=== PATIENT | female | born 1930 | race African-American/Black ===

== ENCOUNTER 2016-03-30 20:23 | Emergency (ER) | payer OTHER, MEDICARE ==
[2016-03-30 20:38] VITALS: TEMP 97.6; BMI 24.9
--- NOTE | 2016-03-30 21:06 | PDOC ---
History of Present Illness - General History Source: Patient, Family (Daughter ), Old Records Exam Limitations: No Limitations - History of Present Illness Initial Comments: 03/30/16 23:40 The patient is an 85 year old female, with a significant past medical history of HTN, hyperlipidemia, diabetes, pacemaker, CVA x2, right sided breast CA on oral chemotherapy (Tykerb 500 mg daily, Capecitabine 500 mg daily), chronic right upper extremity lymphedema, and dementia (baseline: AAO x 1), who presents to the emergency department via EMS with multiple episodes of diarrhea today. Patients daughter is with her in the ED. She reports that the patient had an outpatient CT scan done earlier today. Upon returning home, the patient experienced multiple episodes of diarrhea and appears to have syncopized this evening so patients daughter initiated EMS for evaluation in an ED. The patient s daughter denies fever, nausea or vomiting. Allergies: Pork/Porcine Containing Products Past Surgical History: Carotid endarterectomy; Pacemaker; Lumpectomy. Social History: Non smoker. Denies alcohol or drug use. PCP: Dr. Valencia <Elle Peacock - Last Filed: 03/30/16 23:43> - General History Source: Patient, Family, Old Records Exam Limitations: Dementia <Jean Pinon - Last Filed: 04/03/16 09:07> - General Chief Complaint: Diarrhea Stated Complaint: DIARRHEA/WEAK/CHILLS Time Seen by Provider: 03/30/16 20:28 Past History <Elle Peacock - Last Filed: 03/30/16 23:43> - Past Medical History Anemia: No Asthma: No Cancer: Yes (Rt breast (lumpectomy)) Cardiac Disorders: Yes CVA: Yes (x2 righted weakness) COPD: No CHF: No Dementia: No Diabetes: Yes GI Disorders: No Disorders: No HTN: Yes Hypercholesterolemia: Yes Liver Disease: No Seizures: No Thyroid Disease: No - Surgical History Abdominal Surgery: No Appendectomy: No Cardiac Surgery: Yes (carotid endarterectomy,ppm) Cholecystectomy: No Lung Surgery: No Neurologic Surgery: No Orthopedic Surgery: No - Psycho/Social/Smoking Cessation Hx Suicidal Ideation: No Smoking Status: No Smoking History: Never smoked Have you smoked in the past 12 months: No Number of Cigarettes Smoked Daily: 0 Hx Alcohol Use: No Drug/Substance Use Hx: No Substance Use Type: None Hx Substance Use Treatment: No <Jean Pinon - Last Filed: 04/03/16 09:07> - Past Medical History Allergies/Adverse Reactions: Allergies Allergy/AdvReac Type Severity Reaction Status Date / Time Pork/Porcine Containing Allergy Verified 08/12/15 09:46 Products Home Medications: Ambulatory Orders Labetalol HCl 300 mg PO BID #0 tablet 10/08/12 Capecitabine [Xeloda -] 500 mg PO BID 03/30/16 Lapatinib Ditosylate [Tykerb] 250 mg PO DAILY 03/30/16 Review of Systems - Review of Systems Able to Perform ROS?: Yes Comments:: 03/30/16 23:27 GENERAL/CONSTITUTIONAL: No fever or chills. No weakness. HEAD, EYES, EARS, NOSE AND THROAT: No change in vision. No ear pain or discharge. No sore throat. CARDIOVASCULAR: No chest pain or shortness of breath. RESPIRATORY: No cough, wheezing, or hemoptysis. GASTROINTESTINAL: +Diarrhea. No nausea, vomiting or constipation. GENITOURINARY: No dysuria, frequency, or change in urination. MUSCULOSKELETAL: No joint or muscle swelling or pain. No neck or back pain. SKIN: No rash. NEUROLOGIC: No headache, vertigo, loss of consciousness, or change in strength/ sensation. ENDOCRINE: No increased thirst. No abnormal weight change. HEMATOLOGIC/LYMPHATIC: No anemia, easy bleeding, or history of blood clots. ALLERGIC/IMMUNOLOGIC: No hives or skin allergy. <Elle Peacock - Last Filed: 03/30/16 23:43> *Physical Exam - Vital Signs Last Vital Signs Temp Pulse Resp BP Pulse Ox 97.6 F 81 19 129/60 03/30/16 20:35 03/30/16 20:35 03/30/16 20:35 03/30/16 20:35 - Physical Exam Comments: 03/30/16 23:12 GENERAL: Awake, alert, and fully oriented, in no acute distress. HEAD: No signs of trauma. EYES: PERRLA, EOMI, sclera anicteric, conjunctiva clear. ENT: Auricles normal inspection, hearing grossly normal, nares patent, oropharynx clear without exudates. Moist mucosa. NECK: Normal ROM, supple, no lymphadenopathy, JVD, or masses. LUNGS: Breath sounds equal, clear to auscultation bilaterally. No wheezes, and no crackles. HEART: Regular rate and rhythm, normal S1 and S2, no murmurs, rubs or gallops. ABDOMEN: Soft, nontender, normoactive bowel sounds. No guarding, no rebound. No masses. EXTREMITIES: Chronic right upper extremity lymphedema. Normal range of motion. No clubbing or cyanosis. No cords, erythema, or tenderness. NEUROLOGICAL: Cranial nerves II through XII intact. Normal speech, gait is deferred. SKIN: Right breast, chronic lesions from breast CA. Warm, dry, no rashes noted. <Elle Peacock - Last Filed: 03/30/16 23:43> - Vital Signs Last Vital Signs Temp Pulse Resp BP Pulse Ox 97.6 F 81 19 129/60 03/30/16 20:35 03/30/16 20:35 03/30/16 20:35 03/30/16 20:35 - Physical Exam Comments: 04/03/16 09:07 CORRECTION TO SCRIBE NOTE: AAOx1 (which is baseline for her for her dementia) <Jean Pinon - Last Filed: 04/03/16 09:07> ED Treatment Course - LABORATORY CBC & Chemistry Diagram: 03/30/16 23:25 03/30/16 23:25 <Elle Peacock - Last Filed: 03/30/16 23:43> - LABORATORY CBC & Chemistry Diagram: 03/31/16 00:41 03/30/16 23:25 - RADIOLOGY Radiology Studies Ordered: Category Date Time Status CHEST X-RAY PORTABLE* [RAD] Stat Radiology 03/30/16 20:58 Ordered <Jean Pinon - Last Filed: 04/03/16 09:07> Medical Decision Making - Medical Decision Making 03/30/16 23:29 EXAM: RAD/CHEST X-RAY PORTABLE Reviewed By: Dr. Fermin Morrell IMPRESSION: No acute disease. <Elle Peacock - Last Filed: 03/30/16 23:43> - Medical Decision Making 03/30/16 23:14 A portion of this note was documented by scribe services under my direction. I have reviewed the details of the note, within reason, and agree with the documentation with the following case summary and management plan written by me. Patient treated in the ED. Nursing notes are reviewed and incorporated into the medical decision-making. Vital signs reviewed. Peripheral IV access obtained by the nurse, laboratory studies are drawn and sent, reviewed and interpreted by myself. Vital Signs Temp Pulse Resp BP Pulse Ox 97.6 F 81 19 129/60 03/30/16 20:35 03/30/16 20:35 03/30/16 20:35 03/30/16 20:35 85-year-old female with history of pacemaker, hypertension, hyperlipidemia, right-sided breast cancer, chronic right upper extremity lymphedema, on oral chemotherapy presents to the emergency department for diarrhea. The patient had one for a outpatient routine CAT scan with IV contrast for staging. When she arrived at home, the patient started developed numerous stooling episodes and appeared to likely have syncopized from dehydration or from stooling. The patient has dementia and is typically AAO 1. At this moment, patient appears like herself. Patient denies any pain at this time. No known fevers, nausea, vomiting. It is very possible that the patient has developed acute gastroenteritis. She has no abdominal tenderness at this time. However, we'll need to obtain blood work. If the white cell counts are elevated, we'll consider CAT scan of the abdomen pelvis to rule out colitis. IV fluids and reassess. At this time, patient is nontoxic appearing. 03/31/16 01:02 CBC, BMP 03/31/16 00:41 03/30/16 23:25 CMP Sodium 142 mmol/L (136-145) 03/30/16 23:25 Potassium 3.8 mmol/L (3.5-5.1) 03/30/16 23:25 Chloride 106 mmol/L (98-107) 03/30/16 23:25 Carbon Dioxide 24 mmol/L (21-32) 03/30/16 23:25 Anion Gap 12 (8-16) 03/30/16 23:25 BUN 13 mg/dL (7-18) 03/30/16 23:25 Creatinine 0.8 mg/dL (0.55-1.02) 03/30/16 23:25 Creat Clearance w eGFR > 60 (>60) 03/30/16 23:25 Random Glucose 127 mg/dL (74-106) H D 03/30/16 23:25 Lactic Acid 1.541 mmol/L (0.4-2.0) 03/30/16 23:25 Calcium 8.5 mg/dL (8.5-10.1) 03/30/16 23:25 Phosphorus 2.7 mg/dL (2.5-4.9) 03/30/16 23:25 Magnesium 1.9 mg/dL (1.8-2.4) 03/30/16 23:25 Total Bilirubin 0.7 mg/dL (0.2-1.0) D 03/30/16 23:25 AST 21 U/L (15-37) 03/30/16 23:25 ALT 27 U/L (12-78) 03/30/16:25 Alkaline Phosphatase 83 U/L (45-117) 03/30/16:25 Creatine Kinase 123 IU/L (26-192) 03/30/16:25 Troponin I 0.04 ng/ml (0.00-0.05) 03/30/16: Total Protein 6.5 g/dl (6.4-8.2) 03/30/16 23:25 Albumin 3.2 g/dl (3.4-5.0) L 03/30/16:25 Chest x-ray reviewed. No acute findings. EKG demonstrates no WPW, QTc is 457 ms, no Brugada. Though the patient's EKG is different from several years ago, the patient herself has not endorsed any chest pain. Her troponin is negative. Her syncopal episode sounds secondary to weakness, diarrhea and likely dehydration and vasovagal. Since the patient is given IV fluids, the patient's symptoms have improved drastically. And the patient's daughter reports that she is like her usual self. I will give her a copy of the results to have her follow-up with her primary care physician. Return precautions given including worsening diarrhea and inability to tolerate by mouth. Patient's daughter verbalize understanding agrees with plan. After talking at length with the daughter, we decided against the urine sample. The patient has had moved her bowels into the urine sample in the commode. The patient typically does NOT get UTIs. The patient has not indicated that she had pain when urinating. Given the circumstances, the patient and patient's daughter , they would like to go home. At this time, I had given the patient and daughter strict return precautions ie fever, worsening pain. I discussed the physical exam findings, ancillary test results and final diagnoses with the patient. I answered all of the patient's questions. The patient was satisfied with the care received and felt comfortable with the discharge plan and treatment plan. The patient will call their primary care physician within 24 hours to arrange follow-up and will return to the Emergency Department with any new, persistant or worsening symptoms. <Jean Pinon - Last Filed: 04/03/16 09:07> *DC/Admit/Observation/Transfer - Attestations Scribe Attestion: 03/30/16 21:07 Documentation prepared by Elle Peacock, acting as medical professionals for Jena Pinon MD. <Elle Peacock - Last Filed: 03/30/16 23:43> - Discharge Dispostion Admit: No <Jean Pinon - Last Filed: 04/03/16 09:07> Diagnosis at time of Disposition: Diarrhea Qualifiers: Diarrhea type: unspecified type Qualified Code(s): R19.7 - Diarrhea, unspecified - Discharge Dispostion Disposition: HOME Condition at time of disposition: Good - Referrals Referrals: Jose Alberto Valencia [Primary Care Provider] - - Patient Instructions Printed Discharge Instructions: Diarrhea, Diarrhea (Alternative Therapy) Additional Instructions: Please drink plenty of fluids and rest. Take 650 mg tylenol every 4 hours as needed for pain. Take the imodium and zantac as prescribed as needed for symptoms relief. If you feint, have uncontrollable pain, or dehydrated, please return to the ER for further evaluation.
[2016-03-30] MEDS ORDERED: SODIUM CHLORIDE 500 ML IV STA ×2 (21:30→23:03)
[2016-03-30 23:56] LABS: ALBUMIN 3.2 g/dl (3.4-5.0); ANION GAP 12 (8-16); BILIRUBIN,TOTAL 0.7 mg/dL (0.2-1.0); CALCIUM 8.5 mg/dL (8.5-10.1); CO2 24 mmol/L (21-32); CREATININE 0.8 mg/dL (0.55-1.02); GLUCOSE,RANDOM 127 mg/dL (74-106); MAGNESIUM 1.9 mg/dL (1.8-2.4); PHOSPHOROUS 2.7 mg/dL (2.5-4.9); SGPT/ALT 27 U/L (12-78); TOT PROT 6.5 g/dl (6.4-8.2)
[2016-03-30 23:59] LABS: ALK PHOS 83 U/L (45-117); TROPONIN I 0.04 ng/ml (0.00-0.05)
[2016-03-31] LABS: SGOT/AST 21 U/L (15-37)
[2016-03-31 00:03] LABS: INR 1.04 (0.82-1.09); PROTHROMBIN TIME (PATIENT) 11.5 SEC (9.98-11.88)
[2016-03-31 00:06] LABS: ACTIVATED PTT 25.7 SECONDS (26.9-34.4)
[2016-03-31 00:07] VITALS: BP 149/61; PULSE 72
[2016-03-31 00:52] LABS: BASOPHIL 0.4 % (0-2.0); EOSINOPHIL 0.6 % (0-4.5); MCH 32.4 pg (25.7-33.7); MCHC 33.3 g/dl (32.0-36.0); MEAN CELL VOLUME 97.1 fl (80-96); MEAN PLT VOLUME 9.5 fl (7.5-11.1); NEUTROPHILS 77.4 % (42.8-82.8); PLATELET COUNT 166 K/MM3 (134-434); RDW 15.5 % (11.6-15.6)
[2016-03-31] MEDS ORDERED: LOPERAMIDE HCL 2 MG CAPSULE PO ONE (01:13)
[2016-03-31] MEDS ORDERED: LOPERAMIDE HCL 2 MG CAPSULE ONE (01:18)
--- NOTE | 2016-04-01 09:41 | EKG ---
Test Reason : Blood Pressure : / mmHG Vent. Rate : 077 BPM Atrial Rate : 077 BPM P-R Int : 174 ms QRS Dur : 094 ms QT Int : 404 ms P-R-T Axes : 078 004 171 degrees QTc Int : 457 ms POOR DATA QUALITY, INTERPRETATION MAY BE ADVERSELY AFFECTED NORMAL SINUS RHYTHM POSSIBLE LEFT ATRIAL ENLARGEMENT LEFT VENTRICULAR HYPERTROPHY WITH REPOLARIZATION ABNORMALITY ABNORMAL ECG WHEN COMPARED WITH ECG OF 07-OCT-2012 10:14, T WAVE INVERSION NOW EVIDENT IN INFERIOR LEADS T WAVE INVERSION NOW EVIDENT IN LATERAL LEADS Confirmed by LYNNE GABRIEL MD ([id number]) on 04/01/2016 9:41:13 AM Referred By: Confirmed By:LYNNE GABRIEL MD
== END 2016-03-31 01:39 | disposition home or self-care (01) ==
LOC: JER 20:23
PROC: 3E0337Z Introduction of Electrolytic and Water Balance Substance into Peripheral Vein, Percutaneous Approach (ICD-10-PCS; principal; 2016-03-30)
DX: R19.7 Diarrhea, unspecified (principal); I25.10 Atherosclerotic heart disease of native coronary artery without angina pectoris; I10 Essential (primary) hypertension; Z95.0 Presence of cardiac pacemaker; E11.9 Type 2 diabetes mellitus without complications; E78.00 Pure hypercholesterolemia, unspecified; C50.911 Malignant neoplasm of unspecified site of right female breast; I89.0 Lymphedema, not elsewhere classified; F03.90 Unspecified dementia, unspecified severity, without behavioral disturbance, psychotic disturbance, mood disturbance, and anxiety; I69.851 Hemiplegia and hemiparesis following other cerebrovascular disease affecting right dominant side
CPT/HCPCS: 36415; 71010-TC; 71270-TC; 74178-TC; 80053; 82550; 83605; 83735; 84100; 84484; 85025; 85610; 85730; 93005; 93010; 96360; 96361; 99283-25; C1887; Q9967

== ENCOUNTER 2016-06-05 14:09 | Emergency (ER) | payer OTHER, MEDICARE ==
[2016-06-05 14:55] VITALS: BP 157/66; PULSE 56; TEMP 98; BMI 25.0
--- NOTE | 2016-06-05 16:30 | PDOC ---
History of Present Illness - General Chief Complaint: Pain Stated Complaint: RT BREAST PAIN Time Seen by Provider: 06/05/16 16:21 History Source: Patient Exam Limitations: No Limitations - History of Present Illness Initial Comments: CHIEF COMPLAINT: 85 y/o afebrile female with PMH HTN, HLD, dementia, breast cancer BIB her daughter for increased right breast pain for the past 3 days. HISTORY OF PRESENT ILLNESS: The patient's daughter states she normally gives her mom tylenol for her pain but the past few days the pain has been so severe the tylenol is helping so she brought her in. Daughter denies f/c, n/v/d, SOB, and all other symptoms. Daughter does admit the patient has open wounds on her right breast that have been present and draining since 2014. Vital signs on arrival are notable for pulse of 56 REVIEW OF SYSTEMS: (Provided by daughter) GENERAL/CONSTITUTIONAL: No fever/chills. HEAD, EYES, EARS, NOSE AND THROAT: No ear pain or discharge. No sore throat. CARDIOVASCULAR: No chest pain or shortness of breath. RESPIRATORY: No cough, wheezing, or hemoptysis. GASTROINTESTINAL: No vomiting, diarrhea. GENITOURINARY: No decrease in urination. MUSCULOSKELETAL: +right breast pain SKIN: Open wounds to right breast NEUROLOGIC: No loss of consciousness. PHYSICAL EXAM: GENERAL: The patient is awake, alert, oriented to her name, in no acute distress. HEAD: Normal with no signs of trauma. EYES: Pupils equal, round and reactive to light, extraocular movements intact, sclera anicteric, conjunctiva clear. BREASTS: Right breast with multiple open wounds/sores that have minimal yellow discharge. Irritated erythematous skin under right breast. TTP across entire right breast. No troy d'orange. No nipple inversion. EXTREMITIES: Normal range of motion, no edema. NEUROLOGICAL: Normal speech, normal gait. SKIN: Warm, Dry, normal turgor, no rashes or lesions noted. Past History - Past Medical History Allergies/Adverse Reactions: Allergies Allergy/AdvReac Type Severity Reaction Status Date / Time Pork/Porcine Containing Allergy Verified 06/05/16 14:52 Products Home Medications: Ambulatory Orders Labetalol HCl 300 mg PO BID #0 tablet 10/08/12 Capecitabine [Xeloda -] 500 mg PO BID 03/30/16 Lapatinib Ditosylate [Tykerb] 250 mg PO DAILY 03/30/16 Anemia: No Asthma: No Cancer: Yes (Rt breast (lumpectomy)) Cardiac Disorders: Yes CVA: Yes (x2 righted weakness) COPD: No CHF: No Dementia: No Diabetes: Yes GI Disorders: No Disorders: No HTN: Yes Hypercholesterolemia: Yes Liver Disease: No Seizures: No Thyroid Disease: No - Surgical History Abdominal Surgery: No Appendectomy: No Cardiac Surgery: Yes (carotid endarterectomy,ppm) Cholecystectomy: No Lung Surgery: No Neurologic Surgery: No Orthopedic Surgery: No - Psycho/Social/Smoking Cessation Hx Suicidal Ideation: No Smoking Status: No Smoking History: Never smoked Have you smoked in the past 12 months: No Number of Cigarettes Smoked Daily: 0 Hx Alcohol Use: No Drug/Substance Use Hx: No Substance Use Type: None Hx Substance Use Treatment: No *Physical Exam - Vital Signs Last Vital Signs Temp Pulse Resp BP Pulse Ox 98 F 56 L 19 157/66 100 06/05/16 14:52 06/05/16 14:52 06/05/16 14:52 06/05/16 14:52 06/05/16 14:52 Medical Decision Making - Medical Decision Making A/P: 85 y/o female currently taking oral chemo for recurrent right breast cancer BIB her daughter for increased pain to right breast. Plan is as follows: 1. IM toradol 2. Xray chest to r/o mets CXR IMPRESSION: (wet read) No acute findings The patient's daughter states she thinks the patient's pain is improved because she hasn't been complaining and wants to go home. Suggested the patient take Motrin for pain with food, along with tylenol if needed. Suggested the patient' s daughter f/u with the patient's PCP and oncologist if the symptoms persist or worsen. Instructed her to return to the ER with any worsening or concerning symptoms. The patient's daughter verbalizes understanding of all instructions, has no further questions and is awaiting discharge. *DC/Admit/Observation/Transfer Diagnosis at time of Disposition: Breast pain, right - Discharge Dispostion Disposition: HOME Condition at time of disposition: Improved - Referrals Referrals: Jose Alberto Valencia [Primary Care Provider] - - Patient Instructions Printed Discharge Instructions: DI for Breast Pain (Mastalgia) Additional Instructions: Discharge Instructions: -Give 600mg of Motrin every 6 hours with food if needed for pain -Follow up with your doctor and Oncologist if symptoms persist -Return to the ER with any worsening or concerning symptoms.
[2016-06-05] MEDS ORDERED: KETOROLAC TROMETHAMINE 30 MG/1 ML VIAL IM ONE (16:37)
[2016-06-05] MEDS ORDERED: KETOROLAC TROMETHAMINE 30 MG/1 ML VIAL ONE (16:38)
== END 2016-06-05 17:53 | disposition home or self-care (01) ==
LOC: JERFT 14:09
PROC: 3E0233Z Introduction of Anti-inflammatory into Muscle, Percutaneous Approach (ICD-10-PCS; principal; 2016-06-05)
DX: I10 Essential (primary) hypertension (principal); E78.00 Pure hypercholesterolemia, unspecified; F03.90 Unspecified dementia, unspecified severity, without behavioral disturbance, psychotic disturbance, mood disturbance, and anxiety; Z85.3 Personal history of malignant neoplasm of breast; I69.851 Hemiplegia and hemiparesis following other cerebrovascular disease affecting right dominant side
CPT/HCPCS: 71020-TC; 96372; 99281-25

== ENCOUNTER 2016-08-11 09:11 | Inpatient (IN) | payer OTHER, MEDICARE ==
--- NOTE | 2016-08-11 09:32 | PDOC ---
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 As per daughter, she noticed the patient began to experience left sided weakness yesterday afternoon. She reports she has been monitoring the patient since her symptoms began. Daughter states the weakness prevented the patient from feeding herself. She reports the patients speech has been worsening. Daughter states the patient had been walking following her stroke. She denies any head trauma or LOC. Daughter denies patient has complained of any fever, chills, cough, headache, or dizziness. Patient is unable to answer any other questions appropriately due to current clinical condition. Allergies: NKDA. Pork/Porcine containing products. Past Surgical History: Carotid endarterectomy, Lumpectomy Social History: Non-smoker. Denies alcohol or drug use. PCP: Dr. Valencia <Zeyad Dixon - Last Filed: 08/11/16 12:26> <Dora Carias - Last Filed: 08/11/16 12:44> - General Stated Complaint: WEAKNESS Time Seen by Provider: 08/11/16 09:12 Past History <Zeyad Dixon - Last Filed: 08/11/16 12:26> - Past Medical History Anemia: No Asthma: No Cancer: Yes (Rt breast (lumpectomy)) Cardiac Disorders: Yes CVA: Yes (x2 righted weakness) COPD: No CHF: No Dementia: No Diabetes: Yes GI Disorders: No Disorders: No HTN: Yes Hypercholesterolemia: Yes Liver Disease: No Seizures: No Thyroid Disease: No - Surgical History Abdominal Surgery: No Appendectomy: No Cardiac Surgery: Yes (carotid endarterectomy,ppm) Cholecystectomy: No Lung Surgery: No Neurologic Surgery: No Orthopedic Surgery: No - Immunization History Immunization Up to Date: No - Psycho/Social/Smoking Cessation Hx Anxiety: No Suicidal Ideation: No Smoking Status: No Smoking History: Never smoked Have you smoked in the past 12 months: No Number of Cigarettes Smoked Daily: 0 Hx Alcohol Use: No Drug/Substance Use Hx: No Substance Use Type: None Hx Substance Use Treatment: No <Dora Carias - Last Filed: 08/11/16 12:44> - Past Medical History Allergies/Adverse Reactions: Allergies Allergy/AdvReac Type Severity Reaction Status Date / Time Pork/Porcine Containing Allergy Severe Hives Verified 08/11/16 09:36 Products Home Medications: Ambulatory Orders Labetalol HCl 300 mg PO BID #0 tablet 10/08/12 Capecitabine [Xeloda -] 500 mg PO BID 03/30/16 Lapatinib Ditosylate [Tykerb] 750 mg PO DAILY 03/30/16 Aspirin [Ecotrin] 81 mg PO DAILY 08/09/16 Cephalexin [Keflex] 500 mg PO BID 08/09/16 Rosuvastatin Calcium [Crestor] 40 mg PO DAILY 08/09/16 Review of Systems - Review of Systems Able to Perform ROS?: Yes Comments:: 08/11/16 09:40 GENERAL/CONSTITUTIONAL: Yes: +left sided weakness. No fever or chills. HEAD, EYES, EARS, NOSE AND THROAT: No change in vision. No ear pain or discharge. No sore throat. CARDIOVASCULAR: No chest pain or shortness of breath. RESPIRATORY: No cough, wheezing, or hemoptysis. GASTROINTESTINAL: No nausea, vomiting, diarrhea or constipation. GENITOURINARY: No dysuria, frequency, or change in urination. MUSCULOSKELETAL: No joint or muscle swelling or pain. No neck or back pain. SKIN: No rash NEUROLOGIC: Yes: +left sided weakness, +slurred speech. No headache, vertigo, or loss of consciousness. ENDOCRINE: No increased thirst. No abnormal weight change. HEMATOLOGIC/LYMPHATIC: No anemia, easy bleeding, or history of blood clots. ALLERGIC/IMMUNOLOGIC: No hives or skin allergy. <Zeyad Dixon - Last Filed: 08/11/16 12:26> *Physical Exam - Vital Signs Last Vital Signs Temp Pulse Resp BP Pulse Ox 97.7 F 69 20 158/53 99 08/11/16 09:33 08/11/16 09:33 08/11/16 09:33 08/11/16 09:33 08/11/16 09:33 - Physical Exam Comments: 08/11/16 09:40 GENERAL: Awake and alert. In no acute distress HEAD: No signs of trauma EYES: Unable to test visual esqueda. Sclera anicteric, conjunctiva clear ENT: Auricles normal inspection, hearing grossly normal, nares patent. Moist mucosa NECK: Normal ROM, supple, no lymphadenopathy, JVD, or masses LUNGS: Breath sounds equal, clear to auscultation bilaterally. No wheezes, and no crackles HEART: Regular rate and rhythm, normal S1 and S2, no murmurs, rubs or gallops ABDOMEN: Soft, nontender, normoactive bowel sounds. No guarding, no rebound. No masses EXTREMITIES: +Right upper extremity edema. Normal range of motion. No clubbing or cyanosis. No cords, erythema, or tenderness. DP/PT pulses 2+ and symmetric. NEUROLOGICAL: Answers questions inappropriately. Slurred speech and difficulty finding words. Strength ? to the right upper and lower extremities. Strength ? to the left arm and left leg. Unable to cooperate with cerebellar testing. Moves all extremities. Normal speech, normal gait SKIN: +Right breast excoriation. Otherwise warm, Dry, normal turgor, no rashes or lesions noted. <Zeyad Dixon - Last Filed: 08/11/16 12:26> NIH Stroke Scale - Last Known Well Date/Time & Onset Date Last Known Well: 08/10/16 - Initial Evaluation Level of consciousness: Alert Ask patient the month and their age: Answers one correctly Ask patient to open & close eyes; make fist and let go: Obeys one correctly Best gaze (horizontal eye movement): Normal Visual field testing: No visual field loss Facial paresis (Show teeth/raise eyebrows/close eyes tight): Normal symmetrical movement Motor Function: Left Arm: Some effort against gravity Motor Function: Right Arm: No effort against gravity Motor Function: Left Leg: Drift Motor Function: Right Leg: Some effort against gravity Limb Ataxia: Untestable (Joint fused or limb amputated), explain: (pt having difficulty following commands) Sensory(Use pinprick test arms,legs,trunk,face/side to side): Normal Best language (Describe picture, name items, read sentences): Mild to moderate aphasia Dysarthria (read several words): Mild to moderate slurring of words Extinction and Inattention: No abnormality - Total Score NIH Stroke Scale Score: 12 <Dora Carias - Last Filed: 08/11/16 12:44> tPA Exclusion checklist 3-4.5h - Time Elapsed Date last known well: 08/10/16 Time last known well: 13:00 Elaspsed time: Day(s) and 23 Hour(s) and 43 Minutes - Thrombolytic Therapy Candidate Is patient eligible for thrombolytic therapy: No - Exclusion Criteria 3-4.5 hr SBP greater than 185 or DBP greater than 110mmHg despite tx: No Recent IC/spinal surgery,head trauma or stroke<3mos.: No Hx IC hemorrhage, IC neoplasm, AV malformation or aneurysm: No Active internal bleeding: No Blding diathesis(low plt ct, inc PTT,INR>1.7 or use of NOAC): No Symptoms suggest subarachnoid hemorrhage: No CT demonstrates multilobar infarct(>1/3 cerebral hemiphere): No Arterial puncture at noncompressible site in previous 7 days: No Blood glucose concentration less than 50mg/dL (2.7mmol/L): No - Relative Exclusion Criteria 3-4.5 hr Life expectancy <1 yr or severe co-morbid illness: No : No Patient/family refused: No Rapid improvement: No Stroke severity too mild: No Recent acute IN (w/in previous 3 months): No Seizure at onset with postictal residual neuro impairments: No Major surgery or serious trauma w/in previous 14 days: No Recent GI or hemorrhage (w/in previous 21 days): No - Add'l Relative Exclusion 3-4.5 hr Age > 80: Yes Hx of both diabetes AND prior ischemic stroke: Yes Taking an oral anticoagulant regardless of INR: No - Ineligibility reason(s) Reasons No tPA given: Outside of window - delayed arrival <Dora Carias - Last Filed: 08/11/16 12:44> Heart Score/ECG Review #1 General ECG Interpretation: Normal Rate (66 paced), No acute ischemic changes Compared to previous ECG there are: No significant change - ECG Intrepretation Comment:: 08/11/16 10:06 paced - [place]: Left [place] Deviation <Dora Carias - Last Filed: 08/11/16 12:44> Critical Care Time/MDM Note - Medical Decision Making Note: 08/11/16 09:41 EXAM: Head CT INTERPRETED BY: Dr. Márquez REVIEWED BY: Dr. Carias IMPRESSION: No CT evidence of acute intracranial pathology. Chronic ischemic findings as discussed above without obvious interval change in comparison to a previous CT study of 08/10/2015. EXAM: CXR INTERPRETED BY: Dr. Kelly REVIEWED BY: Dr. Carias IMPRESSION: No acute change since prior study other than motion artifact. First call placed to Dr. Subramanian at 12:20. Awaiting call back. First call placed to Dr. Larios at 12:26. Awaiting call back. Documentation prepared by Zeyad Dixon, acting as medical lab director for Dora Carias MD. <Zeyad Dixon - Last Filed: 08/11/16 12:26> - Medical Decision Making Note: 08/11/16 09:27 85yo F with h;/o HTN prior CVA ( expressive aphasia and right sided weakness) HLD DM and recurrent right breast ca here with worsening speech, and now left sided weakness since yesterday noted pt was leaning to the left, also speech is worse than normal. per pt daughter at bedside who provides history , pt had been walking following her stroke. no f/c no other complaints. on exam pt awake alert smiling. unable to answer questions appropriately, cardiac lung exams normal , abd soft NT ext wwp. RUE edema. nuero speech slurred, cant answer questions appropriately, right upper ext 3/5, left upper 4/ 5, left leg 3/5. differential: cva, met breast ca to brain, ich, infection. plan labs ekg cthead cxr will require admission. pt not tpa candidate as sxs already 24 hour old. 08/11/16 12:15 pt with chronic ischemic changes, no acute stroke, ekg unchanged. labs unremarkable. will admit for pt assessment, speech/ swallow eval, CVA . dr chavez consulted nuerology <Dora Carias - Last Filed: 08/11/16 12:44> Discharge Disposition <Zeyad Dixon - Last Filed: 08/11/16 12:26> - Discharge Dispostion Admit: Yes <Dora Carias - Last Filed: 08/11/16 12:44> - Diagnosis Cerebrovascular accident (CVA)
[2016-08-11 09:40] VITALS: BMI 26.4
[2016-08-11 10:37] LABS: BASOPHIL 0.9 % (0-2.0); EOSINOPHIL 1.2 % (0-4.5); MCH 31.5 pg (25.7-33.7); MCHC 32.9 g/dl (32.0-36.0); MEAN CELL VOLUME 95.8 fl (80-96); MEAN PLT VOLUME 9.9 fl (7.5-11.1); NEUTROPHILS 63.8 % (42.8-82.8); PLATELET COUNT 164 K/MM3 (134-434); RDW 14.3 % (11.6-15.6)
[2016-08-11 11:01] LABS: INR 1.03 (0.82-1.09); PROTHROMBIN TIME (PATIENT) 11.3 SEC (9.98-11.88)
[2016-08-11 11:04] LABS: ACTIVATED PTT 26.5 SECONDS (26.9-34.4)
[2016-08-11 11:10] LABS: ALBUMIN 3.3 g/dl (3.4-5.0); ANION GAP 6 (8-16); CO2 27 mmol/L (21-32); COCKROFT - GAULT 64.4725; CREATININE 0.8 mg/dL (0.55-1.02); GLUCOSE,RANDOM 87 mg/dL (74-106); SGOT/AST 15 U/L (15-37); SGPT/ALT 13 U/L (12-78)
[2016-08-11 11:11] LABS: ALK PHOS 68 U/L (45-117); BILIRUBIN,TOTAL 1.3 mg/dL (0.2-1.0); TOT PROT 6.4 g/dl (6.4-8.2)
[2016-08-11 11:18] LABS: URINE APPEARANCE CLEAR; URINE BILIRUBIN NEGATIVE (NEGATIVE); URINE BLOOD NEGATIVE (NEGATIVE); URINE COLOR COLORLESS; URINE GLUCOSE (UA) NEGATIVE (NEGATIVE); URINE KETONE NEGATIVE (NEGATIVE); URINE LEUK ESTERASE NEGATIVE (NEGATIVE); URINE NITRITE NEGATIVE (NEGATIVE); URINE PROTEIN NEGATIVE (NEGATIVE); URINE UROBILINOGEN NEGATIVE E.U./dl (0.2-1.0)
--- NOTE | 2016-08-11 13:54 | HP ---
Admitting History and Physical - Admission Chief Complaint: Left Sided weakness History of Present Illness: Patient is a 85 yrs old F lives at home with daughter, multiple medical, Co- morbidities h/O HTN, CVA , Rt Carotid stenosis s/p endaartrectomy, minimal residual weakness on Rt side able to ambulate unsupported till Saturday, also H/O Romeo arrhythmia s/p Pacemaker interrogated in 06/2016, Border line T2DM, Hypercholesterolemia, Recurrent Rt fungating CA Breast on Chemotherapy, Rt UE Lymph luc a after Rt axillary LN resection, patient is unable to provide much information, as per daughter patient was able to ambulate comfortable, on Saturday noticed Rt worsening of Rt LE weakness and had a fall came to Ed for evaluation, patient was discharged home, yesterday evening daughter noticed that patient is confused and having Left UE with slurring of the speech and today morning, patient couldn't get up so called 911 came to Ed for evaluation, on arrival hemodynamically stable, confused, able to communicate, Left upper and LE weakness CT haed shows no acute changes, Neurology consulted, patient is being admitted for further w/u. Patient had MRI so cant get MRI will Rpt CT haed after 24 hrs. No C/O chest pain, SOB, Palpitation, nausea, vomiting , fever , cough or urinary incontinence. 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 Cardiovascular: Yes: HTN, Hyperlipdemia Heme/Onc: Yes: Cancer (Rt CA breast) Endocrine: Yes: Diabetes Mellitus - Past Surgical History Past Surgical History: Yes: Carotid Endarterectomy (Rt sided) - Advance Directives Advance Directives: Yes: Health Care Proxy (Daughter) - Smoking History Smoking history: Never smoked Have you smoked in the past 12 months: No Aproximately how many cigarettes per day: 0 - Alcohol/Substance Use Hx Alcohol Use: No - Social History Usual Living Arrangement: Yes: With Child ADL: Independent History of Recent Travel: No Home Medications - Allergies Allergies/Adverse Reactions: Allergies Allergy/AdvReac Type Severity Reaction Status Date / Time Pork/Porcine Containing Allergy Severe Hives Verified 08/11/16 09:36 Products - Home Medications Home Medications: Ambulatory Orders Labetalol HCl 300 mg PO BID #0 tablet 10/08/12 Capecitabine [Xeloda -] 500 mg PO BID 03/30/16 Lapatinib Ditosylate [Tykerb] 750 mg PO DAILY 03/30/16 Aspirin [Ecotrin] 81 mg PO DAILY 08/09/16 Cephalexin [Keflex] 500 mg PO BID 08/09/16 Rosuvastatin Calcium [Crestor] 40 mg PO DAILY 08/09/16 Family Disease History - Family Disease History Family Disease History: Diabetes: Mother, Heart Disease: Father Review of Systems - Review of Systems Constitutional: denies: Chills, Diaphoresis, Fever Eyes: reports: Blurred Vision, Double Vision HENT: reports: Difficult Swallowing, Ear Discharge Neck: denies: Stiffness Cardiovascular: reports: Edema. denies: Chest Pain, Palpitations, Shortness of Breath Respiratory: denies: Cough, Orthopnea Musculoskeletal: denies: Back Pain Neurological: reports: Change in LOC, Change in Speech, Confusion, Weakness ( Left sided) Physical Examination Vital Signs: Vital Signs Temperature 97.7 F 08/11/16 09:33 Pulse Rate 75 08/11/16 11:51 Respiratory Rate 20 08/11/16 11:51 Blood Pressure 151/96 08/11/16 11:51 O2 Sat by Pulse Oximetry (%) 99 08/11/16 11:51 P Exam; Elderly F not in distress, confused, alert HEENT: No facial asymmetry, Mm moist, mild anemia, No Nystagmus CHEST: Large fungating lesion on the Rt Brsat, no acute infection, ., CTA B/L CVS; S1S@ R no m/g/r ABD: Obese , no distention, non tender BS + EXT: Rt UE edema ++, Trace edema feet, no calf tenderness, Pulses + PROFESSOR OF LEGAL STUDIES: Patient is alert but confused, following commands Speech; Slurred Cranial N 2-12 are normal Sensory; Intact Motor: Rt UE 4 , Rt LE 4 Left UE 3, Left LE 3 Reflexes; Indermind Cerebellar; Cant tested. Imaging - Results Chest X-ray: Report Reviewed (Left Sided Pacemaker no interval changes) Cat Scan: Pending, Report Reviewed (Head; No acute Intra cranila chnages) EKG: Report Reviewed (HR 66 intermittent Paced Rhythm, QRS 172 QTC 467 axis - 17) Problem List - Problems (1) CVA (cerebral vascular accident) Assessment/Plan: Patient has multiple risk factors for atherosclerosis H/O Rt sided Hemiparesis that improved over the time, now present with new onset Left sided weakens and slurred speech since yesterday, out of TPA window, Ct HHead no acute changes, Neurology Consuted from the ED. -Neuro Check -NPO except Meds -Speech and swallow and PT evaluation. -Patient is on ASA 81 and Crestor 40 mg Daily -Permissive HTN target BP Systolic > 160 mm of Hg -Decrease dose of Labertalol to 50 mg BID. -F/U HbA1C, Lipid Panel, TSH, B12 Code(s): I63.9 - CEREBRAL INFARCTION, UNSPECIFIED Qualifiers: Precerebral and cerebral artery: middle cerebral artery Laterality of affected vessel: left (2) Hypertension Assessment/Plan: h/O HTN at present well controlled will decrease dose of Labetalol 50 mg for permissive HTN Targeyt 160/90 mm of HG. Code(s): I10 - ESSENTIAL (PRIMARY) HYPERTENSION (3) Cancer of breast Assessment/Plan: Patient has recurrent CA Breast Rt Breast, since Jan 2015 on Chemotherapy, Patient has large fungating mass with Rt Bresat, initially diagnosed CA Bresat in 2012 treated at [facility] with Lumpectomy and [address] removal followed by RT and Chemotherapy, patient has Rt UE Luymph edema since intial surgery , recently pult on Cephalexin for : Cellulites will cont same. F/ U Rt UE Doppler to R/O DVT Code(s): C50.919 - MALIGNANT NEOPLASM OF UNSP SITE OF UNSPECIFIED FEMALE BREAST Qualifiers: Laterality: right (4) Lymph edema Assessment/Plan: Rt upper extremity Lymph edema s/p Rt Ingumal LN resection F/O Rt UE DVT scan. Code(s): I89.0 - LYMPHEDEMA, NOT ELSEWHERE CLASSIFIED (5) Hypercholesteremia Assessment/Plan: Cont Crestor 40 mg daily F/U Lipid Panel, TSH Code(s): E78.00 - PURE HYPERCHOLESTEROLEMIA, UNSPECIFIED (6) T2DM (type 2 diabetes mellitus) Assessment/Plan: Diet controlled F/U accucheck and correction dose insulin. Code(s): E11.9 - TYPE 2 DIABETES MELLITUS WITHOUT COMPLICATIONS
--- NOTE | 2016-08-11 15:24 | EKG ---
Test Reason : Blood Pressure : / mmHG Vent. Rate : 066 BPM Atrial Rate : 066 BPM P-R Int : 172 ms QRS Dur : 086 ms QT Int : 446 ms P-R-T Axes : 043 -14 105 degrees QTc Int : 467 ms SINUS RHYTHM WITH INTERMITENT VENTRICULAR PACING ABNORMAL ECG WHEN COMPARED WITH ECG OF 09-AUG-2016 08:41, ELECTRONIC VENTRICULAR PACEMAKER HAS REPLACED SINUS RHYTHM CLINICAL CORRELATION IS RECOMMENDED Confirmed by RAFAEL SHEPHERD, NISSA ([id number]) on 08/11/2016 3:23:52 PM Referred By: Confirmed By:NISSA HALL MD
[2016-08-11] MEDS: INSULIN SLIDING SCALE (NOVOLOG) 1 VIAL SQ SCH (19:49)
[2016-08-11] MEDS ORDERED: LABETALOL HCL 100 MG TABLET (FP) ONE (21:02)
[2016-08-11] MEDS ORDERED: LABETALOL HCL 200 MG TABLET (FP) ONE (21:02)
[2016-08-11] MEDS ORDERED: PT OWN MED DRAWER 7, Y5N ONE (21:03)
[2016-08-11] MEDS: LABETALOL HCL 200 MG, LABETALOL HCL 100 MG PO SCH ×2 (21:31→21:52)
[2016-08-11] MEDS: CEPHALEXIN MONOHYDRATE 500 MG CAPSULE (UD) PO SCH ×2 (21:31→21:52)
[2016-08-11] MEDS: CAPECITABINE 500 MG PO SCH (22:00)
[2016-08-11] MEDS ORDERED: CAPECITABINE 500 MG TABLET PO SCH (22:00)
[2016-08-11] MEDS ORDERED: PATIENT'S OWN MEDICATION (NON-FORMULARY) (Labetalol Hcl [Labetalol Hcl] 300 MG) PO SCH (22:00)
[2016-08-11] MEDS ORDERED: METOPROLOL TARTRATE 5 MG/5 ML VIAL IVPUSH ONE (22:07)
[2016-08-12] MEDS: INSULIN SLIDING SCALE (NOVOLOG) 1 VIAL SQ SCH ×4 (06:02→22:25)
[2016-08-12 07:27] LABS: BASOPHIL 0.4 % (0-2.0); EOSINOPHIL 0.4 % (0-4.5); MCH 31.7 pg (25.7-33.7); MCHC 33.5 g/dl (32.0-36.0); MEAN CELL VOLUME 94.9 fl (80-96); MEAN PLT VOLUME 10.6 fl (7.5-11.1); NEUTROPHILS 74.2 % (42.8-82.8); PLATELET COUNT 175 K/MM3 (134-434); RDW 14.1 % (11.6-15.6)
[2016-08-12 08:17] LABS: ALBUMIN 3.5 g/dl (3.4-5.0); ANION GAP 10 (8-16); BILIRUBIN,TOTAL 1.1 mg/dL (0.2-1.0); CALCIUM 9.4 mg/dL (8.5-10.1); CO2 27 mmol/L (21-32); COCKROFT - GAULT 73.6865; CREATININE 0.7 mg/dL (0.55-1.02); GLUCOSE,RANDOM 141 mg/dL (74-106); SGOT/AST 17 U/L (15-37); SGPT/ALT 12 U/L (12-78); TOT PROT 6.8 g/dl (6.4-8.2)
[2016-08-12 08:18] LABS: ALK PHOS 76 U/L (45-117)
[2016-08-12 08:29] LABS: THYROID STIMULATING HORMONE 0.62 uIU/ml (0.358-3.74)
[2016-08-12] MEDS ORDERED: LABETALOL HCL 100 MG TABLET (FP) ONE (09:24)
[2016-08-12] MEDS ORDERED: LABETALOL HCL 200 MG TABLET (FP) ONE (09:24)
[2016-08-12] MEDS ORDERED: PT OWN MED DRAWER 7, Y5N ONE ×5 (09:26→22:00)
[2016-08-12] MEDS: CEPHALEXIN MONOHYDRATE 500 MG CAPSULE (UD) PO SCH ×2 (09:30→22:04)
[2016-08-12] MEDS: LABETALOL HCL 200 MG, LABETALOL HCL 100 MG PO SCH (09:30)
[2016-08-12] MEDS ORDERED: ENOXAPARIN NA (PORCINE) 40 MG/0.4 ML DISP.SYRIN SQ SCH (10:00)
[2016-08-12] MEDS ORDERED: ROSUVASTATIN CA 40 MG TABLET PO SCH (10:00)
[2016-08-12] MEDS ORDERED: ASPIRIN COATED 81 MG TABLET.EC PO SCH (10:00)
--- NOTE | 2016-08-12 11:12 | CON.NEURO ---
Consult Consult Specialty:: neurolohy - History of Present Illness Chief Complaint: L side weakness History of Present Illness: Patient is a 85 yrs old F lives at home with daughter, multiple medical, Co- morbidities h/O HTN, CVA , Rt Carotid stenosis s/p endaartrectomy, minimal residual weakness on Rt side able to ambulate unsupported till Saturday, also H/O Romeo arrhythmia s/p Pacemaker interrogated in 06/2016, Border line T2DM, Hypercholesterolemia, Recurrent Rt fungating CA Breast on Chemotherapy, Rt UE Lymph luc a after Rt axillary LN resection, patient is unable to provide much information, as per daughter patient was able to ambulate comfortable, on Saturday noticed Rt worsening of Rt LE weakness and had a fall on , came to Ed for evaluation, patient was discharged home, on Saturday evening daughter noticed that patient is confused and having Left UE with slurring of the speech and today morning, patient couldn't get up so called 911 came to Ed for evaluation, on arrival hemodynamically stable, confused, able to communicate , Left upper and LE weakness CT head shows no acute changes; her mental status is more altered this am, aspirated on her breakfast so is NPO now; does not open her eyes to call ; SNR on the monitor. 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 Cardio/Vascular: Yes: HTN, Hyperlipdemia Endocrine: Yes: Diabetes Mellitus - Past Surgical History Past Surgical History: Yes: Carotid Endarterectomy (Rt sided) - Alcohol/Substance Use Hx Alcohol Use: No - Smoking History Smoking history: Never smoked Have you smoked in the past 12 months: No Aproximately how many cigarettes per day: 0 - Social History ADL: Independent History of Recent Travel: No Home Medications - Allergies Allergies/Adverse Reactions: Allergies Allergy/AdvReac Type Severity Reaction Status Date / Time Pork/Porcine Containing Allergy Severe Hives Verified 08/11/16 09:36 Products - Home Medications Home Medications: Ambulatory Orders Labetalol HCl 300 mg PO BID #0 tablet 10/08/12 Capecitabine [Xeloda -] 500 mg PO BID 03/30/16 Lapatinib Ditosylate [Tykerb] 750 mg PO DAILY 03/30/16 Aspirin [Ecotrin] 81 mg PO DAILY 08/09/16 Cephalexin [Keflex] 500 mg PO BID 08/09/16 Rosuvastatin Calcium [Crestor] 40 mg PO DAILY 08/09/16 Family Disease History - Family Disease History Family Disease History: Diabetes: Mother, Heart Disease: Father Review of Systems Unable to obtain ROS, reason: AMS Physical Exam-Neuro Vital Signs: Vital Signs Temperature 98.0 F 08/12/16 05:43 Pulse Rate 72 08/12/16 05:43 Respiratory Rate 16 08/12/16 05:43 Blood Pressure 166/92 08/12/16 05:43 O2 Sat by Pulse Oximetry (%) 95 08/11/16 21:00 Constitutional: Yes: No Distress, Other (Not responding to call ) Neck: Yes: WNL, Supple Cardiovascular: Yes: Regular Rate and Rhythm Respiratory: Yes: WNL Musculoskeletal: Yes: WNL Edema: No Labs: CBC, BMP 08/12/16 07:15 08/12/16 07:15 INR, PTT INR 1.03 (0.82-1.09) 08/11/16 09:36 - Neuro Exam Level Of Consciousness: Yes: Obtunded (Does not respond to call; moves her R UE to painful stimuli ) Eyes: Yes: PERRL Speech: Slurred Cranial Nerves II-XII Intact: No (L facial droop) DTR's: 1+ Left Bicep, 1+ Right Bicep, 1+ Left Tricep, 1+ Right Tricep, 1+ Left Brachioradialis, 1+ Right Brachioradialis Babinski: Present (R upgoing toe; L side mute) Motor Strength: 1/5: Left Arm (Moves R UE to pain ; less movement on L U and Lexts ) NIH Stroke Scale - Total Score NIH Stroke Scale Score: 0 Imaging - Results Cat Scan: Report Reviewed, Image Reviewed (No bleed, multiple b/l old ; old BG small infarct, old ischemic gliosis , gen subcortical atrophy.) Problem List - Problems (1) CVA (cerebral vascular accident) Code(s): I63.9 - CEREBRAL INFARCTION, UNSPECIFIED Qualifiers: Precerebral and cerebral artery: middle cerebral artery Laterality of affected vessel: left (2) Cancer of breast Code(s): C50.919 - MALIGNANT NEOPLASM OF UNSP SITE OF UNSPECIFIED FEMALE BREAST Qualifiers: Laterality: right (3) T2DM (type 2 diabetes mellitus) Code(s): E11.9 - TYPE 2 DIABETES MELLITUS WITHOUT COMPLICATIONS (4) Malignant neoplasm of right breast Code(s): C50.911 - MALIGNANT NEOPLASM OF UNSP SITE OF RIGHT FEMALE BREAST Assessment/Plan 85 y/o AAF , w h/o old stroke w residula mild R HP , h/o breast cancer on chemo ; s/p PPM p/w new L HP , slurred speech and , L face droop , POSSIBLE new onset R MCA infarct due to cardioembolic event; no a tPA candidate out of window for TPA administration ; CTH wo no acute events ; pt aspirated on her breakfast this am ; now NPO ; lethargic on exam and less responsive ; no arythmia or bradycardia on telemetry. -NPO -SE -Asp 300 sup for now ; if swallowing improved or NGT could start baby asp + plavix for 3 months and asp 325 mg thereafter [ CHANCE study] -Hold off BP meds ; permissive hypertensive ; keep SBP 140-180 -statin -PT/OT/ST - Low threshold for intubation if could not protect her airway - Neuro check q2 hr -Repeat CTH in 24 hours -ECHO -cardiac w/u -Carotid u/s -Aspiration precautions Health maintenance per primary team Thank you. E [phone]
--- NOTE | 2016-08-12 14:00 | PN ---
Physical Exam: SUBJECTIVE: Patient seen and examined at bedside. Daughter at bedside. Lethargic. Denies pain. Report this morning patient choked on food. OBJECTIVE: Vital Signs Period Temp Pulse Resp BP Sys/Arrieta Pulse Ox Last 24 Hr 97.8 F-98.8 F 70-88 14-18 125-180/68-107 95-99 GENERAL/NEURO: The patient lethargic. States first name only. Confused, not following commands. Asked to squeeze my hands, replied "yes dear." HEAD: Normal with no signs of trauma. EYES: PERRL, extraocular movements unable to assess, sclera anicteric, conjunctiva clear. LUNGS: Poor inspiratory effort. No wheezes, no crackles, no accessory muscle use. HEART: Regular rate and rhythm, S1, S2 without murmur, rub or gallop. ABDOMEN: Soft, nontender, nondistended, normoactive bowel sounds, no guarding, no rebound, no hepatosplenomegaly, no masses. EXTREMITIES: 2+ pulses, warm, well-perfused, no edema. Laboratory Results - last 24 hr 08/12/16 08/12/16 08/12/16 05:17 07:15 07:15 WBC 5.0 RBC 4.35 Hgb 13.8 Hct 41.2 MCV 94.9 MCHC 33.5 RDW 14.1 Plt Count 175 MPV 10.6 Neutrophils % 74.2 Lymphocytes % 19.8 D Monocytes % 5.2 Eosinophils % 0.4 Basophils % 0.4 Sodium 137 Potassium 3.9 Chloride 100 Carbon Dioxide 27 Anion Gap 10 BUN 11 D Creatinine 0.7 Creat Clearance w eGFR > 60 POC Glucometer 127 Random Glucose 141 H D Hemoglobin A1c % Calcium 9.4 Total Bilirubin 1.1 H AST 17 ALT 12 Alkaline Phosphatase 76 Total Protein 6.8 Albumin 3.5 Triglycerides Cholesterol Total LDL Cholesterol HDL Cholesterol TSH 08/12/16 08/12/16 08/12/16 07:15 07:15 11:37 WBC RBC Hgb Hct MCV MCHC RDW Plt Count MPV Neutrophils % Lymphocytes % Monocytes % Eosinophils % Basophils % Sodium Potassium Chloride Carbon Dioxide Anion Gap BUN Creatinine Creat Clearance w eGFR POC Glucometer 183 Random Glucose Hemoglobin A1c % 5.9 D Calcium Total Bilirubin AST ALT Alkaline Phosphatase Total Protein Albumin Triglycerides 77 Cholesterol 310 H Total LDL Cholesterol 202 H HDL Cholesterol 92 H D TSH 0.62 Current Medications Generic Name Dose Route Start Last Admin Trade Name Tova PRN Reason Stop Dose Admin Aspirin 81 mg 08/12/16 10:00 08/12/16 09:30 Ecotrin - PO 81 mg DAILY JAMEY Administration Capecitabine 500 mg 08/11/16 22:00 08/12/16 15:19 Xeloda - PO Not Given BID JAMEY Cephalexin HCl 500 mg 08/11/16 22:00 08/12/16 09:30 Keflex - PO 500 mg BID JAMEY Administration Insulin Aspart 1 vial 08/11/16 16:30 08/12/16 16:19 Novolog Vial Sliding Scale - SQ Not Given TIDAC [facility] Protocol Labetalol HCl 200 mg/ 300 mg 08/11/16 22:00 08/12/16 09:30 Labetalol HCl 100 mg PO 300 mg BID JAMEY Administration Mupirocin 1 applic 08/12/16 13:45 08/12/16 15:18 Bactroban 2% Ointment - TP Not Given BID [facility] Non-Formulary Medication 750 mg 08/12/16 10:00 Lapatinib Ditosylate [Tykerb] PO DAILY JAMEY Rosuvastatin Calcium 40 mg 08/12/16 10:00 08/12/16 09:30 Crestor - PO 40 mg DAILY JAMEY Administration Imaging 01/09/16 Echo: LV function severely reduced, severe global hypokinesis; PPM/ICK in RV; mild MR; 07/13/16 MUGA scan: normal wall motion, EF 80% 08/09/16 CT c-spine: no evidence of acute fracture, compression deformities, subluxation ASSESSMENT/PLAN 85 year-old woman with multiple medical co-morbidities significant for HTN, HLD , CVA, right carotid artery stenosis s/p endarterectomy, severe systolic heart failure s/p PPM, NIDDM, 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 Admitted for acute CVA. Acute CVA --08/12 CT head shows 0.7cm infarct within the right frontoparietal coronal radiata, acute --continue ASA, statin --repeat CT head in am --Echo pending --US carotids pending --EKG ordered --telemetry monitoring --neurology following Aspiration event --CXR pending --NPO pending swallow evaluation Chronic severe systolic heart failure s/p PPM --recently started on lasix at home --start lasix IV 40mg daily --CXR pending --cardiology consult Hypertension --permissive HTN 140>180 --presently in range --hold home labetolol Right side breast cancer, fungating lesions --continue capecitabine --takes lapatinib which is non-formulary, daughter will need to bring in patient's supply --mupirocin to open lesions BID Hyperlipidemia --continue Crestor Right carotid artery stenosis --continue ASA, statin NIDDM --Novolog sliding scale coverage DVT prophylaxis: fondiparinux 2.5mg subq (allergic to pork products) approved by Dr. Nieto; SCDs PT evaluation Daily PT Dispo: continues to require inpatient evaluation. Visit type - Emergency Visit Emergency Visit: Yes ED Registration Date: 08/11/16 Care time: The patient presented to the Emergency Department on the above date and was hospitalized for further evaluation of their emergent condition. - New Patient This patient is new to me today: Yes Date on this admission: 08/12/16 - Critical Care Critical Care patient: No
[2016-08-12] MEDS: MUPIROCIN 2% TOPICAL OINTMENT 22 GM TUBE TP SCH ×2 (15:18→22:08)
[2016-08-12] MEDS: CAPECITABINE 500 MG PO SCH ×2 (15:19→22:04)
[2016-08-12] MEDS ORDERED: FONDAPARINUX SODIUM 2.5 MG/0.5 ML DISP.SYRIN SQ ONE (17:15)
[2016-08-12] MEDS ORDERED: FONDAPARINUX SODIUM 5 MG/0.4 ML DISP.SYRIN SQ ONE (17:15)
[2016-08-12] MEDS: FUROSEMIDE 40 MG/4 ML INJECTABLE VIAL IVPUSH SCH (17:53)
[2016-08-13] MEDS: INSULIN SLIDING SCALE (NOVOLOG) 1 VIAL SQ SCH ×4 (06:01→21:34)
[2016-08-13 07:25] LABS: BASOPHIL 0.2 % (0-2.0); EOSINOPHIL 0.1 % (0-4.5); MCH 31.8 pg (25.7-33.7); MCHC 33.4 g/dl (32.0-36.0); MEAN CELL VOLUME 95.2 fl (80-96); MEAN PLT VOLUME 10.6 fl (7.5-11.1); NEUTROPHILS 75.4 % (42.8-82.8); PLATELET COUNT 177 K/MM3 (134-434); RDW 14.3 % (11.6-15.6); WHITE BLOOD COUNT 8.1 K/mm3 (4.0-10.0)
[2016-08-13 07:36] LABS: ALBUMIN 3.3 g/dl (3.4-5.0); BILIRUBIN,TOTAL 1.6 mg/dL (0.2-1.0); CALCIUM 9.7 mg/dL (8.5-10.1); COCKROFT - GAULT 32.232; CREATININE 1.6 mg/dL (0.55-1.02); MAGNESIUM 1.9 mg/dL (1.8-2.4); TOT PROT 6.4 g/dl (6.4-8.2)
[2016-08-13] MEDS: FONDAPARINUX SODIUM 2.5 MG/0.5 ML DISP.SYRIN SQ SCH (09:54)
[2016-08-13] MEDS: CEPHALEXIN MONOHYDRATE 500 MG CAPSULE (UD) PO SCH ×2 (09:55→21:33)
[2016-08-13] MEDS: ROSUVASTATIN CA 20 MG TABLET (FP) PO SCH (09:55)
[2016-08-13] MEDS: LAPATINIB DITOSYLATE PO SCH (09:55)
[2016-08-13] MEDS: POLYETHYLENE GLYCOL 3350 119 GM BTL PO SCH ×2 (09:55→21:33)
[2016-08-13] MEDS: CAPECITABINE 500 MG PO SCH ×2 (09:56→21:35)
[2016-08-13] MEDS: FUROSEMIDE 40 MG/4 ML INJECTABLE VIAL IVPUSH SCH (10:00)
[2016-08-13] MEDS ORDERED: TYKERB PO SCH (10:00)
[2016-08-13] MEDS: ASPIRIN 300 MG SUPP.RECT PR SCH (10:00)
[2016-08-13] MEDS: SODIUM CHLORIDE 1,000 ML IV SCH (10:10)
--- NOTE | 2016-08-13 10:19 | CON.CARD ---
Consult Consult Specialty:: Cardiology Referred by:: Hospitalist Medicine Reason for Consultation:: Stroke - History of Present Illness Chief Complaint: Left sided weakness History of Present Illness: Patient is a 85 yrs old F lives at home with daughter, multiple medical, Co- morbidities h/O HTN, CVA , Rt Carotid stenosis s/p endaartrectomy, minimal residual weakness on Rt side able to ambulate unsupported till last Saturday, also h/o bradyarrhythmia s/p Pacemaker interrogated in 06/2016, Border line T2DM , Hypercholesterolemia, Recurrent Rt fungating CA Breast on Chemotherapy, Rt UE Lymph luc a after Rt axillary LN resection, patient is unable to provide much information. Per daughter patient was able to ambulate comfortable, last Saturday noticed worsening of Rt LE weakness and had a fall prompting ED evaluation, patient was discharged home, Sat evening daughter noticed that patient is confused and having Left UE with slurring of the speech and Saturday morning, patient had altered mental status and again referred to ED for evaluation. Pt confused with Left upper and LE weakness. Repeat HCT shows acute small frontoparietal subcortical stroke. Sees clinical rehabilitation aide at [facility] Dr. Trujillo. 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: CVA Cardio/Vascular: Yes: HTN, Hyperlipdemia Endocrine: Yes: Diabetes Mellitus - Past Surgical History Past Surgical History: Yes: Carotid Endarterectomy (Rt sided), Permanent Pacemaker - Alcohol/Substance Use Hx Alcohol Use: No - Smoking History Smoking history: Never smoked Have you smoked in the past 12 months: No Aproximately how many cigarettes per day: 0 - Social History ADL: Independent History of Recent Travel: No Home Medications - Allergies Allergies/Adverse Reactions: Allergies Allergy/AdvReac Type Severity Reaction Status Date / Time Pork/Porcine Containing Allergy Severe Hives Verified 08/11/16 09:36 Products - Home Medications Home Medications: Ambulatory Orders Labetalol HCl 300 mg PO BID #0 tablet 10/08/12 Capecitabine [Xeloda -] 500 mg PO BID 03/30/16 Lapatinib Ditosylate [Tykerb] 750 mg PO DAILY 03/30/16 Aspirin [Ecotrin] 81 mg PO DAILY 08/09/16 Cephalexin [Keflex] 500 mg PO BID 08/09/16 Rosuvastatin Calcium [Crestor] 40 mg PO DAILY 08/09/16 Family Disease History - Family Disease History Family Disease History: Diabetes: Mother, Heart Disease: Father Review of Systems - Review of Systems Neurological: reports: Pre-Existing Deficit, Weakness (Left sided) Vital Signs: Vital Signs Temperature 97.6 F 08/13/16 05:55 Pulse Rate 78 08/13/16 05:55 Respiratory Rate 18 08/13/16 05:55 Blood Pressure 117/54 08/13/16 05:55 O2 Sat by Pulse Oximetry (%) 96 08/12/16 21:00 Constitutional: Yes: No Distress, Calm Neck: Yes: Supple Respiratory: Yes: Regular, Diminished Gastrointestinal: Yes: Normal Bowel Sounds, Soft Cardiovascular: Yes: Regular Rate and Rhythm Heart Sounds: Yes: S1, S2 Murmur: Yes: Systolic Murmur, Grade 1 Edema: No - Other Data Labs, Other Data: CBC, BMP 08/13/16 06:20 08/13/16 06:20 INR, PTT INR 1.03 (0.82-1.09) 08/11/16 09:36 NSR @ 91 LVH with repol abnl QRS 90 msec Tele: NSR with occ PVC Ejection Fraction %: LVEF < 40 % Problem List - Problems (1) CVA (cerebral vascular accident) Code(s): I63.9 - CEREBRAL INFARCTION, UNSPECIFIED Qualifiers: Precerebral and cerebral artery: middle cerebral artery Laterality of affected vessel: left (2) Hypercholesteremia Code(s): E78.00 - PURE HYPERCHOLESTEROLEMIA, UNSPECIFIED (3) Lymph edema Code(s): I89.0 - LYMPHEDEMA, NOT ELSEWHERE CLASSIFIED (4) T2DM (type 2 diabetes mellitus) Code(s): E11.9 - TYPE 2 DIABETES MELLITUS WITHOUT COMPLICATIONS Qualifiers: Diabetes mellitus complication status: without complication Diabetes mellitus extermination supervisor insulin use: without extermination supervisor use Qualified Code(s): E11.9 - Type 2 diabetes mellitus without complications (5) Hypertension Code(s): I10 - ESSENTIAL (PRIMARY) HYPERTENSION Qualifiers: Hypertension type: essential hypertension Qualified Code(s): I10 - Essential (primary) hypertension (6) Malignant neoplasm of right breast Code(s): C50.911 - MALIGNANT NEOPLASM OF UNSP SITE OF RIGHT FEMALE BREAST (7) Pacemaker Code(s): Z95.0 - PRESENCE OF CARDIAC PACEMAKER (8) Systolic dysfunction without heart failure Code(s): I51.9 - HEART DISEASE, UNSPECIFIED Assessment/Plan 01/09/16 Echo: LV function severely reduced, severe global hypokinesis; PPM/ICK in RV; mild MR; 07/13/16 MUGA scan: normal wall motion, EF 80% 08/09/16 CT c-spine: no evidence of acute fracture, compression deformities, subluxation 08/12 CT head shows 0.7cm infarct within the right frontoparietal coronal radiata , acute 1. Acute stroke h/o old strokes with residual mild right hemiplegia 2. AV block s/p PPM 3. h/o right breast ca on chemo with associated RUE lymphedema 4. Type 2 DM 5. Hyperlipidemia 6. Rt carotid stenosis s/p CEA 7. H/o LV systolic dysfunction, euvolemic - ? chemo-associated cardiotoxicity P:1. ASA, Plavix, statin, permissive HTN per reuro recs 2. F/u repeat echo to assess ventricular fxn and atrial sizes, carotid U/S 3. Tele monitor r/o PAF, will interrogate pacer to assess for PAF 4. Aspiration precautions, PT, S&S eval, Fondaparinux for DVT prophylaxis 5. Thank you for consultative opportunity, f/u Dr. Ronnie Kendall upon d/c, review outpatient records
--- NOTE | 2016-08-13 10:34 | CONSULT ---
Admitting History and Physical - Primary Care Physician PCP: Barbara Musa - Admission History of Present Illness: Per EMR: "The patient is a 85 year old female, accompanied by daughter, with a significant past medical history of CVA(with expressive aphasia and right sided weakness), breast cancer, hypertension, hyperlipidemia, diabetes, and dementia, who presents to the emergency department complaining of left sided weakness and slurred speech" 08/11 Reg diet ordered initially. Had 75% of breakfast. Per nursing note " 11:00 am: patient became more lethargic but able to open eyes. patient was diaphoretic , having some difficulty swallowing secretions, weak hand grasps bilaterally, aphasic, left side facial droop, BP 99/65, HR 75, O2 SAT 96% on room air, BGM 186. Neurologist was present at the time. Patient was suctioned and made NPO. 11:15 am: Patient more alert, able to follow commands, hand grasps still weak bilaterally and still aphasic. BP 148/60, HR 83, O2 SAT 97% on room air. Patient was then sent for head ct. will continue to monitor" This is my first consult with this pt. Selected Entries 08/12/16 08/12/16 08/12/16 02:07 05:43 09:00 Breakfast 75% Lunch Supper Temperature 97.8 F 98.0 F 08/12/16 08/12/16 08/12/16 10:00 13:00 13:51 Breakfast Lunch NPO NPO Supper Temperature 98.2 F 98.8 F 08/12/16 08/12/16 08/12/16 17:06 21:00 22:33 Breakfast Lunch Supper NPO Temperature 98.8 F 97.5 F L 08/13/16 08/13/16 08/13/16 02:00 05:55 09:12 Breakfast NPO Lunch Supper Temperature 98.1 F 97.6 F Laboratory Tests 08/11/16 08/12/16 08/13/16 09:36 07:15 06:20 WBC 5.0 5.0 8.1 D Per daughter :Pt's right side was weak and limited functionally s/p old stoke. Her left side side was unimpaired and helped her to function. Feb 2006 CVA Aphasia couldn't complete a sentence Oct 2006 stroke/right side weakness, Severe Aphasia but she able to understand. Signs of confusion/memory deficits were noticed by daughter. She was able to swallow and fed herself, lived independently in same house on lower floor, however, daughter moved in with her 3 years ago, due to deteriorating cognition. Onset of "slurred speech" with impaired intelligibility. History Source: Family Member, Medical Record Limitations to Obtaining History: Other (Baseline Aphasia. 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: CVA Cardiovascular: Yes: HTN, Hyperlipdemia Heme/Onc: Yes: Cancer (Rt CA breast) Endocrine: Yes: Diabetes Mellitus - Past Surgical History Past Surgical History: Yes: Carotid Endarterectomy (Rt sided), Permanent Pacemaker - Advance Directives Advance Directives: Yes: Health Care Proxy - Smoking History Smoking history: Never smoked Have you smoked in the past 12 months: No Aproximately how many cigarettes per day: 0 - Alcohol/Substance Use Hx Alcohol Use: No - Social History ADL: Independent History of Recent Travel: No History - Admission Reason For Visit: CVA - Diagnostics X-ray: Report Reviewed CT Scan: Report Reviewed - General Mental Status: Awake and Alert Attention: Distractible Ability to Follow Directions: Poor Head/Neck Control: Needs Assist Speech Evaluation - Communication Primary Language: HEBREW Communication: Yes: Dysarthria, Aphasia Oral Expression Ability: Yes: Severe Impairment - Speech Production Dysarthria: Yes: Flaccid Apraxia: Yes Able to Make Needs Known: Yes: Severely Impaired Intelligibility: Yes: Severely Impaired - Speech Characteristics Voice Loudness: Mildly Soft/Quiet Voice Pitch: Yes: Normal Voice Phonatory-based Quality: Yes: Dysphonia Speech Pattern: Impaired Speech Clarity: < 25% Nasal Resonance: Normal Articulation: Yes: Imprecise Rate of Speech: Too Fast - Language/Auditory Comprehension Observation: Able to respond to yes/no queries: No, Comprehends Conversational Speech: No (social speech only) - Language/Verbal Expression Able to Respond to Simple Queries: Yes: Severely Impaired Able to Communicate Wants and Needs: Yes: Severely Impaired Functional Communication Status: Yes: Severely Impaired - Swallow Evaluation/Bedside Assessment Current Nutritional Intake: NPO Dentition: Yes: Adequate Facial Symmetry at Rest: Facial Droop Left Facial Symmetry on Retraction: Facial Droop Left Smile: Droops Left Lingual Movement: Other (unable to assess. Could not protrude. Apraxia suspected ) Lingual Speed of Movement: Reduced Lingual Movement Strgth Against Opposition: Reduced Laryngeal Elevation: Impaired Laryngeal Movement: Unable to Palpate (rare initiation of swallow reflex/not functional at this time) Labial Seal: Impaired Left A-P Transit: Impaired Pocketing: Present Bilaterally Timing of Swallow: Absent (eive swallow) Change in Voice: Yes Recommendations - Speech Evaluation, Impression/Plan Impression: Pt with baseline Aphasia/cognitive deficits with onset of left UE paralysis/Dysarthria/Dysphagia. Unintelligible speech. Not following commands. Reflexive, infrequent swallow on saliva. Swalowing is not functional at this time but may improve. WBC not elevated. Not congested. CXR (-) - Dysphagia Impressions/Plan Swallowing Skills: Impaired Dysphagia Impressions: Severe Impairment, Ongoing Evaluation (Swallowing has potential for improvement.Will reassess over next few days for improvement/ initiation of PO trials if indicated. Discussed pt's wishes with her daughter.Pt is a full code at this time. I suggested she review pt's wishes with PMD.) *Silent aspiration: cannot be R/O at bedside Dysphagia Treatment Plan: Other (mouth care, Elevate HOB, head flexed with pillow) - Recommendations Diet Consistency: NPO, Other (NPO including medication.) Liquids: NPO
[2016-08-13] MEDS: MUPIROCIN 2% TOPICAL OINTMENT 22 GM TUBE TP SCH ×2 (13:10→21:35)
--- NOTE | 2016-08-13 14:08 | EKG ---
Test Reason : Blood Pressure : / mmHG Vent. Rate : 093 BPM Atrial Rate : 093 BPM P-R Int : 154 ms QRS Dur : 096 ms QT Int : 418 ms P-R-T Axes : 066 -03 184 degrees QTc Int : 519 ms NORMAL SINUS RHYTHM LEFT VENTRICULAR HYPERTROPHY WITH REPOLARIZATION ABNORMALITY PROLONGED QT ABNORMAL ECG WHEN COMPARED WITH ECG OF 11-AUG-2016 09:31, T WAVE VARIATION Confirmed by JELANI SHEPPARD MD ([id number]) on 08/13/2016 2:08:03 PM Referred By: TARI DOHERTY Confirmed By:JELANI SHEPPARD MD
--- NOTE | 2016-08-13 16:27 | PN ---
Physical Exam: SUBJECTIVE: Patient seen and examined at bedside. Appears lethargic. OBJECTIVE: Vital Signs Period Temp Pulse Resp BP Sys/Arrieta Pulse Ox Last 24 Hr 97.5 F-98.8 F 78-88 16-20 117-148/54-108 96-96 GENERAL/NEURO: The patient lethargic. Speech is indecipherable, garbled ( yesterday could state name, yes, no). Follows commands, able to squeeze right hand, move right foot, move left toes. Left-side neglect. HEAD: Normal with no signs of trauma. EYES: PERRL, extraocular movements unable to assess, sclera anicteric, conjunctiva clear. LUNGS: Poor inspiratory effort. No wheezes, no crackles, no accessory muscle use. HEART: Regular rate and rhythm, S1, S2 without murmur, rub or gallop. ABDOMEN: Soft, nontender, nondistended, normoactive bowel sounds, no guarding, no rebound, no hepatosplenomegaly, no masses. EXTREMITIES: 2+ pulses, warm, well-perfused, no edema. Laboratory Results - last 24 hr 08/12/16 08/12/16 08/13/16 16:15 22:23 05:19 WBC RBC Hgb Hct MCV MCHC RDW Plt Count MPV Neutrophils % Lymphocytes % Monocytes % Eosinophils % Basophils % Sodium Potassium Chloride Carbon Dioxide Anion Gap BUN Creatinine Creat Clearance w eGFR POC Glucometer 172 196 140 Random Glucose Calcium Magnesium Total Bilirubin AST ALT Alkaline Phosphatase Total Protein Albumin 08/13/16 08/13/16 08/13/16 06:20 06:20 13:08 WBC 8.1 D RBC 4.29 Hgb 13.7 Hct 40.8 MCV 95.2 MCHC 33.4 RDW 14.3 Plt Count 177 MPV 10.6 Neutrophils % 75.4 Lymphocytes % 16.1 Monocytes % 8.2 Eosinophils % 0.1 Basophils % 0.2 Sodium 138 Potassium 3.9 Chloride 100 Carbon Dioxide 25 Anion Gap 13 BUN 25 H D Creatinine 1.6 H D Creat Clearance w eGFR 30.78 POC Glucometer 130 Random Glucose 149 H Calcium 9.7 Magnesium 1.9 Total Bilirubin 1.6 H D AST 13 L D ALT 12 Alkaline Phosphatase 71 Total Protein 6.4 Albumin 3.3 L Active Medications Generic Name Dose Route Start Last Admin Trade Name Freq PRN Reason Stop Dose Admin Aspirin 300 mg 08/13/16 10:00 08/13/16 10:00 Asa - IA 300 mg DAILY JAMEY Administration Capecitabine 500 mg 08/11/16 22:00 08/13/16 09:56 Xeloda - PO Not Given BID JAMEY Cephalexin HCl 500 mg 08/11/16 22:00 08/13/16 09:55 Keflex - PO Not Given BID [facility] Docusate Sodium 300 mg 08/13/16 22:00 Colace - PO HS JAMEY Fondaparinux 2.5 mg 08/13/16 10:00 08/13/16 09:54 Arixtra (Restricted) - SQ Not Given DAILY [facility] Furosemide 40 mg 08/12/16 17:30 08/13/16 10:00 Lasix Injection - IVPUSH 40 mg DAILY JAMEY Administration Sodium Chloride 1,000 mls @ 75 mls/hr 08/13/16 11:00 Normal Saline - IV ASDIR [facility] Insulin Aspart 1 vial 08/12/16 22:00 08/13/16 13:10 Novolog Vial Sliding Scale - SQ Not Given ACHS [facility] Protocol Labetalol HCl 200 mg/ 300 mg 08/11/16 22:00 08/12/16 09:30 Labetalol HCl 100 mg PO 300 mg BID JAMEY Administration Mupirocin 1 applic 08/12/16 13:45 08/13/16 13:10 Bactroban 2% Ointment - TP 1 applic BID JAMEY Administration Patient's Own 750 mg 08/13/16 10:00 08/13/16 09:55 Medication (Non- PO Not Given Formulary) ( DAILY JAMEY Lapatinib Ditosylate [Tykerb] 250 Mg) Tykerb 75mg-Patient' 1 each 08/13/16 10:00 s Own Medication ( PO Non-Formulary) DAILY [facility] Polyethylene Glycol 17 gm 08/13/16 10:00 08/13/16 09:55 Miralax (For Daily Use) - PO Not Given BID [facility] Rosuvastatin Calcium 40 mg 08/13/16 10:00 08/13/16 09:55 Crestor - PO Not Given DAILY [facility] Imaging 01/09/16 Echo: LV function severely reduced, severe global hypokinesis; PPM/ICK in RV; mild MR; 07/13/16 MUGA scan: normal wall motion, EF 80% 08/09/16 CT c-spine: no evidence of acute fracture, compression deformities, subluxation ASSESSMENT/PLAN 85 year-old woman with multiple medical co-morbidities significant for HTN, HLD , CVA, right carotid artery stenosis s/p endarterectomy, severe systolic heart failure s/p PPM, NIDDM, 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 Admitted for acute CVA. Acute CVA --08/12 CT head shows 0.7cm infarct within the right frontoparietal coronal radiata, acute; 08/13 repeat study shows better defined infarct in posterior aspect of the right putamen, posterior limb of internal capsule, coronal radiata --continue ASA, statin --Echo, US carotids pending --telemetry monitoring, PPM interrogation to assess for PAF; serial ECGs show sinus v. paced rhythm Aspiration event --08/12 CXR: unremarkable --failed swallow eval, keep NPO Chronic severe systolic heart failure s/p PPM Prolonged QT interval --recently started on lasix at home --start lasix IV 40mg daily --cardiology consult Hypertension --permissive HTN 140>180 --hold home labetolol Right side breast cancer, fungating lesions --continue capecitabine --takes lapatinib which is non-formulary, daughter will need to bring in patient's supply --mupirocin to open lesions BID Hyperlipidemia --continue Crestor Right carotid artery stenosis --continue ASA, statin NIDDM --Novolog sliding scale coverage F/E/N Fluids: NS @ 75mL/hr Electrolytes: replete as indicated Nutrition: NPO for now DVT prophylaxis: fondiparinux 2.5mg subq (allergic to pork products) approved by Dr. Nieto; SCDs PT evaluation Daily PT Dispo: continues to require inpatient evaluation. Visit type - Emergency Visit Emergency Visit: Yes ED Registration Date: 08/11/16 Care time: The patient presented to the Emergency Department on the above date and was hospitalized for further evaluation of their emergent condition. - New Patient This patient is new to me today: No - Critical Care Critical Care patient: No
[2016-08-13] MEDS: DOCUSATE SODIUM 100 MG CAPSULE (FP) PO SCH (21:33)
[2016-08-14] MEDS: INSULIN SLIDING SCALE (NOVOLOG) 1 VIAL SQ SCH ×4 (06:15→22:33)
[2016-08-14 06:55] LABS: BASOPHIL 0.5 % (0-2.0); EOSINOPHIL 1.3 % (0-4.5); MCH 31.9 pg (25.7-33.7); MCHC 33.3 g/dl (32.0-36.0); MEAN CELL VOLUME 95.7 fl (80-96); MEAN PLT VOLUME 10.7 fl (7.5-11.1); PLATELET COUNT 155 K/MM3 (134-434); RDW 14.2 % (11.6-15.6); WHITE BLOOD COUNT 5.9 K/mm3 (4.0-10.0)
[2016-08-14 07:29] LABS: BILIRUBIN,TOTAL 1.2 mg/dL (0.2-1.0); CALCIUM 9.2 mg/dL (8.5-10.1); COCKROFT - GAULT 42.9845; CREATININE 1.2 mg/dL (0.55-1.02)
--- NOTE | 2016-08-14 07:34 | PN ---
Progress Note (short form) - Note Progress Note: Chief Complaint: Events noted, notes reviewed, denies any chest pain or dyspnea History of Present Illness: Seen and examined on telemetry. Events noted, notes reviewed, denies any chest pain or dyspnea echocardiography revealed normal LV size and function with no significant valvular pathology Medications: Current Medications Aspirin (Asa -) 300 mg [place] DAILY [facility] Last Admin: 08/13/16 10:00 Dose: 300 mg Capecitabine (Xeloda -) 500 mg PO BID [facility] Last Admin: 08/13/16 21:35 Dose: Not Given Cephalexin HCl (Keflex -) 500 mg PO BID [facility] Last Admin: 08/13/16 21:33 Dose: Not Given Docusate Sodium (Colace -) 300 mg PO HS [facility] Last Admin: 08/13/16 21:33 Dose: Not Given Fondaparinux (Arixtra (Restricted) -) 2.5 mg SQ DAILY [facility] Last Admin: 08/13/16 09:54 Dose: Not Given Furosemide (Lasix Injection -) 40 mg IVPUSH DAILY [facility] Last Admin: 08/13/16 10:00 Dose: 40 mg Sodium Chloride (Normal Saline -) 1,000 mls @ 75 mls/hr IV ASDIR [facility] Last Admin: 08/13/16 10:10 Dose: 75 mls/hr Insulin Aspart (Novolog Vial Sliding Scale -) 1 vial SQ ACHS [facility] PRN Reason: Protocol Last Admin: 08/14/16 06:15 Dose: Not Given Labetalol HCl 200 mg/ (Labetalol HCl 100 mg) 300 mg PO BID [facility] Last Admin: 08/12/16 09:30 Dose: 300 mg Mupirocin (Bactroban 2% Ointment -) 1 applic TP BID [facility] Last Admin: 08/13/16 21:35 Dose: 1 applic Patient's Own Medication (Non- Formulary) ( Lapatinib Ditosylate [Tykerb] 250 Mg ) 750 mg PO DAILY [facility] Last Admin: 08/13/16 09:55 Dose: Not Given Tykerb 75mg-Patient' s Own Medication ( Non-Formulary) 1 each PO DAILY [facility] Polyethylene Glycol (Miralax (For Daily Use) -) 17 gm PO BID [facility] Last Admin: 08/13/16 21:33 Dose: Not Given Rosuvastatin Calcium (Crestor -) 40 mg PO DAILY [facility] Last Admin: 08/13/16 09:55 Dose: Not Given Review of Systems Cardiovascular: As noted above Respiratory: denies: Cough or Sputum Production Gastrointestinal: denies: Nausea, Vomiting, Diarrhea, Constipation or Abdominal Discomfort Musculoskeletal: Weakness Endocrine: No Symptoms Reported Vital Signs: Last Vital Signs Temp Pulse Resp BP Pulse Ox 97.8 F 74 20 134/67 95 08/14/16 05:50 08/14/16 05:50 08/14/16 05:50 08/14/16 05:50 08/13/16 21:00 Constitutional: No Distress, Calm Neck: Supple Negative JVD Respiratory: Diminished at the Bases Cardiovascular: S1 S2 Regular Rate and Rhythm Grade 1-2/6 EVARISTO Gastrointestinal: Soft Benign Normal Bowel Sounds Ext: No Edema Labs: CBC, BMP 08/14/16 05:35 08/14/16 05:35 Assessment/Plan ASSESSMENT: 1. 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 History of LV systolic dysfunction with class 0-I NYHA classification LV failure, euvolemic (normal LV systolic function on repeat echocardiography) 3. 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 AV block post PPM 5. Carotid stenosis post carotid end-arterectomy 6. HTN 7. DM 8. Hyperlipidemia 9. History of right breast carcinoma on chemo with associated RUE lymphedema 10. CKD PLAN: 1. Continue ASA 2. Continue Labetolol 3. Continue Crestor 4. Pacemaker interrogation to evaluate for paroxysmal atrial fibrillation Stacey Hernandez M.D.
[2016-08-14] MEDS: FUROSEMIDE 40 MG/4 ML INJECTABLE VIAL IVPUSH SCH (10:29)
[2016-08-14] MEDS: ASPIRIN 300 MG SUPP.RECT PR SCH (10:29)
[2016-08-14] MEDS: ROSUVASTATIN CA 20 MG TABLET (FP) PO SCH (10:39)
[2016-08-14] MEDS: CEPHALEXIN MONOHYDRATE 500 MG CAPSULE (UD) PO SCH ×2 (10:39→22:32)
[2016-08-14] MEDS: LAPATINIB DITOSYLATE PO SCH (10:39)
[2016-08-14] MEDS: MUPIROCIN 2% TOPICAL OINTMENT 22 GM TUBE TP SCH ×2 (10:40→22:29)
[2016-08-14] MEDS: FONDAPARINUX SODIUM 2.5 MG/0.5 ML DISP.SYRIN SQ SCH (10:40)
--- NOTE | 2016-08-14 10:43 | PN ---
Progress Note, TOLL LINE INSPECTOR - Note Progress Note: Improving speech iontelligibilty. Pt with LT h/o Aphasia. Improved eye contact and interaction with responsive smiling and laughing and some social speech. Swallow reflex is delayed but becoming funxctional. Slight throat clear with nectar thick trial. Suspect pt can tolerate puree, medication crushed in applesauce, and possibly thick liquid. However, due to multiple cva's, pt is at greater risk of silent aspiration. Selected Entries 08/13/16 08/13/16 08/13/16 02:00 05:55 09:12 Breakfast NPO Lunch Supper Temperature 98.1 F 97.6 F 08/13/16 08/13/16 08/13/16 15:10 17:49 22:34 Breakfast Lunch NPO Supper NPO Temperature 98.8 F 98.7 F 08/14/16 08/14/16 02:15 05:50 Breakfast Lunch Supper Temperature 98 F 97.8 F Laboratory Tests 08/13/16 08/14/16 06:20 05:35 WBC 8.1 D 5.9 REC: MBS to r/o aspiration and to initiate diet safely.
[2016-08-14] MEDS: SODIUM CHLORIDE 1,000 ML IV SCH (10:56)
[2016-08-14] MEDS: CAPECITABINE 500 MG PO SCH ×2 (10:56→22:34)
[2016-08-14] MEDS: POLYETHYLENE GLYCOL 3350 119 GM BTL PO SCH ×2 (10:56→22:32)
--- NOTE | 2016-08-14 13:42 | PN ---
Physical Exam: SUBJECTIVE: Patient seen and examined. She appears awake today, she is says yes and no, answering to her name engaging when people speak. She is hungry. OBJECTIVE: Vital Signs Period Temp Pulse Resp BP Sys/[place] Pulse Ox Last 24 Hr 97.8 F-98.8 F 74-97 20-20 122-151/58-85 95-95 PE Neuro: awake, alert to name, self cn 2-12intact HEENT: dry mm, + chronic dysarthria Pulm: diminished R anteriorly CV: S1 s2 rrr no mrg Abd: soft nd nt + bs Breast: R breast skin changes, indurated, excoriated, draining, above R breast with open lesions + tenderness Lab 08/14/16 08/14/16 08/14/16 05:35 05:35 11:59 WBC 5.9 RBC 4.04 Hgb 12.9 Hct 38.7 MCV 95.7 MCHC 33.3 RDW 14.2 Plt Count 155 MPV 10.7 Neutrophils % 65.0 Lymphocytes % 22.5 D Monocytes % 10.7 H Eosinophils % 1.3 D Basophils % 0.5 Sodium 142 Potassium 3.9 Chloride 104 Carbon Dioxide 26 Anion Gap 12 BUN 36 H D Creatinine 1.2 H D Creat Clearance w eGFR 42.90 POC Glucometer 133 Random Glucose 104 D Calcium 9.2 Magnesium 2.0 Total Bilirubin 1.2 H D AST 15 ALT 12 Alkaline Phosphatase 62 Total Protein 6.0 L Albumin 3.0 L Active Medications Generic Name Dose Route Start Last Admin Trade Name Freq PRN Reason Stop Dose Admin Aspirin 300 mg 08/13/16 10:00 08/14/16 10:29 Asa - [place] 300 mg DAILY [facility] Administration Capecitabine 500 mg 08/11/16 22:00 08/14/16 10:56 Xeloda - PO Not Given BID [facility] Cephalexin HCl 500 mg 08/11/16 22:00 08/14/16 10:39 Keflex - PO Not Given BID [facility] Docusate Sodium 300 mg 08/13/16 22:00 08/13/16 21:33 Colace - PO Not Given HS [facility] Fondaparinux 2.5 mg 08/13/16 10:00 08/14/16 10:40 Arixtra (Restricted) - SQ 2.5 mg DAILY [facility] Administration Furosemide 40 mg 08/12/16 17:30 08/14/16 10:29 Lasix Injection - IVPUSH 40 mg DAILY [facility] Administration Sodium Chloride 1,000 mls @ 75 mls/hr 08/13/16 11:00 08/14/16 10:56 Normal Saline - IV 75 mls/hr ASDIR [facility] Administration Insulin Aspart 1 vial 08/12/16 22:00 08/14/16 11:59 Novolog Vial Sliding Scale - SQ Not Given ACHS [facility] Protocol Labetalol HCl 200 mg/ 300 mg 08/11/16 22:00 08/12/16 09:30 Labetalol HCl 100 mg PO 300 mg BID [facility] Administration Mupirocin 1 applic 08/12/16 13:45 08/14/16 10:40 Bactroban 2% Ointment - TP 1 applic BID [facility] Administration Patient's Own 750 mg 08/13/16 10:00 08/14/16 10:39 Medication (Non- PO Not Given Formulary) ( DAILY [facility] Lapatinib Ditosylate [Tykerb] 250 Mg) Tykerb 75mg-Patient' 1 each 08/13/16 10:00 s Own Medication ( PO Non-Formulary) DAILY [facility] Polyethylene Glycol 17 gm 08/13/16 10:00 08/14/16 10:56 Miralax (For Daily Use) - PO Not Given BID [facility] Rosuvastatin Calcium 40 mg 08/13/16 10:00 08/14/16 10:39 Crestor - PO Not Given DAILY [facility] Imaging 01/09/16 Echo: LV function severely reduced, severe global hypokinesis; PPM/ICK in RV; mild MR; 07/13/16 MUGA scan: normal wall motion, EF 80% 08/09/16 CT c-spine: no evidence of acute fracture, compression deformities, subluxation 08/12/16 CT head shows 0.7cm infarct within the right frontoparietal coronal radiata, acute Repeat CT head 08/13 study shows better defined infarct in posterior aspect of the right putamen, posterior limb of internal capsule, coronal radiata Assessment: 85 year old female with multiple medical co-morbidities significant for HTN, HLD, CVA, right carotid artery stenosis s/p endarterectomy, severe systolic heart failure s/p PPM, NIDDM, 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 Plan: 1. Acute CVA to right frontoparietal coronal radiata - Carotid doppler pending - Continue ASA, statin - ECHO normal LV size and function with no significant valvular pathology - PPM interrogation eval PAF 2. Aspiration event - Per swallow eval, marked improvement - For MBS today - Too early for PEG, pt is already improving, monitor progress - Will start clinimix 3. Chronic severe systolic heart failure s/p PPM/Prolonged QT interval - Will hold to lasix for now 4. HTN - Permissive HTN 140>180 - Hold home labetolol 5. Right side breast cancer, fungating lesions - Continue capecitabine - Takes lapatinib which is non-formulary, daughter will need to bring in patient 's supply - Mupirocin to open lesions BID - Keflex BID (cont from outpt) 6. Hyperlipidemia - Continue Crestor 7. Right carotid artery stenosis - Continue ASA, statin 8. DM II - ISS, BGM ACHS 9. DVT prophylaxis: fondiparinux 2.5mg subq (allergic to pork products) approved by Dr. Nieto; SCDs 10. PT evaluation Daily PT Visit type - Emergency Visit Emergency Visit: Yes ED Registration Date: 08/11/16 Care time: The patient presented to the Emergency Department on the above date and was hospitalized for further evaluation of their emergent condition. - New Patient This patient is new to me today: Yes Date on this admission: 08/14/16 - Critical Care Critical Care patient: No
[2016-08-14] MEDS ORDERED: LABETALOL HCL 5 MG/1 ML (100MG/20 ML VIAL) IVPUSH ONE (17:50)
[2016-08-14] MEDS ORDERED: PT OWN MED DRAWER 7, Y5N ONE (17:57)
[2016-08-14] MEDS ORDERED: SODIUM CHLORIDE 1,000 ML IV SCH (17:58)
[2016-08-14] MEDS ORDERED: LABETALOL HCL 200 MG TABLET (FP) ONE (17:58)
[2016-08-14] MEDS: LABETALOL HCL 100 MG TABLET (FP) PO SCH ×2 (18:52→22:33)
--- NOTE | 2016-08-14 20:35 | PN ---
Progress Note (short form) - Note Progress Note: HPI 08/11/16 85 yrs old F lives at home with daughter, multiple medical, Co-morbidities h/O HTN, CVA , Rt Carotid stenosis s/p endaartrectomy, minimal residual weakness on Rt side able to ambulate unsupported till Saturday, also H/O Romeo arrhythmia s/p Pacemaker interrogated in 06/2016, Border line T2DM, Hypercholesterolemia, Recurrent Rt fungating CA Breast on Chemotherapy, Rt UE Lymph luc a after Rt axillary LN resection, patient is unable to provide much information, as per daughter patient was able to ambulate comfortable, on Saturday noticed Rt worsening of Rt LE weakness and had a fall on , came to Ed for evaluation, patient was discharged home, on Saturday evening daughter noticed that patient is confused and having Left UE with slurring of the speech and today morning, patient couldn't get up so called 911 came to Ed for evaluation, on arrival hemodynamically stable, confused, able to communicate, Left upper and LE weakness CT head shows no acute changes; her mental status is more altered this am, aspirated on her breakfast so is NPO now; does not open her eyes to call ; SNR on the monitor. FU today : pt eyes open on occasion, though remains lethargic and slow to respond. APhasia () as she has difficulty communicating), left hemiplegia CT 08/13/16 shows new stroke -- Impression. Better defined nonhemorrhagic recent right striatocapsular lacunar infarct is seen in the posterior aspect of the right putamen, posterior limb of internal capsule, coronal radiata. Dopplers : 08/14/16 Impression: Small plaques of the right common carotid bifurcation and bulb as well as small to moderate-sized plaques at the left common carotid bifurcation and bulb without evidence of hemodynamically significant stenosis, bilaterally. 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 Cardio/Vascular: Yes: HTN, Hyperlipdemia Endocrine: Yes: Diabetes Mellitus - Past Surgical History Past Surgical History: Yes: Carotid Endarterectomy (Rt sided) - Alcohol/Substance Use Hx Alcohol Use: No - Smoking History Smoking history: Never smoked Have you smoked in the past 12 months: No Aproximately how many cigarettes per day: 0 - Social History ADL: Independent History of Recent Travel: No Home Medications - Allergies Allergies/Adverse Reactions: Allergies Allergy/AdvReac Type Severity Reaction Status Date / Time Pork/Porcine Containing Allergy Severe Hives Verified 08/11/16 09:36 Products - Home Medications Home Medications: Ambulatory Orders Active Medications Generic Name Dose Route Start Last Admin Trade Name Tova PRN Reason Stop Dose Admin Aspirin 300 mg 08/13/16 10:00 08/14/16 10:29 Asa - ID 300 mg DAILY [facility] Administration Capecitabine 500 mg 08/11/16 22:00 08/14/16 10:56 Xeloda - PO Not Given BID [facility] Cephalexin HCl 500 mg 08/11/16 22:00 08/14/16 10:39 Keflex - PO Not Given BID [facility] Docusate Sodium 300 mg 08/13/16 22:00 08/13/16 21:33 Colace - PO Not Given HS [facility] Fondaparinux 2.5 mg 08/13/16 10:00 08/14/16 10:40 Arixtra (Restricted) - SQ 2.5 mg DAILY [facility] Administration Sodium Chloride 1,000 mls @ 42 mls/hr 08/14/16 17:58 08/14/16 18:52 Normal Saline - IV 42 mls/hr ASDIR [facility] Administration Insulin Aspart 1 vial 08/12/16 22:00 08/14/16 17:16 Novolog Vial Sliding Scale - SQ Not Given ACHS [facility] Protocol Labetalol HCl 300 mg 08/14/16 17:59 08/14/16 18:52 Normodyne - PO 300 mg BID [facility] Administration Mupirocin 1 applic 08/12/16 13:45 08/14/16 10:40 Bactroban 2% Ointment - TP 1 applic BID [facility] Administration Patient's Own 750 mg 08/13/16 10:00 08/14/16 10:39 Medication (Non- PO Not Given Formulary) ( DAILY [facility] Lapatinib Ditosylate [Tykerb] 250 Mg) Tykerb 75mg-Patient' 1 each 08/13/16 10:00 s Own Medication ( PO Non-Formulary) DAILY [facility] Polyethylene Glycol 17 gm 08/13/16 10:00 08/14/16 10:56 Miralax (For Daily Use) - PO Not Given BID [facility] Rosuvastatin Calcium 40 mg 08/13/16 10:00 08/14/16 10:39 Crestor - PO Not Given DAILY [facility] Family Disease History - Family Disease History Family Disease History: Diabetes: Mother, Heart Disease: Father Review of Systems Unable to obtain ROS, reason: AMS Physical Exam-Neuro Vital Signs: CBCD Vital Signs Temperature 97.8 F 08/14/16 10:00 Pulse Rate 82 08/14/16 10:00 Respiratory Rate 20 08/14/16 10:00 Blood Pressure 151/85 08/14/16 10:00 O2 Sat by Pulse Oximetry (%) 95 08/14/16 10:00 WBC 5.9 K/mm3 (4.0-10.0) 08/14/16 05:35 RBC 4.04 M/mm3 (3.60-5.2) 08/14/16 05:35 Hgb 12.9 GM/dL (10.7-15.3) 08/14/16 05:35 Hct 38.7 % (32.4-45.2) 08/14/16 05:35 MCV 95.7 fl (80-96) 08/14/16 05:35 MCHC 33.3 g/dl (32.0-36.0) 08/14/16 05:35 RDW 14.2 % (11.6-15.6) 08/14/16 05:35 Plt Count 155 K/MM3 (134-434) 08/14/16 05:35 MPV 10.7 fl (7.5-11.1) 08/14/16 05:35 CMP Sodium 142 mmol/L (136-145) 08/14/16 05:35 Potassium 3.9 mmol/L (3.5-5.1) 08/14/16 05:35 Chloride 104 mmol/L (98-107) 08/14/16 05:35 Carbon Dioxide 26 mmol/L (21-32) 08/14/16 05:35 Anion Gap 12 (8-16) 08/14/16 05:35 BUN 36 mg/dL (7-18) H D 08/14/16 05:35 Creatinine 1.2 mg/dL (0.55-1.02) H D 08/14/16 05:35 Creat Clearance w eGFR 42.90 (>60) 08/14/16 05:35 Calcium 9.2 mg/dL (8.5-10.1) 08/14/16 05:35 Total Bilirubin 1.2 mg/dL (0.2-1.0) H D 08/14/16 05:35 AST 15 U/L (15-37) 08/14/16 05:35 ALT 12 U/L (12-78) 08/14/16 05:35 Alkaline Phosphatase 62 U/L (45-117) 08/14/16 05:35 Total Protein 6.0 g/dl (6.4-8.2) L 08/14/16 05:35 Albumin 3.0 g/dl (3.4-5.0) L 08/14/16 05:35 Constitutional: Yes: No Distress, Other (Not responding to call ) Neck: Yes: WNL, Supple Cardiovascular: Yes: Regular Rate and Rhythm Respiratory: Yes: WNL Musculoskeletal: Yes: WNL Edema: No Labs: CBC, BMP 08/12/16 07:15 08/12/16 07:15 INR, PTT INR 1.03 (0.82-1.09) 08/11/16 09:36 - Neuro Exam Level Of Consciousness: Yes: lethargic (Does not respond to call; moves her R UE to painful stimuli ) Eyes: Yes: PERRL Speech: dysrathric and ?aphasia Cranial Nerves II-XII Intact: (L facial droop) DTR's: 1+ Left Bicep, 1+ Right Bicep, 1+ Left Tricep, 1+ Right Tricep, 1+ Left Brachioradialis, 1+ Right Brachioradialis Babinski: Present BL upgoing Motor Strength: 1/5: Left Arm (Moves R UE to pain ; less movement on L U and Lexts ) NIH Stroke Scale Imaging - Results Cat Scan: Report Reviewed, Image Reviewed (No bleed, multiple b/l old ; old BG small infarct, old ischemic gliosis , gen subcortical atrophy.) Problem List - Problems (1) CVA (cerebral vascular accident) Code(s): I63.9 - CEREBRAL INFARCTION, UNSPECIFIED Qualifiers: Precerebral and cerebral artery: middle cerebral artery Laterality of affected vessel: left (2) Cancer of breast Code(s): C50.919 - MALIGNANT NEOPLASM OF UNSP SITE OF UNSPECIFIED FEMALE BREAST Qualifiers: Laterality: right (3) T2DM (type 2 diabetes mellitus) Code(s): E11.9 - TYPE 2 DIABETES MELLITUS WITHOUT COMPLICATIONS (4) Malignant neoplasm of right breast Code(s): C50.911 - MALIGNANT NEOPLASM OF UNSP SITE OF RIGHT FEMALE BREAST Assessment/Plan 85 y/o AAF , w h/o old stroke w residual mild R HP , h/o breast cancer on chemo ; s/p PPM p/w new L hemiparesis, (+ ?aphasia is new , vs residual though unusual with right sided subcortical event) new lacunar stroke--R IC radiographically suspect superimposed vascular dementia ( BL strokes may contributing to poor mental state) ASA 325 for now /STATIN, BP optimization ( doing better now) , DM control , looks controlled no sig carotid disease on doppler cardiology following, FU pacemaker interogation Speech and Swallow-- hopefully can avoid PEG REHAB , DVT prophalxis FU breast pathology Dr Pace [phone]
[2016-08-14] MEDS: DOCUSATE SODIUM 100 MG CAPSULE (FP) PO SCH (22:30)
[2016-08-15 06:44] LABS: BASOPHIL 0.4 % (0-2.0); EOSINOPHIL 0.5 % (0-4.5); MCH 31.8 pg (25.7-33.7); MCHC 32.7 g/dl (32.0-36.0); MEAN CELL VOLUME 97.3 fl (80-96); MEAN PLT VOLUME 10.3 fl (7.5-11.1); NEUTROPHILS 70.3 % (42.8-82.8); PLATELET COUNT 168 K/MM3 (134-434); RDW 14.5 % (11.6-15.6); WHITE BLOOD COUNT 6.1 K/mm3 (4.0-10.0)
[2016-08-15 07:08] LABS: CALCIUM 9.5 mg/dL (8.5-10.1); COCKROFT - GAULT 46.886; CREATININE 1.1 mg/dL (0.55-1.02)
--- NOTE | 2016-08-15 09:02 | PN ---
Progress Note, Physician History of Present Illness: Lethargic yet arousable - Current Medication List Current Medications: Active Medications Aspirin (Asa -) 300 mg [place] DAILY [facility] Last Admin: 08/14/16 10:29 Dose: 300 mg Capecitabine (Xeloda -) 500 mg PO BID [facility] Last Admin: 08/14/16 22:34 Dose: 500 mg Cephalexin HCl (Keflex -) 500 mg PO BID [facility] Last Admin: 08/14/16 22:32 Dose: 500 mg Docusate Sodium (Colace -) 300 mg PO HS [facility] Last Admin: 08/14/16 22:30 Dose: Not Given Fondaparinux (Arixtra (Restricted) -) 2.5 mg SQ DAILY [facility] Last Admin: 08/14/16 10:40 Dose: 2.5 mg Sodium Chloride (Normal Saline -) 1,000 mls @ 42 mls/hr IV ASDIR [facility] Last Admin: 08/14/16 18:52 Dose: 42 mls/hr Insulin Aspart (Novolog Vial Sliding Scale -) 1 vial SQ ACHS [facility] PRN Reason: Protocol Last Admin: 08/14/16 22:33 Dose: Not Given Labetalol HCl (Normodyne -) 300 mg PO BID [facility] Last Admin: 08/14/16 22:33 Dose: Not Given Mupirocin (Bactroban 2% Ointment -) 1 applic TP BID [facility] Last Admin: 08/14/16 22:29 Dose: 1 applic Patient's Own Medication (Non- Formulary) ( Lapatinib Ditosylate [Tykerb] 250 Mg ) 750 mg PO DAILY [facility] Last Admin: 08/14/16 10:39 Dose: Not Given Tykerb 75mg-Patient' s Own Medication ( Non-Formulary) 1 each PO DAILY [facility] Polyethylene Glycol (Miralax (For Daily Use) -) 17 gm PO BID [facility] Last Admin: 08/14/16 22:32 Dose: Not Given Rosuvastatin Calcium (Crestor -) 40 mg PO DAILY [facility] Last Admin: 08/14/16 10:39 Dose: Not Given - Objective Vital Signs: Vital Signs Temperature 96.4 F L 08/15/16 06:04 Pulse Rate 71 08/15/16 06:04 Respiratory Rate 20 08/15/16 06:04 Blood Pressure 142/70 08/15/16 06:04 O2 Sat by Pulse Oximetry (%) 96 08/14/16 21:00 Constitutional: Yes: No Distress, Calm Neck: Yes: Supple Cardiovascular: Yes: Regular Rate and Rhythm Respiratory: Yes: Regular, Diminished Gastrointestinal: Yes: Normal Bowel Sounds, Soft Edema: No Neurological: Yes: Pre-Existing Deficit, Weakness Labs: CBC, BMP 08/15/16 05:48 08/15/16 05:48 INR, PTT INR 1.03 (0.82-1.09) 08/11/16 09:36 - ....Imaging EKG: Report Reviewed (Tele: SR occ paced) Problem List - Problems (1) CVA (cerebral vascular accident) Code(s): I63.9 - CEREBRAL INFARCTION, UNSPECIFIED Qualifiers: Precerebral and cerebral artery: middle cerebral artery Laterality of affected vessel: left (2) Hypercholesteremia Code(s): E78.00 - PURE HYPERCHOLESTEROLEMIA, UNSPECIFIED (3) Lymph edema Code(s): I89.0 - LYMPHEDEMA, NOT ELSEWHERE CLASSIFIED (4) T2DM (type 2 diabetes mellitus) Code(s): E11.9 - TYPE 2 DIABETES MELLITUS WITHOUT COMPLICATIONS Qualifiers: Diabetes mellitus complication status: without complication Diabetes mellitus intermediate school 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 insulin use: without intermediate school teacher use Qualified Code(s): E11.9 - Type 2 diabetes mellitus without complications (5) Hypertension Code(s): I10 - ESSENTIAL (PRIMARY) HYPERTENSION Qualifiers: Hypertension type: essential hypertension Qualified Code(s): I10 - Essential (primary) hypertension (6) Malignant neoplasm of right breast Code(s): C50.911 - MALIGNANT NEOPLASM OF UNSP SITE OF RIGHT FEMALE BREAST (7) Pacemaker Code(s): Z95.0 - PRESENCE OF CARDIAC PACEMAKER (8) Systolic dysfunction without heart failure Code(s): I51.9 - HEART DISEASE, UNSPECIFIED Assessment/Plan 08/13/2016 Echocardiography revealed normal LV size and function with no significant valvular pathology 1. Acute new lacunar stroke with prior history of old stroke with residual mild right hemiplegia 2. History of LV systolic dysfunction with class 0-I NYHA classification LV failure, euvolemic (normal LV systolic function on repeat echocardiography) 3. 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 AV block post PPM 5. Carotid stenosis post carotid endarterectomy 6. HTN 7. DM 8. Hyperlipidemia 9. History of right breast carcinoma on chemo with associated RUE lymphedema 10. CKD 11. Vascular dementia PLAN: 1. Change ASA 300 pr qd to ECASA 325 po qd 2. Resume Labetolol 300 bid and Crestor 20 qd once oral intake re-established, resume Hyzaar 50/12.5 qd as hemodynamics tolerate 3. [employer] pacemaker interrogation to evaluate for paroxysmal atrial fibrillation 4. DVT prophylaxis with fondaparinux 5. Speech and Swallow f/u, hopefully can avoid PEG 6. PT->SNF
[2016-08-15] MEDS ORDERED: PT OWN MED DRAWER 7, Y5N ONE (09:05)
[2016-08-15] MEDS: CEPHALEXIN MONOHYDRATE 500 MG CAPSULE (UD) PO SCH ×2 (09:10→11:15)
[2016-08-15] MEDS: ROSUVASTATIN CA 20 MG TABLET (FP) PO SCH ×2 (09:10→13:31)
[2016-08-15] MEDS: LABETALOL HCL 100 MG TABLET (FP) PO SCH ×2 (09:10→22:51)
[2016-08-15] MEDS: CAPECITABINE 500 MG PO SCH ×2 (09:11→22:51)
[2016-08-15] MEDS: LAPATINIB DITOSYLATE PO SCH (09:16)
--- NOTE | 2016-08-15 11:09 | PN ---
Progress Note (short form) - Note Progress Note: HPI 08/11/16 85 yrs old F lives at home with daughter, multiple medical, Co-morbidities h/O HTN, CVA , Rt Carotid stenosis s/p endaartrectomy, minimal residual weakness on Rt side able to ambulate unsupported till Saturday, also H/O Romeo arrhythmia s/p Pacemaker interrogated in 06/2016, Border line T2DM, Hypercholesterolemia, Recurrent Rt fungating CA Breast on Chemotherapy, Rt UE Lymph luc a after Rt axillary LN resection, patient is unable to provide much information, as per daughter patient was able to ambulate comfortable, on Saturday noticed Rt worsening of Rt LE weakness and had a fall on , came to Ed for evaluation, patient was discharged home, on Saturday evening daughter noticed that patient is confused and having Left UE with slurring of the speech and today morning, patient couldn't get up so called 911 came to Ed for evaluation, on arrival hemodynamically stable, confused, able to communicate, Left upper and LE weakness CT head shows no acute changes; her mental status is more altered this am, aspirated on her breakfast so is NPO now; does not open her eyes to call ; SNR on the monitor. FU today : more awake and arousable, not oriented to place/year APhasia (+) as she has difficulty communicating), left hemiplegia STUDIES: CT 08/13/16 shows new stroke -- Impression. Better defined nonhemorrhagic recent right striatocapsular lacunar infarct is seen in the posterior aspect of the right putamen, posterior limb of internal capsule, coronal radiata. Dopplers : 08/14/16 Impression: Small plaques of the right common carotid bifurcation and bulb as well as small to moderate-sized plaques at the left common carotid bifurcation and bulb without evidence of hemodynamically significant stenosis, bilaterally. - Past Medical History [employer]: Yes: CVA Cardio/Vascular: Yes: HTN, Hyperlipdemia Endocrine: Yes: Diabetes Mellitus - Past Surgical History Past Surgical History: Yes: Carotid Endarterectomy (Rt sided) - Alcohol/Substance Use Hx Alcohol Use: No - Smoking History Smoking history: Never smoked Have you smoked in the past 12 months: No Aproximately how many cigarettes per day: 0 - Social History ADL: Independent History of Recent Travel: No Home Medications - Allergies Allergies/Adverse Reactions: Allergies Allergy/AdvReac Type Severity Reaction Status Date / Time Pork/Porcine Containing Allergy Severe Hives Verified 08/11/16 09:36 Products - Home Medications Home Medications: Ambulatory Orders Active Medications Generic Name Dose Route Start Last Admin Trade Name Tova PRN Reason Stop Dose Admin Aspirin 300 mg 08/13/16 10:00 08/14/16 10:29 Asa - CO 300 mg DAILY JAMEY Administration Capecitabine 500 mg 08/11/16 22:00 08/14/16 10:56 Xeloda - PO Not Given BID JAMEY Cephalexin HCl 500 mg 08/11/16 22:00 08/14/16 10:39 Keflex - PO Not Given BID JAMEY Docusate Sodium 300 mg 08/13/16 22:00 08/13/16 21:33 Colace - PO Not Given HS JAMEY Fondaparinux 2.5 mg 08/13/16 10:00 08/14/16 10:40 Arixtra (Restricted) - SQ 2.5 mg DAILY JAMEY Administration Sodium Chloride 1,000 mls @ 42 mls/hr 08/14/16 17:58 08/14/16 18:52 Normal Saline - IV 42 mls/hr ASDIR JAMEY Administration Insulin Aspart 1 vial 08/12/16 22:00 08/14/16 17:16 Novolog Vial Sliding Scale - SQ Not Given ACHS [facility] Protocol Labetalol HCl 300 mg 08/14/16 17:59 08/14/16 18:52 Normodyne - PO 300 mg BID JAMEY Administration Mupirocin 1 applic 08/12/16 13:45 08/14/16 10:40 Bactroban 2% Ointment - TP 1 applic BID JAMEY Administration Patient's Own 750 mg 08/13/16 10:00 08/14/16 10:39 Medication (Non- PO Not Given Formulary) ( DAILY JAMEY Lapatinib Ditosylate [Tykerb] 250 Mg) Tykerb 75mg-Patient' 1 each 08/13/16 10:00 s Own Medication ( PO Non-Formulary) DAILY JAMEY Polyethylene Glycol 17 gm 08/13/16 10:00 08/14/16 10:56 Miralax (For Daily Use) - PO Not Given BID JAMEY Rosuvastatin Calcium 40 mg 08/13/16 10:00 08/14/16 10:39 Crestor - PO Not Given DAILY JAMEY Family Disease History - Family Disease History Family Disease History: Diabetes: Mother, Heart Disease: Father Review of Systems Unable to obtain ROS, reason: AMS Physical Exam-Neuro Vital Signs: Vital Signs Temperature 96.4 F L 08/15/16 06:04 Pulse Rate 71 08/15/16 06:04 Respiratory Rate 20 08/15/16 06:04 Blood Pressure 142/70 08/15/16 06:04 O2 Sat by Pulse Oximetry (%) 96 08/14/16 21:00 Constitutional: Yes: No Distress, Other (Not responding to call ) Neck: Yes: WNL, Supple Cardiovascular: Yes: Regular Rate and Rhythm Respiratory: Yes: WNL Musculoskeletal: Yes: WNL Edema: No Labs: CBCD WBC 6.1 K/mm3 (4.0-10.0) 08/15/16 05:48 RBC 4.31 M/mm3 (3.60-5.2) 08/15/16 05:48 Hgb 13.7 GM/dL (10.7-15.3) 08/15/16 05:48 Hct 41.9 % (32.4-45.2) 08/15/16 05:48 MCV 97.3 fl (80-96) H 08/15/16 05:48 MCHC 32.7 g/dl (32.0-36.0) 08/15/16 05:48 RDW 14.5 % (11.6-15.6) 08/15/16 05:48 Plt Count 168 K/MM3 (134-434) 08/15/16 05:48 MPV 10.3 fl (7.5-11.1) 08/15/16 05:48 CMP Sodium 142 mmol/L (136-145) 08/15/16 05:48 Potassium 4.0 mmol/L (3.5-5.1) 08/15/16 05:48 Chloride 104 mmol/L (98-107) 08/15/16 05:48 Carbon Dioxide 28 mmol/L (21-32) 08/15/16 05:48 Anion Gap 10 (8-16) 08/15/16 05:48 BUN 38 mg/dL (7-18) H 08/15/16 05:48 Creatinine 1.1 mg/dL (0.55-1.02) H 08/15/16 05:48 Creat Clearance w eGFR 42.90 (>60) 08/14/16 05:35 Calcium 9.5 mg/dL (8.5-10.1) 08/15/16 05:48 Total Bilirubin 1.2 mg/dL (0.2-1.0) H D 08/14/16 05:35 AST 15 U/L (15-37) 08/14/16 05:35 ALT 12 U/L (12-78) 08/14/16 05:35 Alkaline Phosphatase 62 U/L (45-117) 08/14/16 05:35 Total Protein 6.0 g/dl (6.4-8.2) L 08/14/16 05:35 Albumin 3.0 g/dl (3.4-5.0) L 08/14/16 05:35 - Neuro Exam Level Of Consciousness: Yes: lethargic (Does not respond to call; moves her R UE to painful stimuli ) Eyes: Yes: PERRL Speech: dysrathric and ?aphasia Cranial Nerves II-XII Intact: (L facial droop) DTR's: 1+ Left Bicep, 1+ Right Bicep, 1+ Left Tricep, 1+ Right Tricep, 1+ Left Brachioradialis, 1+ Right Brachioradialis Babinski: Present BL upgoing Motor Strength: 1/5: Left Arm (Moves R UE to pain ; less movement on L U and Lexts ) NIH Stroke Scale Imaging - Results Cat Scan: Report Reviewed, Image Reviewed (No bleed, multiple b/l old ; old BG small infarct, old ischemic gliosis , gen subcortical atrophy.) Problem List - Problems (1) CVA (cerebral vascular accident) Code(s): I63.9 - CEREBRAL INFARCTION, UNSPECIFIED Qualifiers: Precerebral and cerebral artery: middle cerebral artery Laterality of affected vessel: left (2) Cancer of breast Code(s): C50.919 - MALIGNANT NEOPLASM OF UNSP SITE OF UNSPECIFIED FEMALE BREAST Qualifiers: Laterality: right (3) T2DM (type 2 diabetes mellitus) Code(s): E11.9 - TYPE 2 DIABETES MELLITUS WITHOUT COMPLICATIONS (4) Malignant neoplasm of right breast Code(s): C50.911 - MALIGNANT NEOPLASM OF UNSP SITE OF RIGHT FEMALE BREAST Assessment/Plan 85 y/o AAF, w h/o old stroke w residual mild R HP , h/o breast cancer on chemo ; s/p PPM p/w new L hemiparesis, (+ ? suspect aphasia residual from prior stroke ) new lacunar stroke--R IC radiographically suspect superimposed vascular dementia ( BL strokes may contributing to poor mental state) ASA 325 for now /STATIN, BP optimization DM control , looks controlled no sig carotid disease on doppler /HX of CEA cardiology following, FU pacemaker interogation Speech and Swallow-- REHAB , DVT prophalxis FU breast pathology Dr Pace [phone]
[2016-08-15] MEDS: POLYETHYLENE GLYCOL 3350 119 GM BTL PO SCH ×2 (11:15→22:56)
[2016-08-15] MEDS: INSULIN SLIDING SCALE (NOVOLOG) 1 VIAL SQ SCH (12:00)
[2016-08-15] MEDS: MUPIROCIN 2% TOPICAL OINTMENT 22 GM TUBE TP SCH ×2 (12:00→22:57)
--- NOTE | 2016-08-15 12:05 | PN ---
Progress Note, MATERIALS SCHEDULER - Note Progress Note: Oral holding and pooling/drooling with staff breakfast time and with medication. Educated staff/family on MBS rec including elevating HOB to 45 degrees, head flexed with pillow, mixing puree wityh thick liquid, single small sips , reminding pt to swallow. Slow but functional PO intake. Monitor pulmonary status. Pt's daughter reminded me that I had provided speech tx to this mae woman. 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 We practiced giving sermons and she returned to [facility], still with Aphasia but much improved and functional. She then had another streoke that unfortunately affected her language again.
[2016-08-15] MEDS: ASPIRIN 325 MG TABLET PO SCH (13:30)
[2016-08-15] MEDS: FONDAPARINUX SODIUM 2.5 MG/0.5 ML DISP.SYRIN SQ SCH (15:04)
--- NOTE | 2016-08-15 15:41 | PN ---
Physical Exam: SUBJECTIVE: Patient seen and examined. She is awake, her speech is garbled, she is holding onto food in her mouth. OBJECTIVE: Vital Signs Period Temp Pulse Resp BP Sys/Arrieta Pulse Ox Last 24 Hr 96.4 F-98.2 F 65-84 16-20 128-180/63-83 96-98 PE Neuro: awake, alert, oriented to self cn 2-12intact HEENT: dry mm, + chronic dysarthria Pulm: diminished R anteriorly CV: s1 s2 rrr no mrg Abd: soft nd nt + bs Breast: R breast skin changes, indurated, excoriated, draining, above R breast with open lesions + tenderness Laboratory Results - last 24 hr 08/15/16 08/15/16 08/15/16 05:48 05:48 12:21 WBC 6.1 RBC 4.31 Hgb 13.7 Hct 41.9 MCV 97.3 H MCHC 32.7 RDW 14.5 Plt Count 168 MPV 10.3 Neutrophils % 70.3 Lymphocytes % 16.9 D Monocytes % 11.9 H Eosinophils % 0.5 Basophils % 0.4 Sodium 142 Potassium 4.0 Chloride 104 Carbon Dioxide 28 Anion Gap 10 BUN 38 H Creatinine 1.1 H POC Glucometer 133 Random Glucose 111 H Calcium 9.5 Active Medications Generic Name Dose Route Start Last Admin Trade Name Tova PRN Reason Stop Dose Admin Aspirin 325 mg 08/15/16 10:00 08/15/16 13:30 Asa - PO 325 mg DAILY JAMEY Administration Capecitabine 500 mg 08/11/16 22:00 08/15/16 09:11 Xeloda - PO 500 mg BID JAMEY Administration Docusate Sodium 300 mg 08/13/16 22:00 08/14/16 22:30 Colace - PO Not Given HS JAMEY Fondaparinux 2.5 mg 08/13/16 10:00 08/15/16 15:04 Arixtra (Restricted) - SQ 2.5 mg DAILY JAMEY Administration Amino Acids 1,000 mls @ 84 mls/hr 08/15/16 15:45 Clinimix - IV Q12H JAMEY Insulin Aspart 1 vial 08/12/16 22:00 08/15/16 12:00 Novolog Vial Sliding Scale - SQ Not Given ACHS JAMEY Protocol Labetalol HCl 300 mg 08/14/16 17:59 08/15/16 09:10 Normodyne - PO 300 mg BID JAMEY Administration Mupirocin 1 applic 08/12/16 13:45 08/15/16 12:00 Bactroban 2% Ointment - TP 1 applic BID JAMEY Administration Patient's Own 750 mg 08/13/16 10:00 08/15/16 09:16 Medication (Non- PO 750 mg Formulary) ( DAILY JAMEY Administration Lapatinib Ditosylate [Tykerb] 250 Mg) Polyethylene Glycol 17 gm 08/13/16 10:00 08/15/16 11:15 Miralax (For Daily Use) - PO Not Given BID JAMEY Rosuvastatin Calcium 20 mg 08/15/16 10:00 08/15/16 13:31 Crestor - PO 20 mg DAILY JAMEY Administration Imaging 01/09/16 Echo: LV function severely reduced, severe global hypokinesis; PPM/ICK in RV; mild MR; 07/13/16 MUGA scan: normal wall motion, EF 80% 08/09/16 CT c-spine: no evidence of acute fracture, compression deformities, subluxation 08/12/16 CT head shows 0.7cm infarct within the right frontoparietal coronal radiata, acute Repeat CT head 08/13 study shows better defined infarct in posterior aspect of the right putamen, posterior limb of internal capsule, coronal radiata 08/14 ECHO normal LV size and function with no significant valvular pathology Assessment: 85 year old female with multiple medical co-morbidities significant for HTN, HLD, CVA, right carotid artery stenosis s/p endarterectomy, severe systolic heart failure s/p PPM, NIDDM, 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 Plan: 1. Acute CVA to right frontoparietal coronal radiata - Carotid doppler no significant stenosis - Continue ASA 325mg day per neuro - Continue statin - PPM interrogation eval PAF with battery change, per cards would like to watch for continued improvement, discussion w/ daughter where willing to have done 2. Dysphagia - Too early for PEG, monitor for improvement - Family consider NGT - Start clinimix, functional po intake still poor, pt pocketing food - Continue dysphagia diet 3. Chronic severe systolic heart failure s/p PPM/Prolonged QT interval - Will hold to lasix for now 4. HTN - Permissive HTN 140>180 - Resume labetolol 300mg BID 5. Right side breast cancer, fungating lesions - Continue capecitabine - Continue lapatinib (pt own) - Mupirocin to open lesions BID - Stop keflex per family request, originally for RUE quan - Dr. Ruiz consulted, will need to see for Pako gomez 6. Hyperlipidemia - Continue Crestor 7. Right carotid artery stenosis - Continue ASA, statin 8. DM II - Sugars controlled, slow PO intake - Will stop accu checks 9. DVT prophylaxis: fondiparinux 2.5mg subq (allergic to pork products) approved by Dr. Nieto; SCDs 10. PT evaluation Daily PT Visit type - Emergency Visit Emergency Visit: Yes ED Registration Date: 08/11/16 Care time: The patient presented to the Emergency Department on the above date and was hospitalized for further evaluation of their emergent condition. - New Patient This patient is new to me today: No - Critical Care Critical Care patient: No
[2016-08-15] MEDS: AMINO ACIDS 4.25%/D5W 1,000 ML IV SCH (17:09)
[2016-08-16] MEDS: AMINO ACIDS 4.25%/D5W 1,000 ML IV SCH ×2 (03:45→16:44)
[2016-08-16] MEDS ORDERED: PT OWN MED DRAWER 7, Y5N ONE (06:43)
[2016-08-16 07:47] LABS: CALCIUM 8.8 mg/dL (8.5-10.1); COCKROFT - GAULT 64.4725; CREATININE 0.8 mg/dL (0.55-1.02)
[2016-08-16] MEDS: LAPATINIB DITOSYLATE PO SCH (10:30)
[2016-08-16] MEDS: CAPECITABINE 500 MG PO SCH ×2 (10:30→21:55)
[2016-08-16] MEDS: ASPIRIN 325 MG TABLET PO SCH (11:08)
[2016-08-16] MEDS: MUPIROCIN 2% TOPICAL OINTMENT 22 GM TUBE TP SCH ×2 (11:08→22:50)
[2016-08-16] MEDS: ROSUVASTATIN CA 20 MG TABLET (FP) PO SCH (11:08)
[2016-08-16] MEDS: FONDAPARINUX SODIUM 2.5 MG/0.5 ML DISP.SYRIN SQ SCH (11:08)
[2016-08-16] MEDS: POLYETHYLENE GLYCOL 3350 119 GM BTL PO SCH ×2 (11:09→21:55)
[2016-08-16] MEDS: LABETALOL HCL 100 MG TABLET (FP) PO SCH ×3 (11:09→23:04)
[2016-08-16 11:39] LABS: CALCIUM 9.4 mg/dL (8.5-10.1); COCKROFT - GAULT 64.4725; CREATININE 0.8 mg/dL (0.55-1.02)
--- NOTE | 2016-08-16 11:50 | PN ---
Progress Note, ABALONE DIVER - Note Progress Note: Again with Oral holding with medication. Given crushed in applesauce. Better tolerance when pt given thick liquid to follow. Pt's daughter reminded me that I had provided speech tx to this mae woman. 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 We practiced giving sermons and she returned to [employer], still with Aphasia but much improved and functional. She then had another streoke that unfortunately affected her language again. Educated staff on MBS rec including elevating HOB to 45 degrees, head flexed with pillow, mixing puree with thick liquid, single small sips ,reminding pt to swallow. Suggest mixing crushed meds in thick liquid.
--- NOTE | 2016-08-16 12:52 | PN ---
Progress Note, Physician History of Present Illness: Lethargic yet arousable, pacer interrogation confirms battery at [facility]. - Current Medication List Current Medications: Active Medications Aspirin (Asa -) 325 mg PO DAILY [facility] Last Admin: 08/16/16 11:08 Dose: 325 mg Capecitabine (Xeloda -) 500 mg PO BID [facility] Last Admin: 08/15/16 22:51 Dose: 500 mg Fondaparinux (Arixtra (Restricted) -) 2.5 mg SQ DAILY [facility] Last Admin: 08/16/16 11:08 Dose: 2.5 mg Amino Acids (Clinimix -) 1,000 mls @ 84 mls/hr IV Q12H [facility] Last Admin: 08/16/16 03:45 Dose: 84 mls/hr Labetalol HCl (Normodyne -) 300 mg PO BID [facility] Last Admin: 08/16/16 11:09 Dose: 300 mg Mupirocin (Bactroban 2% Ointment -) 1 applic TP BID [facility] Last Admin: 08/16/16 11:08 Dose: 1 applic Patient's Own Medication (Non- Formulary) ( Lapatinib Ditosylate [Tykerb] 250 Mg ) 750 mg PO DAILY [facility] Last Admin: 08/15/16 09:16 Dose: 750 mg Polyethylene Glycol (Miralax (For Daily Use) -) 17 gm PO BID [facility] Last Admin: 08/16/16 11:09 Dose: Not Given Rosuvastatin Calcium (Crestor -) 20 mg PO DAILY [facility] Last Admin: 08/16/16 11:08 Dose: 20 mg - Objective Vital Signs: Vital Signs Temperature 97.8 F 08/16/16 09:10 Pulse Rate 65 08/16/16 09:20 Respiratory Rate 18 08/16/16 09:10 Blood Pressure 148/66 08/16/16 09:10 O2 Sat by Pulse Oximetry (%) 99 08/16/16 09:20 Constitutional: Yes: No Distress, Calm Neck: Yes: Supple Cardiovascular: Yes: Regular Rate and Rhythm Respiratory: Yes: Regular, Diminished Gastrointestinal: Yes: Normal Bowel Sounds, Soft Edema: No Labs: CBC, BMP 08/15/16 05:48 08/16/16 09:30 INR, PTT INR 1.03 (0.82-1.09) 08/11/16 09:36 - ....Imaging EKG: Report Reviewed (Tele: occ paced) Problem List - Problems (1) CVA (cerebral vascular accident) Code(s): I63.9 - CEREBRAL INFARCTION, UNSPECIFIED Qualifiers: Precerebral and cerebral artery: middle cerebral artery Laterality of affected vessel: left (2) Hypercholesteremia Code(s): E78.00 - PURE HYPERCHOLESTEROLEMIA, UNSPECIFIED (3) Lymph edema Code(s): I89.0 - LYMPHEDEMA, NOT ELSEWHERE CLASSIFIED (4) T2DM (type 2 diabetes mellitus) Code(s): E11.9 - TYPE 2 DIABETES MELLITUS WITHOUT COMPLICATIONS Qualifiers: Diabetes mellitus complication status: without complication Diabetes mellitus nursing home insulin use: without bed bug exterminator use Qualified Code(s): E11.9 - Type 2 diabetes mellitus without complications (5) Hypertension Code(s): I10 - ESSENTIAL (PRIMARY) HYPERTENSION Qualifiers: Hypertension type: essential hypertension Qualified Code(s): I10 - Essential (primary) hypertension (6) Malignant neoplasm of right breast Code(s): C50.911 - MALIGNANT NEOPLASM OF UNSP SITE OF RIGHT FEMALE BREAST (7) Pacemaker Code(s): Z95.0 - PRESENCE OF CARDIAC PACEMAKER (8) Diastolic dysfunction Code(s): I51.9 - HEART DISEASE, UNSPECIFIED Assessment/Plan 08/13/2016 Echocardiography revealed normal LV size and function with no significant valvular pathology 1. Acute new lacunar stroke with prior history of old stroke with residual mild right hemiplegia 2. History of LV systolic dysfunction with class 0-I NYHA classification LV failure, euvolemic (normal LV systolic function on repeat echocardiography) 3. 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 AV block post PPM ([employer]) at [facility] 5. Carotid stenosis post carotid endarterectomy 6. HTN 7. DM 8. Hyperlipidemia 9. History of right breast carcinoma on chemo with associated RUE lymphedema 10. CKD 11. Vascular dementia PLAN: 1. Continue ECASA 325 po qd 2. Continue Labetolol 300 bid and Crestor 20 qd, resume Hyzaar 50/12.5 qd as hemodynamics tolerate 3. Dr. Fahad Smith consulted for generator change, d/w family 4. DVT prophylaxis with fondaparinux, hold in AM 5. Speech and Swallow f/u, hopefully can avoid PEG 6. PT->SNF
[2016-08-16] MEDS ORDERED: FONDAPARINUX SODIUM 2.5 MG/0.5 ML DISP.SYRIN SQ SCH (13:05)
--- NOTE | 2016-08-16 14:40 | PN ---
Progress Note (short form) - Note Progress Note: Subjective: The patient was seen and examined at the bedside. Her daughter is requesting to speak to Dr. Avery regarding scheduled pacemaker battery change tomorrow. Current Medications Generic Name Dose Route Start Last Admin Trade Name Tova PRN Reason Stop Dose Admin Aspirin 325 mg 08/15/16 10:00 08/16/16 11:08 Asa - PO 325 mg DAILY JAMEY Administration Capecitabine 500 mg 08/11/16 22:00 08/15/16 22:51 Xeloda - PO 500 mg BID JAMEY Administration Fondaparinux 2.5 mg 08/16/16 13:05 Arixtra (Restricted) - SQ DAILY JAMEY Amino Acids 1,000 mls @ 84 mls/hr 08/15/16 15:45 08/16/16 03:45 Clinimix - IV 84 mls/hr Q12H JAMEY Administration Labetalol HCl 300 mg 08/14/16 17:59 08/16/16 11:09 Normodyne - PO 300 mg BID JAMEY Administration Mupirocin 1 applic 08/12/16 13:45 08/16/16 11:08 Bactroban 2% Ointment - TP 1 applic BID JAMEY Administration Patient's Own 750 mg 08/13/16 10:00 08/15/16 09:16 Medication (Non- PO 750 mg Formulary) ( DAILY JAMEY Administration Lapatinib Ditosylate [Tykerb] 250 Mg) Polyethylene Glycol 17 gm 08/13/16 10:00 08/16/16 11:09 Miralax (For Daily Use) - PO Not Given BID JAMEY Rosuvastatin Calcium 20 mg 08/15/16 10:00 08/16/16 11:08 Crestor - PO 20 mg DAILY JAMEY Administration Vancomycin HCl 1,000 mg 08/17/16 07:00 Vancomycin (Pre-Docked) IVPB 08/17/16 07:01 HEATING ELEMENT WINDER ONE Objective: Vital Signs Period Temp Pulse Resp BP Sys/Arrieta Pulse Ox Last 24 Hr 97.4 F-98.9 F 65-72 16-18 102-150/63-74 96-100 Physical Exam: General: NAD Lungs: CTA bilaterally Breast: Right breast with dressing, c/d/i Heart: RRR, S1S2 Abd: Soft, non-tender, non-distended. Normoactive bowel sounds Ext: Warm, well-perfused Neuro: Right arm contracted. Left arm flaccid. Moving toes on b/l feet, not following commands CBCD WBC 6.1 K/mm3 (4.0-10.0) 08/15/16 05:48 RBC 4.31 M/mm3 (3.60-5.2) 08/15/16 05:48 Hgb 13.7 GM/dL (10.7-15.3) 08/15/16 05:48 Hct 41.9 % (32.4-45.2) 08/15/16 05:48 MCV 97.3 fl (80-96) H 08/15/16 05:48 MCHC 32.7 g/dl (32.0-36.0) 08/15/16 05:48 RDW 14.5 % (11.6-15.6) 08/15/16 05:48 Plt Count 168 K/MM3 (134-434) 08/15/16 05:48 MPV 10.3 fl (7.5-11.1) 08/15/16 05:48 CMP Sodium 142 mmol/L (136-145) 08/16/16 09:30 Potassium 3.8 mmol/L (3.5-5.1) 08/16/16 09:30 Chloride 105 mmol/L (98-107) 08/16/16 09:30 Carbon Dioxide 27 mmol/L (21-32) 08/16/16 09:30 Anion Gap 10 (8-16) 08/16/16 09:30 BUN 36 mg/dL (7-18) H 08/16/16 09:30 Creatinine 0.8 mg/dL (0.55-1.02) 08/16/16 09:30 Creat Clearance w eGFR 42.90 (>60) 08/14/16 05:35 Random Glucose 173 mg/dL (74-106) H D 08/16/16 09:30 Calcium 9.4 mg/dL (8.5-10.1) 08/16/16 09:30 Total Bilirubin 1.2 mg/dL (0.2-1.0) H D 08/14/16 05:35 AST 15 U/L (15-37) 08/14/16 05:35 ALT 12 U/L (12-78) 08/14/16 05:35 Alkaline Phosphatase 62 U/L (45-117) 08/14/16 05:35 Total Protein 6.0 g/dl (6.4-8.2) L 08/14/16 05:35 Albumin 3.0 g/dl (3.4-5.0) L 08/14/16 05:35 Imaging 01/09/16 Echo: LV function severely reduced, severe global hypokinesis; PPM/ICK in RV; mild MR; 07/13/16 MUGA scan: normal wall motion, EF 80% 08/09/16 CT c-spine: no evidence of acute fracture, compression deformities, subluxation 08/12/16 CT head shows 0.7cm infarct within the right frontoparietal coronal radiata, acute Repeat CT head 08/13 study shows better defined infarct in posterior aspect of the right putamen, posterior limb of internal capsule, coronal radiata 08/14 ECHO normal LV size and function with no significant valvular pathology Assessment: This is an 85 year old female with PMHx of HTN, HLD, CVA, right carotid artery stenosis s/p endarterectomy, severe systolic heart failure s/p PPM, NIDDM, 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 Plan: 1) Neuro: Acute right stratocapsular lacunar infarct - Carotid doppler no significant stenosis - Continue ASA - Continue Crestor 20mg po daily - Appreciate neuro consult Dysphagia - Continue Clinimix until patient tolerating food well 2) Cardiology: Chronic LV systolic dysfunction - ECHO 08/13/16 with normal LV size and function. Trace MR PPM - Per records, battery is expiring in a few weeks. Discussed with daughter and plan was for battery change with Dr. Fahad Smith tomorrow. Daughter would like to discuss further with Dr. Avery prior to tomorrow. Informed Dr. Avery HTN - Continue Labetolol - Continue Hyzaar 3) Oncology: Right breast fungating cancer - Hold Tykerb and Xeloda as they cannot be crushed per pharmacy - Mupirocin to open lesions BID - Stop keflex per family request, originally for RUE erythema - Dr. Ruiz consulted, will need to see for Min eval 4) Endocrine: DM - Sugars were controlled, accu checks discontinued yesterday - This AM random glucose on BMP 406! unusual for patient (lab error?), repeat after eating breakfast was 173 - Continue to monitor 5) F/E/N: - Monitor electrolytes - Dysphagia pureed diet and NPO after midnight 6) Prophylaxis: - Fondaparinux 7) Dispo: - Requires continued inpatient care CODE STATUS: FULL CODE Visit type - Emergency Visit Emergency Visit: Yes ED Registration Date: 08/11/16 Care time: The patient presented to the Emergency Department on the above date and was hospitalized for further evaluation of their emergent condition. - New Patient This patient is new to me today: Yes Date on this admission: 08/19/16 - Critical Care Critical Care patient: No
[2016-08-17] MEDS: AMINO ACIDS 4.25%/D5W 1,000 ML IV SCH ×2 (03:11→16:12)
[2016-08-17] MEDS ORDERED: VANCOMYCIN 1 GRAM (PRE-DOCKED) 1,000 MG/250 ML BAG IVPB ONE (07:00)
[2016-08-17 07:55] LABS: BASOPHIL 0.4 % (0-2.0); EOSINOPHIL 1.5 % (0-4.5); MCH 32.2 pg (25.7-33.7); MCHC 33.1 g/dl (32.0-36.0); MEAN CELL VOLUME 97.2 fl (80-96); MEAN PLT VOLUME 10.5 fl (7.5-11.1); NEUTROPHILS 63.4 % (42.8-82.8); PLATELET COUNT 172 K/MM3 (134-434); RDW 13.8 % (11.6-15.6); WHITE BLOOD COUNT 4.6 K/mm3 (4.0-10.0)
[2016-08-17 08:24] LABS: ALBUMIN 2.9 g/dl (3.4-5.0); ANION GAP 5 (8-16); CO2 30 mmol/L (21-32); CREATININE 0.8 mg/dL (0.55-1.02); GLUCOSE,RANDOM 156 mg/dL (74-106); SGOT/AST 17 U/L (15-37); SGPT/ALT 12 U/L (12-78)
[2016-08-17 08:26] LABS: ALK PHOS 58 U/L (45-117); BILIRUBIN,TOTAL 0.8 mg/dL (0.2-1.0); TOT PROT 6.2 g/dl (6.4-8.2)
--- NOTE | 2016-08-17 09:01 | PN ---
Progress Note (short form) - Note Progress Note: Subjective: The patient was seen and examined at the bedside. She is going for battery change in PPM today Current Medications Generic Name Dose Route Start Last Admin Trade Name Tova PRN Reason Stop Dose Admin Aspirin 325 mg 08/15/16 10:00 08/16/16 11:08 Asa - PO 325 mg DAILY JAMEY Administration Capecitabine 500 mg 08/11/16 22:00 08/16/16 21:55 Xeloda - PO Not Given BID JAMEY Fondaparinux 2.5 mg 08/16/16 13:05 Arixtra (Restricted) - SQ DAILY JAMEY Amino Acids 1,000 mls @ 84 mls/hr 08/15/16 15:45 08/17/16 03:11 Clinimix - IV 84 mls/hr Q12H JAMEY Administration Labetalol HCl 300 mg 08/14/16 17:59 08/16/16 23:04 Normodyne - PO Not Given BID JAMEY Mupirocin 1 applic 08/12/16 13:45 08/16/16 22:50 Bactroban 2% Ointment - TP 1 applic BID JAMEY Administration Patient's Own 750 mg 08/13/16 10:00 08/16/16 10:30 Medication (Non- PO Not Given Formulary) ( DAILY JAMEY Lapatinib Ditosylate [Tykerb] 250 Mg) Polyethylene Glycol 17 gm 08/13/16 10:00 08/16/16 21:55 Miralax (For Daily Use) - PO Not Given BID JAMEY Rosuvastatin Calcium 20 mg 08/15/16 10:00 08/16/16 11:08 Crestor - PO 20 mg DAILY JAMEY Administration Objective: Vital Signs Period Temp Pulse Resp BP Sys/Arrieta Pulse Ox Last 24 Hr 97.8 F-98.9 F 62-72 16-18 123-148/64-74 96-100 Physical Exam: General: NAD Lungs: CTA bilaterally Breast: Right breast fungating wound with dressing c/d/i Heart: RRR, S1S2 Abd: Soft, non-tender, non-distended. Normoactive bowel sounds Ext: Warm, well-perfused Neuro: Not following commands. RUE contracted. Moving toes on b/l feet. Uncooperative CBCD WBC 4.6 K/mm3 (4.0-10.0) 08/17/16 06:45 RBC 3.87 M/mm3 (3.60-5.2) 08/17/16 06:45 Hgb 12.4 GM/dL (10.7-15.3) 08/17/16 06:45 Hct 37.6 % (32.4-45.2) 08/17/16 06:45 MCV 97.2 fl (80-96) H 08/17/16 06:45 MCHC 33.1 g/dl (32.0-36.0) 08/17/16 06:45 RDW 13.8 % (11.6-15.6) 08/17/16 06:45 Plt Count 172 K/MM3 (134-434) 08/17/16 06:45 MPV 10.5 fl (7.5-11.1) 08/17/16 06:45 CMP Sodium 139 mmol/L (136-145) 08/17/16 06:45 Potassium 3.9 mmol/L (3.5-5.1) 08/17/16 06:45 Chloride 104 mmol/L (98-107) 08/17/16 06:45 Carbon Dioxide 30 mmol/L (21-32) 08/17/16 06:45 Anion Gap 5 (8-16) L 08/17/16 06:45 BUN 33 mg/dL (7-18) H 08/17/16 06:45 Creatinine 0.8 mg/dL (0.55-1.02) 08/17/16 06:45 Creat Clearance w eGFR > 60 (>60) 08/17/16 06:45 Random Glucose 156 mg/dL (74-106) H 08/17/16 06:45 Calcium 9.0 mg/dL (8.5-10.1) 08/17/16 06:45 Total Bilirubin 0.8 mg/dL (0.2-1.0) D 08/17/16 06:45 AST 17 U/L (15-37) 08/17/16 06:45 ALT 12 U/L (12-78) 08/17/16 06:45 Alkaline Phosphatase 58 U/L (45-117) 08/17/16 06:45 Total Protein 6.2 g/dl (6.4-8.2) L 08/17/16 06:45 Albumin 2.9 g/dl (3.4-5.0) L 08/17/16 06:45 Imaging 01/09/16 Echo: LV function severely reduced, severe global hypokinesis; PPM/ICK in RV; mild MR; 07/13/16 MUGA scan: normal wall motion, EF 80% 08/09/16 CT c-spine: no evidence of acute fracture, compression deformities, subluxation 08/12/16 CT head shows 0.7cm infarct within the right frontoparietal coronal radiata, acute Repeat CT head 08/13 study shows better defined infarct in posterior aspect of the right putamen, posterior limb of internal capsule, coronal radiata 08/14 ECHO normal LV size and function with no significant valvular pathology Assessment: This is an 85 year old female with PMHx of HTN, HLD, CVA, right carotid artery stenosis s/p endarterectomy, severe systolic heart failure s/p PPM, NIDDM, 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 Plan: 1) Neuro: Acute right stratocapsular lacunar infarct - Carotid doppler no significant stenosis - Continue ASA - Continue Crestor 20mg po daily - Appreciate neuro consult Dysphagia - Continue Clinimix until patient tolerating food well 2) Cardiology: Chronic LV systolic dysfunction - ECHO 08/13/16 with normal LV size and function. Trace MR PPM - For battery change in PPM today HTN - Continue Labetolol - Continue Hyzaar 3) Oncology: Right breast fungating cancer - Hold Tykerb and Xeloda as they cannot be crushed per pharmacy - Mupirocin to open lesions BID - Stop keflex per family request, originally for RUE erythema - Awaiting call back from Dr. Ruiz regarding change in chemo regimen - Right fungating breast treatment as follows per Dr. Crowe: Daily saline rinse, pat dry, apply Metrogel daily 4) Endocrine: DM - Sugars were controlled, accu checks discontinued yesterday - Continue to monitor 5) F/E/N: - Monitor electrolytes - NPO for ppm battery change 6) Prophylaxis: - Fondaparinux 7) Dispo: - Requires continued inpatient care CODE STATUS: FULL CODE Visit type - Emergency Visit Emergency Visit: Yes ED Registration Date: 08/11/16 Care time: The patient presented to the Emergency Department on the above date and was hospitalized for further evaluation of their emergent condition. - New Patient This patient is new to me today: No - Critical Care Critical Care patient: No
--- NOTE | 2016-08-17 09:56 | CON.CARD ---
Consult Consult Specialty:: EPS Referred by:: Dr. Bassam Avery Reason for Consultation:: Pacemaker pulse generator depletion - History of Present Illness Chief Complaint: Pacemaker pulse generator depletion History of Present Illness: Ms. Shen is an 85 year old female with a pmh of htn, CVA, right carotid stenosis s/p CEA, dm, inc chol, right breast ca s/p chemotherapy with lymph node resection and lymphedema, p/w CVA, SSS s/p dual chamber PPM implanted 2006 now at [facility]. EPS consultation was requested for potential pulse generator replacement. She is presently on arixtra. There have been no reports of near or true syncope. 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: CVA Cardio/Vascular: Yes: HTN, Hyperlipdemia Infectious Disease: Yes: MRSA Musculoskeletal: Yes: Hemiparesis Endocrine: Yes: Diabetes Mellitus - Past Surgical History Past Surgical History: Yes: Carotid Endarterectomy (Rt sided), Permanent Pacemaker - Alcohol/Substance Use Hx Alcohol Use: No - Smoking History Smoking history: Never smoked Have you smoked in the past 12 months: No Aproximately how many cigarettes per day: 0 - Social History ADL: Independent History of Recent Travel: No Home Medications - Allergies Allergies/Adverse Reactions: Allergies Allergy/AdvReac Type Severity Reaction Status Date / Time Pork/Porcine Containing Allergy Severe Hives Verified 08/11/16 09:36 Products - Home Medications Home Medications: Ambulatory Orders Labetalol HCl 300 mg PO BID #0 tablet 10/08/12 Amino Acids 4.25%/D5w [Clinimix 4.25%/D5w Solution] 1,000 ml IV Q12H bag Aspirin [ASA -] 325 mg PO DAILY tablet 08/17/16 Fondaparinux Sodium [Arixtra (Restricted) -] 2.5 mg SQ DAILY syr 08/17/16 Polyethylene Glycol 3350 [Miralax 119 gm Btl -] 17 gm PO BID bottle 08/17/16 Rosuvastatin Calcium [Crestor] 40 mg PO DAILY #0 tab 08/17/16 Metronidazole 1% Cream [Metrocream 1% Cream -] 1 applic TP DAILY #1 tube Family Disease History - Family Disease History Family Disease History: Diabetes: Mother, Heart Disease: Father Review of Systems Unable to obtain ROS, reason: pt condition Vital Signs: Vital Signs Temperature 97.8 F 08/17/16 05:56 Pulse Rate 72 08/17/16 05:56 Respiratory Rate 18 08/17/16 05:56 Blood Pressure 135/69 08/17/16 05:56 O2 Sat by Pulse Oximetry (%) 96 08/16/16 21:00 Constitutional: Yes: Well Nourished, No Distress HENT: No: Epistaxis Respiratory: Yes: WNL, Regular, CTA Bilaterally Gastrointestinal: Yes: Normal Bowel Sounds, Soft Cardiovascular: Yes: Regular Rate and Rhythm Heart Sounds: Yes: S1, S2 Murmur: Yes: Systolic Murmur, Grade 1 Extremities: No: Cold Edema: No - Other Data Labs, Other Data: CBC, BMP 08/17/16 06:45 08/17/16 06:45 INR, PTT INR 1.03 (0.82-1.09) 08/11/16 09:36 Echo: Report Reviewed Ejection Fraction %: LVEF > or = 40 % Imaging - Results Chest X-ray: Image Reviewed EKG: Image Reviewed Problem List - Problems (1) CVA (cerebral vascular accident) Code(s): I63.9 - CEREBRAL INFARCTION, UNSPECIFIED Qualifiers: Precerebral and cerebral artery: middle cerebral artery Laterality of affected vessel: left (2) Pacemaker Code(s): Z95.0 - PRESENCE OF CARDIAC PACEMAKER (3) Pacemaker generator end of life Code(s): Z45.010 - ENCNTR FOR CHECKING AND TEST OF CARD PACEMAKER PULSE GNRTR Assessment/Plan 08/17/16: JVD EPS: pt had p/w stroke. ppm interrogation demonstrated device at [facility], May 2016. EPS consultation was requested for device evaluation and pulse generator replacement. she is on contact precautions due to a mrsa wound right chest. extensive conversation with the patient's daughter (HCP) yesterday evening, risks/benefits/alternatives discussed at length. all questions answered. consent obtained and placed in chart. agreeable to proceed. - npo - no heparin/lovenox/arixtra this am - vancomycin 1 gram ivss x 1 on-call to OR - consent in chart - pacemaker pulse generator replacement this am - care as per cardiology, primary services Thank you for allowing me to participate in the care of this patient. Please call with any questions. Fahad Smith MD [phone]
[2016-08-17] MEDS: POLYETHYLENE GLYCOL 3350 119 GM BTL PO SCH ×2 (10:00→23:31)
[2016-08-17] MEDS: ASPIRIN 325 MG TABLET PO SCH (10:00)
[2016-08-17] MEDS: MUPIROCIN 2% TOPICAL OINTMENT 22 GM TUBE TP SCH ×2 (10:00→23:31)
[2016-08-17] MEDS: ROSUVASTATIN CA 20 MG TABLET (FP) PO SCH (10:00)
[2016-08-17] MEDS: LABETALOL HCL 100 MG TABLET (FP) PO SCH ×2 (10:00→23:31)
[2016-08-17] MEDS ORDERED: LIDOCAINE HCL 1%, 10 MG/ML (20ML VIAL) ONE ×2 (10:17→11:28)
[2016-08-17] MEDS ORDERED: LIDOCAINE HCL 1%, 10 MG/ML (20ML VIAL) IJ ONE (11:24)
[2016-08-17] MEDS ORDERED: BACITRACIN 15 GM TUBE TOPICAL OINTMENT ONE (12:03)
--- NOTE | 2016-08-17 12:09 | OP ---
Operative Note - Note: Operative Date: 08/17/16 Pre-Operative Diagnosis: pacemaker pulse generator depletion Operation: dual chamber pacemaker pulse generator replacement Implants: medtronic dual chamber pacemaker pulse generator Surgeon: Fahad Smith V Anesthesiologist/STATE EDITOR: Aide Gee MD Anesthesia: MAC Specimens Removed: old medtronic pacemaker pulse generator Estimated Blood Loss (mls): 10 Operative Report Dictated: Yes
[2016-08-17] MEDS ORDERED: LACTATED RINGERS SOLUTION 1,000 ML IV SCH (12:30)
[2016-08-17] MEDS ORDERED: ASPIRIN 325 MG TABLET PO ONE (13:45)
[2016-08-17] MEDS ORDERED: ROSUVASTATIN CA 20 MG TABLET (FP) PO ONE (13:45)
[2016-08-17] MEDS ORDERED: LABETALOL HCL 100 MG TABLET (FP) PO ONE (13:45)
--- NOTE | 2016-08-17 14:17 | EKG ---
Test Reason : Blood Pressure : / mmHG Vent. Rate : 060 BPM Atrial Rate : 060 BPM P-R Int : 204 ms QRS Dur : 102 ms QT Int : 488 ms P-R-T Axes : 021 002 196 degrees QTc Int : 488 ms Atrial-paced rhythm PROLONGED QT ABNORMAL ECG Confirmed by LYNNE GABRIEL MD ([id number]) on 08/17/2016 2:17:04 PM Referred By: SHAMIR DUNBAR Confirmed By:LYNNE GABRIEL MD
--- NOTE | 2016-08-17 16:26 | PN ---
Progress Note, Physician History of Present Illness: Underwent dual chamber pacemaker pulse generator replacement without sequelae. - Current Medication List Current Medications: Active Medications Aspirin (Asa -) 325 mg PO DAILY JAMEY Fentanyl (Sublimaze Injection -) 25 mcg IVPUSH [id number] PRN PRN Reason: PAIN Stop: 08/20/16 12:27 Lactated Ringer's (Lactated Ringers Solution) 1,000 mls @ 75 mls/hr IV ASDIR JAMEY Amino Acids (Clinimix -) 1,000 mls @ 84 mls/hr IV Q12H JAMEY Last Admin: 08/17/16 16:12 Dose: 84 mls/hr Labetalol HCl (Normodyne -) 300 mg PO BID JAMEY Mupirocin (Bactroban 2% Ointment -) 1 applic TP BID JAMEY Polyethylene Glycol (Miralax (For Daily Use) -) 17 gm PO BID JAMEY Rosuvastatin Calcium (Crestor -) 20 mg PO DAILY [facility] - Objective Vital Signs: Vital Signs Temperature 97.7 F 08/17/16 13:58 Pulse Rate 64 08/17/16 13:58 Respiratory Rate 20 08/17/16 13:58 Blood Pressure 161/67 08/17/16 13:58 O2 Sat by Pulse Oximetry (%) 100 08/17/16 12:45 Constitutional: Yes: No Distress, Calm Neck: Yes: Supple Cardiovascular: Yes: Regular Rate and Rhythm Respiratory: Yes: Regular, Diminished Gastrointestinal: Yes: Normal Bowel Sounds, Soft Edema: No Neurological: Yes: Pre-Existing Deficit Labs: CBC, BMP 08/17/16 06:45 08/17/16 06:45 INR, PTT INR 1.03 (0.82-1.09) 08/11/16 09:36 Problem List - Problems (1) CVA (cerebral vascular accident) Code(s): I63.9 - CEREBRAL INFARCTION, UNSPECIFIED Qualifiers: Precerebral and cerebral artery: middle cerebral artery Laterality of affected vessel: left (2) Hypercholesteremia Code(s): E78.00 - PURE HYPERCHOLESTEROLEMIA, UNSPECIFIED (3) Lymph edema Code(s): I89.0 - LYMPHEDEMA, NOT ELSEWHERE CLASSIFIED (4) T2DM (type 2 diabetes mellitus) Code(s): E11.9 - TYPE 2 DIABETES MELLITUS WITHOUT COMPLICATIONS Qualifiers: Diabetes mellitus complication status: without complication Diabetes mellitus adjunct faculty for medical terminology insulin use: without skilled nursing use Qualified Code(s): E11.9 - Type 2 diabetes mellitus without complications (5) Hypertension Code(s): I10 - ESSENTIAL (PRIMARY) HYPERTENSION Qualifiers: Hypertension type: essential hypertension Qualified Code(s): I10 - Essential (primary) hypertension (6) Malignant neoplasm of right breast Code(s): C50.911 - MALIGNANT NEOPLASM OF UNSP SITE OF RIGHT FEMALE BREAST (7) Pacemaker Code(s): Z95.0 - PRESENCE OF CARDIAC PACEMAKER (8) Diastolic dysfunction Code(s): I51.9 - HEART DISEASE, UNSPECIFIED (9) Pacemaker generator end of life Code(s): Z45.010 - ENCNTR FOR CHECKING AND TEST OF CARD PACEMAKER PULSE GNRTR Assessment/Plan 08/13/2016 Echocardiography revealed normal LV size and function with no significant valvular pathology 1. Acute new lacunar stroke with prior history of old stroke with residual mild right hemiplegia 2. History of LV systolic dysfunction with class 0-I NYHA classification LV failure, euvolemic (normal LV systolic function on repeat echocardiography) 3. 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 AV block post PPM (Medtronic) at [facility] post dual chamber pacemaker pulse generator replacement 5. Carotid stenosis post carotid endarterectomy 6. HTN 7. DM 8. Hyperlipidemia 9. History of right breast carcinoma on chemo with associated RUE lymphedema 10. CKD 11. Vascular dementia PLAN: 1. Continue ECASA 325 po qd 2. Continue Labetolol 300 bid and Crestor 20 qd, resume Hyzaar 50/12.5 qd as hemodynamics tolerate 3. DVT prophylaxis with fondaparinux, resume in AM 4. Speech and Swallow f/u, hopefully can avoid PEG 5. 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
--- NOTE | 2016-08-17 16:41 | CONSULT ---
Consult - text type - Consultation Consultation Note: 85 yrs old F lives at home with daughter, multiple medical, Co-morbidities h/O HTN, CVA , Rt Carotid stenosis s/p endaartrectomy, minimal residual weakness on Rt side able to ambulate unsupported till Saturday, also H/O Romeo arrhythmia s/p Pacemaker interrogated in 06/2016, Border line T2DM, Hypercholesterolemia, Recurrent Rt fungating CA Breast on Chemotherapy, Rt UE Lymph luc a after Rt axillary LN resection. Now with worsening of Rt LE weakness and had a fall on , came to Ed for evaluation, patient was discharged home, on Saturday evening daughter noticed that patient is confused and having Left UE with slurring of the speech and today morning, patient couldn't get up so called 911 came to Ed for evaluation, on arrival hemodynamically stable, confused, able to communicate, Left upper and LE weakness CT head shows no acute changes; Ct scan showed RT. IC lacunar infarct. Patient with dense lt. hemiplegia She has some difficulty comunicating, swallowing Tells her name aphasic on thickened puree diet STUDIES: CT 08/13/16 shows new stroke -- Impression. Better defined nonhemorrhagic recent right striatocapsular lacunar infarct is seen in the posterior aspect of the right putamen, posterior limb of internal capsule, coronal radiata. Dopplers : 08/14/16 Impression: Small plaques of the right common carotid bifurcation and bulb as well as small to moderate-sized plaques at the left common carotid bifurcation and bulb without evidence of hemodynamically significant stenosis, bilaterally. 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 Cardio/Vascular: Yes: HTN, Hyperlipdemia Endocrine: Yes: Diabetes Mellitus - Past Surgical History Past Surgical History: Yes: Carotid Endarterectomy (Rt sided) - Smoking History Smoking history: Never smoked t Home Medications - Allergies Allergies/Adverse Reactions: Allergies Allergy/AdvReac Type Severity Reaction Status Date / Time Pork/Porcine Containing Allergy Severe Hives Verified 08/11/16 09:36 Products Home Medication List Medication Instructions Recorded Confirmed Type Capecitabine [Xeloda -] 500 mg PO BID 03/30/16 08/11/16 History Lapatinib Ditosylate [Tykerb] 750 mg PO DAILY 03/30/16 08/11/16 History Aspirin [Ecotrin] 81 mg PO DAILY 08/09/16 08/11/16 History Cephalexin [Keflex] 500 mg PO BID 08/09/16 08/11/16 History Rosuvastatin Calcium [Crestor] 40 mg PO DAILY 08/09/16 08/11/16 History Active Medications Generic Name Dose Route Start Last Admin Trade Name Tova PRN Reason Stop Dose Admin Aspirin 325 mg 08/18/16 10:00 Asa - PO DAILY JAMEY Fentanyl 25 mcg 08/17/16 12:26 Sublimaze Injection - IVPUSH 08/20/16 12:27 [id number] PRN PAIN Lactated Ringer's 1,000 mls @ 75 mls/hr 08/17/16 12:30 Lactated Ringers Solution IV ASDIR JAMEY Amino Acids 1,000 mls @ 84 mls/hr 08/17/16 15:45 08/17/16 16:12 Clinimix - IV 84 mls/hr Q12H JAMEY Administration Labetalol HCl 300 mg 08/17/16 22:00 Normodyne - PO BID [facility] Mupirocin 1 applic 08/17/16 22:00 Bactroban 2% Ointment - TP BID [facility] Polyethylene Glycol 17 gm 08/17/16 22:00 Miralax (For Daily Use) - PO BID JAMEY Rosuvastatin Calcium 20 mg 08/18/16 10:00 Crestor - PO DAILY [facility] Vital Signs: Last Vital Signs Temp Pulse Resp BP Pulse Ox 97.7 F 64 20 161/67 100 08/17/16 13:58 08/17/16 13:58 08/17/16 13:58 08/17/16 13:58 08/17/16 12:45 Constitutional: Yes: No Distress, aphasic Neck: Yes: WNL, Supple Cardiovascular: Yes: Regular Rate and Rhythm Respiratory: Yes: WNL Musculoskeletal: Yes: WNL Edema: No RUE/RLE-1/5 and LUE/LLE --dense hemiplegia Labs: Abnormal Lab Results 08/17/16 08/17/16 06:45 06:45 MCV 97.2 H Monocytes % 10.4 H Anion Gap 5 L BUN 33 H Random Glucose 156 H Total Protein 6.2 L Albumin 2.9 L Assessment/Plan 85 y/o AAF, w h/o old stroke w residual mild R HP , h/o breast cancer on chemo ; s/p PPM p/w new L hemiparesis, (+ ? suspect aphasia residual from prior stroke ) new lacunar stroke--R IC radiographically suspect superimposed vascular dementia ( BL strokes may contributing to poor mental state) On ASA 325 mg Rt. breast cancer --had been on xeloda recently Now with worsening functional xeloda on hold Xeloda cant be crushed on thickened puree diet Discussed with primary oncologist -- Dr. Ruiz
[2016-08-17] MEDS ORDERED: ACETAMINOPHEN 500 MG TABLET (FP) ONE (17:33)
--- NOTE | 2016-08-17 17:39 | DS ---
Physical Examination Vital Signs: Vital Signs Temperature 97.7 F 08/17/16 13:58 Pulse Rate 64 08/17/16 13:58 Respiratory Rate 20 08/17/16 13:58 Blood Pressure 161/67 08/17/16 13:58 O2 Sat by Pulse Oximetry (%) 100 08/17/16 12:45 Labs: CBC, BMP 08/17/16 06:45 08/17/16 06:45 Discharge Summary Reason For Visit: CVA Current Active Problems CVA (cerebral vascular accident) (Acute) Cancer of breast (Acute) Diastolic dysfunction (Acute) Hypercholesteremia (Acute) Lymph edema (Acute) Pacemaker (Acute) Pacemaker generator end of life (Acute) T2DM (type 2 diabetes mellitus) (Acute) Hospital Course: Discussed with Jessica (case management), Matias Gonzalez has accepted the patient with IV Clinimix. Condition: Stable - Instructions Diet, Activity, Other Instructions: Please return to the ED with new, persistent, or worsening symptoms. Please follow-up with providers as indicated Continue Clinimix until the patient is tolerative oral intake. Start Fondaparenux on 08/19/16. Do not take Xeloda or Tykerb until you are reevaluated by your oncologist Referrals: Jose Alberto Valencia [Primary Care Provider] - (Please follow-up with your primary care provider within 1 week.) Ledy Sanford MS, CCC [Speech Therapist] - 1 Week Nelson Pace DO [Staff Physician] - 1 Week Bassam Avery MD [Staff Physician] - 1 Week [facility] - Home Medications Comprehensive Discharge Medication List: Ambulatory Orders Labetalol HCl 300 mg PO BID #0 tablet 10/08/12 Amino Acids 4.25%/D5w [Clinimix 4.25%/D5w Solution] 1,000 ml IV Q12H bag Aspirin [ASA -] 325 mg PO DAILY tablet 08/17/16 Fondaparinux Sodium [Arixtra (Restricted) -] 2.5 mg SQ DAILY syr 08/17/16 Polyethylene Glycol 3350 [Miralax 119 gm Btl -] 17 gm PO BID bottle 08/17/16 Rosuvastatin Calcium [Crestor] 40 mg PO DAILY #0 tab 08/17/16
[2016-08-18] MEDS: AMINO ACIDS 4.25%/D5W 1,000 ML IV SCH ×2 (03:24→15:04)
--- NOTE | 2016-08-18 09:39 | PN ---
Progress Note (short form) - Note Progress Note: Subjective: The patient was seen and examined at the bedside. Had PPM battery change yesterday. Patient doing well after procedure, alert and awake in bed Patient was discharged yesterday, discharge appealed by daughter. However, patient was unable to go to [facility] because they will not accept the patient with Clinimix. Discussed with Family and dietary at bedside. Will bring in pureed food from home and perform calorie count x48 hours. will continue Clinimix for now. Discussed possible NGT placement or g-tube and the family states they will discuss Current Medications Generic Name Dose Route Start Last Admin Trade Name Freq PRN Reason Stop Dose Admin Aspirin 325 mg 08/18/16 10:00 Asa - PO DAILY JAMEY Fentanyl 25 mcg 08/17/16 12:26 Sublimaze Injection - IVPUSH 08/20/16 12:27 [id number] PRN PAIN Lactated Ringer's 1,000 mls @ 75 mls/hr 08/17/16 12:30 Lactated Ringers Solution IV ASDIR JAMEY Amino Acids 1,000 mls @ 84 mls/hr 08/17/16 15:45 08/18/16 03:24 Clinimix - IV 84 mls/hr Q12H JAMEY Administration Labetalol HCl 300 mg 08/17/16 22:00 08/17/16 23:31 Normodyne - PO 300 mg BID JAMEY Administration Mupirocin 1 applic 08/17/16 22:00 08/17/16 23:31 Bactroban 2% Ointment - TP 1 applic BID JAMEY Administration Polyethylene Glycol 17 gm 08/17/16 22:00 08/17/16 23:31 Miralax (For Daily Use) - PO Not Given BID JAMEY Rosuvastatin Calcium 20 mg 08/18/16 10:00 Crestor - PO DAILY JAMEY Objective: Vital Signs Period Temp Pulse Resp BP Sys/Arrieta Pulse Ox Last 24 Hr 97.7 F-98.6 F 52-76 12-20 126-161/50-81 100-100 Physical Exam: General: NAD Lungs: CTA bilaterally Breast: Right breast fungating wound with dressing c/d/i Heart: RRR, S1S2 Abd: Soft, non-tender, non-distended. Normoactive bowel sounds Ext: Warm, well-perfused Neuro: Not following commands. RUE contracted. Left arm flaccid Moving toes on b /l feet. Uncooperative CBCD WBC 4.6 K/mm3 (4.0-10.0) 08/17/16 06:45 RBC 3.87 M/mm3 (3.60-5.2) 08/17/16 06:45 Hgb 12.4 GM/dL (10.7-15.3) 08/17/16 06:45 Hct 37.6 % (32.4-45.2) 08/17/16 06:45 MCV 97.2 fl (80-96) H 08/17/16 06:45 MCHC 33.1 g/dl (32.0-36.0) 08/17/16 06:45 RDW 13.8 % (11.6-15.6) 08/17/16 06:45 Plt Count 172 K/MM3 (134-434) 08/17/16 06:45 MPV 10.5 fl (7.5-11.1) 08/17/16 06:45 CMP Sodium 139 mmol/L (136-145) 08/17/16 06:45 Potassium 3.9 mmol/L (3.5-5.1) 08/17/16 06:45 Chloride 104 mmol/L (98-107) 08/17/16 06:45 Carbon Dioxide 30 mmol/L (21-32) 08/17/16 06:45 Anion Gap 5 (8-16) L 08/17/16 06:45 BUN 33 mg/dL (7-18) H 08/17/16 06:45 Creatinine 0.8 mg/dL (0.55-1.02) 08/17/16 06:45 Creat Clearance w eGFR > 60 (>60) 08/17/16 06:45 Random Glucose 156 mg/dL (74-106) H 08/17/16 06:45 Calcium 9.0 mg/dL (8.5-10.1) 08/17/16 06:45 Total Bilirubin 0.8 mg/dL (0.2-1.0) D 08/17/16 06:45 AST 17 U/L (15-37) 08/17/16 06:45 ALT 12 U/L (12-78) 08/17/16 06:45 Alkaline Phosphatase 58 U/L (45-117) 08/17/16 06:45 Total Protein 6.2 g/dl (6.4-8.2) L 08/17/16 06:45 Albumin 2.9 g/dl (3.4-5.0) L 08/17/16 06:45 Microbiology 08/14/16 19:00 Nares - Mrsa Screen - Right MRSA Screen - Final NO MRSA ISOLATED 08/14/16 19:00 Nares - Mrsa Screen - Left MRSA Screen - Final NO MRSA ISOLATED Imaging 01/09/16 Echo: LV function severely reduced, severe global hypokinesis; PPM/ICK in RV; mild MR; 07/13/16 MUGA scan: normal wall motion, EF 80% 08/09/16 CT c-spine: no evidence of acute fracture, compression deformities, subluxation 08/12/16 CT head shows 0.7cm infarct within the right frontoparietal coronal radiata, acute Repeat CT head 08/13 study shows better defined infarct in posterior aspect of the right putamen, posterior limb of internal capsule, coronal radiata 08/14 ECHO normal LV size and function with no significant valvular pathology Assessment: This is an 85 year old female with PMHx of HTN, HLD, CVA, right carotid artery stenosis s/p endarterectomy, severe systolic heart failure s/p PPM, NIDDM, 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 Plan: 1) Neuro: Acute right stratocapsular lacunar infarct - Carotid doppler no significant stenosis - Continue ASA - Continue Crestor 20mg po daily - Appreciate neuro consult Dysphagia - Continue Clinimix until patient tolerating food well - Had discussion with family, including daughter Iram (HCP) as above 2) Cardiology: Chronic LV systolic dysfunction - ECHO 08/13/16 with normal LV size and function. Trace MR PPM - PPM battery changed yesterday HTN - Continue Labetolol - Continue Hyzaar 3) Oncology: Right breast fungating cancer - Hold Tykerb and Xeloda as they cannot be crushed per pharmacy - Metronidazole gel to right breast - Right fungating breast treatment as follows per Dr. Crowe: Daily saline rinse, pat dry, apply Metrogel daily 4) Endocrine: DM - Sugars were controlled, accu checks discontinued yesterday - Continue to monitor 5) F/E/N: - Monitor electrolytes - Dysphagia 6) Prophylaxis: - Fondaparinux to start tomorrow 7) Dispo: - Requires continued inpatient care CODE STATUS: FULL CODE Visit type - Emergency Visit Emergency Visit: Yes ED Registration Date: 08/11/16 Care time: The patient presented to the Emergency Department on the above date and was hospitalized for further evaluation of their emergent condition. - New Patient This patient is new to me today: No - Critical Care Critical Care patient: No
[2016-08-18] MEDS ORDERED: ASPIRIN 325 MG TABLET PO SCH (10:00)
[2016-08-18] MEDS: ASPIRIN 325 MG TABLET PO SCH (10:07)
[2016-08-18] MEDS: LABETALOL HCL 100 MG TABLET (FP) PO SCH ×3 (10:07→21:46)
[2016-08-18] MEDS: ROSUVASTATIN CA 20 MG TABLET (FP) PO SCH (10:07)
[2016-08-18] MEDS: POLYETHYLENE GLYCOL 3350 119 GM BTL PO SCH ×2 (10:08→21:35)
[2016-08-18] MEDS: MUPIROCIN 2% TOPICAL OINTMENT 22 GM TUBE TP SCH (10:08)
[2016-08-18] MEDS ORDERED: metroNIDAZOLE 1% TOPICAL CREAM 60 GM/TUBE TP SCH (14:00)
[2016-08-19] MEDS: AMINO ACIDS 4.25%/D5W 1,000 ML IV SCH ×2 (03:40→15:08)
[2016-08-19] MEDS: ASPIRIN 325 MG TABLET PO SCH (09:28)
[2016-08-19] MEDS: LABETALOL HCL 100 MG TABLET (FP) PO SCH ×2 (09:28→21:33)
[2016-08-19] MEDS: ROSUVASTATIN CA 20 MG TABLET (FP) PO SCH (09:29)
[2016-08-19] MEDS ORDERED: DOCUSATE NA 100 MG/10 ML UNIT-DOSE CUPS PO PRN (09:36)
--- NOTE | 2016-08-19 09:38 | PN ---
Progress Note (short form) - Note Progress Note: Subjective: The patient was seen and examined at the bedside. she is alert and awake. She is verbal just stating "yes" Colace liquid added for constipation Ongoing calorie count Informed by pharmacy we do not have Metrogel, will reorder bactroban Current Medications Generic Name Dose Route Start Last Admin Trade Name Freq PRN Reason Stop Dose Admin Aspirin 325 mg 08/18/16 10:00 08/19/16 09:28 Asa - PO 325 mg DAILY JAMEY Administration Docusate Sodium 100 mg 08/19/16 09:36 Colace Liquid - PO BID PRN CONSTIPATION Fentanyl 25 mcg 08/17/16 12:26 Sublimaze Injection - IVPUSH 08/20/16 12:27 [id number] PRN PAIN Fondaparinux 2.5 mg 08/19/16 10:00 Arixtra (Restricted) - SQ DAILY JAMEY Amino Acids 1,000 mls @ 84 mls/hr 08/17/16 15:45 08/19/16 03:40 Clinimix - IV 84 mls/hr Q12H JAMEY Administration Fat Emulsion Intravenous 250 mls @ 20.833 mls/hr 08/19/16 22:00 Intralipid - IV DAILY@2200 JAMEY Labetalol HCl 300 mg 08/17/16 22:00 08/19/16 09:28 Normodyne - PO 300 mg BID JAMEY Administration Metronidazole 1 gm 08/18/16 14:00 08/18/16 14:00 Metrocream 1% Cream - TP Not Given DAILY JAMEY Polyethylene Glycol 17 gm 08/17/16 22:00 08/18/16 21:35 Miralax (For Daily Use) - PO Not Given BID JAMEY Rosuvastatin Calcium 20 mg 08/18/16 10:00 08/19/16 09:29 Crestor - PO 20 mg DAILY JAMEY Administration Objective: Vital Signs Period Temp Pulse Resp BP Sys/Arrieta Pulse Ox Last 24 Hr 98 F-98.6 F 61-68 20-20 122-148/61-81 98 Physical Exam: General: NAD Lungs: CTA bilaterally Breast: Right breast fungating wound with dressing c/d/i Heart: RRR, S1S2 Abd: Soft, non-tender, non-distended. Normoactive bowel sounds Ext: Warm, well-perfused Neuro: Not following commands. RUE contracted. Left arm flaccid Moving toes on b /l feet. Uncooperative CBCD WBC 4.6 K/mm3 (4.0-10.0) 08/17/16 06:45 RBC 3.87 M/mm3 (3.60-5.2) 08/17/16 06:45 Hgb 12.4 GM/dL (10.7-15.3) 08/17/16 06:45 Hct 37.6 % (32.4-45.2) 08/17/16 06:45 MCV 97.2 fl (80-96) H 08/17/16 06:45 MCHC 33.1 g/dl (32.0-36.0) 08/17/16 06:45 RDW 13.8 % (11.6-15.6) 08/17/16 06:45 Plt Count 172 K/MM3 (134-434) 08/17/16 06:45 MPV 10.5 fl (7.5-11.1) 08/17/16 06:45 CMP Sodium 139 mmol/L (136-145) 08/17/16 06:45 Potassium 3.9 mmol/L (3.5-5.1) 08/17/16 06:45 Chloride 104 mmol/L (98-107) 08/17/16 06:45 Carbon Dioxide 30 mmol/L (21-32) 08/17/16 06:45 Anion Gap 5 (8-16) L 08/17/16 06:45 BUN 33 mg/dL (7-18) H 08/17/16 06:45 Creatinine 0.8 mg/dL (0.55-1.02) 08/17/16 06:45 Creat Clearance w eGFR > 60 (>60) 08/17/16 06:45 Random Glucose 156 mg/dL (74-106) H 08/17/16 06:45 Calcium 9.0 mg/dL (8.5-10.1) 08/17/16 06:45 Total Bilirubin 0.8 mg/dL (0.2-1.0) D 08/17/16 06:45 AST 17 U/L (15-37) 08/17/16 06:45 ALT 12 U/L (12-78) 08/17/16 06:45 Alkaline Phosphatase 58 U/L (45-117) 08/17/16 06:45 Total Protein 6.2 g/dl (6.4-8.2) L 08/17/16 06:45 Albumin 2.9 g/dl (3.4-5.0) L 08/17/16 06:45 Microbiology 08/14/16 19:00 Nares - Mrsa Screen - Right MRSA Screen - Final NO MRSA ISOLATED 08/14/16 19:00 Nares - Mrsa Screen - Left MRSA Screen - Final NO MRSA ISOLATED Imaging 01/09/16 Echo: LV function severely reduced, severe global hypokinesis; PPM/ICK in RV; mild MR; 07/13/16 MUGA scan: normal wall motion, EF 80% 08/09/16 CT c-spine: no evidence of acute fracture, compression deformities, subluxation 08/12/16 CT head shows 0.7cm infarct within the right frontoparietal coronal radiata, acute Repeat CT head 08/13 study shows better defined infarct in posterior aspect of the right putamen, posterior limb of internal capsule, coronal radiata 08/14 ECHO normal LV size and function with no significant valvular pathology Assessment: This is an 85 year old female with PMHx of HTN, HLD, CVA, right carotid artery stenosis s/p endarterectomy, severe systolic heart failure s/p PPM, NIDDM, 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 Plan: 1) Neuro: Acute right stratocapsular lacunar infarct - Carotid doppler no significant stenosis - Continue ASA - Continue Crestor 20mg po daily - Appreciate neuro consult Dysphagia - Continue Clinimix until patient tolerating food well - Had discussion with family, including daughter Iram (HCP). Calorie count for the weekend then further discussion regarding NGT or PEG for ongoing nutritional needs 2) Cardiology: Chronic LV systolic dysfunction - ECHO 08/13/16 with normal LV size and function. Trace MR PPM - PPM battery changed 08/17 HTN - Continue Labetolol - Resume Hyzaar today, monitor BP closely 3) Oncology: Right breast fungating cancer - Hold Tykerb and Xeloda as they cannot be crushed per pharmacy - Bactroban to right breast. Ideally would like Metrogel, however the pharmacy does not have it. Can discharge on Metrogel - Right fungating breast treatment as follows per Dr. Crowe: Daily saline rinse, pat dry, apply Metrogel daily - Per Dr. Ruiz, continue to hold oral chemo until the patient's dysphagia has improved. Once that happens, follow-up as an outpatient to determine when to restart oral chemo. Daughter Gauri aware of this plan 4) Endocrine: DM - Sugars were controlled, accu checks discontinued yesterday - Continue to monitor 5) F/E/N: - Monitor electrolytes - Dysphagia - Clinimix with lipids 6) Prophylaxis: - Fondaparinux 7) Dispo: - Requires continued inpatient care CODE STATUS: FULL CODE Visit type - Emergency Visit Emergency Visit: Yes ED Registration Date: 08/11/16 Care time: The patient presented to the Emergency Department on the above date and was hospitalized for further evaluation of their emergent condition. - New Patient This patient is new to me today: No - Critical Care Critical Care patient: No
[2016-08-19] MEDS: FONDAPARINUX SODIUM 2.5 MG/0.5 ML DISP.SYRIN SQ SCH (10:40)
[2016-08-19] MEDS: POLYETHYLENE GLYCOL 3350 119 GM BTL PO SCH ×2 (10:41→21:19)
--- NOTE | 2016-08-19 11:16 | PN ---
Progress Note, Physician History of Present Illness: Underwent dual chamber pacemaker pulse generator replacement without sequelae. Appetite diminshed. - Current Medication List Current Medications: Active Medications Aspirin (Asa -) 325 mg PO DAILY [facility] Last Admin: 08/19/16 09:28 Dose: 325 mg Docusate Sodium (Colace Liquid -) 100 mg PO BID PRN PRN Reason: CONSTIPATION Fentanyl (Sublimaze Injection -) 25 mcg IVPUSH [id number] PRN PRN Reason: PAIN Stop: 08/20/16 12:27 Fondaparinux (Arixtra (Restricted) -) 2.5 mg SQ DAILY [facility] Last Admin: 08/19/16 10:40 Dose: 2.5 mg HCTZ/Losartan Potassium (Hyzaar -) 1 tab PO DAILY [facility] Amino Acids (Clinimix -) 1,000 mls @ 84 mls/hr IV Q12H [facility] Last Admin: 08/19/16 03:40 Dose: 84 mls/hr Fat Emulsion Intravenous (Intralipid -) 250 mls @ 20.833 mls/hr IV DAILY@2200 [facility] Labetalol HCl (Normodyne -) 300 mg PO BID [facility] Last Admin: 08/19/16 09:28 Dose: 300 mg Mupirocin (Bactroban 2% Ointment -) 1 applic TP BID [facility] Polyethylene Glycol (Miralax (For Daily Use) -) 17 gm PO BID [facility] Last Admin: 08/19/16 10:41 Dose: Not Given Rosuvastatin Calcium (Crestor -) 20 mg PO DAILY [facility] Last Admin: 08/19/16 09:29 Dose: 20 mg - Objective Vital Signs: Vital Signs Temperature 98.0 F 08/19/16 09:59 Pulse Rate 64 08/19/16 09:59 Respiratory Rate 20 08/19/16 09:59 Blood Pressure 147/61 08/19/16 09:59 O2 Sat by Pulse Oximetry (%) 98 08/18/16 22:00 Constitutional: Yes: No Distress, Calm, Thin Neck: Yes: Supple Cardiovascular: Yes: Regular Rate and Rhythm Respiratory: Yes: Regular, Diminished Gastrointestinal: Yes: Normal Bowel Sounds, Soft Edema: No Labs: CBC, BMP 08/17/16 06:45 08/17/16 06:45 INR, PTT INR 1.03 (0.82-1.09) 08/11/16 09:36 - ....Imaging EKG: Report Reviewed (Atrial paced anterolateral T wave changes) Problem List - Problems (1) CVA (cerebral vascular accident) Code(s): I63.9 - CEREBRAL INFARCTION, UNSPECIFIED Qualifiers: Precerebral and cerebral artery: middle cerebral artery Laterality of affected vessel: left (2) Hypercholesteremia Code(s): E78.00 - PURE HYPERCHOLESTEROLEMIA, UNSPECIFIED (3) Lymph edema Code(s): I89.0 - LYMPHEDEMA, NOT ELSEWHERE CLASSIFIED (4) T2DM (type 2 diabetes mellitus) Code(s): E11.9 - TYPE 2 DIABETES MELLITUS WITHOUT COMPLICATIONS Qualifiers: Diabetes mellitus complication status: without complication Diabetes mellitus continuous churn buttermaker insulin use: without continuous churn buttermaker use Qualified Code(s): E11.9 - Type 2 diabetes mellitus without complications (5) Hypertension Code(s): I10 - ESSENTIAL (PRIMARY) HYPERTENSION Qualifiers: Hypertension type: essential hypertension Qualified Code(s): I10 - Essential (primary) hypertension (6) Malignant neoplasm of right breast Code(s): C50.911 - MALIGNANT NEOPLASM OF UNSP SITE OF RIGHT FEMALE BREAST (7) Pacemaker Code(s): Z95.0 - PRESENCE OF CARDIAC PACEMAKER (8) Diastolic dysfunction Code(s): I51.9 - HEART DISEASE, UNSPECIFIED (9) Pacemaker generator end of life Code(s): Z45.010 - ENCNTR FOR CHECKING AND TEST OF CARD PACEMAKER PULSE GNRTR (10) Anorexia Code(s): R63.0 - ANOREXIA Assessment/Plan 08/13/2016 Echocardiography revealed normal LV size and function with no significant valvular pathology 1. Acute new lacunar stroke with prior history of old stroke with residual mild right hemiplegia 2. History of LV systolic dysfunction with class 0-I NYHA classification LV failure, euvolemic (normal LV systolic function on repeat echocardiography) 3. 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 AV block post PPM (Medtronic) at [facility] post dual chamber pacemaker pulse generator replacement 5. Carotid stenosis post carotid endarterectomy 6. HTN 7. DM 8. Hyperlipidemia 9. History of right breast carcinoma on chemo with associated RUE lymphedema 10. CKD 11. Vascular dementia with anorexia PLAN: 1. Continue ECASA 325 po qd 2. Continue Labetolol 300 bid, Crestor 20 qd, and Hyzaar 50/12.5 qd as hemodynamics tolerate 3. DVT prophylaxis with fondaparinux 4. PT->SNF, may be transferred to rehab Saturday, patient to f/u with her own jewel stripper at [facility] upon d/c
[2016-08-19] MEDS: MUPIROCIN 2% TOPICAL OINTMENT 22 GM TUBE TP SCH ×2 (12:57→21:33)
[2016-08-19] MEDS: LOSARTAN 50MG/HCTZ 12.5MG 1 TAB (FP) PO SCH (12:57)
[2016-08-19] MEDS ORDERED: PT OWN MED DRAWER 7, Y5N ONE ×2 (17:45→21:20)
--- NOTE | 2016-08-19 20:33 | OP ---
DATE OF OPERATION: 08/17/2016 PROCEDURE: Dual-chamber pacemaker pulse generator placement. SURGEON: Shamir Smith MD ANESTHESIOLOGIST: Aide Gee MD COMPLICATIONS: None. ESTIMATED BLOOD LOSS: Minimal. INDICATIONS: This is an 85-year-old female with past medical history of hypertension, CVA, right carotid stenosis status post CEA, diabetes, increased cholesterol, right breast cancer status post chemotherapy with lymph node resection and lymphedema, presenting with CVA, sick sinus syndrome status post dual- chamber pacemaker implanted in 2006 and now here for pulse generator replacement. Informed consent was obtained and adequate time for questions and answers was offered to the patient's daughter, the health care proxy, prior to the procedure. DESCRIPTION OF PROCEDURE: Preoperative antibiotics were administered. The procedure was performed during continuous ECU monitoring and both conscious sedation and local anesthesia administered. Oxygen saturation and exhaled CO2 content were monitored continuously. The left infraclavicular region was prepped and broadly draped. Following administration of local anesthesia, an incision was made superficial to the device site in the left chest area. Using a combination of blunt and sharp dissection with cautious attention to hemostasis, the old device and generator were successfully explanted. Hemostasis was secured. The leads were checked and parameters were stable. All sponges were removed and the wound was irrigated with antibiotic solution. The pulse generator was then connected to the proximal portion of the pacemaker leads and after confirming the adequacy of the electrical connections, the device was placed in the pocket. The incision was then closed in layers using absorbable sutures. Dermabond and bacitracin were applied. A sterile bandage was applied. Proper device function was confirmed and the patient was transferred to the post procedure monitoring area for additional observation. Finalized settings were as follows: Medtronic Adapta IS-1 DR dual-chamber pacemaker, serial number [id number], implanted August 17, 2016. AIR-DDDR 60-130 beats per minute. Atrial lead was a Medtronic 4592-45, serial number [id number], implanted October 08, 2006, bipolar polarity. P-waves 2.0 millivolts. Sensitivity 0.5 millivolts. Atrial impedance 556 ohms. Atrial threshold 1.0 volts at 0.5 milliseconds, Pacing amplitude 2.0 volts at 0.4 milliseconds. The ventricular lead was a Medtronic 4092-52, serial number [id number], implanted October 10, 2006, bipolar polarity. R-waves 10.0 millivolts, sensitivity 2.8 millivolts, ventricular impedance 535 ohms. Ventricular threshold 1.1 volts at 0.5 milliseconds, amplitude 2.0 volts at 0.4 milliseconds. SHAMIR SMITH M.D. [id number] cc: Bassam Avery MD MTDD
[2016-08-19] MEDS: FAT EMULSIONS 250 ML IV SCH (21:31)
[2016-08-19] MEDS ORDERED: FAT EMULSIONS 20% 250 ML PREMIX INFUS.BAG IV SCH (22:00)
[2016-08-20] MEDS: AMINO ACIDS 4.25%/D5W 1,000 ML IV SCH ×3 (03:12→23:04)
--- NOTE | 2016-08-20 08:49 | PATH ---
Surgical Pathology Report Patient Name: TABITHA JAMESON Med. Rec. #: [id number] /Age/Gender: 1930 (Age: 85) / F Account: [id number] Location: 4 PEDS/ADOL Taken: 08/17/2016 Received: 08/17/2016 Reported: 08/20/2016 Physicians: Fahad Smith M.D. Specimen(s) Received PACEMAKER GENERATOR Clinical History Pacemaker generator, end of life Final Diagnosis SECRETARY RECEPTIONIST, REMOVAL: SECRETARY RECEPTIONIST CONSISTENT WITH PACEMAKER GENERATOR (GROSS ONLY). Electronically Signed Vince Salcedo M.D. Gross Description Received fresh labeled "pacemaker generator," is a 4.7 x 4.3 x 0.8 cm kathleen metallic device, consistent with a pacemaker battery. The specimen has the following inscription: "Medtronic Versa [id number] SN: [id number] [facility]." No soft tissue is present. No sections are submitted, gross only. /08/17/2016 saudi/08/17/2016
--- NOTE | 2016-08-20 09:53 | PN ---
Progress Note, SMOKE AND FLAME SPECIALIST - Note Progress Note: It was reported that pt was taking little by mouth over weekend, falling asleep during feedings. I spoke with nursing and suggested mixing puree with liquid, to take sips of food that are honey thick which assists in posterior transit of the bolus. Providing puree on tsp is more difficult for this pt, likely secondary to oral apraxia. No supplements provided on breakfast tray. Demonstrated technique to staff this morning with good affect.Added ensure to hot cereal and yogurt to thin puree to honey thick liquid. Pt tolerating thinned out puree and honey liquid consistencies , however, intake is quite slow. Selected Entries 08/18/16 08/18/16 08/18/16 02:00 06:00 09:30 Temperature 98.6 F 98.3 F 98 F 08/18/16 08/18/16 08/18/16 13:56 18:35 22:00 Temperature 98 F 98.6 F 98.4 F 08/19/16 08/19/16 08/19/16 06:00 09:59 18:40 Temperature 98.2 F 98.0 F 98.2 F 08/19/16 08/20/16 22:00 06:00 Temperature 98.2 F 97.9 F Laboratory Tests 08/17/16 08/17/16 06:45 06:45 WBC 4.6 Total Protein 6.2 L Albumin 2.9 L With continued feeding, pt fatigued, holding food and meds in mouth, pocketing in right buccal cavity, and spitting most out. Palliative care consult regarding patient's wishes. Continue to encourage po intake throughout the day, mixing ensure into puree. Tell pt to swallow and palpate with each bite. Please provide ensure on each tray Pt unlikely to accept/tolerate sufficient nutrition, hydration, meds by mouth in the short term. GT to supplement PO intake vs comfort care.
[2016-08-20] MEDS: FONDAPARINUX SODIUM 2.5 MG/0.5 ML DISP.SYRIN SQ SCH (10:00)
[2016-08-20] MEDS: LABETALOL HCL 100 MG TABLET (FP) PO SCH ×2 (10:00→23:06)
[2016-08-20] MEDS: ASPIRIN 325 MG TABLET PO SCH (10:00)
[2016-08-20] MEDS: MUPIROCIN 2% TOPICAL OINTMENT 22 GM TUBE TP SCH ×2 (10:01→23:09)
[2016-08-20] MEDS: LOSARTAN 50MG/HCTZ 12.5MG 1 TAB (FP) PO SCH (10:01)
[2016-08-20] MEDS: ROSUVASTATIN CA 20 MG TABLET (FP) PO SCH (10:01)
[2016-08-20] MEDS: POLYETHYLENE GLYCOL 3350 119 GM BTL PO SCH ×2 (10:01→23:06)
--- NOTE | 2016-08-20 10:17 | PN ---
Progress Note, Physician Chief Complaint: Events noted Not in distress History of Present Illness: Patient was seen and examined. Awake and alert. Chart was reviewed Denies chest pain, SOB or palpitations Being helped with breakfast by Nursing Aid - Current Medication List Current Medications: Active Medications Aspirin (Asa -) 325 mg PO DAILY [facility] Last Admin: 08/20/16 10:00 Dose: 325 mg Docusate Sodium (Colace Liquid -) 100 mg PO BID PRN PRN Reason: CONSTIPATION Fentanyl (Sublimaze Injection -) 25 mcg IVPUSH [id number] PRN PRN Reason: PAIN Stop: 08/20/16 12:27 Fondaparinux (Arixtra (Restricted) -) 2.5 mg SQ DAILY [facility] Last Admin: 08/20/16 10:00 Dose: 2.5 mg HCTZ/Losartan Potassium (Hyzaar -) 1 tab PO DAILY [facility] Last Admin: 08/20/16 10:01 Dose: 1 tab Amino Acids (Clinimix -) 1,000 mls @ 84 mls/hr IV Q12H [facility] Last Admin: 08/20/16 03:12 Dose: 84 mls/hr Fat Emulsion Intravenous (Intralipid -) 250 mls @ 20.833 mls/hr IV DAILY@2200 [facility] Last Admin: 08/19/16 21:31 Dose: 20.833 mls/hr Labetalol HCl (Normodyne -) 300 mg PO BID [facility] Last Admin: 08/20/16 10:00 Dose: 300 mg Mupirocin (Bactroban 2% Ointment -) 1 applic TP BID [facility] Last Admin: 08/20/16 10:01 Dose: 1 applic Polyethylene Glycol (Miralax (For Daily Use) -) 17 gm PO BID [facility] Last Admin: 08/20/16 10:01 Dose: 17 gm Rosuvastatin Calcium (Crestor -) 20 mg PO DAILY [facility] Last Admin: 08/20/16 10:01 Dose: 20 mg - Objective Vital Signs: Vital Signs Temperature 97.9 F 08/20/16 06:00 Pulse Rate 61 08/20/16 06:00 Respiratory Rate 20 08/20/16 06:00 Blood Pressure 135/64 08/20/16 06:00 O2 Sat by Pulse Oximetry (%) 97 08/19/16 21:00 Neck: Yes: Supple Cardiovascular: Yes: Regular Rate and Rhythm, S1, S2 Respiratory: Yes: Diminished Gastrointestinal: Yes: Normal Bowel Sounds, Soft. No: Tenderness Edema: No Wound/Incision: Yes: Dressing Dry and Intact Problem List - Problems (1) CVA (cerebral vascular accident) Code(s): I63.9 - CEREBRAL INFARCTION, UNSPECIFIED Qualifiers: Precerebral and cerebral artery: middle cerebral artery Laterality of affected vessel: left (2) Diastolic dysfunction Code(s): I51.9 - HEART DISEASE, UNSPECIFIED (3) Hypercholesteremia Code(s): E78.00 - PURE HYPERCHOLESTEROLEMIA, UNSPECIFIED (4) Pacemaker Code(s): Z95.0 - PRESENCE OF CARDIAC PACEMAKER (5) Pacemaker generator end of life Code(s): Z45.010 - ENCNTR FOR CHECKING AND TEST OF CARD PACEMAKER PULSE GNRTR (6) T2DM (type 2 diabetes mellitus) Code(s): E11.9 - TYPE 2 DIABETES MELLITUS WITHOUT COMPLICATIONS Qualifiers: Diabetes mellitus complication status: without complication Diabetes mellitus residential insulin use: without intermodal customer service use Qualified Code(s): E11.9 - Type 2 diabetes mellitus without complications (7) Hypertension Code(s): I10 - ESSENTIAL (PRIMARY) HYPERTENSION Qualifiers: Hypertension type: essential hypertension Qualified Code(s): I10 - Essential (primary) hypertension Assessment/Plan 1. Acute new lacunar stroke with prior history of old stroke with residual mild right hemiplegia 2. History of LV systolic dysfunction with class 0-I NYHA classification LV failure, euvolemic (normal LV systolic function on repeat echocardiography) 3. 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 Carotid stenosis post carotid endarterectomy 6. HTN 7. DM 8. Hyperlipidemia 9. History of right breast carcinoma on chemo with associated RUE lymphedema 10. CKD 11. Vascular dementia with anorexia PLAN: 1. Continue ECASA 325 mg qd 2. Continue Labetolol 300 mg bid, Crestor 20 mg qd, and Hyzaar 50/12.5 mg qd as hemodynamics tolerate 3. DVT prophylaxis with Fondaparinux 4. PT and eventual SNF placement. Follow up with her cardologist in [facility] Further plans are to follow William Garcia MD
[2016-08-20 10:29] LABS: MCH 31.8 pg (25.7-33.7); WHITE BLOOD COUNT 5.3 K/mm3 (4.0-10.0)
[2016-08-20 10:31] LABS: BASOPHIL 0.3 % (0-2.0); EOSINOPHIL 2.1 % (0-4.5); MCHC 33.8 g/dl (32.0-36.0); MEAN CELL VOLUME 94.3 fl (80-96); MEAN PLT VOLUME 10.3 fl (7.5-11.1); NEUTROPHILS 73.2 % (42.8-82.8); PLATELET COUNT 198 K/MM3 (134-434); RDW 13.4 % (11.6-15.6)
[2016-08-20 11:02] LABS: ALBUMIN 2.9 g/dl (3.4-5.0); ALK PHOS 68 U/L (45-117); ANION GAP 10 (8-16); BILIRUBIN,TOTAL 0.8 mg/dL (0.2-1.0); CALCIUM 9.2 mg/dL (8.5-10.1); CO2 26 mmol/L (21-32); CREATININE 0.6 mg/dL (0.55-1.02); GLUCOSE,RANDOM 154 mg/dL (74-106); SGOT/AST 22 U/L (15-37); SGPT/ALT 16 U/L (12-78); TOT PROT 6.2 g/dl (6.4-8.2)
--- NOTE | 2016-08-20 17:09 | PN ---
Physical Exam: SUBJECTIVE: Patient seen and examined at the bedside with her daughter Iram. Iram provided all of the history and answered question on behalf of her mother as her mother is non verbal, bed bound and minimally communicative. OBJECTIVE: Patient opens eyes, smiles Appears comfortable at rest. [facility] initially approved to take patient on Clinimax. Will not take patient with on IV lipids. I spoke to her daughter Iram and she is aware that they will only take her mother on Clinimax but not lipids, daughter in agreement. Daughter states she will follow her mother closely at [facility] to ensure adequate PO intake [facility] then denied patient for d/c with Clinimax Possible peg tube if patients daughter is willing, will discuss with her. Vital Signs Period Temp Pulse Resp BP Sys/Arrieta Pulse Ox Last 24 Hr 97.9 F-99.2 F 60-67 20-20 135-158/63-76 97 GENERAL: Awake, alert, confused, smiling, unresponsive HEAD: Normal with no signs of trauma. EYES: PERRL, extraocular movements intact, sclera anicteric, conjunctiva clear. No ptosis. ENT: Ears normal, nares patent, oropharynx clear without exudates, moist mucous membranes. NECK: Trachea midline, full range of motion, supple. LUNGS: Breath sounds equal diminished HEART: Regular rate and rhythm, S1, S2 without murmur, rub or gallop. ABDOMEN: Soft, nontender, nondistended, normoactive bowel sounds, no guarding, no rebound, no hepatosplenomegaly, no masses. EXTREMITIES: 2+ pulses, warm, well-perfused, no edema. NEUROLOGICAL: awake, unresponsive, +aphasia, left hemiplegia PSYCH: Normal mood, normal affect. SKIN: Warm, dry, normal turgor, no rashes or lesions noted Laboratory Results - last 24 hr 08/20/16 08/20/16 10:00 10:00 WBC 5.3 RBC 4.12 Hgb 13.1 Hct 38.8 MCV 94.3 MCHC 33.8 RDW 13.4 Plt Count 198 MPV 10.3 Neutrophils % 73.2 Lymphocytes % 17.4 D Monocytes % 7.0 Eosinophils % 2.1 Basophils % 0.3 Sodium 137 Potassium 3.6 Chloride 101 Carbon Dioxide 26 Anion Gap 10 BUN 31 H Creatinine 0.6 D Creat Clearance w eGFR > 60 Random Glucose 154 H Calcium 9.2 Total Bilirubin 0.8 AST 22 D ALT 16 D Alkaline Phosphatase 68 Total Protein 6.2 L Albumin 2.9 L Active Medications Generic Name Dose Route Start Last Admin Trade Name Tova PRN Reason Stop Dose Admin Aspirin 325 mg 08/18/16 10:00 08/20/16 10:00 Asa - PO 325 mg DAILY JAMEY Administration Docusate Sodium 100 mg 08/19/16 09:36 Colace Liquid - PO BID PRN CONSTIPATION Fondaparinux 2.5 mg 08/19/16 10:00 08/20/16 10:00 Arixtra (Restricted) - SQ 2.5 mg DAILY JAMEY Administration HCTZ/Losartan Potassium 1 tab 08/19/16 10:00 08/20/16 10:01 Hyzaar - PO 1 tab DAILY JAMEY Administration Amino Acids 1,000 mls @ 84 mls/hr 08/17/16 15:45 08/20/16 16:01 Clinimix - IV 84 mls/hr Q12H JAMEY Administration Fat Emulsion Intravenous 250 mls @ 20.833 mls/hr 08/19/16 22:00 08/19/16 21:31 Intralipid - IV 20.833 mls/hr DAILY@2200 JAMEY Administration Labetalol HCl 300 mg 08/17/16 22:00 08/20/16 10:00 Normodyne - PO 300 mg BID JAMEY Administration Mupirocin 1 applic 08/19/16 10:00 08/20/16 10:01 Bactroban 2% Ointment - TP 1 applic BID JAMEY Administration Polyethylene Glycol 17 gm 08/17/16 22:00 08/20/16 10:01 Miralax (For Daily Use) - PO 17 gm BID JAMEY Administration Rosuvastatin Calcium 20 mg 08/18/16 10:00 08/20/16 10:01 Crestor - PO 20 mg DAILY JAMEY Administration ASSESSMENT/PLAN: Patient is an 85 year old female with past medical history of hypertenstion, hld , CVA, right carotid artery stenosis s/p endarterectomy, severe systolic heart failure s/p PPM, diabetes mellitus and right fungating breast cancer on PO chemotherapy. She was admitted with an acute CVA. Patient is unable to provide much information, as per daughter patient was able to ambulate comfortably when at home. On Royce evening daughter noticed that patient is confused and having Left UE with slurring of the speech. Imaging: CT 08/13/16 shows new stroke - better defined non hemorrhagic recent right striatocapsular lacunar infarct. Carotid doppler 08/14/2016: small plaques of the right common carotid bifurcation and bulb, no evidence of hemodynamically significant stenosis Neurology: Assessment/Plan: CT head: better defined non hemorrhagic recent right strato. lunar infarct on post aspect of right putamen, post. limb of internal capsule. On Crestor 20mg daily ASA 325 mg daily as per neuro Monitor BPs Neuro following Dysphagia s/p CVA Assessment/Plan: On Climimax and Fat emulsions Spoke with RD and acknowledges pt has very poor PO intake Fat emulsion IV not necessary so long as patient has adequate caloric intake along with the Clinimax Discussed with daughter who is willing to have pt d/c on Clinimax only as she will encourage adequate PO intake for her mother @ [facility] initially accepted pt with Clinimax but then declined Possible PEG tube for adequate calories and nutrition - family to decide Cardiology: Left Ventricular systolic dysfunction - chronic Assessment/Plan: s/p PPM batterly changed on 08/17/2016 Hypertenstion - controlled Assessment/Plan: HCTZ/Losartan, Labetolol 300mg daily Oncology: Right breast fungating tumor - chronic Assessment/Plan: Unable to tolerate any PO unless crushed with applesauce Holding chemo meds as they cannot be crushed Wound care daily to fungating tumor Endocrine: Diabetes - chronic Assessment/Plan: monitor F.E.N. Fluids: on Clinimax and fat emulsion Electrolytes: monitor Nutrition: on Clinimax and fat emulsion and PO as tolerated Calorie count in progress Prophylaxis: DVT: Fondaparinux 2.5mg sc daily Disposition: Requires inpatient hospitalization. Full Code Visit type - Emergency Visit Emergency Visit: Yes ED Registration Date: 08/11/16 Care time: The patient presented to the Emergency Department on the above date and was hospitalized for further evaluation of their emergent condition. - New Patient This patient is new to me today: Yes Date on this admission: 08/20/16 - Critical Care Critical Care patient: No - Discharge Referral Referred to [facility] No
[2016-08-20] MEDS ORDERED: PT OWN MED DRAWER 7, Y5N ONE (20:27)
[2016-08-20] MEDS: FAT EMULSIONS 250 ML IV SCH (23:05)
[2016-08-21] MEDS: AMINO ACIDS 4.25%/D5W 1,000 ML IV SCH ×2 (06:27→16:29)
--- NOTE | 2016-08-21 08:20 | PN ---
Progress Note (short form) - Note Progress Note: Chief Complaint: Events noted, notes reviewed, denies any chest pain or dyspnea History of Present Illness: Seen and examined on telemetry. Events noted, notes reviewed, denies any chest pain or dyspnea Echocardiography dated 08/14/2016 revealed normal LV size and function with no significant valvular pathology Medications: Current Medications Aspirin (Asa -) 325 mg PO DAILY [facility] Last Admin: 08/20/16 10:00 Dose: 325 mg Docusate Sodium (Colace Liquid -) 100 mg PO BID PRN PRN Reason: CONSTIPATION Fondaparinux (Arixtra (Restricted) -) 2.5 mg SQ DAILY [facility] Last Admin: 08/20/16 10:00 Dose: 2.5 mg HCTZ/Losartan Potassium (Hyzaar -) 1 tab PO DAILY [facility] Last Admin: 08/20/16 10:01 Dose: 1 tab Amino Acids (Clinimix -) 1,000 mls @ 84 mls/hr IV Q12H [facility] Last Admin: 08/21/16 06:27 Dose: Not Given Fat Emulsion Intravenous (Intralipid -) 250 mls @ 20.833 mls/hr IV DAILY@2200 [facility] Last Admin: 08/20/16 23:05 Dose: 20.833 mls/hr Labetalol HCl (Normodyne -) 300 mg PO BID [facility] Last Admin: 08/20/16 23:06 Dose: 300 mg Mupirocin (Bactroban 2% Ointment -) 1 applic TP BID [facility] Last Admin: 08/20/16 23:09 Dose: 1 applic Polyethylene Glycol (Miralax (For Daily Use) -) 17 gm PO BID [facility] Last Admin: 08/20/16 23:06 Dose: Not Given Rosuvastatin Calcium (Crestor -) 20 mg PO DAILY [facility] Last Admin: 08/20/16 10:01 Dose: 20 mg Review of Systems Cardiovascular: As noted above Respiratory: denies: Cough or Sputum Production Gastrointestinal: denies: Nausea, Vomiting, Diarrhea, Constipation or Abdominal Discomfort Musculoskeletal: Weakness Endocrine: No Symptoms Reported Vital Signs: Last Vital Signs Temp Pulse Resp BP Pulse Ox 98.1 F 63 16 157/75 97 08/20/16 23:21 08/20/16 23:21 08/20/16 23:21 08/20/16 23:21 08/19/16 21:00 Constitutional: No Distress, Calm Neck: Supple Negative JVD Respiratory: Diminished at the Bases Cardiovascular: S1 S2 Regular Rate and Rhythm Grade 1-2/6 EVARISTO Gastrointestinal: Soft Benign Normal Bowel Sounds Ext: No Edema Labs: Hepatic Panel Total Bilirubin 0.8 mg/dL (0.2-1.0) 08/20/16 10:00 AST 22 U/L (15-37) D 08/20/16 10:00 ALT 16 U/L (12-78) D 08/20/16 10:00 Alkaline Phosphatase 68 U/L (45-117) 08/20/16 10:00 Albumin 2.9 g/dl (3.4-5.0) L 08/20/16 10:00 Assessment/Plan ASSESSMENT: 1. 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 History of LV systolic dysfunction with class 0-I NYHA classification LV failure, euvolemic (normal LV systolic function on repeat echocardiography as noted above) 3. CAD angina pectoris 4. AV block post PPM 5. Carotid stenosis post carotid end-arterectomy 6. HTN 7. DM 8. Hyperlipidemia 9. History of right breast carcinoma on chemo with associated RUE lymphedema 10. CKD PLAN: 1. Continue ASA 2. Continue Labetolol 3. Continue Hyzaar 4. Continue Crestor 5. Initiation of physical therapy as per the primary team Stacey Hernandez M.D.
[2016-08-21 09:10] LABS: BASOPHIL 0.7 % (0-2.0); EOSINOPHIL 2.1 % (0-4.5); MCH 31.5 pg (25.7-33.7); MCHC 33.4 g/dl (32.0-36.0); MEAN CELL VOLUME 94.3 fl (80-96); MEAN PLT VOLUME 10.3 fl (7.5-11.1); NEUTROPHILS 71.4 % (42.8-82.8); PLATELET COUNT 195 K/MM3 (134-434); RDW 13.6 % (11.6-15.6)
[2016-08-21 09:37] LABS: ALBUMIN 2.9 g/dl (3.4-5.0); ALK PHOS 67 U/L (45-117); ANION GAP 8 (8-16); BILIRUBIN,TOTAL 0.7 mg/dL (0.2-1.0); CALCIUM 9.4 mg/dL (8.5-10.1); CO2 27 mmol/L (21-32); CREATININE 0.7 mg/dL (0.55-1.02); GLUCOSE,RANDOM 173 mg/dL (74-106); SGOT/AST 19 U/L (15-37); SGPT/ALT 16 U/L (12-78); TOT PROT 6.4 g/dl (6.4-8.2)
[2016-08-21] MEDS ORDERED: KCL 10 MEQ IVPB 100 ML IVPB SCH (10:00)
--- NOTE | 2016-08-21 11:43 | PN ---
Physical Exam: SUBJECTIVE: Patient seen and examined at the bedside. Her daughter was present. Patient appears comfortable at rest, chest dressings intact. No overnight events reported. OBJECTIVE: Discharge planning in process Initially patient was accepted to [facility] with Clinimax but then was declined. I spoke to Richard Wong RN DNS [phone] @ [facility] and was advised by him that [facility] does not accept patients with Clinimax. I spoke to daughter Iram and made her aware of this and she she is asking for patient to be d/c home with TPN and hospital bed. However,since patient does not meet TPN home requirements (SBO, SB motility disorder or malabsorption) insurance will not cover home TPN as per . They will also not cover home Clinimax. Daughter is refusing PEG tube placement. I will attempt to re-discuss the PEG tube options with daughter vs. hospice @ home. Her daughter will not likely agree to hospice. I will re-consult palliative team to facilitate family meeting. Vital Signs Period Temp Pulse Resp BP Sys/Arrieta Pulse Ox Last 24 Hr 97.9 F-98.3 F 60-67 16-20 156-158/75-79 GENERAL: Awake, alert, confused, smiling, unresponsive HEAD: Normal with no signs of trauma. EYES: PERRL, extraocular movements intact, sclera anicteric, conjunctiva clear. No ptosis. ENT: Ears normal, nares patent, oropharynx clear without exudates, moist mucous membranes. NECK: Trachea midline, full range of motion, supple. LUNGS: Breath sounds equal diminished HEART: Regular rate and rhythm, S1, S2 without murmur, rub or gallop. ABDOMEN: Soft, nontender, nondistended, normoactive bowel sounds, no guarding, no rebound, no hepatosplenomegaly, no masses. EXTREMITIES: 2+ pulses, warm, well-perfused, no edema. NEUROLOGICAL: awake, unresponsive, +aphasia, left hemiplegia PSYCH: Normal mood, normal affect. SKIN: Warm, dry, normal turgor, no rashes or lesions noted Laboratory Results - last 24 hr 08/21/16 08/21/16 08/21/16 06:30 06:30 08:50 WBC 5.0 RBC 3.98 Hgb 12.5 Hct 37.6 MCV 94.3 MCHC 33.4 RDW 13.6 Plt Count 195 MPV 10.3 Neutrophils % 71.4 Lymphocytes % 17.8 Monocytes % 8.0 Eosinophils % 2.1 Basophils % 0.7 Sodium Cancelled 135 L Potassium Cancelled 3.4 L Chloride Cancelled 100 Carbon Dioxide Cancelled 27 Anion Gap Cancelled 8 BUN Cancelled 34 H Creatinine Cancelled 0.7 Creat Clearance w eGFR Cancelled > 60 Random Glucose Cancelled 173 H Calcium Cancelled 9.4 Total Bilirubin Cancelled 0.7 AST Cancelled 19 ALT Cancelled 16 Alkaline Phosphatase Cancelled 67 Total Protein Cancelled 6.4 Albumin Cancelled 2.9 L Active Medications Generic Name Dose Route Start Last Admin Trade Name Freq PRN Reason Stop Dose Admin Aspirin 325 mg 08/18/16 10:00 08/20/16 10:00 Asa - PO 325 mg DAILY JAMEY Administration Docusate Sodium 100 mg 08/19/16 09:36 Colace Liquid - PO BID PRN CONSTIPATION Fondaparinux 2.5 mg 08/19/16 10:00 08/20/16 10:00 Arixtra (Restricted) - SQ 2.5 mg DAILY JAMEY Administration HCTZ/Losartan Potassium 1 tab 08/19/16 10:00 08/20/16 10:01 Hyzaar - PO 1 tab DAILY JAMEY Administration Amino Acids 1,000 mls @ 84 mls/hr 08/17/16 15:45 08/21/16 06:27 Clinimix - IV Not Given Q12H JAMEY Fat Emulsion Intravenous 250 mls @ 20.833 mls/hr 08/19/16 22:00 08/20/16 23:05 Intralipid - IV 20.833 mls/hr DAILY@2200 JAMEY Administration Labetalol HCl 300 mg 08/17/16 22:00 08/20/16 23:06 Normodyne - PO 300 mg BID JAMEY Administration Mupirocin 1 applic 08/19/16 10:00 08/20/16 23:09 Bactroban 2% Ointment - TP 1 applic BID JAMEY Administration Polyethylene Glycol 17 gm 08/17/16 22:00 08/20/16 23:06 Miralax (For Daily Use) - PO Not Given BID JAMEY Rosuvastatin Calcium 20 mg 08/18/16 10:00 08/20/16 10:01 Crestor - PO 20 mg DAILY JAMEY Administration ASSESSMENT/PLAN: Patient is an 85 year old female with past medical history of hypertension, hld , CVA, right carotid artery stenosis s/p endarterectomy, severe systolic heart failure s/p PPM, diabetes mellitus and right fungating breast tumor. She was admitted with an acute CVA. Patient is unable to provide much information, as per daughter patient was able to ambulate comfortably when at home. On Saturday evening daughter noticed that patient is confused and having Left UE with slurring of the speech. Imaging: CT 08/13/16 shows new stroke - better defined non hemorrhagic recent right striatocapsular lacunar infarct. Carotid doppler 08/14/2016: small plaques of the right common carotid bifurcation and bulb, no evidence of hemodynamically significant stenosis Neurology: Assessment/Plan: CT head: better defined non hemorrhagic recent right strato. lunar infarct on post aspect of right putamen, post. limb of internal capsule. On Crestor 20mg daily ASA 325 mg daily as per neuro Monitor BPs Neuro following Dysphasia s/p CVA Assessment/Plan: On Climimax and Fat emulsions Spoke with RD and acknowledges pt has very poor PO intake Day 1 calorie count shows minimal intake, Day 2 calorie count not recorded Fat emulsion IV not necessary so long as patient has adequate caloric intake along with the Clinimax [facility] initially accepted pt with Clinimax but then declined Possible PEG tube for adequate calories and nutrition - however, family refusing PEG tube Will ask palliative care to facilitate meeting to discuss further as PEG tube is best option and will optimize calories and is a life saving measure Hospice is another option, but likely will not be accepted by daughter Cardiology: Left Ventricular systolic dysfunction - chronic Assessment/Plan: s/p PPM battery changed on 08/17/2016 Hypertenstion - controlled Assessment/Plan: HCTZ/Losartan, Labetolol 300mg daily Oncology: Right breast fungating tumor - chronic Assessment/Plan: Holding chemo meds as they cannot be crushed Wound care daily to fungating tumor Endocrine: Diabetes - chronic Assessment/Plan: monitor F.E.N. Fluids: on Clinimax and fat emulsion Electrolytes: hypokalemia repleted with two K riders Nutrition: on Clinimax and fat emulsion and PO as tolerated Prophylaxis: DVT: Fondaparinux 2.5mg sc daily Disposition: Requires inpatient hospitalization. Awaiting placement. Full Code Visit type - Emergency Visit Emergency Visit: Yes ED Registration Date: 08/11/16 Care time: The patient presented to the Emergency Department on the above date and was hospitalized for further evaluation of their emergent condition. - New Patient This patient is new to me today: No - Critical Care Critical Care patient: No - Discharge Referral Referred to [facility] Med [facility].: No
[2016-08-21] MEDS: ASPIRIN 325 MG TABLET PO SCH (11:48)
[2016-08-21] MEDS: MUPIROCIN 2% TOPICAL OINTMENT 22 GM TUBE TP SCH ×2 (11:48→21:32)
[2016-08-21] MEDS: FONDAPARINUX SODIUM 2.5 MG/0.5 ML DISP.SYRIN SQ SCH (11:48)
[2016-08-21] MEDS: LABETALOL HCL 100 MG TABLET (FP) PO SCH ×2 (11:49→21:32)
[2016-08-21] MEDS: POLYETHYLENE GLYCOL 3350 119 GM BTL PO SCH ×2 (11:50→21:30)
[2016-08-21] MEDS: ROSUVASTATIN CA 20 MG TABLET (FP) PO SCH (11:50)
[2016-08-21] MEDS: LOSARTAN 50MG/HCTZ 12.5MG 1 TAB (FP) PO SCH (12:14)
--- NOTE | 2016-08-21 12:21 | PN ---
Progress Note, CONTACT CLERK - Note Progress Note: Selected Entries 08/20/16 08/20/16 08/20/16 06:00 10:18 15:35 Breakfast 25% Lunch 25% Temperature 97.9 F 99.2 F 97.9 F 08/20/16 08/20/16 18:00 23:21 Breakfast Lunch Temperature 98.3 F 98.1 F Laboratory Tests 08/21/16 06:30 WBC 5.0 Seen by Palliative care. Discussed possible PEG. Pt is a full code. Limited Po acceptance. Pt was NPO last night and this morning pending decision regarding PEG insertion. Did fairly well for first few bites. However, fatigues and begins holding food/ liquid in right buccal cavity. Feed small amounts, especially supplements, throughout the day.
[2016-08-21] MEDS: KCL 10 MEQ IVPB 100 ML IVPB SCH ×2 (14:52→15:30)
[2016-08-21] MEDS ORDERED: PT OWN MED DRAWER 7, Y5N ONE (21:31)
[2016-08-21] MEDS: FAT EMULSIONS 250 ML IV SCH (21:32)
[2016-08-22] MEDS: AMINO ACIDS 4.25%/D5W 1,000 ML IV SCH ×2 (03:35→17:41)
[2016-08-22 08:03] LABS: ALBUMIN 2.6 g/dl (3.4-5.0); ALK PHOS 59 U/L (45-117); ANION GAP 11 (8-16); CALCIUM 8.3 mg/dL (8.5-10.1); CO2 22 mmol/L (21-32); CREATININE 0.7 mg/dL (0.55-1.02); SGOT/AST 24 U/L (15-37); SGPT/ALT 22 U/L (12-78)
[2016-08-22 08:16] LABS: TOT PROT 5.5 g/dl (6.4-8.2)
[2016-08-22 08:21] LABS: BASOPHIL 0.1 % (0-2.0); EOSINOPHIL 2.5 % (0-4.5); MCH 32.2 pg (25.7-33.7); MEAN CELL VOLUME 97.7 fl (80-96); MEAN PLT VOLUME 11.5 fl (7.5-11.1); NEUTROPHILS 65.7 % (42.8-82.8); PLATELET COUNT 136 K/MM3 (134-434); RDW 13.7 % (11.6-15.6); WHITE BLOOD COUNT 4.2 K/mm3 (4.0-10.0)
[2016-08-22 09:20] LABS: GLUCOSE,RANDOM 362 mg/dL (74-106)
[2016-08-22] MEDS: POLYETHYLENE GLYCOL 3350 119 GM BTL PO SCH ×2 (10:40→21:04)
--- NOTE | 2016-08-22 11:16 | PN ---
Progress Note, BUDGET COUNSELOR - Note Progress Note: Pt more awake today. Limited verbalizations, similar to baseline.Pt was drinking a few tsps of thickened coffee with good tolerance. Poor acceptance of breakfast. IMP: Insufficient acceptance of PO nutrition, hydration and medication.Pt remains a full code and family are planning on taking her home.They do not want comfort care/hospice at this time. Discussed options of PEG insertion-surgical vs IR, for supplemental nutritional intake, medication and hydration with recommendation to continue PO intake. Discussed that if PO intake improves, pt can be weaned off TF. Pt's daughter Narda, and other daughter are in agreement with PEG insertion. They are concerned that she is unable to accept all of her medications. However , pt's son is undecided. Narda with speak to him and discuss all options. I suggested that she discuss options and medical risks with pt's medical doctors and speak to MD/nursing with their decision. f/u by Palliative care.
[2016-08-22] MEDS ORDERED: PT OWN MED DRAWER 7, Y5N ONE ×3 (11:26→20:02)
[2016-08-22] MEDS: LABETALOL HCL 100 MG TABLET (FP) PO SCH ×2 (11:29→21:04)
[2016-08-22] MEDS: ASPIRIN 325 MG TABLET PO SCH (11:29)
[2016-08-22] MEDS: LOSARTAN 50MG/HCTZ 12.5MG 1 TAB (FP) PO SCH (11:30)
[2016-08-22] MEDS: ROSUVASTATIN CA 20 MG TABLET (FP) PO SCH (11:30)
[2016-08-22] MEDS: FONDAPARINUX SODIUM 2.5 MG/0.5 ML DISP.SYRIN SQ SCH (11:30)
[2016-08-22] MEDS: MUPIROCIN 2% TOPICAL OINTMENT 22 GM TUBE TP SCH ×2 (11:31→21:03)
[2016-08-22] MEDS: POTASSIUM CHLORIDE ORAL LIQUID 20 MEQ/15 ML PO ONE ×2 (11:31→11:35)
--- NOTE | 2016-08-22 11:55 | PN ---
Progress Note, Physician History of Present Illness: More alert, inadequate oral intake, PEG being considered. - Current Medication List Current Medications: Active Medications Aspirin (Asa -) 325 mg PO DAILY [facility] Last Admin: 08/22/16 11:29 Dose: 325 mg Docusate Sodium (Colace Liquid -) 100 mg PO BID PRN PRN Reason: CONSTIPATION Last Admin: 08/22/16 11:30 Dose: 100 mg Fondaparinux (Arixtra (Restricted) -) 2.5 mg SQ DAILY [facility] Last Admin: 08/22/16 11:30 Dose: 2.5 mg HCTZ/Losartan Potassium (Hyzaar -) 1 tab PO DAILY [facility] Last Admin: 08/22/16 11:30 Dose: 1 tab Amino Acids (Clinimix -) 1,000 mls @ 84 mls/hr IV Q12H [facility] Last Admin: 08/22/16 03:35 Dose: 84 mls/hr Fat Emulsion Intravenous (Intralipid -) 250 mls @ 20.833 mls/hr IV DAILY@2200 [facility] Last Admin: 08/21/16 21:32 Dose: 20.833 mls/hr Labetalol HCl (Normodyne -) 300 mg PO BID [facility] Last Admin: 08/22/16 11:29 Dose: 300 mg Mupirocin (Bactroban 2% Ointment -) 1 applic TP BID [facility] Last Admin: 08/22/16 11:31 Dose: 1 applic Polyethylene Glycol (Miralax (For Daily Use) -) 17 gm PO BID [facility] Last Admin: 08/22/16 10:40 Dose: Not Given Rosuvastatin Calcium (Crestor -) 20 mg PO DAILY [facility] Last Admin: 08/22/16 11:30 Dose: 20 mg - Objective Vital Signs: Vital Signs Temperature 97.8 F 08/22/16 06:00 Pulse Rate 61 08/22/16 06:00 Respiratory Rate 20 08/22/16 06:00 Blood Pressure 122/57 08/22/16 06:00 O2 Sat by Pulse Oximetry (%) 98 08/21/16 21:00 Constitutional: Yes: No Distress, Calm Neck: Yes: Supple Cardiovascular: Yes: Pulse Irregular Respiratory: Yes: Regular, Diminished Gastrointestinal: Yes: Normal Bowel Sounds, Soft Edema: No Labs: CBC, BMP 08/22/16 05:35 08/22/16 05:35 INR, PTT INR 1.03 (0.82-1.09) 08/11/16 09:36 Problem List - Problems (1) CVA (cerebral vascular accident) Code(s): I63.9 - CEREBRAL INFARCTION, UNSPECIFIED Qualifiers: Precerebral and cerebral artery: middle cerebral artery Laterality of affected vessel: left (2) Hypercholesteremia Code(s): E78.00 - PURE HYPERCHOLESTEROLEMIA, UNSPECIFIED (3) Lymph edema Code(s): I89.0 - LYMPHEDEMA, NOT ELSEWHERE CLASSIFIED (4) T2DM (type 2 diabetes mellitus) Code(s): E11.9 - TYPE 2 DIABETES MELLITUS WITHOUT COMPLICATIONS Qualifiers: Diabetes mellitus complication status: without complication Diabetes mellitus terminal gauger insulin use: without snf use Qualified Code(s): E11.9 - Type 2 diabetes mellitus without complications (5) Hypertension Code(s): I10 - ESSENTIAL (PRIMARY) HYPERTENSION Qualifiers: Hypertension type: essential hypertension Qualified Code(s): I10 - Essential (primary) hypertension (6) Malignant neoplasm of right breast Code(s): C50.911 - MALIGNANT NEOPLASM OF UNSP SITE OF RIGHT FEMALE BREAST (7) Pacemaker Code(s): Z95.0 - PRESENCE OF CARDIAC PACEMAKER (8) Diastolic dysfunction Code(s): I51.9 - HEART DISEASE, UNSPECIFIED (9) Pacemaker generator end of life Code(s): Z45.010 - ENCNTR FOR CHECKING AND TEST OF CARD PACEMAKER PULSE GNRTR (10) Anorexia Code(s): R63.0 - ANOREXIA Assessment/Plan 08/13/2016 Echocardiography revealed normal LV size and function with no significant valvular pathology 1. Acute new lacunar stroke with prior history of old stroke with residual mild right hemiplegia 2. History of LV systolic dysfunction with class 0-I NYHA classification LV failure, euvolemic (normal LV systolic function on repeat echocardiography) 3. 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 AV block post PPM ([employer]tr[employer]) at [facility] post dual chamber pacemaker pulse generator replacement 5. Carotid stenosis post carotid endarterectomy 6. HTN 7. DM 8. Hyperlipidemia 9. History of right breast carcinoma on chemo with associated RUE lymphedema 10. CKD 11. Vascular dementia with anorexia PLAN: 1. Continue ECASA 325 po qd, patient to proceed with PEG placement 2. Continue Labetolol 300 bid, Crestor 20 qd, and Hyzaar 50/12.5 qd as hemodynamics tolerate, replete K 3. DVT prophylaxis with fondaparinux 4. PT->SNF, patient to f/u with her own nurse healthcare manager at [facility] d/c
[2016-08-22] MEDS: KCL 10 MEQ IVPB 100 ML IVPB SCH ×2 (13:00→14:48)
--- NOTE | 2016-08-22 13:21 | PN ---
Progress Note (short form) - Note Progress Note: Subjective: The patient was seen and examined at the bedside. she is awake and smiling Spoke to daughter, Gauri who would like PEG tube placed. order placed and spoke to Angelita in IR Current Medications Generic Name Dose Route Start Last Admin Trade Name Freq PRN Reason Stop Dose Admin Aspirin 325 mg 08/18/16 10:00 08/22/16 11:29 Asa - PO 325 mg DAILY [facility] Administration Docusate Sodium 100 mg 08/19/16 09:36 08/22/16 11:30 Colace Liquid - PO 100 mg BID PRN Administration CONSTIPATION Fondaparinux 2.5 mg 08/19/16 10:00 08/22/16 11:30 Arixtra (Restricted) - SQ 2.5 mg DAILY [facility] Administration HCTZ/Losartan Potassium 1 tab 08/19/16 10:00 08/22/16 11:30 Hyzaar - PO 1 tab DAILY [facility] Administration Amino Acids 1,000 mls @ 84 mls/hr 08/17/16 15:45 08/22/16 03:35 Clinimix - IV 84 mls/hr Q12H J[facility]Y Administration Fat Emulsion Intravenous 250 mls @ 20.833 mls/hr 08/19/16 22:00 08/21/16 21:32 Intralipid - IV 20.833 mls/hr DAILY@2200 J[facility] Administration Potassium Chloride 100 mls @ 100 mls/hr 08/22/16 13:00 08/22/16 13:00 Potassium Chloride 10 Meq Premix Ivpb - IVPB 08/22/16 14:59 100 mls/hr Q60M [facility]Y Administration Labetalol HCl 300 mg 08/17/16 22:00 08/22/16 11:29 Normodyne - PO 300 mg BID [facility] Administration Mupirocin 1 applic 08/19/16 10:00 08/22/16 11:31 Bactroban 2% Ointment - TP 1 applic BID [facility] Administration Polyethylene Glycol 17 gm 08/17/16 22:00 08/22/16 10:40 Miralax (For Daily Use) - PO Not Given BID J[facility] Rosuvastatin Calcium 20 mg 08/18/16 10:00 08/22/16 11:30 Crestor - PO 20 mg DAILY [facility] Administration Objective: Vital Signs Period Temp Pulse Resp BP Sys/Arrieta Pulse Ox Last 24 Hr 97.2 F-98.9 F 61-80 19-20 122-133/50-61 98 Physical Exam: General: NAD Lungs: CTA bilaterally Breast: Right breast fungating wound with dressing c/d/i Heart: RRR, S1S2 Abd: Soft, non-tender, non-distended. Normoactive bowel sounds Ext: Warm, well-perfused Neuro: Not following commands. RUE contracted. Left arm flaccid Moving both lower extremities CBCD WBC 4.2 K/mm3 (4.0-10.0) 08/22/16 05:35 RBC 3.21 M/mm3 (3.60-5.2) L 08/22/16 05:35 Hgb 10.4 GM/dL (10.7-15.3) L D 08/22/16 05:35 Hct 31.4 % (32.4-45.2) L D 08/22/16 05:35 MCV 97.7 fl (80-96) H 08/22/16 05:35 MCHC 33.0 g/dl (32.0-36.0) 08/22/16 05:35 RDW 13.7 % (11.6-15.6) 08/22/16 05:35 Plt Count 136 K/MM3 (134-434) D 08/22/16 05:35 MPV 11.5 fl (7.5-11.1) H D 08/22/16 05:35 CMP Sodium 126 mmol/L (136-145) L 08/22/16 05:35 Potassium 3.3 mmol/L (3.5-5.1) L 08/22/16 05:35 Chloride 93 mmol/L (98-107) L 08/22/16 05:35 Carbon Dioxide 22 mmol/L (21-32) 08/22/16 05:35 Anion Gap 11 (8-16) 08/22/16 05:35 BUN 43 mg/dL (7-18) H D 08/22/16 05:35 Creatinine 0.7 mg/dL (0.55-1.02) 08/22/16 05:35 Creat Clearance w eGFR > 60 (>60) 08/22/16 05:35 Random Glucose 362 mg/dL (74-106) H* D 08/22/16 05:35 Calcium 8.3 mg/dL (8.5-10.1) L 08/22/16 05:35 Total Bilirubin 1.0 mg/dL (0.2-1.0) D 08/22/16 05:35 AST 24 U/L (15-37) D 08/22/16 05:35 ALT 22 U/L (12-78) D 08/22/16 05:35 Alkaline Phosphatase 59 U/L (45-117) 08/22/16 05:35 Total Protein 5.5 g/dl (6.4-8.2) L 08/22/16 05:35 Albumin 2.6 g/dl (3.4-5.0) L 08/22/16 05:35 Microbiology 08/14/16 19:00 Nares - Mrsa Screen - Right MRSA Screen - Final NO MRSA ISOLATED 08/14/16 19:00 Nares - Mrsa Screen - Left MRSA Screen - Final NO MRSA ISOLATED Imaging 01/09/16 Echo: LV function severely reduced, severe global hypokinesis; PPM/ICK in RV; mild MR; 07/13/16 MUGA scan: normal wall motion, EF 80% 08/09/16 CT c-spine: no evidence of acute fracture, compression deformities, subluxation 08/12/16 CT head shows 0.7cm infarct within the right frontoparietal coronal radiata, acute Repeat CT head 08/13 study shows better defined infarct in posterior aspect of the right putamen, posterior limb of internal capsule, coronal radiata 08/14 ECHO normal LV size and function with no significant valvular pathology Assessment: This is an 85 year old female with PMHx of HTN, HLD, CVA, right carotid artery stenosis s/p endarterectomy, severe systolic heart failure s/p PPM, NIDDM, 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 Plan: 1) Neuro: Acute right stratocapsular lacunar infarct - Carotid doppler no significant stenosis - Hold ASA for PEG placement - Continue Crestor 20mg po daily - Appreciate neuro consult Dysphagia - Continue Clinimix, Consulted IR for PEG tube placement 2) Cardiology: Chronic LV systolic dysfunction - ECHO 08/13/16 with normal LV size and function. Trace MR PPM - PPM battery changed 08/17 HTN - Continue Labetolol - Resume Hyzaar today, monitor BP closely 3) Oncology: Right breast fungating cancer - Hold Tykerb and Xeloda as they cannot be crushed per pharmacy - Bactroban to right breast. Ideally would like Metrogel, however the pharmacy does not have it. Can discharge on Metrogel - Right fungating breast treatment as follows per Dr. Crowe: Daily saline rinse, pat dry, apply Metrogel daily - Per Dr. Ruiz, continue to hold oral chemo until the patient's dysphagia has improved. Once that happens, follow-up as an outpatient to determine when to restart oral chemo. Daughter Gauri aware of this plan 4) Endocrine: DM - Continue to monitor 5) F/E/N: - Monitor electrolytes - Dysphagia - Clinimix with lipids - For PEG placement tomorrow 6) Prophylaxis: - Fondaparinux 7) Dispo: - Requires continued inpatient care CODE STATUS: FULL CODE Visit type - Emergency Visit Emergency Visit: Yes ED Registration Date: 08/11/16 Care time: The patient presented to the Emergency Department on the above date and was hospitalized for further evaluation of their emergent condition. - New Patient This patient is new to me today: No - Critical Care Critical Care patient: No
[2016-08-22 16:14] LABS: ANION GAP 8 (8-16); CALCIUM 9.7 mg/dL (8.5-10.1); CO2 25 mmol/L (21-32); CREATININE 0.7 mg/dL (0.55-1.02); GLUCOSE,RANDOM 154 mg/dL (74-106)
[2016-08-22] MEDS: FAT EMULSIONS 250 ML IV SCH (21:03)
[2016-08-23] MEDS: AMINO ACIDS 4.25%/D5W 1,000 ML IV SCH ×2 (03:17→17:00)
--- NOTE | 2016-08-23 08:33 | PN ---
Progress Note (short form) - Note Progress Note: Subjective: The patient was seen and examined at the bedside. she is awake and smiling PEG order placed with IR. ASA hold (discussed with Dr. Pace) Current Medications Generic Name Dose Route Start Last Admin Trade Name Freq PRN Reason Stop Dose Admin Docusate Sodium 100 mg 08/19/16 09:36 08/22/16 11:30 Colace Liquid - PO 100 mg BID PRN Administration CONSTIPATION Fondaparinux 2.5 mg 08/19/16 10:00 08/22/16 11:30 Arixtra (Restricted) - SQ 2.5 mg DAILY [facility] Administration HCTZ/Losartan Potassium 1 tab 08/19/16 10:00 08/22/16 11:30 Hyzaar - PO 1 tab DAILY [facility] Administration Amino Acids 1,000 mls @ 84 mls/hr 08/17/16 15:45 08/23/16 03:17 Clinimix - IV 84 mls/hr Q12H J[facility] Administration Fat Emulsion Intravenous 250 mls @ 20.833 mls/hr 08/19/16 22:00 08/22/16 21:03 Intralipid - IV 20.833 mls/hr DAILY@2200 [facility] Administration Labetalol HCl 300 mg 08/17/16 22:00 08/22/16 21:04 Normodyne - PO Not Given BID [facility]Y Mupirocin 1 applic 08/19/16 10:00 08/22/16 21:03 Bactroban 2% Ointment - TP 1 applic BID [facility] Administration Polyethylene Glycol 17 gm 08/17/16 22:00 08/22/16 21:04 Miralax (For Daily Use) - PO Not Given BID [facility]Y Rosuvastatin Calcium 20 mg 08/18/16 10:00 08/22/16 11:30 Crestor - PO 20 mg DAILY [facility] Administration Objective: Vital Signs Period Temp Pulse Resp BP Sys/Arrieta Pulse Ox Last 24 Hr 97.6 F-98.9 F 52-72 18-18 133-155/63-80 98-99 Physical Exam: General: NAD Lungs: CTA bilaterally Breast: Right breast fungating wound with dressing c/d/i Heart: RRR, S1S2 Abd: Soft, non-tender, non-distended. Normoactive bowel sounds Ext: Warm, well-perfused Neuro: Not following commands. RUE contracted. Left arm flaccid Moving both lower extremities CBCD WBC 4.2 K/mm3 (4.0-10.0) 08/22/16 05:35 RBC 3.21 M/mm3 (3.60-5.2) L 08/22/16 05:35 Hgb 10.4 GM/dL (10.7-15.3) L D 08/22/16 05:35 Hct 31.4 % (32.4-45.2) L D 08/22/16 05:35 MCV 97.7 fl (80-96) H 08/22/16 05:35 MCHC 33.0 g/dl (32.0-36.0) 08/22/16 05:35 RDW 13.7 % (11.6-15.6) 08/22/16 05:35 Plt Count 136 K/MM3 (134-434) D 08/22/16 05:35 MPV 11.5 fl (7.5-11.1) H D 08/22/16 05:35 CMP Sodium 134 mmol/L (136-145) L 08/22/16 15:30 Potassium 4.1 mmol/L (3.5-5.1) D 08/22/16 15:30 Chloride 101 mmol/L (98-107) 08/22/16 15:30 Carbon Dioxide 25 mmol/L (21-32) 08/22/16 15:30 Anion Gap 8 (8-16) 08/22/16 15:30 BUN 48 mg/dL (7-18) H 08/22/16 15:30 Creatinine 0.7 mg/dL (0.55-1.02) 08/22/16 15:30 Creat Clearance w eGFR > 60 (>60) 08/22/16 05:35 Random Glucose 154 mg/dL (74-106) H D 08/22/16 15:30 Calcium 9.7 mg/dL (8.5-10.1) 08/22/16 15:30 Total Bilirubin 1.0 mg/dL (0.2-1.0) D 08/22/16 05:35 AST 24 U/L (15-37) D 08/22/16 05:35 ALT 22 U/L (12-78) D 08/22/16 05:35 Alkaline Phosphatase 59 U/L (45-117) 08/22/16 05:35 Total Protein 5.5 g/dl (6.4-8.2) L 08/22/16 05:35 Albumin 2.6 g/dl (3.4-5.0) L 08/22/16 05:35 Microbiology 08/14/16 19:00 Nares - Mrsa Screen - Right MRSA Screen - Final NO MRSA ISOLATED 08/14/16 19:00 Nares - Mrsa Screen - Left MRSA Screen - Final NO MRSA ISOLATED Imaging 01/09/16 Echo: LV function severely reduced, severe global hypokinesis; PPM/ICK in RV; mild MR; 07/13/16 MUGA scan: normal wall motion, EF 80% 08/09/16 CT c-spine: no evidence of acute fracture, compression deformities, subluxation 08/12/16 CT head shows 0.7cm infarct within the right frontoparietal coronal radiata, acute Repeat CT head 08/13 study shows better defined infarct in posterior aspect of the right putamen, posterior limb of internal capsule, coronal radiata 08/14 ECHO normal LV size and function with no significant valvular pathology Assessment: This is an 85 year old female with PMHx of HTN, HLD, CVA, right carotid artery stenosis s/p endarterectomy, severe systolic heart failure s/p PPM, NIDDM, 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 Plan: 1) Neuro: Acute right stratocapsular lacunar infarct - Carotid doppler no significant stenosis - Hold ASA for PEG placement - Continue Crestor 20mg po daily - Appreciate neuro consult Dysphagia - Continue Clinimix for now with lipids - For PEG placement with IR (spoke to [place], will need to hold ASA x5 days prior to procedure) - Last dose of ASA 08/22 (discussed holding ASA with Dr. Pace) 2) Cardiology: Chronic LV systolic dysfunction - ECHO 08/13/16 with normal LV size and function. Trace MR PPM - PPM battery changed 08/17 HTN - Continue Labetolol - Resume Hyzaar today, monitor BP closely 3) Oncology: Right breast fungating cancer - Hold Tykerb and Xeloda as they cannot be crushed per pharmacy - Bactroban to right breast. Ideally would like Metrogel, however the pharmacy does not have it. Can discharge on Metrogel - Right fungating breast treatment as follows per Dr. Crowe: Daily saline rinse, pat dry, apply Metrogel daily - Per Dr. Ruiz, continue to hold oral chemo until the patient's dysphagia has improved. Once that happens, follow-up as an outpatient to determine when to restart oral chemo. Daughter Gauri aware of this plan 4) Endocrine: DM - Continue to monitor 5) F/E/N: - Monitor electrolytes - Dysphagia - Clinimix with lipids - For PEG placement either Saturday or Saturday 6) Prophylaxis: - Fondaparinux (hold prior to PEG placement) 7) Dispo: - Requires continued inpatient care CODE STATUS: FULL CODE Visit type - Emergency Visit Emergency Visit: Yes ED Registration Date: 08/11/16 Care time: The patient presented to the Emergency Department on the above date and was hospitalized for further evaluation of their emergent condition. - New Patient This patient is new to me today: No - Critical Care Critical Care patient: No
[2016-08-23] MEDS ORDERED: PT OWN MED DRAWER 7, Y5N ONE ×2 (09:45→23:19)
[2016-08-23] MEDS: FONDAPARINUX SODIUM 2.5 MG/0.5 ML DISP.SYRIN SQ SCH (09:46)
[2016-08-23] MEDS: POLYETHYLENE GLYCOL 3350 119 GM BTL PO SCH ×2 (09:47→23:16)
[2016-08-23] MEDS: ROSUVASTATIN CA 20 MG TABLET (FP) PO SCH (09:59)
[2016-08-23] MEDS: LOSARTAN 50MG/HCTZ 12.5MG 1 TAB (FP) PO SCH (09:59)
[2016-08-23] MEDS: LABETALOL HCL 100 MG TABLET (FP) PO SCH ×2 (10:00→23:21)
--- NOTE | 2016-08-23 10:18 | PN ---
Progress Note, Physician Chief Complaint: Events noted Not in distress Await PEG History of Present Illness: Patient was seen and examined. Awake and alert. Chart was reviewed Denies chest pain, SOB or palpitations - Current Medication List Current Medications: Active Medications Docusate Sodium (Colace Liquid -) 100 mg PO BID PRN PRN Reason: CONSTIPATION Last Admin: 08/22/16 11:30 Dose: 100 mg Fondaparinux (Arixtra (Restricted) -) 2.5 mg SQ DAILY [facility] Last Admin: 08/23/16 09:46 Dose: 2.5 mg HCTZ/Losartan Potassium (Hyzaar -) 1 tab PO DAILY [facility] Last Admin: 08/23/16 09:59 Dose: Not Given Amino Acids (Clinimix -) 1,000 mls @ 84 mls/hr IV Q12H [facility] Last Admin: 08/23/16 03:17 Dose: 84 mls/hr Fat Emulsion Intravenous (Intralipid -) 250 mls @ 20.833 mls/hr IV DAILY@2200 [facility] Last Admin: 08/22/16 21:03 Dose: 20.833 mls/hr Labetalol HCl (Normodyne -) 300 mg PO BID [facility] Last Admin: 08/23/16 10:00 Dose: Not Given Mupirocin (Bactroban 2% Ointment -) 1 applic TP BID [facility] Last Admin: 08/22/16 21:03 Dose: 1 applic Polyethylene Glycol (Miralax (For Daily Use) -) 17 gm PO BID [facility] Last Admin: 08/23/16 09:47 Dose: Not Given Rosuvastatin Calcium (Crestor -) 20 mg PO DAILY [facility] Last Admin: 08/23/16 09:59 Dose: Not Given - Objective Vital Signs: Vital Signs Temperature 98.6 F 08/23/16 06:00 Pulse Rate 64 08/23/16 06:00 Respiratory Rate 18 08/23/16 06:00 Blood Pressure 133/71 08/23/16 06:00 O2 Sat by Pulse Oximetry (%) 99 08/22/16 21:00 Neck: Yes: Supple Cardiovascular: Yes: Regular Rate and Rhythm, Murmur (Soft SM), S1, S2 Respiratory: Yes: Diminished Gastrointestinal: Yes: Normal Bowel Sounds, Soft. No: Tenderness Edema: No Additional Findings/Remarks: Review of Systems Cardiovascular: As noted above Respiratory: denies: Cough or Sputum Production Gastrointestinal: denies: Nausea, Vomiting, Diarrhea, Constipation or Abdominal Discomfort Musculoskeletal: Weakness Endocrine: No Symptoms Reported Labs: CBC, BMP 08/22/16 05:35 08/22/16 15:30 Problem List - Problems (1) CVA (cerebral vascular accident) Code(s): I63.9 - CEREBRAL INFARCTION, UNSPECIFIED Qualifiers: Precerebral and cerebral artery: middle cerebral artery Laterality of affected vessel: left (2) Diastolic dysfunction Code(s): I51.9 - HEART DISEASE, UNSPECIFIED (3) Hypercholesteremia Code(s): E78.00 - PURE HYPERCHOLESTEROLEMIA, UNSPECIFIED (4) Pacemaker Code(s): Z95.0 - PRESENCE OF CARDIAC PACEMAKER (5) Pacemaker generator end of life Code(s): Z45.010 - ENCNTR FOR CHECKING AND TEST OF CARD PACEMAKER PULSE GNRTR (6) T2DM (type 2 diabetes mellitus) Code(s): E11.9 - TYPE 2 DIABETES MELLITUS WITHOUT COMPLICATIONS Qualifiers: Diabetes mellitus complication status: without complication Diabetes mellitus fpc insulin use: without dedicated intermodal truck driver use Qualified Code(s): E11.9 - Type 2 diabetes mellitus without complications (7) Hypertension Code(s): I10 - ESSENTIAL (PRIMARY) HYPERTENSION Qualifiers: Hypertension type: essential hypertension Qualified Code(s): I10 - Essential (primary) hypertension Assessment/Plan 1. Acute new lacunar stroke with prior history of old stroke with residual mild right hemiplegia 2. History of LV systolic dysfunction with class 0-I NYHA classification LV failure, euvolemic (normal LV systolic function on repeat echocardiography) 3. 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 AV block post PPM ([employer]) at [facility] post dual chamber pacemaker S/P generator replacement 5. Carotid stenosis post carotid endarterectomy 6. HTN 7. DM 8. Hyperlipidemia 9. History of right breast carcinoma on chemo with associated RUE lymphedema 10. CKD 11. Vascular dementia with anorexia PLAN: 1. ASA on hold. Await PEG insertion 2. Continue Labetolol 300 mg bid, Crestor 20 mg qd, and Hyzaar 50/12.5 mg qd as hemodynamics tolerate 3. DVT prophylaxis with Fondaparinux 4. PT and eventual SNF placement. Follow up with her account retention representative in [facility] Further plans are to follow William Garcia MD
[2016-08-23] MEDS: MUPIROCIN 2% TOPICAL OINTMENT 22 GM TUBE TP SCH ×2 (11:00→23:23)
[2016-08-23] MEDS: FAT EMULSIONS 250 ML IV SCH (23:23)
[2016-08-24] MEDS ORDERED: PT OWN MED DRAWER 7, Y5N ONE ×3 (04:18→23:11)
[2016-08-24] MEDS: AMINO ACIDS 4.25%/D5W 1,000 ML IV SCH ×2 (04:26→17:00)
--- NOTE | 2016-08-24 08:26 | PN ---
Progress Note, Physician Chief Complaint: Events noted Not in distress Await PEG History of Present Illness: Patient was seen and examined. Awake and alert. Chart was reviewed Denies chest pain, SOB or palpitations - Current Medication List Current Medications: Active Medications Docusate Sodium (Colace Liquid -) 100 mg PO BID PRN PRN Reason: CONSTIPATION Last Admin: 08/22/16 11:30 Dose: 100 mg Fondaparinux (Arixtra (Restricted) -) 2.5 mg SQ DAILY [facility] Last Admin: 08/23/16 09:46 Dose: 2.5 mg HCTZ/Losartan Potassium (Hyzaar -) 1 tab PO DAILY [facility] Last Admin: 08/23/16 09:59 Dose: Not Given Amino Acids (Clinimix -) 1,000 mls @ 84 mls/hr IV Q12H [facility] Last Admin: 08/24/16 04:26 Dose: 84 mls/hr Fat Emulsion Intravenous (Intralipid -) 250 mls @ 20.833 mls/hr IV DAILY@2200 [facility] Last Admin: 08/23/16 23:23 Dose: 20.833 mls/hr Labetalol HCl (Normodyne -) 300 mg PO BID [facility] Last Admin: 08/23/16 23:21 Dose: Not Given Mupirocin (Bactroban 2% Ointment -) 1 applic TP BID [facility] Last Admin: 08/23/16 23:23 Dose: 1 applic Polyethylene Glycol (Miralax (For Daily Use) -) 17 gm PO BID [facility] Last Admin: 08/23/16 23:16 Dose: Not Given Rosuvastatin Calcium (Crestor -) 20 mg PO DAILY [facility] Last Admin: 08/23/16 09:59 Dose: Not Given - Objective Vital Signs: Vital Signs Temperature 98.2 F 08/24/16 06:00 Pulse Rate 79 08/24/16 06:00 Respiratory Rate 18 08/24/16 06:00 Blood Pressure 124/73 08/24/16 06:00 O2 Sat by Pulse Oximetry (%) 99 08/23/16 22:00 Neck: Yes: Supple Cardiovascular: Yes: Regular Rate and Rhythm, Murmur (Soft SM), S1, S2 Respiratory: Yes: Diminished Gastrointestinal: Yes: Normal Bowel Sounds, Soft. No: Tenderness Edema: No Wound/Incision: Yes: Dressing Dry and Intact Additional Findings/Remarks: Review of Systems Cardiovascular: As noted above Respiratory: denies: Cough or Sputum Production Gastrointestinal: denies: Nausea, Vomiting, Diarrhea, Constipation or Abdominal Discomfort Musculoskeletal: Weakness Endocrine: No Symptoms Reported Problem List - Problems (1) CVA (cerebral vascular accident) Code(s): I63.9 - CEREBRAL INFARCTION, UNSPECIFIED Qualifiers: Precerebral and cerebral artery: middle cerebral artery Laterality of affected vessel: left (2) Diastolic dysfunction Code(s): I51.9 - HEART DISEASE, UNSPECIFIED (3) Hypercholesteremia Code(s): E78.00 - PURE HYPERCHOLESTEROLEMIA, UNSPECIFIED (4) Pacemaker Code(s): Z95.0 - PRESENCE OF CARDIAC PACEMAKER (5) Pacemaker generator end of life Code(s): Z45.010 - ENCNTR FOR CHECKING AND TEST OF CARD PACEMAKER PULSE GNRTR (6) T2DM (type 2 diabetes mellitus) Code(s): E11.9 - TYPE 2 DIABETES MELLITUS WITHOUT COMPLICATIONS Qualifiers: Diabetes mellitus complication status: without complication Diabetes mellitus retirement insulin use: without terminal operations supervisor use Qualified Code(s): E11.9 - Type 2 diabetes mellitus without complications (7) Hypertension Code(s): I10 - ESSENTIAL (PRIMARY) HYPERTENSION Qualifiers: Hypertension type: essential hypertension Qualified Code(s): I10 - Essential (primary) hypertension Assessment/Plan 1. Acute new lacunar stroke with prior history of old stroke with residual mild right hemiplegia 2. History of LV systolic dysfunction with class 0-I NYHA classification LV failure, euvolemic (normal LV systolic function on repeat echocardiography) 3. 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 AV block post PPM (Medtronic) at [facility] post dual chamber pacemaker S/P generator replacement 5. Carotid stenosis post carotid endarterectomy 6. HTN 7. DM 8. Hyperlipidemia 9. History of right breast carcinoma on chemo with associated RUE lymphedema 10. CKD 11. Vascular dementia with anorexia PLAN: 1. ASA on hold, but to be restarted post PEG. Await PEG insertion tentatively Saturday. 2. Continue Labetolol 300 mg bid, Crestor 20 mg qd, and Hyzaar 50/12.5 mg qd as hemodynamics tolerate 3. DVT prophylaxis with Fondaparinux 4. PT and eventual SNF placement. Follow up with her supervisor customer complaint service in [facility] Further plans are to follow William Garcia MD
[2016-08-24] MEDS: ROSUVASTATIN CA 20 MG TABLET (FP) PO SCH ×2 (08:51→09:01)
[2016-08-24] MEDS: LOSARTAN 50MG/HCTZ 12.5MG 1 TAB (FP) PO SCH ×2 (08:56→09:01)
[2016-08-24] MEDS: FONDAPARINUX SODIUM 2.5 MG/0.5 ML DISP.SYRIN SQ SCH (08:59)
[2016-08-24] MEDS: POLYETHYLENE GLYCOL 3350 119 GM BTL PO SCH (08:59)
[2016-08-24] MEDS: MUPIROCIN 2% TOPICAL OINTMENT 22 GM TUBE TP SCH (08:59)
[2016-08-24] MEDS: LABETALOL HCL 100 MG TABLET (FP) PO SCH (09:00)
--- NOTE | 2016-08-24 09:02 | PN ---
Progress Note (short form) - Note Progress Note: Subjective: The patient was seen and examined at the bedside. she is awake and smiling and eating Current Medications Generic Name Dose Route Start Last Admin Trade Name Tova PRN Reason Stop Dose Admin Docusate Sodium 100 mg 08/19/16 09:36 08/22/16 11:30 Colace Liquid - PO 100 mg BID PRN Administration CONSTIPATION Fondaparinux 2.5 mg 08/19/16 10:00 08/24/16 08:59 Arixtra (Restricted) - SQ 2.5 mg DAILY [facility] Administration HCTZ/Losartan Potassium 1 tab 08/19/16 10:00 08/24/16 09:01 Hyzaar - PO Not Given DAILY [facility] Amino Acids 1,000 mls @ 84 mls/hr 08/17/16 15:45 08/24/16 04:26 Clinimix - IV 84 mls/hr Q12H [facility] Administration Fat Emulsion Intravenous 250 mls @ 20.833 mls/hr 08/19/16 22:00 08/23/16 23:23 Intralipid - IV 20.833 mls/hr DAILY@2200 [facility] Administration Labetalol HCl 300 mg 08/17/16 22:00 08/24/16 09:00 Normodyne - PO Not Given BID [facility] Mupirocin 1 applic 08/19/16 10:00 08/24/16 08:59 Bactroban 2% Ointment - TP 1 applic BID [facility] Administration Polyethylene Glycol 17 gm 08/17/16 22:00 08/24/16 08:59 Miralax (For Daily Use) - PO Not Given BID [facility] Rosuvastatin Calcium 20 mg 08/18/16 10:00 08/24/16 09:01 Crestor - PO Not Given DAILY [facility] Objective: Vital Signs Period Temp Pulse Resp BP Sys/Arrieta Pulse Ox Last 24 Hr 97.9 F-98.6 F 60-79 18-18 124-154/56-73 99-99 Physical Exam: General: NAD Lungs: CTA bilaterally Breast: Right breast fungating wound with dressing c/d/i Heart: RRR, S1S2 Abd: Soft, non-tender, non-distended. Normoactive bowel sounds Ext: Warm, well-perfused Neuro: Not following commands. RUE contracted. Left arm flaccid Moving both lower extremities CBCD WBC 4.2 K/mm3 (4.0-10.0) 08/22/16 05:35 RBC 3.21 M/mm3 (3.60-5.2) L 08/22/16 05:35 Hgb 10.4 GM/dL (10.7-15.3) L D 08/22/16 05:35 Hct 31.4 % (32.4-45.2) L D 08/22/16 05:35 MCV 97.7 fl (80-96) H 08/22/16 05:35 MCHC 33.0 g/dl (32.0-36.0) 08/22/16 05:35 RDW 13.7 % (11.6-15.6) 08/22/16 05:35 Plt Count 136 K/MM3 (134-434) D 08/22/16 05:35 MPV 11.5 fl (7.5-11.1) H D 08/22/16 05:35 CMP Sodium 134 mmol/L (136-145) L 08/22/16 15:30 Potassium 4.1 mmol/L (3.5-5.1) D 08/22/16 15:30 Chloride 101 mmol/L (98-107) 08/22/16 15:30 Carbon Dioxide 25 mmol/L (21-32) 08/22/16 15:30 Anion Gap 8 (8-16) 08/22/16 15:30 BUN 48 mg/dL (7-18) H 08/22/16 15:30 Creatinine 0.7 mg/dL (0.55-1.02) 08/22/16 15:30 Creat Clearance w eGFR > 60 (>60) 08/22/16 05:35 Random Glucose 154 mg/dL (74-106) H D 08/22/16 15:30 Calcium 9.7 mg/dL (8.5-10.1) 08/22/16 15:30 Total Bilirubin 1.0 mg/dL (0.2-1.0) D 08/22/16 05:35 AST 24 U/L (15-37) D 08/22/16 05:35 ALT 22 U/L (12-78) D 08/22/16 05:35 Alkaline Phosphatase 59 U/L (45-117) 08/22/16 05:35 Total Protein 5.5 g/dl (6.4-8.2) L 08/22/16 05:35 Albumin 2.6 g/dl (3.4-5.0) L 08/22/16 05:35 Microbiology 08/14/16 19:00 Nares - Mrsa Screen - Right MRSA Screen - Final NO MRSA ISOLATED 08/14/16 19:00 Nares - Mrsa Screen - Left MRSA Screen - Final NO MRSA ISOLATED Imaging 01/09/16 Echo: LV function severely reduced, severe global hypokinesis; PPM/ICK in RV; mild MR; 07/13/16 MUGA scan: normal wall motion, EF 80% 08/09/16 CT c-spine: no evidence of acute fracture, compression deformities, subluxation 08/12/16 CT head shows 0.7cm infarct within the right frontoparietal coronal radiata, acute Repeat CT head 08/13 study shows better defined infarct in posterior aspect of the right putamen, posterior limb of internal capsule, coronal radiata 08/14 ECHO normal LV size and function with no significant valvular pathology Assessment: This is an 85 year old female with PMHx of HTN, HLD, CVA, right carotid artery stenosis s/p endarterectomy, severe systolic heart failure s/p PPM, NIDDM, 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 Plan: 1) Neuro: Acute right stratocapsular lacunar infarct - Carotid doppler no significant stenosis - Hold ASA for PEG placement - Continue Crestor 20mg po daily - Appreciate neuro consult Dysphagia - Continue Clinimix for now with lipids - For PEG placement with IR (spoke to [place], will need to hold ASA x5 days prior to procedure) - Last dose of ASA 08/22 (discussed holding ASA with Dr. Pace) 2) Cardiology: Chronic LV systolic dysfunction - ECHO 08/13/16 with normal LV size and function. Trace MR PPM - PPM battery changed 08/17 HTN - Continue Labetolol - Resume Hyzaar today, monitor BP closely 3) Oncology: Right breast fungating cancer - Hold Tykerb and Xeloda as they cannot be crushed per pharmacy - Bactroban to right breast. Ideally would like Metrogel, however the pharmacy does not have it. Can discharge on Metrogel - Right fungating breast treatment as follows per Dr. Crowe: Daily saline rinse, pat dry, apply Metrogel daily - Per Dr. Ruiz, continue to hold oral chemo until the patient's dysphagia has improved. Once that happens, follow-up as an outpatient to determine when to restart oral chemo. Daughter Gauri aware of this plan 4) Endocrine: DM - Continue to monitor 5) F/E/N: - Monitor electrolytes - Dysphagia - Clinimix with lipids - For PEG placement either Saturday or Saturday 6) Prophylaxis: - Fondaparinux (hold prior to PEG placement) 7) Dispo: - Requires continued inpatient care CODE STATUS: FULL CODE Visit type - Emergency Visit Emergency Visit: Yes ED Registration Date: 08/11/16 Care time: The patient presented to the Emergency Department on the above date and was hospitalized for further evaluation of their emergent condition. - New Patient This patient is new to me today: No - Critical Care Critical Care patient: No
[2016-08-25] MEDS: MUPIROCIN 2% TOPICAL OINTMENT 22 GM TUBE TP SCH ×3 (00:15→22:31)
[2016-08-25] MEDS: FAT EMULSIONS 250 ML IV SCH ×2 (00:15→22:30)
[2016-08-25] MEDS: POLYETHYLENE GLYCOL 3350 119 GM BTL PO SCH ×3 (00:16→22:27)
[2016-08-25] MEDS: LABETALOL HCL 100 MG TABLET (FP) PO SCH ×3 (00:42→22:27)
[2016-08-25] MEDS: AMINO ACIDS 4.25%/D5W 1,000 ML IV SCH ×2 (03:23→16:00)
[2016-08-25 08:34] LABS: MCHC 34.2 g/dl (32.0-36.0); MEAN CELL VOLUME 93.5 fl (80-96); MEAN PLT VOLUME 10.8 fl (7.5-11.1); PLATELET COUNT 184 K/MM3 (134-434); RDW 13.5 % (11.6-15.6); WHITE BLOOD COUNT 6.8 K/mm3 (4.0-10.0)
[2016-08-25 08:43] LABS: ALBUMIN 3.1 g/dl (3.4-5.0); ANION GAP 12 (8-16); CALCIUM 9.6 mg/dL (8.5-10.1); CO2 23 mmol/L (21-32); GLUCOSE,RANDOM 157 mg/dL (74-106)
[2016-08-25 08:49] LABS: ALK PHOS 78 U/L (45-117); BILIRUBIN,TOTAL 0.6 mg/dL (0.2-1.0); CREATININE 0.7 mg/dL (0.55-1.02); SGOT/AST 21 U/L (15-37); SGPT/ALT 21 U/L (12-78); TOT PROT 6.4 g/dl (6.4-8.2)
[2016-08-25] MEDS: ROSUVASTATIN CA 20 MG TABLET (FP) PO SCH (10:19)
[2016-08-25] MEDS: LOSARTAN 50MG/HCTZ 12.5MG 1 TAB (FP) PO SCH (10:19)
[2016-08-25] MEDS: FONDAPARINUX SODIUM 2.5 MG/0.5 ML DISP.SYRIN SQ SCH (10:19)
--- NOTE | 2016-08-25 11:51 | PN ---
Progress Note, Physician Chief Complaint: Events noted Not in distress Await PEG next week History of Present Illness: Patient was seen and examined. Awake and alert. Chart was reviewed Denies chest pain, SOB or palpitations Sleeping this morning. Spoke with daughter regarding plan for PEG - Current Medication List Current Medications: Active Medications Docusate Sodium (Colace Liquid -) 100 mg PO BID PRN PRN Reason: CONSTIPATION Last Admin: 08/22/16 11:30 Dose: 100 mg Fondaparinux (Arixtra (Restricted) -) 2.5 mg SQ DAILY [facility] Last Admin: 08/25/16 10:19 Dose: 2.5 mg HCTZ/Losartan Potassium (Hyzaar -) 1 tab PO DAILY [facility] Last Admin: 08/25/16 10:19 Dose: 1 tab Amino Acids (Clinimix -) 1,000 mls @ 84 mls/hr IV Q12H [facility] Last Admin: 08/25/16 03:23 Dose: 84 mls/hr Fat Emulsion Intravenous (Intralipid -) 250 mls @ 20.833 mls/hr IV DAILY@2200 [facility] Last Admin: 08/25/16 00:15 Dose: 20.833 mls/hr Labetalol HCl (Normodyne -) 300 mg PO BID [facility] Last Admin: 08/25/16 10:19 Dose: 300 mg Mupirocin (Bactroban 2% Ointment -) 1 applic TP BID [facility] Last Admin: 08/25/16 10:19 Dose: 1 applic Polyethylene Glycol (Miralax (For Daily Use) -) 17 gm PO BID [facility] Last Admin: 08/25/16 00:16 Dose: Not Given Rosuvastatin Calcium (Crestor -) 20 mg PO DAILY [facility] Last Admin: 08/25/16 10:19 Dose: 20 mg - Objective Vital Signs: Vital Signs Temperature 98.2 F 08/25/16 10:00 Pulse Rate 63 08/25/16 11:39 Respiratory Rate 19 08/25/16 10:00 Blood Pressure 124/63 08/25/16 10:00 O2 Sat by Pulse Oximetry (%) 98 08/25/16 11:39 Neck: Yes: Supple Cardiovascular: Yes: Regular Rate and Rhythm, Murmur (Soft SM), S1, S2 Respiratory: Yes: Diminished Gastrointestinal: Yes: Normal Bowel Sounds, Soft. No: Tenderness Edema: No Wound/Incision: Yes: Dressing Dry and Intact Additional Findings/Remarks: Review of Systems Cardiovascular: As noted above Respiratory: denies: Cough or Sputum Production Gastrointestinal: denies: Nausea, Vomiting, Diarrhea, Constipation or Abdominal Discomfort Musculoskeletal: Weakness Endocrine: No Symptoms Reported Labs: CBC, BMP 08/25/16 06:00 08/25/16 06:00 Problem List - Problems (1) CVA (cerebral vascular accident) Code(s): I63.9 - CEREBRAL INFARCTION, UNSPECIFIED Qualifiers: Precerebral and cerebral artery: middle cerebral artery Laterality of affected vessel: left (2) Diastolic dysfunction Code(s): I51.9 - HEART DISEASE, UNSPECIFIED (3) Hypercholesteremia Code(s): E78.00 - PURE HYPERCHOLESTEROLEMIA, UNSPECIFIED (4) Pacemaker Code(s): Z95.0 - PRESENCE OF CARDIAC PACEMAKER (5) Pacemaker generator end of life Code(s): Z45.010 - ENCNTR FOR CHECKING AND TEST OF CARD PACEMAKER PULSE GNRTR (6) T2DM (type 2 diabetes mellitus) Code(s): E11.9 - TYPE 2 DIABETES MELLITUS WITHOUT COMPLICATIONS Qualifiers: Diabetes mellitus complication status: without complication Diabetes mellitus detention insulin use: without detention use Qualified Code(s): E11.9 - Type 2 diabetes mellitus without complications (7) Hypertension Code(s): I10 - ESSENTIAL (PRIMARY) HYPERTENSION Qualifiers: Hypertension type: essential hypertension Qualified Code(s): I10 - Essential (primary) hypertension Assessment/Plan 1. Acute new lacunar stroke with prior history of old stroke with residual mild right hemiplegia 2. History of LV systolic dysfunction with class 0-I NYHA classification LV failure, euvolemic (normal LV systolic function on repeat echocardiography) 3. 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 AV block post PPM (Medtronic) at [facility] post dual chamber pacemaker S/P generator replacement 5. Carotid stenosis post carotid endarterectomy 6. HTN 7. DM 8. Hyperlipidemia 9. History of right breast carcinoma on chemo with associated RUE lymphedema 10. CKD 11. Vascular dementia with anorexia PLAN: 1. ASA on hold. Await PEG insertion. Restart ASA post PEG 2. Continue Labetolol 300 mg bid, Crestor 20 mg qd, and Hyzaar 50/12.5 mg qd as hemodynamics tolerate 3. DVT prophylaxis with Fondaparinux 4. PT and eventual SNF placement. 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
--- NOTE | 2016-08-25 16:22 | PN ---
Physical Exam: SUBJECTIVE: Patient seen and examined at bedside. Pt offers no complaints at this time. OBJECTIVE: Vital Signs 3 Period Temp Pulse Resp BP Sys/Arrieta Pulse Ox Last 24 Hr 97.9 F-998.1 F 63-68 18-20 124-154/57-65 98-100 GENERAL: The patient is awake, alert, and fully oriented, in no acute distress. HEAD: Normal with no signs of trauma LUNGS: Breath sounds equal, clear to auscultation bilaterally, no wheezes, no crackles, no accessory muscle use. HEART: Regular rate and rhythm, S1, S2 without murmur, rub or gallop. ABDOMEN: Soft, nontender, nondistended, normoactive bowel sounds, no guarding, no rebound, no hepatosplenomegaly, no masses. EXTREMITIES: 2+ pulses, warm, well-perfused, no edema. NEUROLOGICAL: Cranial nerves II through XII grossly intact. Garbled speech, gait not observed. SKIN: Warm, dry, normal turgor, no rashes or lesions noted Laboratory Results - last 24 hr 3 08/25/16 08/25/16 06:00 06:00 WBC 6.8 D RBC 4.00 D Hgb 12.8 D Hct 37.4 D MCV 93.5 MCHC 34.2 RDW 13.5 Plt Count 184 D MPV 10.8 Sodium 136 Potassium 3.4 L Chloride 101 Carbon Dioxide 23 Anion Gap 12 BUN 50 H Creatinine 0.7 Creat Clearance w eGFR > 60 Random Glucose 157 H Calcium 9.6 Total Bilirubin 0.6 D AST 21 ALT 21 Alkaline Phosphatase 78 D Total Protein 6.4 Albumin 3.1 L Active Medications 3 Generic Name Dose Route Start Last Admin Trade Name Freq PRN Reason Stop Dose Admin Docusate Sodium 100 mg 08/19/16 09:36 08/22/16 11:30 Colace Liquid - PO 100 mg BID PRN Administration CONSTIPATION Fondaparinux 2.5 mg 08/19/16 10:00 08/25/16 10:19 Arixtra (Restricted) - SQ 2.5 mg DAILY [facility] Administration HCTZ/Losartan Potassium 1 tab 08/19/16 10:00 08/25/16 10:19 Hyzaar - PO 1 tab DAILY [facility] Administration Amino Acids 1,000 mls @ 84 mls/hr 08/17/16 15:45 08/25/16 03:23 Clinimix - IV 84 mls/hr Q12H [facility] Administration Fat Emulsion Intravenous 250 mls @ 20.833 mls/hr 08/19/16 22:00 08/25/16 00:15 Intralipid - IV 20.833 mls/hr DAILY@2200 [facility] Administration Labetalol HCl 300 mg 08/17/16 22:00 08/25/16 10:19 Normodyne - PO 300 mg BID [facility] Administration Mupirocin 1 applic 08/19/16 10:00 08/25/16 10:19 Bactroban 2% Ointment - TP 1 applic BID [facility] Administration Polyethylene Glycol 17 gm 08/17/16 22:00 08/25/16 13:58 Miralax (For Daily Use) - PO Not Given BID [facility] Rosuvastatin Calcium 20 mg 08/18/16 10:00 08/25/16 10:19 Crestor - PO 20 mg DAILY [facility] Administration Imaging 01/09/16 Echo: LV function severely reduced, severe global hypokinesis; PPM/ICK in RV; mild MR; 07/13/16 MUGA scan: normal wall motion, EF 80% 08/09/16 CT c-spine: no evidence of acute fracture, compression deformities, subluxation 08/12/16 CT head shows 0.7cm infarct within the right frontoparietal coronal radiata, acute Repeat CT head 08/13 study shows better defined infarct in posterior aspect of the right putamen, posterior limb of internal capsule, coronal radiata 08/14 ECHO normal LV size and function with no significant valvular pathology ASSESSMENT/PLAN: A: This is an 85 year old female with PMHx of HTN, HLD, CVA, right carotid artery stenosis s/p endarterectomy, severe systolic heart failure s/p PPM, NIDDM, 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 P: 1. Acute right stratocapsular lacunar infarct - Carotid doppler no significant stenosis - Hold ASA for PEG placement - Continue Crestor 20mg po daily - Appreciate neuro consult 2. Dysphagia - Continue Clinimix for now with lipids - For PEG placement with IR - Hold ASA for PEG palcement - Last dose of ASA 08/22 3. Chronic LV systolic dysfunction - ECHO 08/13/16 with normal LV size and function. Trace MR 4. PPM - battery changed 08/17 5. HTN - Continue Labetolol - Resume Hyzaar today, monitor BP closely 6. Oncology: Right breast fungating cancer - Hold Tykerb and Xeloda as they cannot be crushed per pharmacy - Bactroban to right breast. Ideally would like Metrogel, however the pharmacy does not have it. Can discharge on Metrogel - Right fungating breast treatment as follows per Dr. Crowe: Daily saline rinse, pat dry, apply Metrogel daily - Per Dr. Ruiz, continue to hold oral chemo until the patient's dysphagia has improved. Once that happens, follow-up as an outpatient to determine when to restart oral chemo. Daughter Gauri aware of this plan 7. DM - Continue to monitor 8. F/E/N: - Monitor electrolytes - Dysphagia - Clinimix with lipids - For PEG placement either Saturday or Saturday 9. PPX - Fondaparinux (hold prior to PEG placement) Dispo- Requires continued inpatient care CODE STATUS: FULL CODE Visit type - Emergency Visit Emergency Visit: Yes ED Registration Date: 08/11/16 Care time: The patient presented to the Emergency Department on the above date and was hospitalized for further evaluation of their emergent condition. - New Patient This patient is new to me today: Yes Date on this admission: 08/25/16 - Critical Care Critical Care patient: No
[2016-08-25] MEDS ORDERED: PT OWN MED DRAWER 7, Y5N ONE (22:27)
[2016-08-26] MEDS: AMINO ACIDS 4.25%/D5W 1,000 ML IV SCH ×2 (03:11→15:27)
[2016-08-26 07:35] LABS: BASOPHIL 0.7 % (0-2.0); EOSINOPHIL 1.8 % (0-4.5); MCH 31.9 pg (25.7-33.7); MCHC 34.1 g/dl (32.0-36.0); MEAN CELL VOLUME 93.4 fl (80-96); MEAN PLT VOLUME 10.8 fl (7.5-11.1); NEUTROPHILS 72.2 % (42.8-82.8); PLATELET COUNT 182 K/MM3 (134-434); RDW 13.5 % (11.6-15.6); WHITE BLOOD COUNT 6.2 K/mm3 (4.0-10.0)
[2016-08-26 08:23] LABS: ALBUMIN 2.9 g/dl (3.4-5.0); ALK PHOS 77 U/L (45-117); ANION GAP 13 (8-16); BILIRUBIN,TOTAL 0.6 mg/dL (0.2-1.0); CALCIUM 9.7 mg/dL (8.5-10.1); CO2 23 mmol/L (21-32); CREATININE 0.8 mg/dL (0.55-1.02); GLUCOSE,RANDOM 158 mg/dL (74-106); SGOT/AST 21 U/L (15-37); SGPT/ALT 20 U/L (12-78); TOT PROT 6.1 g/dl (6.4-8.2)
--- NOTE | 2016-08-26 09:41 | PN ---
Progress Note, Physician Chief Complaint: Events noted Not in distress. Resting comfortably Await PEG History of Present Illness: Patient was seen and examined. Awake and arousable. Chart was reviewed Denies chest pain, SOB or palpitations - Current Medication List Current Medications: Active Medications Docusate Sodium (Colace Liquid -) 100 mg PO BID PRN PRN Reason: CONSTIPATION Last Admin: 08/22/16 11:30 Dose: 100 mg Fondaparinux (Arixtra (Restricted) -) 2.5 mg SQ DAILY [facility] Last Admin: 08/25/16 10:19 Dose: 2.5 mg HCTZ/Losartan Potassium (Hyzaar -) 1 tab PO DAILY [facility] Last Admin: 08/25/16 10:19 Dose: 1 tab Amino Acids (Clinimix -) 1,000 mls @ 84 mls/hr IV Q12H [facility] Last Admin: 08/26/16 03:11 Dose: 84 mls/hr Fat Emulsion Intravenous (Intralipid -) 250 mls @ 20.833 mls/hr IV DAILY@2200 [facility] Last Admin: 08/25/16 22:30 Dose: 20.833 mls/hr Labetalol HCl (Normodyne -) 300 mg PO BID [facility] Last Admin: 08/25/16 22:27 Dose: 300 mg Mupirocin (Bactroban 2% Ointment -) 1 applic TP BID [facility] Last Admin: 08/25/16 22:31 Dose: 1 applic Polyethylene Glycol (Miralax (For Daily Use) -) 17 gm PO BID [facility] Last Admin: 08/25/16 22:27 Dose: 17 gm Rosuvastatin Calcium (Crestor -) 20 mg PO DAILY [facility] Last Admin: 08/25/16 10:19 Dose: 20 mg - Objective Vital Signs: Vital Signs Temperature 97.9 F 08/26/16 06:06 Pulse Rate 67 08/26/16 06:06 Respiratory Rate 20 08/26/16 06:06 Blood Pressure 148/72 08/26/16 06:06 O2 Sat by Pulse Oximetry (%) 98 08/25/16 21:00 Neck: Yes: Supple Cardiovascular: Yes: Regular Rate and Rhythm, Murmur (Soft SM), S1, S2 Respiratory: Yes: Diminished Gastrointestinal: Yes: Normal Bowel Sounds, Soft. No: Tenderness Edema: No Additional Findings/Remarks: Review of Systems Cardiovascular: As noted above Respiratory: denies: Cough or Sputum Production Gastrointestinal: denies: Nausea, Vomiting, Diarrhea, Constipation or Abdominal Discomfort Musculoskeletal: Weakness Endocrine: No Symptoms Reported Labs: CBC, BMP 08/26/16 06:25 08/26/16 06:25 Problem List - Problems (1) CVA (cerebral vascular accident) Code(s): I63.9 - CEREBRAL INFARCTION, UNSPECIFIED Qualifiers: Precerebral and cerebral artery: middle cerebral artery Laterality of affected vessel: left (2) Diastolic dysfunction Code(s): I51.9 - HEART DISEASE, UNSPECIFIED (3) Hypercholesteremia Code(s): E78.00 - PURE HYPERCHOLESTEROLEMIA, UNSPECIFIED (4) Pacemaker Code(s): Z95.0 - PRESENCE OF CARDIAC PACEMAKER (5) Pacemaker generator end of life Code(s): Z45.010 - ENCNTR FOR CHECKING AND TEST OF CARD PACEMAKER PULSE GNRTR (6) T2DM (type 2 diabetes mellitus) Code(s): E11.9 - TYPE 2 DIABETES MELLITUS WITHOUT COMPLICATIONS Qualifiers: Diabetes mellitus complication status: without complication Diabetes mellitus fci insulin use: without fci use Qualified Code(s): E11.9 - Type 2 diabetes mellitus without complications (7) Hypertension Code(s): I10 - ESSENTIAL (PRIMARY) HYPERTENSION Qualifiers: Hypertension type: essential hypertension Qualified Code(s): I10 - Essential (primary) hypertension Assessment/Plan 1. Acute new lacunar stroke with prior history of old stroke with residual mild right hemiplegia 2. History of LV systolic dysfunction with class 0-I NYHA classification LV failure, euvolemic (normal LV systolic function on repeat echocardiography) 3. 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 AV block post PPM ([employer]tr[employer]) at [facility] post dual chamber pacemaker S/P generator replacement 5. Carotid stenosis post carotid endarterectomy 6. HTN 7. DM 8. Hyperlipidemia 9. History of right breast carcinoma on chemo with associated RUE lymphedema 10. CKD 11. Vascular dementia with anorexia PLAN: 1. ASA on hold, but to be restarted post PEG. Await PEG insertion tentatively Saturday. 2. Continue Labetolol 300 mg bid, Crestor 20 mg qd, and Hyzaar 50/12.5 mg qd as hemodynamics tolerate 3. DVT prophylaxis with Fondaparinux 4. PT and eventual SNF placement. 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 Further follow up of breast CA as outpatient Further plans are to follow William Garcia MD
[2016-08-26] MEDS: LABETALOL HCL 100 MG TABLET (FP) PO SCH ×2 (09:53→21:05)
[2016-08-26] MEDS: LOSARTAN 50MG/HCTZ 12.5MG 1 TAB (FP) PO SCH (09:53)
[2016-08-26] MEDS: POLYETHYLENE GLYCOL 3350 119 GM BTL PO SCH ×2 (09:53→21:05)
[2016-08-26] MEDS: ROSUVASTATIN CA 20 MG TABLET (FP) PO SCH (09:54)
[2016-08-26] MEDS: FONDAPARINUX SODIUM 2.5 MG/0.5 ML DISP.SYRIN SQ SCH (09:54)
[2016-08-26] MEDS: MUPIROCIN 2% TOPICAL OINTMENT 22 GM TUBE TP SCH ×2 (09:54→21:04)
--- NOTE | 2016-08-26 13:21 | PN ---
Physical Exam: SUBJECTIVE: Patient seen and examined at bedside. Family present. OBJECTIVE: Vital Signs Period Temp Pulse Resp BP Sys/Arrieta Pulse Ox Last 24 Hr 97.9 F-998.1 F 62-73 18-20 125-154/57-78 98-99 GENERAL: Opens eyes to verbal stimuli. No acute distress. HEAD: Normal with no signs of trauma LUNGS: Breath sounds equal, clear to auscultation bilaterally, no wheezes, no crackles, no accessory muscle use. HEART: Regular rate and rhythm, S1, S2 without murmur, rub or gallop. ABDOMEN: Soft, nontender, nondistended, normoactive bowel sounds, no guarding, no rebound, no hepatosplenomegaly, no masses. EXTREMITIES: 2+ pulses, warm, well-perfused, no edema. NEUROLOGICAL: Cranial nerves II through XII grossly intact. Garbled speech, gait not observed. SKIN: Warm, dry, normal turgor, no rashes or lesions noted. Fungating wound to right breast. Laboratory Results - last 24 hr 3 08/26/16 08/26/16 06:25 06:25 WBC 6.2 RBC 3.89 Hgb 12.4 Hct 36.3 MCV 93.4 MCHC 34.1 RDW 13.5 Plt Count 182 MPV 10.8 Neutrophils % 72.2 Lymphocytes % 17.6 D Monocytes % 7.7 Eosinophils % 1.8 Basophils % 0.7 D Sodium 137 Potassium 3.3 L Chloride 101 Carbon Dioxide 23 Anion Gap 13 BUN 53 H Creatinine 0.8 Creat Clearance w eGFR > 60 Random Glucose 158 H Calcium 9.7 Total Bilirubin 0.6 AST 21 ALT 20 Alkaline Phosphatase 77 Total Protein 6.1 L Albumin 2.9 L Active Medications 3 Generic Name Dose Route Start Last Admin Trade Name Freq PRN Reason Stop Dose Admin Docusate Sodium 100 mg 08/19/16 09:36 08/22/16 11:30 Colace Liquid - PO 100 mg BID PRN Administration CONSTIPATION Fondaparinux 2.5 mg 08/19/16 10:00 08/26/16 09:54 Arixtra (Restricted) - SQ 2.5 mg DAILY JAMEY Administration HCTZ/Losartan Potassium 1 tab 08/19/16 10:00 08/26/16 09:53 Hyzaar - PO 1 tab DAILY JAMEY Administration Amino Acids 1,000 mls @ 84 mls/hr 08/17/16 15:45 08/26/16 03:11 Clinimix - IV 84 mls/hr Q12H JAMEY Administration Fat Emulsion Intravenous 250 mls @ 20.833 mls/hr 08/19/16 22:00 08/25/16 22:30 Intralipid - IV 20.833 mls/hr DAILY@2200 JAMEY Administration Potassium Chloride 100 mls @ 100 mls/hr 08/26/16 13:45 Potassium Chloride 10 Meq Premix Ivpb - IVPB 08/26/16 15:44 Q60M JAMEY Labetalol HCl 300 mg 08/17/16 22:00 08/26/16 09:53 Normodyne - PO 300 mg BID JAMEY Administration Mupirocin 1 applic 08/19/16 10:00 08/26/16 09:54 Bactroban 2% Ointment - TP 1 applic BID JAMEY Administration Polyethylene Glycol 17 gm 08/17/16 22:00 08/26/16 09:53 Miralax (For Daily Use) - PO Not Given BID JAMEY Rosuvastatin Calcium 20 mg 08/18/16 10:00 08/26/16 09:54 Crestor - PO 20 mg DAILY JAMEY Administration ASSESSMENT/PLAN: A: This is an 85 year old female with PMHx of HTN, HLD, CVA, right carotid artery stenosis s/p endarterectomy, severe systolic heart failure s/p PPM, NIDDM, 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 P: 1. Acute right stratocapsular lacunar infarct - Carotid doppler no significant stenosis - Hold ASA for PEG placement - Continue Crestor 20mg po daily - Appreciate neuro consult 2. Dysphagia - Continue Clinimix for now with lipids - For PEG placement with IR - Hold ASA for PEG palcement - Last dose of ASA 08/22 3. Chronic LV systolic dysfunction - ECHO 08/13/16 with normal LV size and function. Trace MR 4. PPM - battery changed 08/17 5. HTN - Continue Labetolol - Resume Hyzaar today, monitor BP closely 6. Right breast fungating cancer - Hold Tykerb and Xeloda as they cannot be crushed per pharmacy - Bactroban to right breast. Ideally would like Metrogel, however the pharmacy does not have it. Can discharge on Metrogel - Right fungating breast treatment as follows per Dr. Crowe: Daily saline rinse, pat dry, apply Metrogel daily - Per Dr. Ruiz, continue to hold oral chemo until the patient's dysphagia has improved. Once that happens, follow-up as an outpatient to determine when to restart oral chemo. Daughter Gauri aware of this plan 7. DM - Continue to monitor 8. F/E/N: - Monitor electrolytes - K 3.1- KCl 10mEq x2 runs ordered. repeat BMP after - Dysphagia - Clinimix with lipids - For PEG placement either Saturday or Saturday 9. PPX - Fondaparinux (hold 08/27 for PEG placement) Dispo- Requires continued inpatient care CODE STATUS: FULL CODE Visit type - Emergency Visit Emergency Visit: Yes ED Registration Date: 08/11/16 Care time: The patient presented to the Emergency Department on the above date and was hospitalized for further evaluation of their emergent condition. - New Patient This patient is new to me today: No - Critical Care Critical Care patient: No
[2016-08-26] MEDS: KCL 10 MEQ IVPB 100 ML IVPB SCH ×2 (14:10→15:26)
[2016-08-26] MEDS ORDERED: PT OWN MED DRAWER 7, Y5N ONE (20:57)
[2016-08-26] MEDS: FAT EMULSIONS 250 ML IV SCH (22:07)
[2016-08-27] MEDS: AMINO ACIDS 4.25%/D5W 1,000 ML IV SCH ×2 (03:02→18:30)
[2016-08-27 08:26] LABS: INR 1.39 (0.82-1.09); PROTHROMBIN TIME (PATIENT) 15.4 SEC (9.98-11.88)
--- NOTE | 2016-08-27 08:59 | PN ---
Physical Exam: SUBJECTIVE: Patient seen and examined. She is awake, no acute issues overnight OBJECTIVE: Vital Signs Period Temp Pulse Resp BP Sys/Arrieta Pulse Ox Last 24 Hr 97.2 F-98.4 F 61-73 16-20 137-177/59-75 99-99 PE Neuro: awake, mumbles words, nods head, does not follow commands Pulm: diminished bases CV: s1 s2 rrr no mrg Abd: s nt nd + bs Ext: no le edema, RUE contracted, LUE flaccid Breast: Right breast fungating wound with dressing c/d/i Laboratory Results - last 24 hr 08/27/16 06:00 INR 1.39 H D Active Medications Generic Name Dose Route Start Last Admin Trade Name Freq PRN Reason Stop Dose Admin Docusate Sodium 100 mg 08/19/16 09:36 08/22/16 11:30 Colace Liquid - PO 100 mg BID PRN Administration CONSTIPATION Fondaparinux 2.5 mg 08/19/16 10:00 08/26/16 09:54 Arixtra (Restricted) - SQ 2.5 mg DAILY JAMEY Administration HCTZ/Losartan Potassium 1 tab 08/19/16 10:00 08/26/16 09:53 Hyzaar - PO 1 tab DAILY JAMEY Administration Amino Acids 1,000 mls @ 84 mls/hr 08/17/16 15:45 08/27/16 03:02 Clinimix - IV 84 mls/hr Q12H JAMEY Administration Fat Emulsion Intravenous 250 mls @ 20.833 mls/hr 08/19/16 22:00 08/26/16 22:07 Intralipid - IV 20.833 mls/hr DAILY@2200 JAMEY Administration Labetalol HCl 300 mg 08/17/16 22:00 08/26/16 21:05 Normodyne - PO Not Given BID JAMEY Mupirocin 1 applic 08/19/16 10:00 08/26/16 21:04 Bactroban 2% Ointment - TP Not Given BID JAMEY Polyethylene Glycol 17 gm 08/17/16 22:00 08/26/16 21:05 Miralax (For Daily Use) - PO Not Given BID JAMEY Rosuvastatin Calcium 20 mg 08/18/16 10:00 08/26/16 09:54 Crestor - PO 20 mg DAILY JAMEY Administration Imaging: - ECHO 08/13/16 with normal LV size and function. 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 Plan: 1. Dysphagia - For PEG placement tomorrow 08/28 - Insert NGT for evening prep tonight - NPO after midnight - Continue Clinimix with lipids 2. Acute right stratocapsular lacunar infarct - Crestor 20mg po daily - Holding ASA for PEG since 08/22 3. Chronic LV systolic dysfunction - Not in exacerbation - Continue hyzaar 50mg/12.5mg daily 4. Right breast fungating cancer - Hold Tykerb and Xeloda as they cannot be crushed per pharmacy - Bactroban to right breast. Ideally would like Metrogel, however the pharmacy does not have it. Can discharge on Metrogel - Right fungating breast treatment as follows per Dr. Crowe: Daily saline rinse, pat dry, apply Metrogel daily - Per Dr. Ruiz, continue to hold oral chemo until the patient's dysphagia has improved. Once that happens, follow-up as an outpatient to determine when to restart oral chemo. Daughter Gauri aware of this plan 5. PPM - Likely from sick sinus syndrome - Generator changed 08/17 6. HTN - Continue Labetolol 300mg BID 7. DM II - Morning sugars stable below 200 - will Monitor 8. DVT - Fondaparinux (hold tonight for PEG placement) Visit type - Emergency Visit Emergency Visit: Yes ED Registration Date: 08/11/16 Care time: The patient presented to the Emergency Department on the above date and was hospitalized for further evaluation of their emergent condition. - New Patient This patient is new to me today: No - Critical Care Critical Care patient: No
--- NOTE | 2016-08-27 09:06 | PN ---
Progress Note, Physician History of Present Illness: Arousable, inadequate oral intake, G->J tube planned for tomorrow. - Current Medication List Current Medications: Active Medications Docusate Sodium (Colace Liquid -) 100 mg PO BID PRN PRN Reason: CONSTIPATION Last Admin: 08/22/16 11:30 Dose: 100 mg Fondaparinux (Arixtra (Restricted) -) 2.5 mg SQ DAILY [facility] Last Admin: 08/26/16 09:54 Dose: 2.5 mg HCTZ/Losartan Potassium (Hyzaar -) 1 tab PO DAILY [facility] Last Admin: 08/26/16 09:53 Dose: 1 tab Amino Acids (Clinimix -) 1,000 mls @ 84 mls/hr IV Q12H [facility] Last Admin: 08/27/16 03:02 Dose: 84 mls/hr Fat Emulsion Intravenous (Intralipid -) 250 mls @ 20.833 mls/hr IV DAILY@2200 [facility] Last Admin: 08/26/16 22:07 Dose: 20.833 mls/hr Labetalol HCl (Normodyne -) 300 mg PO BID [facility] Last Admin: 08/26/16 21:05 Dose: Not Given Mupirocin (Bactroban 2% Ointment -) 1 applic TP BID [facility] Last Admin: 08/26/16 21:04 Dose: Not Given Polyethylene Glycol (Miralax (For Daily Use) -) 17 gm PO BID [facility] Last Admin: 08/26/16 21:05 Dose: Not Given Rosuvastatin Calcium (Crestor -) 20 mg PO DAILY [facility] Last Admin: 08/26/16 09:54 Dose: 20 mg - Objective Vital Signs: Vital Signs Temperature 97.8 F 08/27/16 06:00 Pulse Rate 61 08/27/16 06:00 Respiratory Rate 20 08/27/16 06:00 Blood Pressure 148/62 08/27/16 06:00 O2 Sat by Pulse Oximetry (%) 99 08/26/16 21:00 Constitutional: Yes: No Distress, Calm Neck: Yes: Supple Cardiovascular: Yes: Regular Rate and Rhythm Respiratory: Yes: Regular, Diminished Gastrointestinal: Yes: Soft, Hypoactive Bowel Sounds Edema: No Labs: INR, PTT INR 1.39 (0.82-1.09) H D 08/27/16 06:00 Problem List - Problems (1) CVA (cerebral vascular accident) Code(s): I63.9 - CEREBRAL INFARCTION, UNSPECIFIED Qualifiers: Precerebral and cerebral artery: middle cerebral artery Laterality of affected vessel: left (2) Hypercholesteremia Code(s): E78.00 - PURE HYPERCHOLESTEROLEMIA, UNSPECIFIED (3) Lymph edema Code(s): I89.0 - LYMPHEDEMA, NOT ELSEWHERE CLASSIFIED (4) T2DM (type 2 diabetes mellitus) Code(s): E11.9 - TYPE 2 DIABETES MELLITUS WITHOUT COMPLICATIONS Qualifiers: Diabetes mellitus complication status: without complication Diabetes mellitus correction insulin use: without processing technician use Qualified Code(s): E11.9 - Type 2 diabetes mellitus without complications (5) Hypertension Code(s): I10 - ESSENTIAL (PRIMARY) HYPERTENSION Qualifiers: Hypertension type: essential hypertension Qualified Code(s): I10 - Essential (primary) hypertension (6) Malignant neoplasm of right breast Code(s): C50.911 - MALIGNANT NEOPLASM OF UNSP SITE OF RIGHT FEMALE BREAST (7) Pacemaker Code(s): Z95.0 - PRESENCE OF CARDIAC PACEMAKER (8) Diastolic dysfunction Code(s): I51.9 - HEART DISEASE, UNSPECIFIED (9) Pacemaker generator end of life Code(s): Z45.010 - ENCNTR FOR CHECKING AND TEST OF CARD PACEMAKER PULSE GNRTR (10) Anorexia Code(s): R63.0 - ANOREXIA Assessment/Plan 08/13/2016 Echocardiography revealed normal LV size and function with no significant valvular pathology 1. Acute new lacunar stroke with prior history of old stroke with residual mild right hemiplegia 2. History of LV systolic dysfunction with class 0-I NYHA classification LV failure, euvolemic (normal LV systolic function on repeat echocardiography) 3. 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 AV block post PPM ([employer]tr[employer]) at [facility] post dual chamber pacemaker S/P generator replacement 5. Carotid stenosis post carotid endarterectomy 6. HTN 7. DM 8. Hyperlipidemia 9. History of right breast carcinoma on chemo with associated RUE lymphedema 10. CKD 11. Vascular dementia with anorexia PLAN: 1. ASA on hold, but to be restarted post G->J tube. Await G->J tube insertion tentatively today. 2. Continue Labetolol 300 mg bid, Crestor 20 mg qd, and Hyzaar 50/12.5 mg qd as hemodynamics tolerate 3. DVT prophylaxis with Fondaparinux hold in AM 4. PT and eventual SNF placement. 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 Further follow up of breast CA as outpatient
[2016-08-27 09:40] LABS: MCH 31.8 pg (25.7-33.7); MCHC 32.7 g/dl (32.0-36.0); MEAN CELL VOLUME 97.3 fl (80-96); MEAN PLT VOLUME 12.6 fl (7.5-11.1)
[2016-08-27 09:49] LABS: WHITE BLOOD COUNT 4.7 K/mm3 (4.0-10.0)
[2016-08-27 11:02] LABS: PLATELET ESTIMATE DECREASED (NORMAL)
[2016-08-27 11:17] LABS: ANION GAP 10 (8-16); CALCIUM 9.7 mg/dL (8.5-10.1); CO2 25 mmol/L (21-32); CREATININE 0.7 mg/dL (0.55-1.02); GLUCOSE,RANDOM 157 mg/dL (74-106)
[2016-08-27] MEDS ORDERED: PT OWN MED DRAWER 7, Y5N ONE (11:59)
[2016-08-27] MEDS: ROSUVASTATIN CA 20 MG TABLET (FP) PO SCH (12:01)
[2016-08-27] MEDS: LOSARTAN 50MG/HCTZ 12.5MG 1 TAB (FP) PO SCH (12:02)
[2016-08-27] MEDS: LABETALOL HCL 100 MG TABLET (FP) PO SCH ×2 (12:02→22:32)
[2016-08-27] MEDS: POLYETHYLENE GLYCOL 3350 119 GM BTL PO SCH ×2 (12:04→22:32)
[2016-08-27] MEDS: MUPIROCIN 2% TOPICAL OINTMENT 22 GM TUBE TP SCH ×2 (12:12→21:46)
[2016-08-27] MEDS: FONDAPARINUX SODIUM 2.5 MG/0.5 ML DISP.SYRIN SQ SCH (12:36)
[2016-08-27] MEDS: FAT EMULSIONS 250 ML IV SCH (22:31)
[2016-08-28] MEDS: AMINO ACIDS 4.25%/D5W 1,000 ML IV SCH ×2 (04:26→17:22)
[2016-08-28 07:35] LABS: MCH 31.5 pg (25.7-33.7); MCHC 33.7 g/dl (32.0-36.0); MEAN CELL VOLUME 93.2 fl (80-96); MEAN PLT VOLUME 11.5 fl (7.5-11.1); PLATELET COUNT 173 K/MM3 (134-434); RDW 13.4 % (11.6-15.6)
[2016-08-28 07:42] LABS: INR 1.15 (0.82-1.09); PROTHROMBIN TIME (PATIENT) 12.7 SEC (9.98-11.88)
[2016-08-28 07:44] LABS: ANION GAP 11 (8-16); CALCIUM 9.6 mg/dL (8.5-10.1); CO2 23 mmol/L (21-32); CREATININE 0.9 mg/dL (0.55-1.02); GLUCOSE,RANDOM 157 mg/dL (74-106)
--- NOTE | 2016-08-28 11:00 | PN ---
Progress Note (short form) - Note Progress Note: Chief Complaint: Events noted, notes reviewed, overall no change in status History of Present Illness: Seen and examined on telemetry. Events noted, notes reviewed, overall no change in status For PEG insertion Echocardiography dated 08/14/2016 revealed normal LV size and function with no significant valvular pathology Medications: Current Medications Docusate Sodium (Colace Liquid -) 100 mg PO BID PRN PRN Reason: CONSTIPATION Last Admin: 08/22/16 11:30 Dose: 100 mg Fondaparinux (Arixtra (Restricted) -) 2.5 mg SQ DAILY [facility] Last Admin: 08/27/16 12:36 Dose: 2.5 mg HCTZ/Losartan Potassium (Hyzaar -) 1 tab PO DAILY [facility] Last Admin: 08/27/16 12:02 Dose: 1 tab Amino Acids (Clinimix -) 1,000 mls @ 84 mls/hr IV Q12H [facility] Last Admin: 08/28/16 04:26 Dose: 84 mls/hr Fat Emulsion Intravenous (Intralipid -) 250 mls @ 20.833 mls/hr IV DAILY@2200 [facility] Last Admin: 08/27/16 22:31 Dose: 20.833 mls/hr Labetalol HCl (Normodyne -) 300 mg PO BID [facility] Last Admin: 08/27/16 22:32 Dose: 300 mg Mupirocin (Bactroban 2% Ointment -) 1 applic TP BID [facility] Last Admin: 08/27/16 21:46 Dose: Not Given Polyethylene Glycol (Miralax (For Daily Use) -) 17 gm PO BID [facility] Last Admin: 08/27/16 22:32 Dose: 17 gm Rosuvastatin Calcium (Crestor -) 20 mg PO DAILY [facility] Last Admin: 08/27/16 12:01 Dose: 20 mg Review of Systems Cardiovascular: As noted above Respiratory: denies: Cough or Sputum Production Gastrointestinal: denies: Nausea, Vomiting, Diarrhea, Constipation or Abdominal Discomfort Musculoskeletal: Weakness Endocrine: No Symptoms Reported Vital Signs: Last Vital Signs Temp Pulse Resp BP Pulse Ox 98.3 F 71 21 177/79 100 08/28/16 09:18 08/28/16 09:18 08/28/16 09:18 08/28/16 09:18 08/27/16 21:00 Constitutional: No Distress, Calm Neck: Supple Negative JVD Respiratory: Diminished at the Bases Cardiovascular: S1 S2 Regular Rate and Rhythm Grade 1-2/6 EVARISTO Gastrointestinal: Soft Benign Normal Bowel Sounds Ext: No Edema Labs: CBC, BMP 08/28/16 06:30 08/28/16 06:30 Assessment/Plan ASSESSMENT: 1. 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 History of LV systolic dysfunction with class 0-I NYHA classification LV failure, euvolemic (normal LV systolic function on repeat echocardiography as noted above) 3. CAD angina pectoris 4. AV block post PPM 5. Carotid stenosis post carotid end-arterectomy 6. HTN 7. DM 8. Hyperlipidemia 9. History of right breast carcinoma on chemo with associated RUE lymphedema 10. CKD PLAN: 1. Resume ASA post-procedure 2. Continue Labetolol 3. Continue Cozaar and discontinue Hydrochlorothiazide 4. Continue Crestor 5. As outlined above to proceed with PEG insertion, there are no absolute cardiac contraindications in proceeding with the above planned procedure considering that there is no clinical evidence of acute coronary syndrome and/ or decompensated congestive heart failure and/or malignant sustained arrhythmia Stacey Hernandez M.D.
[2016-08-28] MEDS: ROSUVASTATIN CA 20 MG TABLET (FP) PO SCH (12:32)
[2016-08-28] MEDS: LABETALOL HCL 100 MG TABLET (FP) PO SCH ×2 (12:32→23:01)
[2016-08-28] MEDS: POLYETHYLENE GLYCOL 3350 119 GM BTL PO SCH ×2 (12:32→23:03)
[2016-08-28] MEDS: LOSARTAN 50MG/HCTZ 12.5MG 1 TAB (FP) PO SCH (12:35)
[2016-08-28] MEDS: MUPIROCIN 2% TOPICAL OINTMENT 22 GM TUBE TP SCH ×2 (12:35→23:02)
--- NOTE | 2016-08-28 13:20 | PN ---
Physical Exam: SUBJECTIVE: Patient seen and examined. Tolerated contrast for Gtube prep. No fevers overnight OBJECTIVE: Vital Signs Period Temp Pulse Resp BP Sys/Arrieta Pulse Ox Last 24 Hr 97.5 F-98.4 F 60-92 16-21 139-206/53-92 100-100 PE Neuro: awake, mumbles words, nods head, does not follow commands HEENT: + NGT Pulm: diminished bases CV: s1 s2 rrr no mrg Abd: s nt nd Ext: no le edema, RUE contracted, LUE flaccid Breast: Right breast fungating wound with dressing c/d/i Laboratory Results - last 24 hr 08/28/16 08/28/16 08/28/16 06:30 06:30 06:30 WBC 9.0 D RBC 4.30 D Hgb 13.5 D Hct 40.1 D MCV 93.2 MCHC 33.7 RDW 13.4 Plt Count 173 MPV 11.5 H INR 1.15 H Sodium 132 L Potassium 3.7 Chloride 98 Carbon Dioxide 23 Anion Gap 11 BUN 59 H Creatinine 0.9 D Random Glucose 157 H Calcium 9.6 Active Medications Generic Name Dose Route Start Last Admin Trade Name Freq PRN Reason Stop Dose Admin Docusate Sodium 100 mg 08/19/16 09:36 08/22/16 11:30 Colace Liquid - PO 100 mg BID PRN Administration CONSTIPATION Fondaparinux 2.5 mg 08/19/16 10:00 08/27/16 12:36 Arixtra (Restricted) - SQ 2.5 mg DAILY JAMEY Administration HCTZ/Losartan Potassium 1 tab 08/19/16 10:00 08/28/16 12:35 Hyzaar - PO 1 tab DAILY JAMEY Administration Amino Acids 1,000 mls @ 84 mls/hr 08/17/16 15:45 08/28/16 04:26 Clinimix - IV 84 mls/hr Q12H J[facility]Y Administration Fat Emulsion Intravenous 250 mls @ 20.833 mls/hr 08/19/16 22:00 08/27/16 22:31 Intralipid - IV 20.833 mls/hr DAILY@2200 J[facility]Y Administration Labetalol HCl 300 mg 08/17/16 22:00 08/28/16 12:32 Normodyne - PO 300 mg BID JAMEY Administration Mupirocin 1 applic 08/19/16 10:00 08/28/16 12:35 Bactroban 2% Ointment - TP 1 applic BID JAMEY Administration Polyethylene Glycol 17 gm 08/17/16 22:00 08/28/16 12:32 Miralax (For Daily Use) - PO 17 gm BID JAMEY Administration Rosuvastatin Calcium 20 mg 08/18/16 10:00 08/28/16 12:32 Crestor - PO 20 mg DAILY JAMEY Administration Imaging: - ECHO 08/13/16 with normal LV size and function. 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 Plan: 1. Dysphagia - For G tube today - Feeds per dietary - Continue Clinimix with lipids 2. Acute right stratocapsular lacunar infarct - Crestor 20mg HS - Restart ASA tomorrow 3. Chronic LV systolic dysfunction - Not in exacerbation - Continue hyzaar 50mg/12.5mg daily - Will monitor hyponatremia, if persists will stop HCTZ 4. Right breast fungating cancer - Hold Tykerb and Xeloda as they cannot be crushed per pharmacy - Bactroban to right breast. Ideally would like Metrogel, however the pharmacy does not have it. Can discharge on Metrogel - Right fungating breast treatment as follows per Dr. rCowe: Daily saline rinse, pat dry, apply Metrogel daily - Per Dr. Ruiz, continue to hold oral chemo until the patient's dysphagia has improved. Once that happens, follow-up as an outpatient to determine when to restart oral chemo. Daughter Gauri aware of this plan 5. PPM - Likely from sick sinus syndrome - Generator changed 08/17 6. HTN - Pressures appear elevated today, possible due to procedure/sedation - Labetalol 10mg IVP x1 in IR - Labetolol 300mg BID 7. DM II - Morning sugars stable below 200 - will Monitor 8. DVT - Fondaparinux (restart tomorrow) Visit type - Emergency Visit Emergency Visit: Yes ED Registration Date: 08/11/16 Care time: The patient presented to the Emergency Department on the above date and was hospitalized for further evaluation of their emergent condition. - New Patient This patient is new to me today: No - Critical Care Critical Care patient: No
[2016-08-28] MEDS ORDERED: PT OWN MED DRAWER 7, Y5N ONE ×2 (20:15→20:30)
[2016-08-28] MEDS: FAT EMULSIONS 250 ML IV SCH (23:01)
[2016-08-29] MEDS: AMINO ACIDS 4.25%/D5W 1,000 ML IV SCH ×2 (06:06→17:45)
[2016-08-29] MEDS: ROSUVASTATIN CA 20 MG TABLET (FP) PO SCH (10:21)
[2016-08-29] MEDS: MUPIROCIN 2% TOPICAL OINTMENT 22 GM TUBE TP SCH ×2 (10:21→21:49)
[2016-08-29] MEDS: FONDAPARINUX SODIUM 2.5 MG/0.5 ML DISP.SYRIN SQ SCH (10:21)
[2016-08-29] MEDS: LABETALOL HCL 100 MG TABLET (FP) PO SCH ×2 (10:21→21:48)
[2016-08-29] MEDS: LOSARTAN 50MG/HCTZ 12.5MG 1 TAB (FP) PO SCH (10:22)
[2016-08-29] MEDS: POLYETHYLENE GLYCOL 3350 119 GM BTL PO SCH ×2 (10:22→21:49)
--- NOTE | 2016-08-29 10:22 | PN ---
Progress Note, Physician History of Present Illness: Arousable, inadequate oral intake, post gastrotomy tube placement. - Current Medication List Current Medications: Active Medications Docusate Sodium (Colace Liquid -) 100 mg PO BID PRN PRN Reason: CONSTIPATION Last Admin: 08/22/16 11:30 Dose: 100 mg Fondaparinux (Arixtra (Restricted) -) 2.5 mg SQ DAILY [facility] Last Admin: 08/27/16 12:36 Dose: 2.5 mg HCTZ/Losartan Potassium (Hyzaar -) 1 tab PO DAILY [facility] Last Admin: 08/28/16 12:35 Dose: 1 tab Amino Acids (Clinimix -) 1,000 mls @ 84 mls/hr IV Q12H [facility] Last Admin: 08/29/16 06:06 Dose: 84 mls/hr Fat Emulsion Intravenous (Intralipid -) 250 mls @ 20.833 mls/hr IV DAILY@2200 [facility] Last Admin: 08/28/16 23:01 Dose: 20.833 mls/hr Labetalol HCl (Normodyne -) 300 mg PO BID [facility] Last Admin: 08/28/16 23:01 Dose: 300 mg Mupirocin (Bactroban 2% Ointment -) 1 applic TP BID [facility] Last Admin: 08/28/16 23:02 Dose: 1 applic Polyethylene Glycol (Miralax (For Daily Use) -) 17 gm PO BID [facility] Last Admin: 08/28/16 23:03 Dose: 17 gm Rosuvastatin Calcium (Crestor -) 20 mg PO DAILY [facility] Last Admin: 08/28/16 12:32 Dose: 20 mg - Objective Vital Signs: Vital Signs Temperature 98.4 F 08/29/16 06:00 Pulse Rate 65 08/29/16 06:00 Respiratory Rate 16 08/29/16 06:00 Blood Pressure 128/57 08/29/16 06:00 O2 Sat by Pulse Oximetry (%) 100 08/28/16 21:00 Constitutional: Yes: No Distress, Calm Neck: Yes: Supple Cardiovascular: Yes: Regular Rate and Rhythm Respiratory: Yes: Regular, Diminished Gastrointestinal: Yes: Soft, Hypoactive Bowel Sounds Edema: No Neurological: Yes: Pre-Existing Deficit Labs: CBC, BMP 08/28/16 06:30 08/28/16 06:30 INR, PTT INR 1.15 (0.82-1.09) H 08/28/16 06:30 - ....Imaging EKG: Report Reviewed (Tele: SR) Problem List - Problems (1) CVA (cerebral vascular accident) Code(s): I63.9 - CEREBRAL INFARCTION, UNSPECIFIED Qualifiers: Precerebral and cerebral artery: middle cerebral artery Laterality of affected vessel: left (2) Hypercholesteremia Code(s): E78.00 - PURE HYPERCHOLESTEROLEMIA, UNSPECIFIED (3) Lymph edema Code(s): I89.0 - LYMPHEDEMA, NOT ELSEWHERE CLASSIFIED (4) T2DM (type 2 diabetes mellitus) Code(s): E11.9 - TYPE 2 DIABETES MELLITUS WITHOUT COMPLICATIONS Qualifiers: Diabetes mellitus complication status: without complication Diabetes mellitus senior living insulin use: without color tester use Qualified Code(s): E11.9 - Type 2 diabetes mellitus without complications (5) Hypertension Code(s): I10 - ESSENTIAL (PRIMARY) HYPERTENSION Qualifiers: Hypertension type: essential hypertension Qualified Code(s): I10 - Essential (primary) hypertension (6) Malignant neoplasm of right breast Code(s): C50.911 - MALIGNANT NEOPLASM OF UNSP SITE OF RIGHT FEMALE BREAST (7) Pacemaker Code(s): Z95.0 - PRESENCE OF CARDIAC PACEMAKER (8) Diastolic dysfunction Code(s): I51.9 - HEART DISEASE, UNSPECIFIED (9) Pacemaker generator end of life Code(s): Z45.010 - ENCNTR FOR CHECKING AND TEST OF CARD PACEMAKER PULSE GNRTR (10) Anorexia Code(s): R63.0 - ANOREXIA (11) Status post gastrostomy Code(s): Z93.1 - GASTROSTOMY STATUS Assessment/Plan 08/13/2016 Echocardiography revealed normal LV size and function with no significant valvular pathology 1. Acute new lacunar stroke with prior history of old stroke with residual mild right hemiplegia post gastrotomy tube placement 2. History of LV systolic dysfunction with class 0-I NYHA classification LV failure, euvolemic (normal LV systolic function on repeat echocardiography) 3. 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 AV block post PPM ([employer]) at [facility] post dual chamber pacemaker S/P generator replacement 5. Carotid stenosis post carotid endarterectomy 6. HTN 7. DM 8. Hyperlipidemia 9. History of right breast carcinoma on chemo with associated RUE lymphedema 10. CKD 11. Vascular dementia with anorexia 12. Hyponatremia PLAN: 1. Resume ASA 81 qd post gastrotomy tube. 2. Continue Labetolol 300 mg bid, Crestor 20 mg qd, and change Hyzaar 50/12.5 mg qd to losartan 50 qd as hemodynamics tolerate 3. DVT prophylaxis with Fondaparinux hold in AM 4. PT and eventual SNF placement. 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 Further follow up of breast CA as outpatient
--- NOTE | 2016-08-29 15:03 | PN ---
Physical Exam: SUBJECTIVE: Patient seen and examined. No acute changes overnight. Events: - NGT pulled this am OBJECTIVE: Vital Signs Period Temp Pulse Resp BP Sys/Arrieta Pulse Ox Last 24 Hr 98.4 F-98.9 F 62-80 16-19 128-179/57-79 97-100 PE Neuro: awake, mumbles words, nods head, does not follow commands HEENT: dry mm Pulm: diminished bases CV: s1 s2 rrr no mrg Abd: + GT tube, cdi, abd soft Ext: no le edema, RUE contracted, LUE flaccid Breast: Right breast fungating wound with dressing c/d/i Active Medications Generic Name Dose Route Start Last Admin Trade Name Freq PRN Reason Stop Dose Admin Aspirin 81 mg 08/30/16 10:00 Asa - PEG DAILY JAMEY Docusate Sodium 100 mg 08/19/16 09:36 08/22/16 11:30 Colace Liquid - PO 100 mg BID PRN Administration CONSTIPATION Fondaparinux 2.5 mg 08/19/16 10:00 08/29/16 10:21 Arixtra (Restricted) - SQ 2.5 mg DAILY JAMEY Administration Amino Acids 1,000 mls @ 84 mls/hr 08/17/16 15:45 08/29/16 06:06 Clinimix - IV 84 mls/hr Q12H JAMEY Administration Fat Emulsion Intravenous 250 mls @ 20.833 mls/hr 08/19/16 22:00 08/28/16 23:01 Intralipid - IV 20.833 mls/hr DAILY@2200 JAMEY Administration Labetalol HCl 300 mg 08/17/16 22:00 08/29/16 10:21 Normodyne - PO 300 mg BID JAMEY Administration Losartan Potassium 50 mg 08/30/16 10:00 Cozaar - PO DAILY JAMEY Mupirocin 1 applic 08/19/16 10:00 08/29/16 10:21 Bactroban 2% Ointment - TP 1 applic BID JAMEY Administration Polyethylene Glycol 17 gm 08/17/16 22:00 08/29/16 10:22 Miralax (For Daily Use) - PO 17 gm BID JAMEY Administration Rosuvastatin Calcium 20 mg 08/18/16 10:00 08/29/16 10:21 Crestor - PO 20 mg DAILY JAMEY Administration Imaging: - ECHO 08/13/16 with normal LV size and function. 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 Plan: 1. Dysphagia - G tube placed 08/29 - GI xray to confirm placement - Start TF: glucerna 1.5 @20ml advance 10ml q8hr, goal 55, w/ 40ml h20 flushes - Continue Clinimix with lipids 2. Acute right stratocapsular lacunar infarct - Crestor 20mg HS - ASA daily 3. Chronic LV systolic dysfunction - Not in exacerbation - Stop hyzaar for hyponatremia - Continue losartan 50mg daily 4. Right breast fungating cancer - Hold Tykerb and Xeloda as they cannot be crushed per pharmacy - Bactroban to right breast. Ideally would like Metrogel, however the pharmacy does not have it. Can discharge on Metrogel - Right fungating breast treatment as follows per Dr. Crowe: Daily saline rinse, pat dry, apply Metrogel daily - Per Dr. Ruiz, continue to hold oral chemo until the patient's dysphagia has improved. Once that happens, follow-up as an outpatient to determine when to restart oral chemo. Daughter Gauri aware of this plan 5. PPM - Likely from sick sinus syndrome - Generator changed 08/17 6. HTN - Labetolol 300mg BID - PRN labetalol as needed 7. DM II - Morning sugars stable below 200 - Stop Accuchecks 8. DVT - Fondaparinux Visit type - Emergency Visit Emergency Visit: Yes ED Registration Date: 08/11/16 Care time: The patient presented to the Emergency Department on the above date and was hospitalized for further evaluation of their emergent condition. - New Patient This patient is new to me today: No - Critical Care Critical Care patient: No
[2016-08-29] MEDS ORDERED: PT OWN MED DRAWER 7, Y5N ONE (21:42)
[2016-08-29] MEDS: FAT EMULSIONS 250 ML IV SCH (22:19)
[2016-08-30] MEDS: AMINO ACIDS 4.25%/D5W 1,000 ML IV SCH ×2 (06:22→13:03)
[2016-08-30 07:43] LABS: ANION GAP 12 (8-16); CALCIUM 7.8 mg/dL (8.5-10.1); CO2 21 mmol/L (21-32); CREATININE 0.9 mg/dL (0.55-1.02)
[2016-08-30 08:04] LABS: GLUCOSE,RANDOM 513 mg/dL (74-106)
[2016-08-30] MEDS ORDERED: PT OWN MED DRAWER 7, Y5N ONE ×2 (09:13→21:52)
[2016-08-30 09:23] LABS: ALBUMIN 2.8 g/dl (3.4-5.0); ALK PHOS 78 U/L (45-117); ANION GAP 11 (8-16); BILIRUBIN,TOTAL 0.4 mg/dL (0.2-1.0); CALCIUM 9.4 mg/dL (8.5-10.1); CO2 24 mmol/L (21-32); GLUCOSE,RANDOM 200 mg/dL (74-106); SGOT/AST 23 U/L (15-37); SGPT/ALT 18 U/L (12-78)
[2016-08-30] MEDS: ROSUVASTATIN CA 20 MG TABLET (FP) PO SCH (09:27)
[2016-08-30] MEDS: FONDAPARINUX SODIUM 2.5 MG/0.5 ML DISP.SYRIN SQ SCH (09:27)
[2016-08-30] MEDS: LOSARTAN POTASSIUM 50 MG TABLET (FP) PO SCH (09:27)
[2016-08-30] MEDS: ASPIRIN 81 MG CHEWABLE TABLETS PEG SCH (09:27)
[2016-08-30] MEDS: POLYETHYLENE GLYCOL 3350 119 GM BTL PO SCH ×2 (09:28→22:03)
[2016-08-30] MEDS: MUPIROCIN 2% TOPICAL OINTMENT 22 GM TUBE TP SCH ×2 (09:28→22:03)
[2016-08-30] MEDS: LABETALOL HCL 100 MG TABLET (FP) PO SCH ×2 (09:28→22:02)
[2016-08-30] MEDS ORDERED: POTASSIUM CHLORIDE ORAL LIQUID 20 MEQ/15 ML PO ONE (09:39)
--- NOTE | 2016-08-30 10:56 | PN ---
Progress Note (short form) - Note Progress Note: Subjective: The patient was seen and examined at the bedside. she is sleeping, non-responsive Current Medications Generic Name Dose Route Start Last Admin Trade Name Tova PRN Reason Stop Dose Admin Aspirin 81 mg 08/30/16 10:00 08/30/16 09:27 Asa - PEG 81 mg DAILY JAMEY Administration Docusate Sodium 100 mg 08/19/16 09:36 08/22/16 11:30 Colace Liquid - PO 100 mg BID PRN Administration CONSTIPATION Fondaparinux 2.5 mg 08/19/16 10:00 08/30/16 09:27 Arixtra (Restricted) - SQ 2.5 mg DAILY JAMEY Administration Amino Acids 1,000 mls @ 84 mls/hr 08/17/16 15:45 08/30/16 06:22 Clinimix - IV 84 mls/hr Q12H JAMEY Administration Fat Emulsion Intravenous 250 mls @ 20.833 mls/hr 08/19/16 22:00 08/29/16 22:19 Intralipid - IV 20.833 mls/hr DAILY@2200 JAMEY Administration Labetalol HCl 300 mg 08/17/16 22:00 08/30/16 09:28 Normodyne - PO 300 mg BID JAMEY Administration Losartan Potassium 50 mg 08/30/16 10:00 08/30/16 09:27 Cozaar - PO 50 mg DAILY JAMEY Administration Mupirocin 1 applic 08/19/16 10:00 08/30/16 09:28 Bactroban 2% Ointment - TP 1 applic BID JAMEY Administration Polyethylene Glycol 17 gm 08/17/16 22:00 08/30/16 09:28 Miralax (For Daily Use) - PO 17 gm BID JAMEY Administration Rosuvastatin Calcium 20 mg 08/18/16 10:00 08/30/16 09:27 Crestor - PO 20 mg DAILY JAMEY Administration Objective: Vital Signs Period Temp Pulse Resp BP Sys/Arrieta Pulse Ox Last 24 Hr 98.0 F-98.5 F 63-77 16-18 141-154/62-75 97-97 Physical Exam: General: NAD Lungs: CTA bilaterally Breast: Right breast fungating wound with dressing c/d/i Heart: RRR, S1S2 Abd: Soft, non-tender, non-distended. Normoactive bowel sounds Ext: Warm, well-perfused Neuro: Not following commands. RUE contracted. Left arm flaccid CBCD WBC 9.0 K/mm3 (4.0-10.0) D 08/28/16 06:30 RBC 4.30 M/mm3 (3.60-5.2) D 08/28/16 06:30 Hgb 13.5 GM/dL (10.7-15.3) D 08/28/16 06:30 Hct 40.1 % (32.4-45.2) D 08/28/16 06:30 MCV 93.2 fl (80-96) 08/28/16 06:30 MCHC 33.7 g/dl (32.0-36.0) 08/28/16 06:30 RDW 13.4 % (11.6-15.6) 08/28/16 06:30 Plt Count 173 K/MM3 (134-434) 08/28/16 06:30 MPV 11.5 fl (7.5-11.1) H 08/28/16 06:30 CMP Sodium 131 mmol/L (136-145) L D 08/30/16 08:50 Potassium 3.1 mmol/L (3.5-5.1) L 08/30/16 08:50 Chloride 96 mmol/L (98-107) L D 08/30/16 08:50 Carbon Dioxide 24 mmol/L (21-32) 08/30/16 08:50 Anion Gap 11 (8-16) 08/30/16 08:50 BUN 69 mg/dL (7-18) H 08/30/16 08:50 Creatinine 1.0 mg/dL (0.55-1.02) 08/30/16 08:50 Creat Clearance w eGFR 52.95 (>60) 08/30/16 08:50 Random Glucose 200 mg/dL (74-106) H D 08/30/16 08:50 Calcium 9.4 mg/dL (8.5-10.1) D 08/30/16 08:50 Total Bilirubin 0.4 mg/dL (0.2-1.0) D 08/30/16 08:50 AST 23 U/L (15-37) 08/30/16 08:50 ALT 18 U/L (12-78) 08/30/16 08:50 Alkaline Phosphatase 78 U/L (45-117) 08/30/16 08:50 Total Protein 6.0 g/dl (6.4-8.2) L 08/30/16 08:50 Albumin 2.8 g/dl (3.4-5.0) L 08/30/16 08:50 Microbiology 08/14/16 19:00 Nares - Mrsa Screen - Right MRSA Screen - Final NO MRSA ISOLATED 08/14/16 19:00 Nares - Mrsa Screen - Left MRSA Screen - Final NO MRSA ISOLATED Imaging 01/09/16 Echo: LV function severely reduced, severe global hypokinesis; PPM/ICK in RV; mild MR; 07/13/16 MUGA scan: normal wall motion, EF 80% 08/09/16 CT c-spine: no evidence of acute fracture, compression deformities, subluxation 08/12/16 CT head shows 0.7cm infarct within the right frontoparietal coronal radiata, acute Repeat CT head 08/13 study shows better defined infarct in posterior aspect of the right putamen, posterior limb of internal capsule, coronal radiata 08/14 ECHO normal LV size and function with no significant valvular pathology Assessment: This is an 85 year old female with PMHx of HTN, HLD, CVA, right carotid artery stenosis s/p endarterectomy, severe systolic heart failure s/p PPM, NIDDM, 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 Plan: 1) Neuro: Acute right stratocapsular lacunar infarct - Carotid doppler no significant stenosis - Hold ASA for PEG placement - Continue Crestor 20mg po daily - Appreciate neuro consult Dysphagia - S/p PEG placement on 08/28 - Tube feeds - ASA resumed 2) Cardiology: Chronic LV systolic dysfunction - ECHO 08/13/16 with normal LV size and function. Trace MR PPM - PPM battery changed 08/17 HTN - Continue Labetolol - Continue Cozaar 3) Oncology: Right breast fungating cancer - Hold Tykerb and Xeloda as they cannot be crushed per pharmacy - Bactroban to right breast. Ideally would like Metrogel, however the pharmacy does not have it. Can discharge on Metrogel - Right fungating breast treatment as follows per Dr. Crowe: Daily saline rinse, pat dry, apply Metrogel daily - Per Dr. Ruiz, continue to hold oral chemo until the patient's dysphagia has improved. Once that happens, follow-up as an outpatient to determine when to restart oral chemo. Daughter Gauri aware of this plan 4) Endocrine: DM - Continue to monitor 5) F/E/N: - Monitor electrolytes - Hypokalemia: replete - Dysphagia - Peg feeds 6) Prophylaxis: - Fondaparinux 7) Dispo: - Requires continued inpatient care CODE STATUS: FULL CODE Visit type - Emergency Visit Emergency Visit: Yes ED Registration Date: 08/11/16 Care time: The patient presented to the Emergency Department on the above date and was hospitalized for further evaluation of their emergent condition. - New Patient This patient is new to me today: No - Critical Care Critical Care patient: No
--- NOTE | 2016-08-30 11:15 | PN ---
Progress Note, Physician History of Present Illness: Arousable, inadequate oral intake, post gastrotomy tube placement tolerating enteral feeds. - Current Medication List Current Medications: Active Medications Aspirin (Asa -) 81 mg PEG DAILY [facility] Last Admin: 08/30/16 09:27 Dose: 81 mg Docusate Sodium (Colace Liquid -) 100 mg PO BID PRN PRN Reason: CONSTIPATION Last Admin: 08/22/16 11:30 Dose: 100 mg Fondaparinux (Arixtra (Restricted) -) 2.5 mg SQ DAILY [facility] Last Admin: 08/30/16 09:27 Dose: 2.5 mg Amino Acids (Clinimix -) 1,000 mls @ 84 mls/hr IV Q12H [facility] Last Admin: 08/30/16 06:22 Dose: 84 mls/hr Fat Emulsion Intravenous (Intralipid -) 250 mls @ 20.833 mls/hr IV DAILY@2200 [facility] Last Admin: 08/29/16 22:19 Dose: 20.833 mls/hr Labetalol HCl (Normodyne -) 300 mg PO BID [facility] Last Admin: 08/30/16 09:28 Dose: 300 mg Losartan Potassium (Cozaar -) 50 mg PO DAILY [facility] Last Admin: 08/30/16 09:27 Dose: 50 mg Mupirocin (Bactroban 2% Ointment -) 1 applic TP BID [facility] Last Admin: 08/30/16 09:28 Dose: 1 applic Polyethylene Glycol (Miralax (For Daily Use) -) 17 gm PO BID [facility] Last Admin: 08/30/16 09:28 Dose: 17 gm Rosuvastatin Calcium (Crestor -) 20 mg PO DAILY [facility] Last Admin: 08/30/16 09:27 Dose: 20 mg - Objective Vital Signs: Vital Signs Temperature 98.0 F 08/30/16 06:00 Pulse Rate 63 08/30/16 06:00 Respiratory Rate 16 08/30/16 06:00 Blood Pressure 154/66 08/30/16 06:00 O2 Sat by Pulse Oximetry (%) 97 08/29/16 21:00 Constitutional: Yes: No Distress, Calm, Thin Neck: No: Supple Cardiovascular: Yes: Regular Rate and Rhythm Respiratory: Yes: Regular, Diminished, On Nasal O2 Gastrointestinal: Yes: Normal Bowel Sounds, Soft Edema: No Labs: CBC, BMP 08/28/16 06:30 08/30/16 08:50 INR, PTT INR 1.15 (0.82-1.09) H 08/28/16 06:30 Problem List - Problems (1) CVA (cerebral vascular accident) Code(s): I63.9 - CEREBRAL INFARCTION, UNSPECIFIED (2) Hypercholesteremia Code(s): E78.00 - PURE HYPERCHOLESTEROLEMIA, UNSPECIFIED (3) Lymph edema Code(s): I89.0 - LYMPHEDEMA, NOT ELSEWHERE CLASSIFIED (4) T2DM (type 2 diabetes mellitus) Code(s): E11.9 - TYPE 2 DIABETES MELLITUS WITHOUT COMPLICATIONS Qualifiers: Qualified Code(s): E11.9 - Type 2 diabetes mellitus without complications (5) Hypertension Code(s): I10 - ESSENTIAL (PRIMARY) HYPERTENSION Qualifiers: Qualified Code(s): I10 - Essential (primary) hypertension (6) Malignant neoplasm of right breast Code(s): C50.911 - MALIGNANT NEOPLASM OF UNSP SITE OF RIGHT FEMALE BREAST (7) Pacemaker Code(s): Z95.0 - PRESENCE OF CARDIAC PACEMAKER (8) Diastolic dysfunction Code(s): I51.9 - HEART DISEASE, UNSPECIFIED (9) Pacemaker generator end of life Code(s): Z45.010 - ENCNTR FOR CHECKING AND TEST OF CARD PACEMAKER PULSE GNRTR (10) Anorexia Code(s): R63.0 - ANOREXIA (11) Status post gastrostomy Code(s): Z93.1 - GASTROSTOMY STATUS Assessment/Plan 08/13/2016 Echocardiography revealed normal LV size and function with no significant valvular pathology 1. Acute new lacunar stroke with prior history of old stroke with residual mild right hemiplegia post gastrotomy tube placement 2. History of LV systolic dysfunction with class 0-I NYHA classification LV failure, euvolemic (normal LV systolic function on repeat echocardiography) 3. 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 AV block post PPM (Medtronic) at [facility] post dual chamber pacemaker S/P generator replacement 5. Carotid stenosis post carotid endarterectomy 6. HTN 7. DM 8. Hyperlipidemia 9. History of right breast carcinoma on chemo with associated RUE lymphedema 10. CKD 11. Vascular dementia with anorexia 12. Hyponatremia PLAN: 1. Enteral feeds with potassium repletion. 2. Continue Labetolol 300 mg bid, Crestor 20 mg qd, ASA 81 and losartan 50 qd as hemodynamics tolerate 3. DVT prophylaxis with Fondaparinux 4. PT and eventual SNF placement. Follow up with her financial representative in [facility] 5. Further follow up of breast CA as outpatient
--- NOTE | 2016-08-30 12:07 | PN ---
Progress Note, SNOW REMOVAL SUPERVISOR - Note Progress Note: PEG inserted. Pt is lethargic, slightly arousable with brief eye opening. Family at bedside. Selected Entries 08/28/16 08/28/16 08/28/16 06:06 09:18 14:05 Temperature 97.8 F 98.3 F 99.6 F O2 Sat by Pulse Oximetry (%) 08/28/16 08/28/16 08/29/16 18:35 22:00 06:00 Temperature 98.9 F 98.6 F 98.4 F O2 Sat by Pulse Oximetry (%) 08/29/16 08/29/16 08/29/16 09:00 10:00 11:20 Temperature 98.6 F O2 Sat by Pulse 97 97 Oximetry (%) 08/29/16 08/29/16 08/29/16 14:15 18:00 21:00 Temperature 98.5 F 98.1 F O2 Sat by Pulse 97 Oximetry (%) 08/29/16 08/30/16 08/30/16 22:00 06:00 09:00 Temperature 98.3 F 98.0 F O2 Sat by Pulse 97 Oximetry (%) 08/30/16 10:00 Temperature 98.2 F O2 Sat by Pulse Oximetry (%) Laboratory Tests 08/28/16 06:30 WBC 9.0 D
[2016-08-31 07:47] LABS: ANION GAP 10 (8-16); CALCIUM 9.4 mg/dL (8.5-10.1); CO2 25 mmol/L (21-32); CREATININE 1.2 mg/dL (0.55-1.02); GLUCOSE,RANDOM 149 mg/dL (74-106)
[2016-08-31] MEDS ORDERED: PT OWN MED DRAWER 7, Y5N ONE (08:53)
[2016-08-31] MEDS: PANTOPRAZOLE SOD 40 MG SUSPENSION PACKET NGT SCH (09:01)
[2016-08-31] MEDS: ASPIRIN 81 MG CHEWABLE TABLETS PEG SCH (09:01)
[2016-08-31] MEDS: ROSUVASTATIN CA 20 MG TABLET (FP) PO SCH (09:01)
[2016-08-31] MEDS: LOSARTAN POTASSIUM 50 MG TABLET (FP) PO SCH (09:01)
[2016-08-31] MEDS: LABETALOL HCL 100 MG TABLET (FP) PO SCH ×2 (09:01→22:30)
[2016-08-31] MEDS: FONDAPARINUX SODIUM 2.5 MG/0.5 ML DISP.SYRIN SQ SCH (09:02)
[2016-08-31] MEDS: POLYETHYLENE GLYCOL 3350 119 GM BTL PO SCH ×2 (09:02→22:30)
[2016-08-31] MEDS: MUPIROCIN 2% TOPICAL OINTMENT 22 GM TUBE TP SCH ×2 (09:02→22:30)
--- NOTE | 2016-08-31 11:39 | PN ---
Progress Note, Physician History of Present Illness: Arousable, inadequate oral intake, post gastrotomy tube placement tolerating enteral feeds. - Current Medication List Current Medications: Active Medications Aspirin (Asa -) 81 mg PEG DAILY [facility] Last Admin: 08/31/16 09:01 Dose: 81 mg Docusate Sodium (Colace Liquid -) 100 mg PO BID PRN PRN Reason: CONSTIPATION Last Admin: 08/22/16 11:30 Dose: 100 mg Fondaparinux (Arixtra (Restricted) -) 2.5 mg SQ DAILY [facility] Last Admin: 08/31/16 09:02 Dose: 2.5 mg Labetalol HCl (Normodyne -) 300 mg PO BID [facility] Last Admin: 08/31/16 09:01 Dose: 300 mg Losartan Potassium (Cozaar -) 50 mg PO DAILY [facility] Last Admin: 08/31/16 09:01 Dose: 50 mg Mupirocin (Bactroban 2% Ointment -) 1 applic TP BID [facility] Last Admin: 08/31/16 09:02 Dose: 1 applic Pantoprazole Sodium (Protonix Packets For Oral Suspension -) 40 mg NGT DAILY [facility] Last Admin: 08/31/16 09:01 Dose: 40 mg Polyethylene Glycol (Miralax (For Daily Use) -) 17 gm PO BID [facility] Last Admin: 08/31/16 09:02 Dose: Not Given Rosuvastatin Calcium (Crestor -) 20 mg PO DAILY [facility] Last Admin: 08/31/16 09:01 Dose: 20 mg - Objective Vital Signs: Vital Signs Temperature 97.9 F 08/31/16 05:00 Pulse Rate 64 08/31/16 10:47 Respiratory Rate 18 08/31/16 05:00 Blood Pressure 133/54 08/31/16 05:00 O2 Sat by Pulse Oximetry (%) 97 08/31/16 10:47 Constitutional: Yes: No Distress, Calm Neck: Yes: Supple Cardiovascular: Yes: Regular Rate and Rhythm Respiratory: Yes: Regular, Diminished Gastrointestinal: Yes: Normal Bowel Sounds, Soft, Other (G tube in place) Edema: No Labs: CBC, BMP 08/28/16 06:30 08/31/16 05:58 INR, PTT INR 1.15 (0.82-1.09) H 08/28/16 06:30 Problem List - Problems (1) CVA (cerebral vascular accident) Code(s): I63.9 - CEREBRAL INFARCTION, UNSPECIFIED Qualifiers: Precerebral and cerebral artery: middle cerebral artery Laterality of affected vessel: left (2) Hypercholesteremia Code(s): E78.00 - PURE HYPERCHOLESTEROLEMIA, UNSPECIFIED (3) Lymph edema Code(s): I89.0 - LYMPHEDEMA, NOT ELSEWHERE CLASSIFIED (4) T2DM (type 2 diabetes mellitus) Code(s): E11.9 - TYPE 2 DIABETES MELLITUS WITHOUT COMPLICATIONS Qualifiers: Diabetes mellitus complication status: without complication Diabetes mellitus continuous churn buttermaker insulin use: without alf use Qualified Code(s): E11.9 - Type 2 diabetes mellitus without complications (5) Hypertension Code(s): I10 - ESSENTIAL (PRIMARY) HYPERTENSION Qualifiers: Hypertension type: essential hypertension Qualified Code(s): I10 - Essential (primary) hypertension (6) Malignant neoplasm of right breast Code(s): C50.911 - MALIGNANT NEOPLASM OF UNSP SITE OF RIGHT FEMALE BREAST (7) Pacemaker Code(s): Z95.0 - PRESENCE OF CARDIAC PACEMAKER (8) Diastolic dysfunction Code(s): I51.9 - HEART DISEASE, UNSPECIFIED (9) Pacemaker generator end of life Code(s): Z45.010 - ENCNTR FOR CHECKING AND TEST OF CARD PACEMAKER PULSE GNRTR (10) Anorexia Code(s): R63.0 - ANOREXIA (11) Status post gastrostomy Code(s): Z93.1 - GASTROSTOMY STATUS Assessment/Plan 08/13/2016 Echocardiography revealed normal LV size and function with no significant valvular pathology 1. Acute new lacunar stroke with prior history of old stroke with residual mild right hemiplegia post gastrotomy tube placement 2. History of LV systolic dysfunction with class 0-I NYHA classification LV failure, euvolemic (normal LV systolic function on repeat echocardiography) 3. 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 AV block post PPM (Medtronic) at [facility] post dual chamber pacemaker S/P generator replacement 5. Carotid stenosis post carotid endarterectomy 6. HTN 7. DM 8. Hyperlipidemia 9. History of right breast carcinoma on chemo with associated RUE lymphedema 10. CKD 11. Vascular dementia with anorexia 12. Hyponatremia PLAN: 1. Enteral feeds with potassium repletion. 2. Continue Labetolol 300 mg bid, Crestor 20 mg qd, ASA 81 and losartan 50 qd as hemodynamics tolerate 3. DVT prophylaxis with Fondaparinux 4. PT and eventual SNF placement. 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 Further follow up of breast CA as outpatient
--- NOTE | 2016-08-31 12:45 | PN ---
Progress Note (short form) - Note Progress Note: Subjective: The patient was seen and examined at the bedside. she is sleeping, non-responsive Current Medications Generic Name Dose Route Start Last Admin Trade Name Tova PRN Reason Stop Dose Admin Aspirin 81 mg 08/30/16 10:00 08/31/16 09:01 Asa - PEG 81 mg DAILY JAMEY Administration Docusate Sodium 100 mg 08/19/16 09:36 08/22/16 11:30 Colace Liquid - PO 100 mg BID PRN Administration CONSTIPATION Fondaparinux 2.5 mg 08/19/16 10:00 08/31/16 09:02 Arixtra (Restricted) - SQ 2.5 mg DAILY JAMEY Administration Labetalol HCl 300 mg 08/17/16 22:00 08/31/16 09:01 Normodyne - PO 300 mg BID JAMEY Administration Losartan Potassium 50 mg 08/30/16 10:00 08/31/16 09:01 Cozaar - PO 50 mg DAILY JAMEY Administration Mupirocin 1 applic 08/19/16 10:00 08/31/16 09:02 Bactroban 2% Ointment - TP 1 applic BID JAMEY Administration Pantoprazole Sodium 40 mg 08/31/16 10:00 08/31/16 09:01 Protonix Packets For Oral Suspension - NGT 40 mg DAILY JAMEY Administration Polyethylene Glycol 17 gm 08/17/16 22:00 08/31/16 09:02 Miralax (For Daily Use) - PO Not Given BID JAMEY Rosuvastatin Calcium 20 mg 08/18/16 10:00 08/31/16 09:01 Crestor - PO 20 mg DAILY JAMEY Administration Objective: Vital Signs Period Temp Pulse Resp BP Sys/Arrieta Pulse Ox Last 24 Hr 97.9 F-99.2 F 63-87 16-18 108-139/41-62 97-100 Physical Exam: General: NAD Lungs: CTA bilaterally Breast: Right breast fungating wound with dressing c/d/i Heart: RRR, S1S2 Abd: Soft, non-tender, non-distended. Normoactive bowel sounds Ext: Warm, well-perfused Neuro: Not following commands. RUE contracted. Left arm flaccid CBCD WBC 9.0 K/mm3 (4.0-10.0) D 08/28/16 06:30 RBC 4.30 M/mm3 (3.60-5.2) D 08/28/16 06:30 Hgb 13.5 GM/dL (10.7-15.3) D 08/28/16 06:30 Hct 40.1 % (32.4-45.2) D 08/28/16 06:30 MCV 93.2 fl (80-96) 08/28/16 06:30 MCHC 33.7 g/dl (32.0-36.0) 08/28/16 06:30 RDW 13.4 % (11.6-15.6) 08/28/16 06:30 Plt Count 173 K/MM3 (134-434) 08/28/16 06:30 MPV 11.5 fl (7.5-11.1) H 08/28/16 06:30 CMP Sodium 134 mmol/L (136-145) L 08/31/16 05:58 Potassium 4.2 mmol/L (3.5-5.1) D 08/31/16 05:58 Chloride 99 mmol/L (98-107) 08/31/16 05:58 Carbon Dioxide 25 mmol/L (21-32) 08/31/16 05:58 Anion Gap 10 (8-16) 08/31/16 05:58 BUN 89 mg/dL (7-18) H D 08/31/16 05:58 Creatinine 1.2 mg/dL (0.55-1.02) H 08/31/16 05:58 Creat Clearance w eGFR 52.95 (>60) 08/30/16 08:50 Random Glucose 149 mg/dL (74-106) H D 08/31/16 05:58 Calcium 9.4 mg/dL (8.5-10.1) 08/31/16 05:58 Total Bilirubin 0.4 mg/dL (0.2-1.0) D 08/30/16 08:50 AST 23 U/L (15-37) 08/30/16 08:50 ALT 18 U/L (12-78) 08/30/16 08:50 Alkaline Phosphatase 78 U/L (45-117) 08/30/16 08:50 Total Protein 6.0 g/dl (6.4-8.2) L 08/30/16 08:50 Albumin 2.8 g/dl (3.4-5.0) L 08/30/16 08:50 Microbiology 08/14/16 19:00 Nares - Mrsa Screen - Right MRSA Screen - Final NO MRSA ISOLATED 08/14/16 19:00 Nares - Mrsa Screen - Left MRSA Screen - Final NO MRSA ISOLATED Imaging 01/09/16 Echo: LV function severely reduced, severe global hypokinesis; PPM/ICK in RV; mild MR; 07/13/16 MUGA scan: normal wall motion, EF 80% 08/09/16 CT c-spine: no evidence of acute fracture, compression deformities, subluxation 08/12/16 CT head shows 0.7cm infarct within the right frontoparietal coronal radiata, acute Repeat CT head 08/13 study shows better defined infarct in posterior aspect of the right putamen, posterior limb of internal capsule, coronal radiata 08/14 ECHO normal LV size and function with no significant valvular pathology Assessment: This is an 85 year old female with PMHx of HTN, HLD, CVA, right carotid artery stenosis s/p endarterectomy, severe systolic heart failure s/p PPM, NIDDM, 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 Plan: 1) Neuro: Acute right stratocapsular lacunar infarct - Carotid doppler no significant stenosis - Hold ASA for PEG placement - Continue Crestor 20mg po daily - Appreciate neuro consult Dysphagia - S/p PEG placement on 08/28 - Tube feedings as ordered (will likely need for life). May eat po for pleasure - ASA resumed 2) Cardiology: Chronic LV systolic dysfunction - ECHO 08/13/16 with normal LV size and function. Trace MR PPM - PPM battery changed 08/17 HTN - Continue Labetolol - Continue Cozaar 3) Oncology: Right breast fungating cancer - Hold Tykerb and Xeloda as they cannot be crushed per pharmacy - Bactroban to right breast. Ideally would like Metrogel, however the pharmacy does not have it. Can discharge on Metrogel - Right fungating breast treatment as follows per Dr. Crowe: Daily saline rinse, pat dry, apply Metrogel daily - Per Dr. Ruiz, continue to hold oral chemo until the patient's dysphagia has improved. Once that happens, follow-up as an outpatient to determine when to restart oral chemo. Daughter Gauri aware of this plan 4) Endocrine: DM - Continue to monitor 5) F/E/N: - Monitor electrolytes - Hypokalemia: replete - Dysphagia - Peg feeds 6) Prophylaxis: - Fondaparinux 7) Dispo: - Requires continued inpatient care - Spoke to Gauri today, she does not want any more blood draws. She is aware of elevated BUN level and states she does not want us to check it any longer. CODE STATUS: FULL CODE Visit type - Emergency Visit Emergency Visit: Yes ED Registration Date: 08/11/16 Care time: The patient presented to the Emergency Department on the above date and was hospitalized for further evaluation of their emergent condition. - New Patient This patient is new to me today: No - Critical Care Critical Care patient: No
--- NOTE | 2016-08-31 15:23 | PN ---
Progress Note, CAR SEAT MAKER - Note Progress Note: PEG inserted. Pt is lethargic, slightly arousable with brief eye opening. Family planning on taking pt home. Continue PEG feedings/npo. As pt becomes more alert, reassessment for po trials, via homecare if possible.
[2016-09-01] MEDS ORDERED: PT OWN MED DRAWER 7, Y5N ONE (09:33)
--- NOTE | 2016-09-01 09:34 | PN ---
Progress Note (short form) - Note Progress Note: Chief Complaint: Events noted, notes reviewed, overall no change in status, awaiting D/C home with home health care History of Present Illness: Seen and examined. Events noted, notes reviewed, overall no change in status, awaiting D/C home with home health care Echocardiography dated 08/14/2016 revealed normal LV size and function with no significant valvular pathology Medications: Current Medications Aspirin (Asa -) 81 mg PEG DAILY [facility] Last Admin: 08/31/16 09:01 Dose: 81 mg Docusate Sodium (Colace Liquid -) 100 mg PO BID PRN PRN Reason: CONSTIPATION Last Admin: 08/22/16 11:30 Dose: 100 mg Fondaparinux (Arixtra (Restricted) -) 2.5 mg SQ DAILY [facility] Last Admin: 08/31/16 09:02 Dose: 2.5 mg Labetalol HCl (Normodyne -) 300 mg PO BID [facility] Last Admin: 08/31/16 22:30 Dose: 300 mg Losartan Potassium (Cozaar -) 50 mg PO DAILY [facility] Last Admin: 08/31/16 09:01 Dose: 50 mg Mupirocin (Bactroban 2% Ointment -) 1 applic TP BID [facility] Last Admin: 08/31/16 22:30 Dose: 1 applic Pantoprazole Sodium (Protonix Packets For Oral Suspension -) 40 mg NGT DAILY [facility] Last Admin: 08/31/16 09:01 Dose: 40 mg Polyethylene Glycol (Miralax (For Daily Use) -) 17 gm PO BID [facility] Last Admin: 08/31/16 22:30 Dose: 17 gm Rosuvastatin Calcium (Crestor -) 20 mg PO DAILY [facility] Last Admin: 08/31/16 09:01 Dose: 20 mg Vital Signs: Last Vital Signs Temp Pulse Resp BP Pulse Ox 99.2 F 64 18 135/52 97 09/01/16 05:00 09/01/16 05:00 09/01/16 05:00 09/01/16 05:00 08/31/16 21:00 Constitutional: No Distress, Calm Neck: Supple Negative JVD Respiratory: Diminished at the Bases Cardiovascular: S1 S2 Regular Rate and Rhythm Grade 1-2/6 EVARISTO Gastrointestinal: Soft Benign Normal Bowel Sounds Ext: No Edema Labs: CBC, BMP 08/28/16 06:30 08/31/16 05:58 Assessment/Plan ASSESSMENT: 1. Acute stroke with prior history of old stroke with residual right hemiplegia 2. History of LV systolic dysfunction with class 0-I NYHA classification LV failure, euvolemic (normal LV systolic function on repeat echocardiography as noted above) 3. CAD angina pectoris 4. AV block post PPM 5. Carotid stenosis post carotid end-arterectomy 6. HTN 7. DM 8. Hyperlipidemia 9. History of right breast carcinoma on chemo with associated RUE lymphedema 10. CKD PLAN: 1. Continue ASA 2. Continue Labetolol 3. Continue Cozaar 4. Continue Crestor 5. As outlined above awaiting home placement with home health aid Stacey Hernandez M.D.
[2016-09-01] MEDS: MUPIROCIN 2% TOPICAL OINTMENT 22 GM TUBE TP SCH ×2 (09:52→22:55)
[2016-09-01] MEDS: LOSARTAN POTASSIUM 50 MG TABLET (FP) PO SCH (09:52)
[2016-09-01] MEDS: ASPIRIN 81 MG CHEWABLE TABLETS PEG SCH (09:52)
[2016-09-01] MEDS: POLYETHYLENE GLYCOL 3350 119 GM BTL PO SCH ×2 (09:53→22:00)
[2016-09-01] MEDS: PANTOPRAZOLE SOD 40 MG SUSPENSION PACKET NGT SCH (09:53)
[2016-09-01] MEDS: ROSUVASTATIN CA 20 MG TABLET (FP) PO SCH (09:53)
[2016-09-01] MEDS: LABETALOL HCL 100 MG TABLET (FP) PO SCH ×2 (09:53→22:00)
[2016-09-01] MEDS: FONDAPARINUX SODIUM 2.5 MG/0.5 ML DISP.SYRIN SQ SCH (10:03)
--- NOTE | 2016-09-01 13:39 | PN ---
Physical Exam: SUBJECTIVE: Patient seen and examined. She is awake, mumbles words. Events: - Gtube stoma mild bleeding this AM with dark brown residual OBJECTIVE: Vital Signs Period Temp Pulse Resp BP Sys/Arrieta Pulse Ox Last 24 Hr 98.8 F-99.4 F 64-75 18-118 112-145/37-65 97-100 PE Neuro: awake, mumbles words, nods head, does not follow commands Pulm: clear anteriorly CV: s1 s2 rrr no mrg Abd: + GT tube with brigh red blood around stoma, abd soft non tender Ext: no le edema, RUE contracted, LUE flaccid Breast: Right breast fungating wound with dressing c/d/i Active Medications Generic Name Dose Route Start Last Admin Trade Name Freq PRN Reason Stop Dose Admin Docusate Sodium 100 mg 08/19/16 09:36 08/22/16 11:30 Colace Liquid - PO 100 mg BID PRN Administration CONSTIPATION Fondaparinux 2.5 mg 08/19/16 10:00 09/01/16 10:03 Arixtra (Restricted) - SQ Not Given DAILY [facility] Fluconazole 50 mls @ 50 mls/hr 09/01/16 13:45 Diflucan 100 Mg/Ns Premixed Ivpb - IVPB DAILY [facility] Labetalol HCl 300 mg 08/17/16 22:00 09/01/16 09:53 Normodyne - PO Not Given BID [facility] Losartan Potassium 50 mg 08/30/16 10:00 09/01/16 09:52 Cozaar - PO Not Given DAILY [facility] Mupirocin 1 applic 08/19/16 10:00 09/01/16 09:52 Bactroban 2% Ointment - TP 1 applic BID [facility] Administration Pantoprazole Sodium 40 mg 08/31/16 10:00 09/01/16 09:53 Protonix Packets For Oral Suspension - NGT Not Given DAILY [facility] Polyethylene Glycol 17 gm 08/17/16 22:00 09/01/16 09:53 Miralax (For Daily Use) - PO Not Given BID [facility] Rosuvastatin Calcium 20 mg 08/18/16 10:00 09/01/16 09:53 Crestor - PO Not Given DAILY [facility] Imaging: - ECHO 08/13/16 with normal LV size and function. 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 Plan: 1. Acute right stratocapsular lacunar infarct - Hold ASA for stoma bleeding - Crestor 20mg HS 2. Dysphagia - S/p G tube placement on 08/28 - Today residual appears dark brown/purple with sediment - Hold TF, Dr. Greene to eval Saturday 3. External bleeding stoma - Clot removed by surgery, bleeding stabilizing - Hold AC - Trend hgb, daughter agrees 4. Chronic LV systolic dysfunction Losartan 50mg daily 5. PPM - PPM battery changed 08/17 6. HTN - Continue Labetolol - Continue Cozaar 7. Right breast fungating cancer - Hold Tykerb and Xeloda as they cannot be crushed per pharmacy - Bactroban to right breast. Ideally would like Metrogel, however the pharmacy does not have it. Can discharge on Metrogel - Right fungating breast treatment as follows per Dr. Crowe: Daily saline rinse, pat dry, apply Metrogel daily - Per Dr. Ruiz, continue to hold oral chemo until the patient's dysphagia has improved. Once that happens, follow-up as an outpatient to determine when to restart oral chemo. Daughter Gauri aware of this plan 8. DM II - Continue to monitor 9. PPM - Likely from sick sinus syndrome - Generator changed 08/17 10. DVT PPX - Hold Fondaparinux Visit type - Emergency Visit Emergency Visit: Yes ED Registration Date: 08/11/16 Care time: The patient presented to the Emergency Department on the above date and was hospitalized for further evaluation of their emergent condition. - New Patient This patient is new to me today: No - Critical Care Critical Care patient: No
--- NOTE | 2016-09-01 13:39 | CONSULT ---
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: CVA Cardio/Vascular: Yes: HTN, Hyperlipdemia Infectious Disease: Yes: MRSA Musculoskeletal: Yes: Hemiparesis Endocrine: Yes: Diabetes Mellitus - Past Surgical History Past Surgical History: Yes: Carotid Endarterectomy (Rt sided), Permanent Pacemaker - Alcohol/Substance Use Hx Alcohol Use: No - Smoking History Smoking history: Never smoked Have you smoked in the past 12 months: No Aproximately how many cigarettes per day: 0 - Social History ADL: Independent History of Recent Travel: No Home Medications - Allergies Allergies/Adverse Reactions: Allergies Allergy/AdvReac Type Severity Reaction Status Date / Time Pork/Porcine Containing Allergy Severe Hives Verified 08/11/16 09:36 Products - Home Medications Home Medications: Ambulatory Orders Labetalol HCl 300 mg PO BID #0 tablet 10/08/12 Amino Acids 4.25%/D5w [Clinimix 4.25%/D5w Solution] 1,000 ml IV Q12H bag Aspirin [ASA -] 325 mg PO DAILY tablet 08/17/16 Fondaparinux Sodium [Arixtra (Restricted) -] 2.5 mg SQ DAILY syr 08/17/16 Polyethylene Glycol 3350 [Miralax 119 gm Btl -] 17 gm PO BID bottle 08/17/16 Rosuvastatin Calcium [Crestor] 40 mg PO DAILY #0 tab 08/17/16 Metronidazole 1% Cream [Metrocream 1% Cream -] 1 applic TP DAILY #1 tube Nut.tx.gluc.intoler,Lac-Fr,Soy [Glucerna 1.5 Robert] 1,000 ml PO DAILY #30 liquid 08/31/16 Wheelchair 1 ea NR ASDIR #1 ea 08/31/16 Family Disease History - Family Disease History Family Disease History: Diabetes: Mother, Heart Disease: Father Review of Systems Unable to obtain ROS, reason: Not verbalizing Physical Exam Vital Signs: Vital Signs Temperature 98.8 F 09/01/16 09:00 Pulse Rate 70 09/01/16 09:00 Respiratory Rate 18 09/01/16 09:00 Blood Pressure 130/52 09/01/16 09:00 O2 Sat by Pulse Oximetry (%) 100 09/01/16 09:00 Constitutional: Yes: No Distress Neck: Yes: Supple Cardiovascular: Yes: WNL Respiratory: Yes: WNL Gastrointestinal: Yes: Soft, Other (G tube in place Clot noted under phalange. No acive bleeding. Clot removed.). No: Tenderness, Tenderness, Rebound Labs: CBC, BMP 08/28/16 06:30 08/31/16 05:58 Problem List - Problems (1) Gastrostomy hemorrhage Code(s): K94.21 - GASTROSTOMY HEMORRHAGE Assessment/Plan 85 female s/p recent G tube by interventional radiology Clot removed No active bleeding H/H q 12 hours Transfuse PRN Have Interventional radiology re-evaluate the G tube Discussed with family Agree with plan
--- NOTE | 2016-09-01 14:26 | CON.GI ---
Consult Consult Specialty:: GI Referred by:: [facility] Reason for Consultation:: "coffee grounds from G-Tube" - History of Present Illness Chief Complaint: Patient non-verbal and does not give a chief complaint History of Present Illness: Patient is a 85 yrs old F lives at home with daughter, multiple medical, Co- morbidities h/O HTN, CVA , Rt Carotid stenosis s/p endaartrectomy, minimal residual weakness on Rt side able to ambulate unsupported till Saturday, also H/O Romeo arrhythmia s/p Pacemaker interrogated in 06/2016, Border line T2DM, Hypercholesterolemia, Recurrent Rt fungating CA Breast on Chemotherapy, Rt UE Lymph luc a after Rt axillary LN resection admitted 08/11/16 for evaluation of worsening of Rt LE weakness / fall came to Ed for evaluation. She has been evaluated by neurology, treated for CVA. Has been on aritxtra up until 08/27, it was held 08/28 when a radiographic gastrostomy was performed. It was resumed 08/29 along with ASA 81mg once daily. Called today to evaluate coffee grounds from G-Tube. No melena noted. No hematemesis noted. 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: CVA Cardio/Vascular: Yes: HTN, Hyperlipdemia Heme/Onc: Yes: Cancer (BCA) Infectious Disease: Yes: MRSA Musculoskeletal: Yes: Hemiparesis Endocrine: Yes: Diabetes Mellitus - Past Surgical History Past Surgical History: Yes: Carotid Endarterectomy (Rt sided), Permanent Pacemaker - Alcohol/Substance Use Hx Alcohol Use: No - Smoking History Smoking history: Never smoked Have you smoked in the past 12 months: No Aproximately how many cigarettes per day: 0 - Social History ADL: Independent History of Recent Travel: No Home Medications - Allergies Allergies/Adverse Reactions: Allergies Allergy/AdvReac Type Severity Reaction Status Date / Time Pork/Porcine Containing Allergy Severe Hives Verified 08/11/16 09:36 Products - Home Medications Home Medications: Ambulatory Orders Labetalol HCl 300 mg PO BID #0 tablet 10/08/12 Amino Acids 4.25%/D5w [Clinimix 4.25%/D5w Solution] 1,000 ml IV Q12H bag Aspirin [ASA -] 325 mg PO DAILY tablet 08/17/16 Fondaparinux Sodium [Arixtra (Restricted) -] 2.5 mg SQ DAILY syr 08/17/16 Polyethylene Glycol 3350 [Miralax 119 gm Btl -] 17 gm PO BID bottle 08/17/16 Rosuvastatin Calcium [Crestor] 40 mg PO DAILY #0 tab 08/17/16 Metronidazole 1% Cream [Metrocream 1% Cream -] 1 applic TP DAILY #1 tube Nut.tx.gluc.intoler,Lac-Fr,Soy [Glucerna 1.5 Robert] 1,000 ml PO DAILY #30 liquid 08/31/16 Wheelchair 1 ea NR ASDIR #1 ea 08/31/16 Family Disease History - Family Disease History Family History: Unable to Obtain Family Disease History: Diabetes: Mother, Heart Disease: Father Review of Systems Unable to obtain ROS, reason: Patient non-verbal Physical Exam-GI Vital Signs: Vital Signs Temperature 98.8 F 09/01/16 09:00 Pulse Rate 70 09/01/16 09:00 Respiratory Rate 18 09/01/16 09:00 Blood Pressure 130/52 09/01/16 09:00 O2 Sat by Pulse Oximetry (%) 100 09/01/16 09:00 Constitutional: Yes: Calm Eyes: No: Sclera Icterus Cardiovascular: Yes: Regular Rate and Rhythm Respiratory: Yes: Diminished (at bases, poor inspiratory effort) Gastrointestinal Inspection: No: Distention ...Auscultate: Yes: Normoactive Bowel Sounds, Other (G-tube in LUQ. Below the external bolster was a large clot of blood. The G-tube itself was able to rotate freely. It was flushed with water and there was no overt blood and some scant coffee grounds) ...Palpate: No: Tenderness (no grimacing upon palpation) ...Percussion: No: Tympanitic ...Rectal Exam: Yes: Other (kaur stool, no blood/melena) Extremities: Yes: Other (Right upper extremity contracture) Neurological: Yes: Aphasia Labs: CBC, BMP 08/28/16 06:30 08/31/16 05:58 INR, PTT INR 1.15 (0.82-1.09) H 08/28/16 06:30 Hepatic Panel Total Bilirubin 0.4 mg/dL (0.2-1.0) D 08/30/16 08:50 AST 23 U/L (15-37) 08/30/16 08:50 ALT 18 U/L (12-78) 08/30/16 08:50 Alkaline Phosphatase 78 U/L (45-117) 08/30/16 08:50 Albumin 2.8 g/dl (3.4-5.0) L 08/30/16 08:50 Problem List - Problems (1) Stomal bleeding Assessment/Plan: Stomal / tract bleeding at the radiographically placed G-tube site No melena noted and no fresh bloof lavaged from G-Tube itself Advised hospitalist Hemal: Hold A/C Monitor H/H Call surgeon to evaluate stomal site Call interventional radiologist to make them aware of the bleeding Continue PPI therapy Code(s): [id number] -
[2016-09-01] MEDS: FLUCONAZOLE 100 MG/NS 50 ML IVPB SCH (15:35)
[2016-09-01] MEDS: AMINO ACIDS 4.25%/D5W 1,000 ML IV SCH (18:48)
--- NOTE | 2016-09-02 08:13 | PN ---
Progress Note (short form) - Note Progress Note: Chief Complaint: Events noted, notes reviewed, overall no change in status, G- tube stomal site bleeding, evaluation in progress History of Present Illness: Seen and examined. Events noted, notes reviewed, Events noted, notes reviewed, overall no change in status, G-tube stomal site bleeding, evaluation in progress Off of Fondaparinux and ASA Echocardiography dated 08/14/2016 revealed normal LV size and function with no significant valvular pathology Medications: Current Medications Docusate Sodium (Colace Liquid -) 100 mg PO BID PRN PRN Reason: CONSTIPATION Last Admin: 08/22/16 11:30 Dose: 100 mg Fondaparinux (Arixtra (Restricted) -) 2.5 mg SQ DAILY [facility] Last Admin: 09/01/16 10:03 Dose: Not Given Fluconazole (Diflucan 100 Mg/Ns Premixed Ivpb -) 50 mls @ 50 mls/hr IVPB DAILY [facility] Last Admin: 09/01/16 15:35 Dose: 50 mls/hr Amino Acids (Clinimix -) 1,000 mls @ 84 mls/hr IV Q12H [facility] Last Admin: 09/01/16 18:48 Dose: 84 mls/hr Labetalol HCl (Normodyne -) 300 mg PO BID [facility] Last Admin: 09/01/16 22:00 Dose: Not Given Losartan Potassium (Cozaar -) 50 mg PO DAILY [facility] Last Admin: 09/01/16 09:52 Dose: Not Given Mupirocin (Bactroban 2% Ointment -) 1 applic TP BID [facility] Last Admin: 09/01/16 22:55 Dose: 1 applic Pantoprazole Sodium (Protonix Packets For Oral Suspension -) 40 mg NGT DAILY [facility] Last Admin: 09/01/16 09:53 Dose: Not Given Polyethylene Glycol (Miralax (For Daily Use) -) 17 gm PO BID [facility] Last Admin: 09/01/16 22:00 Dose: Not Given Rosuvastatin Calcium (Crestor -) 20 mg PO DAILY [facility] Last Admin: 09/01/16 09:53 Dose: Not Given Vital Signs: Last Vital Signs Temp Pulse Resp BP Pulse Ox 98.9 F 82 18 131/63 99 09/01/16 22:00 09/01/16 22:00 09/01/16 22:00 09/01/16 22:00 09/01/16 19:55 Constitutional: No Distress, Calm Neck: Supple Negative JVD Respiratory: Diminished at the Bases Cardiovascular: S1 S2 Regular Rate and Rhythm Grade 1-2/6 EVARISTO Gastrointestinal: Soft Benign Normal Bowel Sounds Ext: No Edema Labs: CBC, BMP 08/28/16 06:30 08/31/16 05:58 Assessment/Plan ASSESSMENT: 1. Acute stroke with prior history of old stroke with residual right hemiplegia 2. History of LV systolic dysfunction with class 0-I NYHA classification LV failure, euvolemic (normal LV systolic function on repeat echocardiography as noted above) 3. CAD angina pectoris 4. AV block post PPM 5. Carotid stenosis post carotid end-arterectomy 6. HTN 7. DM 8. Hyperlipidemia 9. History of right breast carcinoma on chemo with associated RUE lymphedema 10. G-tube stomal site bleeding off of Fondaparinux and ASA 11. CKD PLAN: 1. Hold Fondaparinux and ASA pending resolution of Stomal bleed 2. Continue Labetolol 3. Continue Cozaar 4. Continue Crestor 5. Follow CBC Stacey Hernandez M.D.
[2016-09-02 09:11] LABS: BASOPHIL 0.3 % (0-2.0); EOSINOPHIL 1.8 % (0-4.5); MCH 31.1 pg (25.7-33.7); MCHC 33.6 g/dl (32.0-36.0); MEAN CELL VOLUME 92.6 fl (80-96); MEAN PLT VOLUME 10.9 fl (7.5-11.1); NEUTROPHILS 77.9 % (42.8-82.8); PLATELET COUNT 181 K/MM3 (134-434); RDW 13.7 % (11.6-15.6); WHITE BLOOD COUNT 6.8 K/mm3 (4.0-10.0)
[2016-09-02 09:23] LABS: ANION GAP 8 (8-16); CALCIUM 9.7 mg/dL (8.5-10.1); CO2 25 mmol/L (21-32); GLUCOSE,RANDOM 171 mg/dL (74-106)
[2016-09-02] MEDS: FLUCONAZOLE 100 MG/NS 50 ML IVPB SCH (11:16)
[2016-09-02] MEDS: AMINO ACIDS 4.25%/D5W 1,000 ML IV SCH ×3 (11:17→19:55)
[2016-09-02] MEDS: LOSARTAN POTASSIUM 50 MG TABLET (FP) PO SCH (13:35)
[2016-09-02] MEDS: PANTOPRAZOLE SOD 40 MG SUSPENSION PACKET NGT SCH (13:36)
[2016-09-02] MEDS: ROSUVASTATIN CA 20 MG TABLET (FP) PO SCH (13:36)
[2016-09-02] MEDS: LABETALOL HCL 100 MG TABLET (FP) PO SCH ×2 (13:36→21:54)
[2016-09-02] MEDS: POLYETHYLENE GLYCOL 3350 119 GM BTL PO SCH ×2 (13:36→21:56)
--- NOTE | 2016-09-02 14:46 | PN ---
Physical Exam: SUBJECTIVE: Patient seen and examined. No acute changes overnight. no fever, BP stable Events: - Hgb drop 13.5->10.2, hemodynamically stable OBJECTIVE: Vital Signs Period Temp Pulse Resp BP Sys/Arrieta Pulse Ox Last 24 Hr 97.7 F-99.2 F 68-82 16-18 131-144/55-67 99-100 PE Neuro: awake, mumbles words, opens eyes and tracks people Pulm: clear anteriorly CV: s1 s2 rrr no mrg Abd: + GT tube clot removed, no active bleeding, GT fastened down Ext: no le edema, RUE contracted, LUE flaccid Breast: Right breast fungating wound with dressing c/d/i Laboratory Results - last 24 hr 09/02/16 09/02/16 08:50 08:50 WBC 6.8 RBC 3.30 L D Hgb 10.2 L D Hct 30.5 L D MCV 92.6 MCHC 33.6 RDW 13.7 Plt Count 181 MPV 10.9 Neutrophils % 77.9 Lymphocytes % 14.3 D Monocytes % 5.7 Eosinophils % 1.8 D Basophils % 0.3 D Sodium 138 Potassium 4.8 Chloride 105 Carbon Dioxide 25 Anion Gap 8 BUN 105 H* Creatinine 1.0 Random Glucose 171 H Calcium 9.7 Active Medications Generic Name Dose Route Start Last Admin Trade Name Freq PRN Reason Stop Dose Admin Docusate Sodium 100 mg 08/19/16 09:36 08/22/16 11:30 Colace Liquid - PO 100 mg BID PRN Administration CONSTIPATION Fondaparinux 2.5 mg 08/19/16 10:00 09/01/16 10:03 Arixtra (Restricted) - SQ Not Given DAILY [facility] Fluconazole 50 mls @ 50 mls/hr 09/01/16 13:45 09/02/16 11:16 Diflucan 100 Mg/Ns Premixed Ivpb - IVPB 50 mls/hr DAILY [facility] Administration Amino Acids 1,000 mls @ 84 mls/hr 09/01/16 18:45 09/02/16 11:17 Clinimix - IV Not Given Q12H [facility] Labetalol HCl 300 mg 08/17/16 22:00 09/02/16 13:36 Normodyne - PO Not Given BID [facility] Losartan Potassium 50 mg 08/30/16 10:00 09/02/16 13:35 Cozaar - PO Not Given DAILY [facility] Mupirocin 1 applic 08/19/16 10:00 09/01/16 22:55 Bactroban 2% Ointment - TP 1 applic BID [facility] Administration Pantoprazole Sodium 40 mg 08/31/16 10:00 09/02/16 13:36 Protonix Packets For Oral Suspension - NGT Not Given DAILY [facility] Polyethylene Glycol 17 gm 08/17/16 22:00 09/02/16 13:36 Miralax (For Daily Use) - PO Not Given BID [facility] Rosuvastatin Calcium 20 mg 08/18/16 10:00 09/02/16 13:36 Crestor - PO Not Given DAILY [facility] Imaging: - ECHO 08/13/16 with normal LV size and function. 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 Plan: 1. Acute right stratocapsular lacunar infarct - Hold ASA for stoma bleeding - Crestor 20mg HS 2. Dysphagia - S/p G tube placement on 08/28 - Dehydration, re started clinimix - Discussed with IR adhesion tester, RN obtaining TF residuals, will re start feeds slow as positioning appears in place 3. External bleeding stoma - Evaluated by surgery 09/01, clot removed - Hold AC - Trend hgb for 24hr more 4. Chronic LV systolic dysfunction - Losartan 50mg daily 5. PPM - PPM battery changed 08/17 6. HTN - Continue Labetolol - Continue Cozaar 7. Right breast fungating cancer - Hold Tykerb and Xeloda as they cannot be crushed per pharmacy - Bactroban to right breast. Ideally would like Metrogel, however the pharmacy does not have it. Can discharge on Metrogel - Right fungating breast treatment as follows per Dr. Crowe: Daily saline rinse, pat dry, apply Metrogel daily - Per Dr. Ruiz, continue to hold oral chemo until the patient's dysphagia has improved. Once that happens, follow-up as an outpatient to determine when to restart oral chemo. Daughter Gauri aware of this plan 8. DM II - Continue to monitor 9. PPM - Likely from sick sinus syndrome - Generator changed 08/17 10. DVT PPX - Hold Fondaparinux d/t bleeding Visit type - Emergency Visit Emergency Visit: Yes ED Registration Date: 08/11/16 Care time: The patient presented to the Emergency Department on the above date and was hospitalized for further evaluation of their emergent condition. - New Patient This patient is new to me today: No - Critical Care Critical Care patient: No
[2016-09-02] MEDS: MUPIROCIN 2% TOPICAL OINTMENT 22 GM TUBE TP SCH ×2 (14:55→21:57)
--- NOTE | 2016-09-02 23:26 | PN ---
Progress Note (short form) - Note Progress Note: No acute events Restarted on tube feeds by the primary team No further clot noted Vital Signs Period Temp Pulse Resp BP Sys/Arrieta Pulse Ox Last 24 Hr 98.2 F-99.7 F 68-82 16-20 132-160/54-74 100 Abd soft, NT, G tube in place, no further clot noted CBC, BMP 09/02/16 08:50 09/02/16 08:50 Serial H/H Tube feeds per primary team Interventional radiology to evaluate G tube Problem List - Problems (1) Gastrostomy hemorrhage Code(s): K94.21 - GASTROSTOMY HEMORRHAGE
[2016-09-03 06:26] LABS: BASOPHIL 0.5 % (0-2.0); EOSINOPHIL 2.1 % (0-4.5); MCHC 32.9 g/dl (32.0-36.0); MEAN PLT VOLUME 11.3 fl (7.5-11.1); PLATELET COUNT 190 K/MM3 (134-434); RDW 13.7 % (11.6-15.6); WHITE BLOOD COUNT 6.1 K/mm3 (4.0-10.0)
[2016-09-03 07:13] LABS: ANION GAP 10 (8-16); CALCIUM 9.5 mg/dL (8.5-10.1); CO2 24 mmol/L (21-32); CREATININE 0.9 mg/dL (0.55-1.02); GLUCOSE,RANDOM 172 mg/dL (74-106)
[2016-09-03] MEDS: AMINO ACIDS 4.25%/D5W 1,000 ML IV SCH (08:07)
[2016-09-03] MEDS ORDERED: PT OWN MED DRAWER 7, Y5N ONE (09:20)
[2016-09-03] MEDS: FLUCONAZOLE 100 MG/NS 50 ML IVPB SCH (10:07)
[2016-09-03] MEDS: LABETALOL HCL 100 MG TABLET (FP) PO SCH ×2 (11:04→23:05)
[2016-09-03] MEDS: ROSUVASTATIN CA 20 MG TABLET (FP) PO SCH (11:05)
[2016-09-03] MEDS: LOSARTAN POTASSIUM 50 MG TABLET (FP) PO SCH (11:05)
[2016-09-03] MEDS: POLYETHYLENE GLYCOL 3350 119 GM BTL PO SCH ×2 (11:06→23:05)
[2016-09-03] MEDS: PANTOPRAZOLE SOD 40 MG SUSPENSION PACKET NGT SCH (11:06)
[2016-09-03] MEDS: MUPIROCIN 2% TOPICAL OINTMENT 22 GM TUBE TP SCH ×2 (11:08→23:05)
--- NOTE | 2016-09-03 11:15 | PN ---
Progress Note, Physician Chief Complaint: Events noted Not in distress. Resting comfortably G tube with no further stomal site bleeding History of Present Illness: Patient was seen and examined. Awake. Chart was reviewed Not in distress - Current Medication List Current Medications: Active Medications Docusate Sodium (Colace Liquid -) 100 mg PO BID PRN PRN Reason: CONSTIPATION Last Admin: 08/22/16 11:30 Dose: 100 mg Fondaparinux (Arixtra (Restricted) -) 2.5 mg SQ DAILY [facility] Last Admin: 09/01/16 10:03 Dose: Not Given Fluconazole (Diflucan 100 Mg/Ns Premixed Ivpb -) 50 mls @ 50 mls/hr IVPB DAILY [facility] Last Admin: 09/03/16 10:07 Dose: 50 mls/hr Amino Acids (Clinimix -) 1,000 mls @ 84 mls/hr IV Q12H [facility] Last Admin: 09/03/16 08:07 Dose: 84 mls/hr Labetalol HCl (Normodyne -) 300 mg PO BID [facility] Last Admin: 09/03/16 11:04 Dose: 300 mg Losartan Potassium (Cozaar -) 50 mg PO DAILY [facility] Last Admin: 09/03/16 11:05 Dose: 50 mg Mupirocin (Bactroban 2% Ointment -) 1 applic TP BID [facility] Last Admin: 09/03/16 11:08 Dose: 1 applic Pantoprazole Sodium (Protonix Packets For Oral Suspension -) 40 mg NGT DAILY [facility] Last Admin: 09/03/16 11:06 Dose: 40 mg Polyethylene Glycol (Miralax (For Daily Use) -) 17 gm PO BID [facility] Last Admin: 09/03/16 11:06 Dose: 17 gm Rosuvastatin Calcium (Crestor -) 20 mg PO DAILY [facility] Last Admin: 09/03/16 11:05 Dose: 20 mg - Objective Vital Signs: Vital Signs Temperature 98.2 F 09/03/16 06:02 Pulse Rate 67 09/03/16 09:46 Respiratory Rate 18 09/03/16 06:02 Blood Pressure 143/66 09/03/16 06:02 O2 Sat by Pulse Oximetry (%) 96 09/03/16 09:46 Neck: Yes: Supple Cardiovascular: Yes: Regular Rate and Rhythm, S1, S2 Respiratory: Yes: Diminished Gastrointestinal: Yes: Normal Bowel Sounds, Soft, Other (G tube) Edema: No Labs: CBC, BMP 09/03/16 05:36 09/03/16 05:36 Problem List - Problems (1) CVA (cerebral vascular accident) Code(s): I63.9 - CEREBRAL INFARCTION, UNSPECIFIED Qualifiers: Precerebral and cerebral artery: middle cerebral artery Laterality of affected vessel: left (2) Diastolic dysfunction Code(s): I51.9 - HEART DISEASE, UNSPECIFIED (3) Hypercholesteremia Code(s): E78.00 - PURE HYPERCHOLESTEROLEMIA, UNSPECIFIED (4) Pacemaker Code(s): Z95.0 - PRESENCE OF CARDIAC PACEMAKER (5) Pacemaker generator end of life Code(s): Z45.010 - ENCNTR FOR CHECKING AND TEST OF CARD PACEMAKER PULSE GNRTR (6) T2DM (type 2 diabetes mellitus) Code(s): E11.9 - TYPE 2 DIABETES MELLITUS WITHOUT COMPLICATIONS Qualifiers: Diabetes mellitus complication status: without complication Diabetes mellitus 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 Acute new lacunar stroke with prior history of old stroke with residual mild right hemiplegia 2. History of LV systolic dysfunction with class 0-I NYHA classification LV failure, euvolemic (normal LV systolic function on repeat echocardiography) 3. 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 AV block post PPM ([employer]tr[employer]) at [facility] post dual chamber pacemaker S/P generator replacement 5. Carotid stenosis post carotid endarterectomy 6. HTN 7. DM 8. Hyperlipidemia 9. History of right breast carcinoma on chemo with associated RUE lymphedema 10. CKD 11. Vascular dementia with anorexia PLAN: 1. ASA on hold, but to be restarted as soon as it is feasible 2. Continue Labetolol 300 mg bid, Crestor 20 mg qd, and Hyzaar 50/12.5 mg qd as hemodynamics tolerate 3. Fondaparinux has been held due to stomal bleeding 4. PT and eventual SNF placement. Follow up with her cna per diem in [facility] 5. Further follow up of breast CA as outpatient Further plans are to follow William Garcia MD
--- NOTE | 2016-09-03 12:02 | PN ---
Progress Note (short form) - Note Progress Note: No acute events No more bleeding by G tube site No pain Tolerating tube feeds Vital Signs Period Temp Pulse Resp BP Sys/Arrieta Pulse Ox Last 24 Hr 97.8 F-99.7 F 67-82 16-20 132-160/52-74 96-100 Abd soft, G tube in place, no bleeding CBC WBC 6.1 K/mm3 (4.0-10.0) 09/03/16 05:36 RBC 3.00 M/mm3 (3.60-5.2) L 09/03/16 05:36 Hgb 9.3 GM/dL (10.7-15.3) L 09/03/16 05:36 Hct 28.3 % (32.4-45.2) L 09/03/16 05:36 MCV 94.0 fl (80-96) 09/03/16 05:36 MCHC 32.9 g/dl (32.0-36.0) 09/03/16 05:36 RDW 13.7 % (11.6-15.6) 09/03/16 05:36 Plt Count 190 K/MM3 (134-434) 09/03/16 05:36 MPV 11.3 fl (7.5-11.1) H 09/03/16 05:36 Neutrophils % 75.0 % (42.8-82.8) 09/03/16 05:36 Lymphocytes % 15.4 % (8-40) 09/03/16 05:36 Monocytes % 7.0 % (3.8-10.2) 09/03/16 05:36 Eosinophils % 2.1 % (0-4.5) 09/03/16 05:36 Basophils % 0.5 % (0-2.0) 09/03/16 05:36 Band Neutrophils 0.0 % (0-10) 08/27/16 06:00 Differential Comment Manual diff done 08/27/16 06:00 Platelet Estimate Decreased (NORMAL) 08/27/16 06:00 Platelet Comment Slt plt clumping 08/27/16 06:00 Tube feeds as tolerated No bleeding No intervention needed Thank you Problem List - Problems (1) Gastrostomy hemorrhage Code(s): K94.21 - GASTROSTOMY HEMORRHAGE
--- NOTE | 2016-09-03 15:22 | PN ---
Physical Exam: SUBJECTIVE: Patient seen and examined. No acute changes, G tub de clogged in IR , able to use. Family at bedside. OBJECTIVE: Vital Signs Period Temp Pulse Resp BP Sys/Arrieta Pulse Ox Last 24 Hr 97.8 F-99.7 F 67-82 18-20 132-160/52-74 96-100 PE Neuro: awake, mumbles words, opens eyes and tracks people Pulm: clear anteriorly CV: s1 s2 rrr no mrg Abd: + GTube, no bleeding ,abd soft Ext: no le edema, RUE contracted, LUE flaccid Breast: Right breast fungating wound Laboratory Results - last 24 hr 09/03/16 09/03/16 05:36 05:36 WBC 6.1 RBC 3.00 L Hgb 9.3 L Hct 28.3 L MCV 94.0 MCHC 32.9 RDW 13.7 Plt Count 190 MPV 11.3 H Neutrophils % 75.0 Lymphocytes % 15.4 Monocytes % 7.0 Eosinophils % 2.1 Basophils % 0.5 Sodium 138 Potassium 5.0 Chloride 104 Carbon Dioxide 24 Anion Gap 10 BUN 98 H Creatinine 0.9 Random Glucose 172 H Calcium 9.5 Active Medications Generic Name Dose Route Start Last Admin Trade Name Freq PRN Reason Stop Dose Admin Docusate Sodium 100 mg 08/19/16 09:36 08/22/16 11:30 Colace Liquid - PO 100 mg BID PRN Administration CONSTIPATION Fondaparinux 2.5 mg 08/19/16 10:00 09/01/16 10:03 Arixtra (Restricted) - SQ Not Given DAILY [facility] Fluconazole 50 mls @ 50 mls/hr 09/01/16 13:45 09/03/16 10:07 Diflucan 100 Mg/Ns Premixed Ivpb - IVPB 50 mls/hr DAILY [facility] Administration Amino Acids 1,000 mls @ 84 mls/hr 09/01/16 18:45 09/03/16 08:07 Clinimix - IV 84 mls/hr Q12H [facility] Administration Labetalol HCl 300 mg 08/17/16 22:00 09/03/16 11:04 Normodyne - PO 300 mg BID [facility] Administration Losartan Potassium 50 mg 08/30/16 10:00 09/03/16 11:05 Cozaar - PO 50 mg DAILY [facility] Administration Mupirocin 1 applic 08/19/16 10:00 09/03/16 11:08 Bactroban 2% Ointment - TP 1 applic BID [facility] Administration Pantoprazole Sodium 40 mg 08/31/16 10:00 09/03/16 11:06 Protonix Packets For Oral Suspension - NGT 40 mg DAILY [facility] Administration Polyethylene Glycol 17 gm 08/17/16 22:00 09/03/16 11:06 Miralax (For Daily Use) - PO 17 gm BID [facility] Administration Rosuvastatin Calcium 20 mg 08/18/16 10:00 09/03/16 11:05 Crestor - PO 20 mg DAILY [facility] Administration Imaging: - ECHO 08/13/16 with normal LV size and function. 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 Plan: 1. Acute right stratocapsular lacunar infarct - Hold ASA, stoma bleeding resolved - Check CBC tomorrow, of stable restart and restart Fondaparinux - Crestor 20mg HS 2. Dysphagia - G tube placed 08/28 and de clogged today - Resume TF - Crystal newell to re evaluate swallowing for TF vs diet 3. External bleeding stoma - Resolved - Trend CBC x1 more day 4. Chronic LV systolic dysfunction - Losartan 50mg daily 5. PPM - PPM battery changed 08/17 6. HTN - Continue Labetolol 300 BID - Continue Cozaar 7. Right breast fungating cancer - Hold Tykerb and Xeloda as they cannot be crushed per pharmacy - Bactroban to right breast. Ideally would like Metrogel, however the pharmacy does not have it. Can discharge on Metrogel - Right fungating breast treatment as follows per Dr. Crowe: Daily saline rinse, pat dry, apply Metrogel daily - Per Dr. Ruiz, continue to hold oral chemo until the patient's dysphagia has improved. Once that happens, follow-up as an outpatient to determine when to restart oral chemo. Daughter Gauri aware of this plan 8. DM II - Continue to monitor 9. PPM - Likely from sick sinus syndrome - Generator changed 08/17 10. DVT PPX - Holding Fondaparinux d/t bleeding, restart once hgb stable Visit type - Emergency Visit Emergency Visit: Yes ED Registration Date: 08/11/16 Care time: The patient presented to the Emergency Department on the above date and was hospitalized for further evaluation of their emergent condition. - New Patient This patient is new to me today: No - Critical Care Critical Care patient: No
--- NOTE | 2016-09-03 16:37 | PN ---
Progress Note, GIS PROGRAMMER - Note Progress Note: 85 yo female seen at bedside for re-eval to determine if able to tolerate po feedings. Pt is currently PEG and will be discharge to home soon. Pt presents as very lethargic with eyes closed most of the time. Pt is not safe for po trials as this time. Continue NPO status will peg feedings. Observe standard aspiration precautions. GIS PROGRAMMER to follow up and re-evaluation if there is a change in mental status. Results given to verbally to charge account clerk Benna and to pcp via chart.
[2016-09-04 07:26] LABS: BASOPHIL 0.4 % (0-2.0); EOSINOPHIL 2.5 % (0-4.5); MCH 31.7 pg (25.7-33.7); MEAN CELL VOLUME 93.3 fl (80-96); NEUTROPHILS 72.9 % (42.8-82.8); PLATELET COUNT 177 K/MM3 (134-434); RDW 13.3 % (11.6-15.6); WHITE BLOOD COUNT 6.3 K/mm3 (4.0-10.0)
--- NOTE | 2016-09-04 08:19 | PN ---
Physical Exam: SUBJECTIVE: Patient seen and examined. She is non verbal, lethargic. Family not present in room. OBJECTIVE: On PEG tube feeds of Jevity 1.5 currently @40cc/hr with H20 Flushes @ 40cc/hr lethargic, non verbal discharge planning pending low grade temps today - Tylenol [place] ordered Vital Signs Period Temp Pulse Resp BP Sys/Arrieta Pulse Ox Last 24 Hr 97.4 F-99.6 F 67-82 18-20 116-150/45-68 96-96 GENERAL: lethargic HEAD: Normal with no signs of trauma. ENT: Ears normal, nares patent, oropharynx clear without exudates, moist mucous membranes. NECK: Trachea midline, full range of motion, supple. LUNGS: Breath sounds equal but diminished HEART: Regular rate and rhythm, S1, S2 without murmur, rub or gallop. ABDOMEN: +peg tube infusing, dressing on peg site CDI EXTREMITIES: 2+ pulses, warm, well-perfused, no edema. NEUROLOGICAL: +aphasia, left hemiplegia PSYCH: lethargic Laboratory Results - last 24 hr 09/04/16 05:35 WBC 6.3 RBC 2.88 L Hgb 9.2 L Hct 26.9 L MCV 93.3 MCHC 34.0 RDW 13.3 Plt Count 177 MPV 11.0 Neutrophils % 72.9 Lymphocytes % 17.0 Monocytes % 7.2 Eosinophils % 2.5 Basophils % 0.4 Active Medications Generic Name Dose Route Start Last Admin Trade Name Freq PRN Reason Stop Dose Admin Docusate Sodium 100 mg 08/19/16 09:36 08/22/16 11:30 Colace Liquid - PO 100 mg BID PRN Administration CONSTIPATION Fondaparinux 2.5 mg 08/19/16 10:00 09/01/16 10:03 Arixtra (Restricted) - SQ Not Given DAILY [facility] Fluconazole 50 mls @ 50 mls/hr 09/01/16 13:45 09/03/16 10:07 Diflucan 100 Mg/Ns Premixed Ivpb - IVPB 50 mls/hr DAILY [facility] Administration Labetalol HCl 300 mg 08/17/16 22:00 09/03/16 23:05 Normodyne - PO 300 mg BID [facility] Administration Losartan Potassium 50 mg 08/30/16 10:00 09/03/16 11:05 Cozaar - PO 50 mg DAILY [facility] Administration Mupirocin 1 applic 08/19/16 10:00 09/03/16 23:05 Bactroban 2% Ointment - TP 1 applic BID [facility] Administration Pantoprazole Sodium 40 mg 08/31/16 10:00 09/03/16 11:06 Protonix Packets For Oral Suspension - NGT 40 mg DAILY [facility] Administration Polyethylene Glycol 17 gm 08/17/16 22:00 09/03/16 23:05 Miralax (For Daily Use) - PO 17 gm BID [facility] Administration Rosuvastatin Calcium 20 mg 08/18/16 10:00 09/03/16 11:05 Crestor - PO 20 mg DAILY [facility] Administration ASSESSMENT/PLAN: Patient is an 85 year old female with past medical history of hypertension, hld , CVA, right carotid artery stenosis s/p endarterectomy, severe systolic heart failure s/p PPM, diabetes mellitus and right fungating breast tumor. She was admitted on 08/11/2016 with an acute CVA. Imaging: CT 08/13/16 shows new stroke - better defined non hemorrhagic recent right striatocapsular lacunar infarct. Carotid doppler 08/14/2016: small plaques of the right common carotid bifurcation and bulb, no evidence of hemodynamically significant stenosis Neurology: Assessment/Plan: CT head: better defined non hemorrhagic recent right strato. lunar infarct on post aspect of right putamen, post. limb of internal capsule. On Crestor 20mg daily ASA 325 mg previously on hold after stoma bleeding occurred, no signs of bleeding today, ASA 81mg resumed today Monitor BPs Neuro following Dysphasia s/p CVA Assessment/Plan: On Peg tube Jevity feeds with water flushes Aspiration precautions Cardiology: Left Ventricular systolic dysfunction - chronic Assessment/Plan: s/p PPM battery changed on 08/17/2016 Hypertenstion - controlled Assessment/Plan: Cozaar 50mg daily, Labetolol 300mg BID Oncology: Right breast fungating tumor - chronic Assessment/Plan: Holding chemo meds as they cannot be crushed Wound care daily to fungating tumor Endocrine: Diabetes - chronic Assessment/Plan: monitor F.E.N. Fluids: Jevity feeds with water flushes Electrolytes: monitor Nutrition: tube feeds Prophylaxis: DVT: Fondaparinux 2.5mg sc daily will restart today as peg tube bleeding has subsided Disposition: Requires inpatient hospitalization. Awaiting placement. Full Code Visit type - Emergency Visit Emergency Visit: Yes ED Registration Date: 08/11/16 Care time: The patient presented to the Emergency Department on the above date and was hospitalized for further evaluation of their emergent condition. - New Patient This patient is new to me today: No - Critical Care Critical Care patient: No - Discharge Referral Referred to [facility] No
[2016-09-04] MEDS: FLUCONAZOLE 100 MG/NS 50 ML IVPB SCH (09:29)
[2016-09-04] MEDS: LOSARTAN POTASSIUM 50 MG TABLET (FP) PO SCH (09:30)
[2016-09-04] MEDS: ROSUVASTATIN CA 20 MG TABLET (FP) PO SCH (09:30)
[2016-09-04] MEDS: LABETALOL HCL 100 MG TABLET (FP) PO SCH ×2 (09:30→21:26)
[2016-09-04] MEDS: POLYETHYLENE GLYCOL 3350 119 GM BTL PO SCH ×2 (09:30→21:26)
[2016-09-04] MEDS: PANTOPRAZOLE SOD 40 MG SUSPENSION PACKET NGT SCH (09:31)
[2016-09-04] MEDS: MUPIROCIN 2% TOPICAL OINTMENT 22 GM TUBE TP SCH ×2 (09:31→21:26)
[2016-09-04] MEDS ORDERED: ACETAMINOPHEN 650 MG SUPP.RECT PR PRN (09:42)
--- NOTE | 2016-09-04 10:49 | PN ---
Progress Note, Physician History of Present Illness: Post gastrotomy tube placement tolerating enteral feeds, no further bleeding at gastrotomy site. - Current Medication List Current Medications: Active Medications Acetaminophen (Tylenol Suppository -) 650 mg TN Q6H PRN PRN Reason: FEVER OR PAIN Docusate Sodium (Colace Liquid -) 100 mg PO BID PRN PRN Reason: CONSTIPATION Last Admin: 08/22/16 11:30 Dose: 100 mg Fondaparinux (Arixtra (Restricted) -) 2.5 mg SQ DAILY [facility] Last Admin: 09/01/16 10:03 Dose: Not Given Fluconazole (Diflucan 100 Mg/Ns Premixed Ivpb -) 50 mls @ 50 mls/hr IVPB DAILY [facility] Last Admin: 09/04/16 09:29 Dose: 50 mls/hr Labetalol HCl (Normodyne -) 300 mg PO BID [facility] Last Admin: 09/04/16 09:30 Dose: 300 mg Losartan Potassium (Cozaar -) 50 mg PO DAILY [facility] Last Admin: 09/04/16 09:30 Dose: 50 mg Mupirocin (Bactroban 2% Ointment -) 1 applic TP BID [facility] Last Admin: 09/04/16 09:31 Dose: 1 applic Pantoprazole Sodium (Protonix Packets For Oral Suspension -) 40 mg NGT DAILY [facility] Last Admin: 09/04/16 09:31 Dose: 40 mg Polyethylene Glycol (Miralax (For Daily Use) -) 17 gm PO BID [facility] Last Admin: 09/04/16 09:30 Dose: 17 gm Rosuvastatin Calcium (Crestor -) 20 mg PO DAILY [facility] Last Admin: 09/04/16 09:30 Dose: 20 mg - Objective Vital Signs: Vital Signs Temperature 99.6 F 09/04/16 06:00 Pulse Rate 78 09/04/16 06:00 Respiratory Rate 20 09/04/16 06:00 Blood Pressure 116/45 09/04/16 06:00 O2 Sat by Pulse Oximetry (%) 96 09/03/16 22:00 Constitutional: Yes: No Distress, Calm, Thin Neck: Yes: Supple Cardiovascular: Yes: Regular Rate and Rhythm Respiratory: Yes: Regular, Diminished, On Nasal O2 Gastrointestinal: Yes: Normal Bowel Sounds, Soft, Other (G-tube in place) Edema: No Labs: CBC, BMP 09/04/16 05:35 09/03/16 05:36 INR, PTT INR 1.15 (0.82-1.09) H 08/28/16 06:30 Problem List - Problems (1) CVA (cerebral vascular accident) Code(s): I63.9 - CEREBRAL INFARCTION, UNSPECIFIED Qualifiers: Precerebral and cerebral artery: middle cerebral artery Laterality of affected vessel: left (2) Hypercholesteremia Code(s): E78.00 - PURE HYPERCHOLESTEROLEMIA, UNSPECIFIED (3) Lymph edema Code(s): I89.0 - LYMPHEDEMA, NOT ELSEWHERE CLASSIFIED (4) T2DM (type 2 diabetes mellitus) Code(s): E11.9 - TYPE 2 DIABETES MELLITUS WITHOUT COMPLICATIONS Qualifiers: Diabetes mellitus complication status: without complication Diabetes mellitus shelter insulin use: without termite exterminator use Qualified Code(s): E11.9 - Type 2 diabetes mellitus without complications (5) Hypertension Code(s): I10 - ESSENTIAL (PRIMARY) HYPERTENSION Qualifiers: Hypertension type: essential hypertension Qualified Code(s): I10 - Essential (primary) hypertension (6) Malignant neoplasm of right breast Code(s): C50.911 - MALIGNANT NEOPLASM OF UNSP SITE OF RIGHT FEMALE BREAST (7) Pacemaker Code(s): Z95.0 - PRESENCE OF CARDIAC PACEMAKER (8) Diastolic dysfunction Code(s): I51.9 - HEART DISEASE, UNSPECIFIED (9) Pacemaker generator end of life Code(s): Z45.010 - ENCNTR FOR CHECKING AND TEST OF CARD PACEMAKER PULSE GNRTR (10) Anorexia Code(s): R63.0 - ANOREXIA (11) Status post gastrostomy Code(s): Z93.1 - GASTROSTOMY STATUS (12) Gastrostomy hemorrhage Code(s): K94.21 - GASTROSTOMY HEMORRHAGE Assessment/Plan 08/13/2016 Echocardiography revealed normal LV size and function with no significant valvular pathology 1. Acute new lacunar stroke with prior history of old stroke with residual mild right hemiplegia post gastrotomy tube placement 2. History of LV systolic dysfunction with class 0-I NYHA classification LV failure, euvolemic (normal LV systolic function on repeat echocardiography) 3. 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 AV block post PPM ([employer]) at [facility] post dual chamber pacemaker S/P generator replacement 5. Carotid stenosis post carotid endarterectomy 6. HTN 7. DM 8. Hyperlipidemia 9. History of right breast carcinoma on chemo with associated RUE lymphedema 10. CKD 11. Vascular dementia with anorexia 12. Hyponatremia PLAN: 1. Enteral feeds with potassium repletion. 2. Continue Labetolol 300 mg bid, Crestor 20 mg qd, ASA 81 and losartan 50 qd as hemodynamics tolerate 3. DVT prophylaxis with Fondaparinux 4. PT and eventual SNF placement. Follow up with her credit review analyst in [facility] 5. Further follow up of breast CA as outpatient
[2016-09-05 06:50] LABS: BASOPHIL 0.2 % (0-2.0); EOSINOPHIL 2.6 % (0-4.5); MCH 31.2 pg (25.7-33.7); MCHC 33.2 g/dl (32.0-36.0); MEAN PLT VOLUME 11.3 fl (7.5-11.1); NEUTROPHILS 77.3 % (42.8-82.8); PLATELET COUNT 202 K/MM3 (134-434); RDW 13.5 % (11.6-15.6); WHITE BLOOD COUNT 8.1 K/mm3 (4.0-10.0)
[2016-09-05 07:09] LABS: ALBUMIN 2.7 g/dl (3.4-5.0); ALK PHOS 86 U/L (45-117); ANION GAP 8 (8-16); BILIRUBIN,TOTAL 0.5 mg/dL (0.2-1.0); CALCIUM 9.4 mg/dL (8.5-10.1); CO2 27 mmol/L (21-32); CREATININE 0.9 mg/dL (0.55-1.02); GLUCOSE,RANDOM 167 mg/dL (74-106); SGOT/AST 56 U/L (15-37); SGPT/ALT 80 U/L (12-78); TOT PROT 5.9 g/dl (6.4-8.2)
--- NOTE | 2016-09-05 09:11 | DS ---
Physical Exam: SUBJECTIVE: Patient seen and examined. Stable for home discharge OBJECTIVE: Patient requires an oral suction machine for home use to treat and prevent any episodes of aspiration Dispostion: Home with Home Care services. Will need custodial and physical and speech therapy. Wound care required for chest fungating wound as directed. Vital Signs Period Temp Pulse Resp BP Sys/Arrieta Pulse Ox Last 24 Hr 97.9 F-99.4 F 67-74 18-19 122-134/47-59 96 PHYSICAL EXAM GENERAL: lethargic HEAD: Normal with no signs of trauma. ENT: Ears normal, nares patent, oropharynx clear without exudates, moist mucous membranes. NECK: Trachea midline, full range of motion, supple. LUNGS: Breath sounds equal but diminished HEART: Regular rate and rhythm, S1, S2 without murmur, rub or gallop. ABDOMEN: +peg tube infusing, dressing on peg site CDI EXTREMITIES: 2+ pulses, warm, well-perfused, no edema. NEUROLOGICAL: +aphasia, left hemiplegia PSYCH: lethargic LABS Laboratory Results - last 24 hr 09/05/16 09/05/16 05:48 05:48 WBC 8.1 RBC 2.86 L Hgb 8.9 L Hct 26.8 L MCV 94.0 MCHC 33.2 RDW 13.5 Plt Count 202 MPV 11.3 H Neutrophils % 77.3 Lymphocytes % 12.6 D Monocytes % 7.3 Eosinophils % 2.6 Basophils % 0.2 Sodium 138 Potassium 5.0 Chloride 103 Carbon Dioxide 27 Anion Gap 8 BUN 63 H D Creatinine 0.9 Creat Clearance w eGFR 59.80 Random Glucose 167 H Calcium 9.4 Total Bilirubin 0.5 D AST 56 H D ALT 80 H D Alkaline Phosphatase 86 Total Protein 5.9 L Albumin 2.7 L HOSPITAL COURSE: Date of Admission:08/11/16 Date of Discharge: 09/05/16 ASSESSMENT/PLAN: Patient is an 85 year old female with past medical history of hypertension, hld , CVA, right carotid artery stenosis s/p endarterectomy, severe systolic heart failure s/p PPM, diabetes mellitus and right fungating breast tumor. She was admitted on 08/11/2016 with an acute CVA. Imaging: CT 08/13/16 shows new stroke - better defined non hemorrhagic recent right striatocapsular lacunar infarct. Carotid doppler 08/14/2016: small plaques of the right common carotid bifurcation and bulb, no evidence of hemodynamically significant stenosis Neurology: Non hemorrhagic recent right striatocapsular lacunar infarct Assessment/Plan: CT head: better defined non hemorrhagic recent right strato. lunar infarct on post aspect of right putamen, post. limb of internal capsule. On Crestor 20mg daily ASA 81mg resumed today Monitor BPs Dysphasia s/p CVA Assessment/Plan: On Peg tube Jevity feeds with water flushes for home use Will need home suction catheter Aspiration precautions Cardiology: Left Ventricular systolic dysfunction - chronic Assessment/Plan: s/p PPM battery changed on 08/17/2016 Hypertension - controlled Assessment/Plan: Cozaar 50mg daily, Labetolol 300mg BID Oncology: Right breast fungating tumor - chronic Assessment/Plan: Wound care daily to fungating tumor Endocrine: Diabetes - chronic Assessment/Plan: monitor F.E.N. Fluids: Jevity feeds with water flushes Prophylaxis: DVT: Fondaparinux 2.5mg sc daily Disposition: Stable for home discharge with visiting nurse services. Speech and physical therapy follow up recommended. Full Code Minutes to complete discharge: 60 Discharge Summary Reason For Visit: CVA Current Active Problems Anorexia (Acute) CVA (cerebral vascular accident) (Acute) Cancer of breast (Acute) Diastolic dysfunction (Acute) Gastrostomy hemorrhage (Acute) Hypercholesteremia (Acute) Lymph edema (Acute) Pacemaker (Acute) Pacemaker generator end of life (Acute) Status post gastrostomy (Acute) Stomal bleeding (Acute) T2DM (type 2 diabetes mellitus) (Acute) Condition: Stable - Instructions Diet, Activity, Other Instructions: Mrs. Shen. Please return to the ED with new, persistent, or worsening symptoms. Please follow-up with providers as indicated Do not take Xeloda or Tykerb until you are reevaluated by your oncologist Wound care: - Wash with normal saline and then place metrogel and cover CONTINUE TO SUPPORT MORE FAT INTAKE. RECOMMEND; ENSURE PUDDING WITH MEALS MAGIC CUP HOME MADE FOODS A TOLERATED Elevate the head of the bed at 45 degrees to avoid aspiration of feeds. Referrals: Jose Alberto Valencia [Primary Care Provider] - (Please follow-up with your primary care provider within 1 week.) Nelson Pace DO [Staff Physician] - 1 Week Claribel,Ledy P, MS, CCC [Speech Therapist] - 1 Week Bassam Avery MD [Staff Physician] - 1 Week Disposition: HOME - Home Medications Comprehensive Discharge Medication List: Ambulatory Orders Labetalol HCl 300 mg PO BID #0 tablet 10/08/12 Amino Acids 4.25%/D5w [Clinimix 4.25%/D5w Solution] 1,000 ml IV Q12H bag Aspirin [ASA -] 325 mg PO DAILY tablet 08/17/16 Fondaparinux Sodium [Arixtra (Restricted) -] 2.5 mg SQ DAILY syr 08/17/16 Polyethylene Glycol 3350 [Miralax 119 gm Btl -] 17 gm PO BID bottle 08/17/16 Rosuvastatin Calcium [Crestor] 40 mg PO DAILY #0 tab 08/17/16 Metronidazole 1% Cream [Metrocream 1% Cream -] 1 applic TP DAILY #1 tube Nut.tx.gluc.intoler,Lac-Fr,Soy [Glucerna 1.5 Robert] 1,000 ml PO DAILY #30 liquid 08/31/16 Wheelchair 1 ea NR ASDIR #1 ea 08/31/16 This patient is new to me today: Yes Date on this admission: 09/05/16 Emergency Visit: Yes ED Registration Date: 08/11/16 Care time: The patient presented to the Emergency Department on the above date and was hospitalized for further evaluation of their emergent condition. Critical Care patient: No - Discharge Referral Referred to [facility] Med P.C.: No
[2016-09-05] MEDS ORDERED: PT OWN MED DRAWER 7, Y5N ONE (09:57)
[2016-09-05] MEDS ORDERED: ASPIRIN 81 MG CHEWABLE TABLETS GT SCH (10:00)
[2016-09-05] MEDS: FONDAPARINUX SODIUM 2.5 MG/0.5 ML DISP.SYRIN SQ SCH (10:33)
[2016-09-05] MEDS: LABETALOL HCL 100 MG TABLET (FP) PO SCH (10:34)
[2016-09-05] MEDS: LOSARTAN POTASSIUM 50 MG TABLET (FP) PO SCH (10:34)
[2016-09-05] MEDS: PANTOPRAZOLE SOD 40 MG SUSPENSION PACKET NGT SCH (10:34)
[2016-09-05] MEDS: ROSUVASTATIN CA 20 MG TABLET (FP) PO SCH (10:35)
[2016-09-05] MEDS: POLYETHYLENE GLYCOL 3350 119 GM BTL PO SCH (10:41)
[2016-09-05] MEDS: MUPIROCIN 2% TOPICAL OINTMENT 22 GM TUBE TP SCH (10:42)
[2016-09-05 11:12] VITALS: BP 122/54; PULSE 79; TEMP 98.1
--- NOTE | 2016-09-05 11:22 | PN ---
Progress Note, Physician History of Present Illness: Post gastrotomy tube placement tolerating enteral feeds, no further bleeding at gastrotomy site. - Current Medication List Current Medications: Active Medications Acetaminophen (Tylenol Suppository -) 650 mg MT Q6H PRN PRN Reason: FEVER OR PAIN Aspirin (Asa -) 81 mg GT DAILY [facility] Last Admin: 09/05/16 10:34 Dose: 81 mg Docusate Sodium (Colace Liquid -) 100 mg PO BID PRN PRN Reason: CONSTIPATION Last Admin: 08/22/16 11:30 Dose: 100 mg Fondaparinux (Arixtra (Restricted) -) 2.5 mg SQ DAILY [facility] Last Admin: 09/05/16 10:33 Dose: 2.5 mg Fluconazole (Diflucan 100 Mg/Ns Premixed Ivpb -) 50 mls @ 50 mls/hr IVPB DAILY [facility] Last Admin: 09/04/16 09:29 Dose: 50 mls/hr Labetalol HCl (Normodyne -) 300 mg PO BID [facility] Last Admin: 09/05/16 10:34 Dose: 300 mg Losartan Potassium (Cozaar -) 50 mg PO DAILY [facility] Last Admin: 09/05/16 10:34 Dose: 50 mg Mupirocin (Bactroban 2% Ointment -) 1 applic TP BID [facility] Last Admin: 09/05/16 10:42 Dose: 1 applic Pantoprazole Sodium (Protonix Packets For Oral Suspension -) 40 mg NGT DAILY [facility] Last Admin: 09/05/16 10:34 Dose: 40 mg Polyethylene Glycol (Miralax (For Daily Use) -) 17 gm PO BID [facility] Last Admin: 09/05/16 10:41 Dose: 17 gm Rosuvastatin Calcium (Crestor -) 20 mg PO DAILY [facility] Last Admin: 09/05/16 10:35 Dose: 20 mg - Objective Vital Signs: Vital Signs Temperature 98.1 F 09/05/16 10:00 Pulse Rate 79 09/05/16 10:00 Respiratory Rate 20 09/05/16 10:00 Blood Pressure 122/54 09/05/16 10:00 O2 Sat by Pulse Oximetry (%) 96 09/04/16 20:24 Constitutional: Yes: No Distress, Calm, Thin Neck: Yes: Supple Cardiovascular: Yes: Regular Rate and Rhythm Respiratory: Yes: Regular, Diminished Gastrointestinal: Yes: Normal Bowel Sounds, Soft, Other (G-tube in place) Edema: No Labs: CBC, BMP 09/05/16 05:48 09/05/16 05:48 INR, PTT INR 1.15 (0.82-1.09) H 08/28/16 06:30 Problem List - Problems (1) CVA (cerebral vascular accident) Code(s): I63.9 - CEREBRAL INFARCTION, UNSPECIFIED Qualifiers: Precerebral and cerebral artery: middle cerebral artery Laterality of affected vessel: left (2) Hypercholesteremia Code(s): E78.00 - PURE HYPERCHOLESTEROLEMIA, UNSPECIFIED (3) Lymph edema Code(s): I89.0 - LYMPHEDEMA, NOT ELSEWHERE CLASSIFIED (4) T2DM (type 2 diabetes mellitus) Code(s): E11.9 - TYPE 2 DIABETES MELLITUS WITHOUT COMPLICATIONS Qualifiers: Diabetes mellitus complication status: without complication Diabetes mellitus exterminator helper insulin use: without exterminator helper use Qualified Code(s): E11.9 - Type 2 diabetes mellitus without complications (5) Hypertension Code(s): I10 - ESSENTIAL (PRIMARY) HYPERTENSION Qualifiers: Hypertension type: essential hypertension Qualified Code(s): I10 - Essential (primary) hypertension (6) Malignant neoplasm of right breast Code(s): C50.911 - MALIGNANT NEOPLASM OF UNSP SITE OF RIGHT FEMALE BREAST (7) Pacemaker Code(s): Z95.0 - PRESENCE OF CARDIAC PACEMAKER (8) Diastolic dysfunction Code(s): I51.9 - HEART DISEASE, UNSPECIFIED (9) Anorexia Code(s): R63.0 - ANOREXIA (10) Status post gastrostomy Code(s): Z93.1 - GASTROSTOMY STATUS Assessment/Plan 08/13/2016 Echocardiography revealed normal LV size and function with no significant valvular pathology 1. Acute new lacunar stroke with prior history of old stroke with residual mild right hemiplegia post gastrotomy tube placement 2. History of LV systolic dysfunction with class 0-I NYHA classification LV failure, euvolemic (normal LV systolic function on repeat echocardiography) 3. 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 AV block post PPM ([employer]) at [place] post dual chamber pacemaker S/P generator replacement 5. Carotid stenosis post carotid endarterectomy 6. HTN 7. DM 8. Hyperlipidemia 9. History of right breast carcinoma on chemo with associated RUE lymphedema 10. CKD 11. Vascular dementia with anorexia PLAN: 1. Enteral feeds 2. Continue Labetolol 300 mg bid, Crestor 20 mg qd, ASA 81 and losartan 50 qd as hemodynamics tolerate 3. DVT prophylaxis with Fondaparinux 4. PT and eventual SNF placement. Follow up with her underground supervisor in [facility] 5. Further follow up of breast CA as outpatient
[2016-09-05] MEDS: FLUCONAZOLE 100 MG/NS 50 ML IVPB SCH (12:37)
== END 2016-09-05 14:24 | disposition home health service (06) | DRG 40 ==
LOC: JER 09:11 → JERBED 12:44 → J4S 18:28
PROVIDERS: ADMIT Internal Medicine; ATTEND Nurse Practitioner Family
PROC: 0JH606Z Insertion of Pacemaker, Dual Chamber into Chest Subcutaneous Tissue and Fascia, Open Approach (ICD-10-PCS; 2016-08-17)
PROC: 0JPT0PZ Removal of Cardiac Rhythm Related Device from Trunk Subcutaneous Tissue and Fascia, Open Approach (ICD-10-PCS; principal; 2016-08-17 09:30)
PROC: 0DH63UZ Insertion of Feeding Device into Stomach, Percutaneous Approach (ICD-10-PCS; 2016-08-28)
DX: I63.9 Cerebral infarction, unspecified (principal); R53.2 Functional quadriplegia; I69.351 Hemiplegia and hemiparesis following cerebral infarction affecting right dominant side; E87.1 Hypo-osmolality and hyponatremia; B37.0 Candidal stomatitis; I13.0 Hypertensive heart and chronic kidney disease with heart failure and stage 1 through stage 4 chronic kidney disease, or unspecified chronic kidney disease; I50.22 Chronic systolic (congestive) heart failure; I10 Essential (primary) hypertension; E78.5 Hyperlipidemia, unspecified; C50.911 Malignant neoplasm of unspecified site of right female breast; I89.0 Lymphedema, not elsewhere classified; F01.50 Vascular dementia, unspecified severity, without behavioral disturbance, psychotic disturbance, mood disturbance, and anxiety; R13.10 Dysphagia, unspecified; K94.21 Gastrostomy hemorrhage; E87.6 Hypokalemia; E11.22 Type 2 diabetes mellitus with diabetic chronic kidney disease; N18.9 Chronic kidney disease, unspecified; Z45.010 Encounter for checking and testing of cardiac pacemaker pulse generator [battery]; Z95.0 Presence of cardiac pacemaker
CPT/HCPCS: 36415; 49440; 49465; 70450-TC; 71010-TC; 72125-TC; 72170-TC; 74000-TC; 74176-TC; 74230-TC; 74241-TC; 80048; 80053; 80061; 81003; 82272; 83036; 83721; 83735; 84443; 85025; 85027; 85610; 85730; 86850; 86900; 86901; 87081; 88300-TC; 90715; 92611-GN; 93005; 93010; 93306-TC; 93880-TC; 94760; 97162-GP; 99281-25; 99285-25; C1769; J8521